=== PATIENT | male | born 1950 | race Caucasian/White ===

== ENCOUNTER → 2016-03-31 | Outpatient (CLI) | payer OTHER ==
[~2016-03-31] MED LIST: ALBUAER INH; ALBUAER2 INH; AZEL0.056 NAE; CHOL4POW3 PO; CHOL4POW6 PO; CPR500HP PO; LACT1CAP6 PO; LDDP5 TD; LEVO500T19 PO; MONT1TAB3 PO; NXM/40 PO; PSYL48.59 PO; PSYL55.43 PO; SLSS TOP; SYMIN/8045 INH; TRIA1SPR2 NAE; TRIA1SPR4 NAE; VNTHFA/IN INH
[2016-03-31 18:36] LABS: ALT/SGPT 40 U/L (12-78); AST/SGOT 30 U/L (15-37); BLOOD UREA NITROGEN 13 mg/dl (7-18); BUN/CREATININE RATIO 9.3 (10-20); CALCIUM 9.1 mg/dl (8.5-10.1); CARBON DIOXIDE 27 mmol/L (21-32); CHLORIDE 104 mmol/L (98-107); GLUCOSE 88 mg/dl (70-99); POTASSIUM 4.1 mmol/L (3.5-5.1); SODIUM 139 mmol/L (136-145)
[2016-03-31 18:39] LABS: ALB/GLOB RATIO 1.1 (0.9-2); ALKALINE PHOSPHATASE 79 U/L (45-117)
== END | disposition home or self-care (01) ==
LOC: C.LABSPEC 10:54
PROVIDERS: ATTEND Family Medicine
DX: M54.10 Radiculopathy, site unspecified (principal)

== ENCOUNTER 2016-04-18 10:30 | Observation (INO) | payer OTHER ==
[~2016-04-18] VITALS: Ht 170.2 cm; Wt 114.9 kg
[~2016-04-18 10:30] MED LIST changes: -ALBUAER INH; -AZEL0.056 NAE; -CHOL4POW3 PO; -CPR500HP PO; -LDDP5 TD; -LEVO500T19 PO; -MONT1TAB3 PO; -PSYL48.59 PO; -SLSS TOP; -SYMIN/8045 INH; -TRIA1SPR4 NAE; -VNTHFA/IN INH
[2016-04-18] MEDS ORDERED: NITROGLYCERIN OINT 2% 1GM PACKET EXT STA (10:51)
[2016-04-18] MEDS ORDERED: OPTIRAY 320 IV PRN (11:15)
--- NOTE | 2016-04-18 11:23 | DIAGNOSTIC IMAGING REPORT ---
CHEST ONE VIEW PORTABLE CLINICAL HISTORY: Atypical chest pain COMPARISON STUDY: 06/27/2015 FINDINGS: The cardiac and mediastinal contours are normal. There is no evidence of focal pulmonary consolidation. There is no evidence of failure. No pleural effusions are visualized.[ IMPRESSION: No active disease in the chest. Electronically signed by: João Patino M.D. 04/18/2016 11:21 AM Dictated Date/Time: 04/18/2016 11:21 AM
[2016-04-18 13:07] LABS: HEMATOCRIT 43.6 % (42-52); MEAN CELL VOLUME 95.8 fL (80-100); MEAN CORPUSCULAR HEMOGLOBIN 32.7 pg (25-34); MEAN CORPUSCULAR HGB CONC 34.2 g/dl (32-36); MEAN PLATELET VOLUME 9.6 fL (7.4-10.4); PLATELET COUNT 256 K/uL (130-400); RED BLOOD COUNT 4.55 M/uL (4.7-6.1); WHITE BLOOD COUNT 8.19 K/uL (4.8-10.8)
--- NOTE | 2016-04-18 13:15 | DIAGNOSTIC IMAGING REPORT ---
CHEST CTA for PULMONARY ARTERIES CT DOSE: 618.60 mGycm HISTORY: Atypical chest pain. TECHNIQUE: Multiaxial CT images of the chest were performed following the intravenous administration of contrast to evaluate the pulmonary arteries. Maximal intensity projection images were also obtained. COMPARISON STUDY: Chest 04/18/2016. Abdomen and pelvis CT 04/25/2015. FINDINGS: Normal caliber thoracic aorta with no evidence for dissection. Tiny hiatus hernia. No pleural or pericardial effusions. No filling defects within the pulmonary arteries to suggest pulmonary embolus. No mediastinal or hilar lymphadenopathy. Fatty changes within the liver. Cholecystectomy. The visualized spleen and adrenal glands are unremarkable. Lower cervical spinal fusion hardware. No pneumothorax. Stable 4 mm nodule within the right lower lobe. There are 2 adjacent nodular densities within the right minor fissure which measure up to 4 mm. These are likely benign. The right lung nodules are stable dating back to a 2013 examination. Therefore considered to be benign. No focal lung consolidations. IMPRESSION: No evidence for pulmonary embolus. Electronically signed by: Darryl Bailey M.D. 04/18/2016 1:14 PM Dictated Date/Time: 04/18/2016 1:04 PM
[2016-04-18 13:24] LABS: ALT/SGPT 40 U/L (12-78); AST/SGOT 29 U/L (15-37); BLOOD UREA NITROGEN 19 mg/dl (7-18); BUN/CREATININE RATIO 14.4 (10-20); CALCIUM 8.3 mg/dl (8.5-10.1); CARBON DIOXIDE 25 mmol/L (21-32); CHLORIDE 106 mmol/L (98-107); GLUCOSE 120 mg/dl (70-99); POTASSIUM 4.1 mmol/L (3.5-5.1); SODIUM 140 mmol/L (136-145)
[2016-04-18 13:27] LABS: PARTIAL THROMBOPLASTIN RATIO 1.1; PROTHROMBIN TIME (PATIENT) 11.2 SECONDS (9.0-12.0)
[2016-04-18 13:29] LABS: ALKALINE PHOSPHATASE 73 U/L (45-117); CKMB/CK RATIO 2.8 (0-3.0)
--- NOTE | 2016-04-18 15:02 | History and Physical ---
History & Physical Date & Time of Service: Apr 18, 2016 at 14:51 Chief Complaint: Chest Pain Primary Care Physician: Kd Andres M.D. ([place]) History of Present Illness Source: patient, family, hospital records This patient is a pleasant 66-year-old male that presents the emergency department complaining of persistent bandlike chest pain radiating down his arms that has been going on for approximately 1 month. The patient notes that he was hunting in January. 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 He cannot figure out any exacerbating or alleviating factors. It does not seem to be worse with movement or exertion. He does not feel short of breath, however the notes that he does appear to be winded. He denies any pleuritic-type pain-no pain with a deep breath. Denies any nausea or diaphoresis. He did have an episode of lightheadedness that was short-lived the other day. The patient has seen his primary care physician, orthopedic surgeon and GI doctor for this problem. He had an MRI of his back and an endoscopy performed. Neither of which showed any significant abnormalities. The patient denies any history of coronary disease. He had a stress test that was normal many years back. Past Medical/Surgical History Medical Problems: (1) Asthma Status: Chronic (2) Prostatitis Status: Chronic Status post esophageal dilation many years ago Diverticulitis status post partial colectomy, colostomy with reversal in 2013 History of brain aneurysm Cervical stenosis with bulge disc Surgical Problems: (1) Hx of cholecystectomy Status: Resolved (2) Hx of ileostomy Status: Resolved Status post cervical fusion Family History Cancer Gallbladder disease Hypertension Kidney disease Kidney stones Social History Smoking Status: Former Smoker (smoked about 1 pack of cigarettes per day approximately 40 years ago) Alcohol Use: none Drug Use: none Marital Status: Housing status: lives with significant other Occupational Status: retired Multi-Drug Resistant Organisms History of MDRO: No Allergies Coded Allergies: Aspirin (Verified Allergy, Unknown, UNKNOWN, 04/18/16) Hydrocodone (Verified Adverse Reaction, Mild, N/V, 04/18/16) Home Medications Scheduled Cholestyramine Powder (Questran Powder Light), 1 DOSE PO BID Esomeprazole Magnesium (Nexium), 40 MG PO QAM Lactobacillus (Probiotic), 1 CAP PO DAILY Psyllium (Metamucil Powder), 1 PACK PO DAILY Triamcinolone Acetonide (Nasal (Nasacort-Aq Nasal Inh), 1 SPRAY BABAR BID Scheduled PRN Albuterol (Ventolin), 2 PUFFS INH QID PRN for Shortness of Breath Review of Systems 10 system review performed and negative unless noted in HPI or below Physical Exam Vital Signs Date Time Temp Pulse Resp B/P Pulse Ox O2 Delivery O2 Flow Rate FiO2 04/18/16 12:53 82 18 142/73 93 Room Air 04/18/16 11:06 94 Room Air 04/18/16 10:50 81 04/18/16 10:36 36.6 86 20 185/77 93 Room Air 04/18/16 10:36 93 Room Air General Appearance: no apparent distress Head: normocephalic Eyes: EOMI Neck: no JVD Respiratory/Chest: chest non-tender Cardiovascular: regular rate, rhythm Abdomen/GI: normal bowel sounds, non tender, soft Back: + pertinent finding (no tenderness to palpation noted over the spinous processes throughout the spine. No tenderness over the thorax.) Extremities/Musculoskelatal: no calf tenderness, no pedal edema Neurologic/Psych: no motor/sensory deficits, oriented x 3 Skin: warm/dry Diagnostics Laboratory Results Results Past 24 Hours Test 04/18/16 13:00 Range/Units White Blood Count 8.19 4.8-10.8 K/uL Red Blood Count 4.55 4.7-6.1 M/uL Hemoglobin 14.9 14.0-18.0 g/dL Hematocrit 43.6 42-52 % Mean Corpuscular Volume 95.8 80-100 fL Mean Corpuscular Hemoglobin 32.7 25-34 pg Mean Corpuscular Hemoglobin Concent 34.2 32-36 g/dl RDW Standard Deviation 50.2 36.4-46.3 fL RDW Coefficient of Variation 14.4 11.5-14.5 % Platelet Count 256 130-400 K/uL Mean Platelet Volume 9.6 7.4-10.4 fL Nucleated RBC Absolute Count (auto) 0.02 0-0 K/uL Nucleated Red Blood Cells % 0.3 % Prothrombin Time 11.2 9.0-12.0 SECONDS Prothromb Time International Ratio 1.0 0.9-1.1 Activated Partial Thromboplast Time 27.3 21.0-31.0 SECONDS Partial Thromboplastin Ratio 1.1 Sodium Level 140 136-145 mmol/L Potassium Level 4.1 3.5-5.1 mmol/L Chloride Level 106 98-107 mmol/L Carbon Dioxide Level 25 21-32 mmol/L Anion Gap 9.0 3-11 mmol/L Blood Urea Nitrogen 19 7-18 mg/dl Creatinine 1.30 0.60-1.40 mg/dl Est Creatinine Clear Calc Drug Dose 69.7 ml/min Estimated GFR () 66.4 Estimated GFR (Non- 57.3 BUN/Creatinine Ratio 14.4 10-20 Random Glucose 120 70-99 mg/dl Calcium Level 8.3 8.5-10.1 mg/dl Total Bilirubin 0.3 0.2-1 mg/dl Aspartate Amino Transf (AST/SGOT) 29 15-37 U/L Alanine Aminotransferase (ALT/SGPT) 40 12-78 U/L Alkaline Phosphatase 73 45-117 U/L Total Creatine Kinase 54 39-308 U/L Creatine Kinase MB 1.5 0.5-3.6 ng/ml Creatine Kinase MB Ratio 2.8 0-3.0 Troponin I < 0.015 0-0.045 ng/ml Total Protein 6.9 6.4-8.2 gm/dl Albumin 3.4 3.4-5.0 gm/dl Globulin 3.5 2.5-4.0 gm/dl Albumin/Globulin Ratio 1.0 0.9-2 Lipase 82 73-393 U/L Diagnostic Radiology Patient: JOSE OVERTON Address1: [address] [place] [address] Rec: [id number] [facility] [id number] Zip: [place] [address] Date: 1950 Sex: M Room/Bed: Ref Phy: Kd Andrse M.D. ([place]OTIE) SC: QUINN Att Phy: Report #: [id number] Valerie Phy: Kd Andres M.D. (TOOTIE) Test: CXPEA Admit Phy: Tape Recording Machine Operator: NAZ Interpreting Phy: Darryl Bailey MD Diagnosis: CHEST PAIN Ordering Phy: Luisito Fry M.D. Service Date: 04/18/16 Admit Date: 04/18/16 MNE: [id number] CONF: DICTATED BY: Darryl Bailey M.D.]] CC: Kd Andres M.D. ([place]OTIE) Luisito Fry M.D. Endcc: [~ rep ct add3]] CHEST CTA for PULMONARY ARTERIES CT DOSE: 618.60 mGycm HISTORY: Atypical chest pain. TECHNIQUE: Multiaxial CT images of the chest were performed following the intravenous administration of contrast to evaluate the pulmonary arteries. Maximal intensity projection images were also obtained. COMPARISON STUDY: Chest 04/18/2016. Abdomen and pelvis CT 04/25/2015. FINDINGS: Normal caliber thoracic aorta with no evidence for dissection. Tiny hiatus hernia. No pleural or pericardial effusions. No filling defects within the pulmonary arteries to suggest pulmonary embolus. No mediastinal or hilar lymphadenopathy. Fatty changes within the liver. Cholecystectomy. The visualized spleen and adrenal glands are unremarkable. Lower cervical spinal fusion hardware. No pneumothorax. Stable 4 mm nodule within the right lower lobe. There are 2 adjacent nodular densities within the right minor fissure which measure up to 4 mm. These are likely benign. The right lung nodules are stable dating back to a 2014 examination. Therefore considered to be benign. No focal lung consolidations. IMPRESSION: No evidence for pulmonary embolus. Electronically signed by: Darryl Bailey M.D. 04/18/2016 1:14 PM Dictated Date/Time: 04/18/2016 1:04 PM The status of this report is Signed. Draft = Not yet reviewed or approved by Radiologist. Signed = Reviewed and approved by Radiologist. <AttendingPhy></AttendingPhy> <FamilyPhy>Kd Andres M.D. ([place]IE)</FamilyPhy > <PrimaryPhy>Kd Andres M.D. ([place]IE)</PrimaryPhy> <UnitNumber>[id number]</ UnitNumber> <VisitNumber>[id number]</VisitNumber> <PatientName>JOSE OVERTON </PatientName> <DateOfBirth>1950</DateOfBirth> [facility] <ServiceDate>04/18/16</ServiceDate> <MNE>ESINDI</MNE> <OrderingPhy>Luisito Fry M.D.</OrderingPhy> <OrderingPhyMNE>f rep ord dr coronado</OrderingPhyMNE> < DictatingPhyMNE>f rep dict dr coronado</DictatingPhyMNE> <CCListMNE>f rep ct mne</ CCListMNE> <AdmittingPhyMNE>f pt admit dr coronado</AdmittingPhyMNE> <AttendingPhyMNE >f pt attend dr coronado</AttendingPhyMNE> <ConsultingPhyMNE>f pt consult dr coronado</ConsultingPhyMNE> <FamilyPhyMNE>f pt fam dr coronado</FamilyPhyMNE> <OtherPhyMNE>f pt other dr coronado</Othe EKG Normal sinus rhythm 77 bpm Left anterior fascicular block noted Q waves in the inferior leads Impression Assessment and Plan 66-year-old male presents to emergency department with a bandlike chest pain persisted over the last month. Radiation down the arms. Sounds more musculoskeletal as opposed to cardiac chest pain -observe in telemetry -follow cardiac enzymes every 8 hr x 2 -daily EKG -EKG with worsening pain -Patient cannot take aspirin due to GI issues -continue nitroglycerin paste -check LFTs, lipase-r/o GI cause Asthma-no flare -prn duonebs will be available hx esophageal dilation-could be a factor of pain today -PPI DVT prophylaxis -Lovenox 40 mg subQ daily -TEDS, SCDs CODE STATUS -LEVEL I FULL CODE Level of Care Telemetry Resuscitation Status FULL RESUSCITATION VTE Prophylaxis VTE Risk Assessment Done? Y/N: Yes Risk Level: Low Given or contraindicated: Enoxaparin (Lovenox)SQ, T.E.D. Stockings, SCD's Note Attending note: Patient was seen and examined in the ED. Case was discussed with Shell Bryant PA-C. I agree with her assessment and plan as written above. Additionally, would recommend checking MRI T spine if stress negative. He already had an MRI C-spine. I do not have access to the report at this time, but he tells me that his Orthopedic surgeon reviewed the films and found cause for his symptoms on that study. Julio Wooten MD
[2016-04-18] MEDS ORDERED: ONDANSETRON INJ 2 MG/ML 2 ML VIAL IV PRN (15:15)
[2016-04-18] MEDS ORDERED: ACETAMINOPHEN 325 MG TAB PO PRN (15:15)
[2016-04-18] MEDS ORDERED: IV FLUIDS COMPLETED PRN (15:45)
[2016-04-18] MEDS ORDERED: PERFLUTREN LIPID MICROSPHERE (DEFINITY) IV ONE (16:30)
--- NOTE | 2016-04-18 17:05 | EMERGENCY ROOM VISIT NOTE ---
History Report prepared by Mynor: Herman Nino Under the Supervision of: Dr. Luisito Fry M.D. First contact with patient: 10:48 Chief Complaint: CHEST PAIN Stated Complaint: CHEST PAIN Nursing Triage Summary: Chest pain that radiates through to the back and pain in the left neck and jaw. States he has had this pain for a while, that his fmd put him on prednisone, no ekg done at that time. pain worse today when he awoke at approx 630 am did not take anything for the pain. allergic to aspirin. History of Present Illness The patient is a 66 year old male who presents to the Emergency Room with complaints of persistent chest pain for the past 1.5 months. The pain radiates to his back, and yesterday radiated to his left jaw/neck. The pain is rated 5/ 10 in severity. The patient denies shortness of breath, however his thinks he has appeared more short of breath. The patient felt more nauseated today. He saw his PCP two weeks ago for the pain he has been experiencing. He has been taking Prednisone 40 mg for several days, which hasn't helped. The patient had an MRI of the neck since he he does have a history of cervical disc surgery, the study was basically negative for a cause for his pain. The patient also had a negative endoscopy since the onset of his pain. The patient does not have a personal or family history of heart disease. He is a former smoker since 25-30 years ago. Source of History: patient Onset: 1.5 months ago Position: chest Symptom Intensity: 5/10 Timing: other (persistent) Associated Symptoms: + back pain, + nausea, + neck pain, No SOB Review of Systems See HPI for pertinent positives & negatives. A total of 10 systems reviewed and were otherwise negative. Past Medical & Surgical Medical Problems: (1) Asthma (2) Chest pain (3) DDD (degenerative disc disease), cervical (4) Prostatitis Surgical Problems: (1) Hx of cholecystectomy (2) Hx of ileostomy Family History Cancer Gallbladder disease Hypertension Kidney disease Kidney stones Social History Smoking Status: Former Smoker Alcohol Use: none Marital Status: Housing Status: lives with significant other Occupation Status: retired Current/Historical Medications Scheduled Cholestyramine Powder (Questran Powder Light), 1 DOSE PO BID Esomeprazole Magnesium (Nexium), 40 MG PO QAM Lactobacillus (Probiotic), 1 CAP PO DAILY Psyllium (Metamucil Powder), 1 PACK PO DAILY Triamcinolone Acetonide (Nasal (Nasacort-Aq Nasal Inh), 1 SPRAY BABAR BID Scheduled PRN Albuterol (Ventolin), 2 PUFFS INH QID PRN for Shortness of Breath Allergies Coded Allergies: Aspirin (Verified Allergy, Unknown, UNKNOWN, 04/18/16) Hydrocodone (Verified Adverse Reaction, Mild, N/V, 04/18/16) Physical Exam Vital Signs Date Time Temp Pulse Resp B/P Pulse Ox O2 Delivery O2 Flow Rate FiO2 04/18/16 15:00 69 20 105/57 93 Room Air 04/18/16 12:53 82 18 142/73 93 Room Air 04/18/16 11:06 94 Room Air 04/18/16 10:50 81 04/18/16 10:36 36.6 86 20 185/77 93 Room Air 04/18/16 10:36 93 Room Air Physical Exam GENERAL: Patient is in no acute distress. HEENT: No acute trauma, normocephalic atraumatic, mucous membranes moist, no nasal congestion, no scleral icterus. NECK: No stridor, no adenopathy, no meningismus, trachea is midline. LUNGS: Clear to auscultation bilaterally, no wheeze, no rhonchi, breath sounds equal. HEART: Without murmurs gallops or rubs, regular rate and rhythm. ABDOMEN: Soft, nontender, bowel sounds positive, no hernias, no peritonitis. EXTREMITIES: No cyanosis or edema, full range of motion of all the joints without pain or difficulty, no signs for acute trauma. NEUROLOGIC: Oriented x 3, no acute motor or sensory deficits, no focal weakness. SKIN: No rash, no jaundice, no diaphoresis. Medical Decision & Procedures ER Provider Diagnostic Interpretation: X ray results and stated below per my interpretation and radiologist interpretation. Other radiology results and stated below per my review and radiologist interpretation: CHEST ONE VIEW PORTABLE CLINICAL HISTORY: Atypical chest pain COMPARISON STUDY: 06/27/2015 FINDINGS: The cardiac and mediastinal contours are normal. There is no evidence of focal pulmonary consolidation. There is no evidence of failure. No pleural effusions are visualized.[ IMPRESSION: No active disease in the chest. Electronically signed by: João Patino M.D. 04/18/2016 11:21 AM Dictated Date/Time: 04/18/2016 11:21 AM CHEST CTA for PULMONARY ARTERIES CT DOSE: 618.60 mGycm HISTORY: Atypical chest pain. TECHNIQUE: Multiaxial CT images of the chest were performed following the intravenous administration of contrast to evaluate the pulmonary arteries. Maximal intensity projection images were also obtained. COMPARISON STUDY: Chest 04/18/2016. Abdomen and pelvis CT 04/25/2015. FINDINGS: Normal caliber thoracic aorta with no evidence for dissection. Tiny hiatus hernia. No pleural or pericardial effusions. No filling defects within the pulmonary arteries to suggest pulmonary embolus. No mediastinal or hilar lymphadenopathy. Fatty changes within the liver. Cholecystectomy. The visualized spleen and adrenal glands are unremarkable. Lower cervical spinal fusion hardware. No pneumothorax. Stable 4 mm nodule within the right lower lobe. There are 2 adjacent nodular densities within the right minor fissure which measure up to 4 mm. These are likely benign. The right lung nodules are stable dating back to a 2013 examination. Therefore considered to be benign. No focal lung consolidations. IMPRESSION: No evidence for pulmonary embolus. Electronically signed by: Darryl Bailey M.D. 04/18/2016 1:14 PM Dictated Date/Time: 04/18/2016 1:04 PM Laboratory Results 04/18/16 13:00 04/18/16 13:00 Test 04/18/16 13:00 Red Blood Count 4.55 M/uL (4.7-6.1) Mean Corpuscular Volume 95.8 fL (80-100) Mean Corpuscular Hemoglobin 32.7 pg (25-34) Mean Corpuscular Hemoglobin Concent 34.2 g/dl (32-36) RDW Standard Deviation 50.2 fL (36.4-46.3) RDW Coefficient of Variation 14.4 % (11.5-14.5) Mean Platelet Volume 9.6 fL (7.4-10.4) Nucleated RBC Absolute Count (auto) 0.02 K/uL (0-0) Nucleated Red Blood Cells % 0.3 % Prothrombin Time 11.2 SECONDS (9.0-12.0) Prothromb Time International Ratio 1.0 (0.9-1.1) Activated Partial Thromboplast Time 27.3 SECONDS (21.0-31.0) Partial Thromboplastin Ratio 1.1 Anion Gap 9.0 mmol/L (3-11) Est Creatinine Clear Calc Drug Dose 69.7 ml/min Estimated GFR () 66.4 Estimated GFR (Non- 57.3 BUN/Creatinine Ratio 14.4 (10-20) Calcium Level 8.3 mg/dl (8.5-10.1) Total Bilirubin 0.3 mg/dl (0.2-1) Aspartate Amino Transf (AST/SGOT) 29 U/L (15-37) Alanine Aminotransferase (ALT/SGPT) 40 U/L (12-78) Alkaline Phosphatase 73 U/L (45-117) Total Creatine Kinase 54 U/L (39-308) Creatine Kinase MB 1.5 ng/ml (0.5-3.6) Creatine Kinase MB Ratio 2.8 (0-3.0) Troponin I < 0.015 ng/ml (0-0.045) Total Protein 6.9 gm/dl (6.4-8.2) Albumin 3.4 gm/dl (3.4-5.0) Globulin 3.5 gm/dl (2.5-4.0) Albumin/Globulin Ratio 1.0 (0.9-2) Lipase 82 U/L (73-393) Laboratory results reviewed by me. Medications Administered Medications (Trade) Dose Ordered Sig/Magdy Route Start Time Stop Time Status Last Admin Dose Admin Nitroglycerin (Nitroglycerin 2% Oint) 1 inch NOW STAT EXT 04/18/16 10:51 04/18/16 10:58 DC 04/18/16 11:10 1 INCH ECG Indication: chest pain Rate (beats per minute): 77 Rhythm: normal sinus Findings: no acute ischemic change, no ectopy ED Course 1050: The patient was evaluated in room C9. A complete history and physical exam was performed. 1051: Nitroglycerin 2% 1 inch EXT. 1356: The patient is feeling better after Nitroglycerin. 1412: [facility] The patient will be evaluated. Medical Decision Differential diagnosis includes cardiac ischemia, aortic dissection, PE, reflux , esophageal spasm, pancreatitis, musculoskeletal pain, gastritis. There is no leukocytosis or concerning anemia. No significant electrolyte abnormality, kidney failure, hepatitis, pancreatitis. There is no coagulopathy. Chest x-ray does not show pneumonia or pneumothorax. There is no mediastinal widening. EKG shows a normal sinus rhythm without any acute ischemia. Cardiac enzyme testing 1 is not elevated. Chest CT shows no PE, no evidence for aortic dissection. The patient was given nitroglycerin paste, he feels improved. I do think the patient deserves further cardiac workup. Admission/observation is warranted. I talked to the patient, I did consult with case management. The on-call hospitalist was consulted. Consults Time Called: 1405 Consulting Physician: Shell Bryant [facility]-C, [facility] Returned Call: [phone]: Spoke with Shell Bryant PA-C, [facility]. The patient will be evaluated. Impression Primary Impression: Precordial chest pain Scribe Attestation The scribe's documentation has been prepared under my direction and personally reviewed by me in its entirety. I confirm that the note above accurately reflects all work, treatment, procedures, and medical decision making performed by me. Departure Information Dispostion Being Evaluated By Hospitalist Referrals Kd Andres M.D.[facility] ([facility]P) Patient Instructions My [facility]
--- NOTE | 2016-04-18 17:41 | EXERCISE STRESS ECHO ---
*NOTICE TO RECEIVING LIBERTARIAN AGENCY This information is strictly Confidential and protected under [place] law. [place] law prohibits you from making any further disclosure of this information unless further disclosure is expressly permitted by the written consent of the person to whom it pertains or is authorized by law. A general authorization for the release of medical or other information is not sufficient for this purpose. Hospital accepts no responsibility if the information is made available to any other person, INCLUDING THE PATIENT. Interpretation Summary * Name: JOSE OVERTON Study Date: 04/18/2016 03:25 PM BP: 131/75 mmHg * Patient [facility]: [facility] HR: 69 * : 1950 (M/d/yyyy) Gender: Male Height: 68 in * Age: 66 yrs Ethnicity: [place] Weight: 253 lb * Ordering Physician: Julio Wooten * Referring Physician: Self, Referred * Performed By: Danae Nick RCS * * Reason For Study: CHEST PAIN * BSA: 2.3 m2 * This was a normal stress echocardiogram. * The left ventricular ejection fraction increases normally with stress. The left ventricular end-systolic cavity size reduces post-stress (normal response). The left ventricular wall motion with stress is normal. * The stress echocardiogram is negative for inducible ischemia. * The stress ECG response was normal * Exercise capacity is average. * RESTING STUDY: Normal left ventricular cavity size, myocardial thickness, wall motion, and systolic function. * Stress wall motion was normal. Procedure Details * ECHOEX, CPT #[id number] Left Ventricle * The left ventricle is normal in size. * There is normal left ventricular wall thickness. * Left ventricular systolic function is normal. * Ejection Fraction = 55-60%. * Resting wall motion: Normal. Stress wall motion: Appropriate increase in Left ventricular systolic function and decrease in cavity size. No stress induced segmental wall motion abnormalities. * The left ventricular ejection fraction increases normally with stress. The left ventricular end-systolic cavity size reduces post-stress (normal response). The left ventricular wall motion with stress is normal. * No regional wall motion abnormalities noted. Stress Parameters * Normal sinus rhythm, PVC, left axis deviation, left anterior fasicular block, incomplete RBBB, non specific T wave changes. * The stress ECG response was normal * Stress ECG: No ST changes. No arrhythmias. * The stress portion of this study was personally supervised by the undersigned interpreting physician. * Rest heart rate was '69' BPM. * Rest blood pressure was '131/75' * Maximum heart rate achieved was 142 bpm. * Maximum heart rate was 91 % of maximum age-predicted heart rate. * Maximum blood pressure was '165/66' * Total exercise time was '06:00' * Maximum exercise MET level achieved was '7.00' METS * Maximum treadmill speed was '2.50' miles per hour. * Maximum treadmill elevation was '12.00'% grade. * Exercise was terminated due to 'fatigue and dyspnea.' * No chest pain or back pain during or following exercise. * Normal blood pressure response to exercise.
[2016-04-18 17:50] VITALS: BP 120/74; PULSE 62; TEMP 36.6; O2SAT 91; Ht 170.2 cm; Wt 114.9 kg
[2016-04-18] MEDS: NITROGLYCERIN OINT 2% 1GM PACKET EXT SCH ×2 (18:20→23:41)
[2016-04-18] MEDS ORDERED: ALBUTEROL HFA 8 GM INHALER INH PRN (19:00)
[2016-04-18 19:18] VITALS: BP 111/67; PULSE 69; TEMP 36.4; O2SAT 93
[2016-04-18 20:00] VITALS: O2SAT 91
[2016-04-18] MEDS: TRIAMCINOLONE ACET NASAL SPRAY 10.8ML BTL NAE SCH (20:51)
[2016-04-18] MEDS: CHOLESTYRAMINE LIGHT 4 GM PKT PO SCH (20:57)
[2016-04-18] MEDS ORDERED: ENOXAPARIN 40 MG/0.4 ML SYR SC SCH (21:00)
[2016-04-18 22:13] LABS: CKMB/CK RATIO 1.5 (0-3.0)
[2016-04-18 23:34] VITALS: BP 87/41; PULSE 69; TEMP 36.5; O2SAT 91
[2016-04-19] VITALS (11 sets, daily range): BP systolic 91–128; BP diastolic 52–78; PULSE 65–76; TEMP 36.6–36.7; O2SAT 91–95
[2016-04-19] MEDS ORDERED: MoRPHine SULFATE 2 MG/ML CARP IV PRN (04:30)
[2016-04-19] MEDS: NITROGLYCERIN OINT 2% 1GM PACKET EXT SCH (06:32)
[2016-04-19] MEDS ORDERED: PANTOprazole SOD 40 MG TAB PO SCH (09:00)
[2016-04-19] MEDS ORDERED: LACTOBACILLUS ACIDOPHILUS (FLORANEX) TAB PO SCH (09:00)
[2016-04-19] MEDS ORDERED: PSYLLIUM 58.6% PWD PACK S\\F PO SCH (09:00)
[2016-04-19] MEDS ORDERED: LIDODERM (LIDOCAINE) PATCH 5% TD SCH (09:00)
[2016-04-19] MEDS: TRIAMCINOLONE ACET NASAL SPRAY 10.8ML BTL NAE SCH (09:44)
[2016-04-19] MEDS: CHOLESTYRAMINE LIGHT 4 GM PKT PO SCH (09:45)
[2016-04-19] MEDS ORDERED: LDDP5 TD (11:00)
--- NOTE | 2016-04-19 11:04 | Discharge Instructions ---
Discharge Instructions Admission Reason for Admission: Chest Pain Discharge Discharge Diagnosis / Problem: chest/back pain Discharge Goals Goal(s): Decrease discomfort, Improve function, Diagnostic testing Activity Recommendations Activity Limitations: as noted below Exercise/Sports Limitations: as tolerated . Instructions / Follow-Up Instructions / Follow-Up You have been treated in the hospital for chest and back pain. A stress test was performed. It was negative. It does not appear this pain is coming from your heart. It is most likely musculoskeletal in nature. Please follow-up with your primary care physician within one week You have been prescribed a lidocaine patch that you can apply to your back daily. If insurance does not cover this, a similar product can be found over- the-counter made by [employer] and also [employer] Return to the emergency department if you have any of the following symptoms: -Fever of 103F or greater -Persistent vomiting - Persistent diarrhea -Lethargy -Shortness of breath -Worsening pain Current Hospital Diet Patient's current hospital diet: Regular Diet Discharge Diet Recommended Diet: Regular Diet Procedures Procedures Performed: Stress test-negative CT of the chest-negative Pending Studies Studies pending at discharge: no Medical Emergencies . Who to Call and When: Medical Emergencies: If at any time you feel your situation is an emergency, please call 911 immediately. . Non-Emergent Contact Non-Emergency issues call your: Primary Care Provider . . "Provider Documentation" section prepared by Shell Bryant. VTE Core Measure Inpt VTE Proph given/why not?: Enoxaparin (Lovenox)SQ, T.E.Evelina. Stockings, SCD's
--- NOTE | 2016-04-19 11:15 | Discharge Summary ---
Discharge Summary Admission Date: Apr 18, 2016 at 15:05 Discharge Date: Apr 19, 2016 Discharge Disposition: Home Principal Diagnosis: chest/back pain Problems/Secondary Diagnoses: GERD Procedures: CT chest-negative Stress echo-negative MRI thoracic spine (Shell Bryant PA-C) Medication Reconciliation New Medications: Lidocaine (Lidocaine) 1 Patch Tdsy 1 PATCH TD QAM for 15 Days, #15 Continued Medications: Albuterol (Ventolin) Inh 2 PUFFS INH QID PRN for Shortness of Breath, INHALER Cholestyramine Powder (Questran Powder Light) Powd 1 DOSE PO BID Esomeprazole Magnesium (Nexium) 40 Mg Capcr 40 MG PO QAM Lactobacillus (Probiotic) 1 Cap Cap 1 CAP PO DAILY Psyllium (Metamucil Powder) Powd 1 PACK PO DAILY, PACK Triamcinolone Acetonide (Nasal (Nasacort-Aq Nasal Inh) 55 Mcg/ Spr 1 SPRAY BABAR BID, BTL Referrals At Discharge Follow up Referrals: Physician Referral - Within 1 Week with Kd Andres M.D. ([facility]) Discharge Exam Patient reports that the pain in his back wrapping around to his chest is better today. It has been better since he was admitted. He denies any shortness of breath. No dizziness or heart palpitations. He did note a mild headache last night. This resolved once the nitroglycerin was taken off. Review of Systems: Constitutional: No fever Respiratory: No cough, No shortness of breath Abdomen: No nausea Neurologic: No weakness Endocrine: No fatigue Physical Exam: General Appearance: no apparent distress Eyes: EOMI Neck: no JVD Respiratory/Chest: lungs clear, + pertinent finding (no tenderness to palpation noted over the spinous processes. Mild point tenderness noted to the left lateral chest in line with the armpit at approximately the fifth rib level) Cardiovascular: regular rate, rhythm Abdomen / GI: normal bowel sounds, non tender, soft Extremities: no calf tenderness, no pedal edema Neurologic/Psychiatric: no motor/sensory deficits, oriented x 3 (Shell Bryant PA-C) Hospital Course 66-year-old male presents to emergency department with a bandlike chest pain persisted over the last month. Radiation down the arms. Thought to be likely musculoskeletal, however the patient's symptoms were improved in the emergency department when nitroglycerin was applied. For this reason, the patient was observed overnight for a rule out ACS -Observed overnight -Cardiac enzymes remained negative 3 -No EKG changes -Stress echo negative -CT of the chest was performed in the emergency department and negative for PE ? Pain musculoskeletal in nature-the patient has a history of a bulge disc in his cervical spine and underwent a fusion -An MRI of the thoracic spine was performed -The patient was given a lidocaine patch (he cannot take NSAIDs) -He will follow-up with his orthopedic doctor Asthma-no flare -prn duonebs will be available hx esophageal dilation -continue Nexium DVT prophylaxis -Lovenox 40 mg subQ daily -TEDS, SCDs CODE STATUS -LEVEL I FULL CODE Total Time Spent: Greater than 30 minutes This includes examination of the patient, discharge planning, medication reconciliation, and communication with other providers. (Shell Bryant PA-C) Patient was seen and examined. Case was discussed with Shell Bryant PA-C. I agree with her assessment and plan as written above. Patient's pain is likely musculoskeletal in nature. For outpatient follow up with his PCP and Ortho. (Julio Wooten MD) Discharge Instructions Please refer to the electronic Patient Visit Report (Discharge Instructions) for additional information. (Shell Bryant PA-C) Follow-Up PCP within one week Orthopedics within 1 month (Shell Bryant PA-C) Additional Copies To Kd Andres MD
--- NOTE | 2016-04-19 12:48 | DIAGNOSTIC IMAGING REPORT ---
THORACIC SPINE MRI WITH AND WITHOUT CONTRAST HISTORY: Pain thoracic back pain wrapping around to chest bilaterally TECHNIQUE: Multiplanar multisequence MRI of the thoracic spine was performed both before and after the intravenous administration of contrast. COMPARISON: None. FINDINGS: Mild degenerative disc change throughout the entire thoracic region. Vertebral body stature is unremarkable. Signal characteristics of the thoracic cord are unremarkable. Postcontrast images show no evidence for abnormal postcontrast enhancement. Transaxial images throughout the entire thoracic region are negative for disc herniation or spinal stenosis. IMPRESSION: Minimal to very mild degenerative intervertebral disc change. Otherwise negative study of the thoracic spine Electronically signed by: Scott Degroot M.D. 04/19/2016 12:47 PM Dictated Date/Time: 04/19/2016 12:45 PM
[2016-08-01] MEDS ORDERED: MONT1TAB3 PO (08:12)
[2016-08-05] MEDS ORDERED: CHOL4POW3 PO (12:37)
[2016-08-05] MEDS ORDERED: LEVO500T19 PO (12:37)
== END 2016-04-19 16:02 | disposition home or self-care (01) ==
LOC: ENRESERVDT → ENRESERVTM → C.EDB 10:33 → C.2T 15:05
PROVIDERS: ADMIT Hospitalist; ATTEND Hospitalist
DX: K21.9 Gastro-esophageal reflux disease without esophagitis (principal); J45.909 Unspecified asthma, uncomplicated; K44.9 Diaphragmatic hernia without obstruction or gangrene; R07.9 Chest pain, unspecified; R91.1 Solitary pulmonary nodule; Z87.891 Personal history of nicotine dependence

== ENCOUNTER → 2016-07-09 | Outpatient (CLI) | payer OTHER ==
[~2016-07-09] MED LIST changes: +ALBUAER INH; +AZEL0.056 NAE; +CHOL4POW3 PO; +CPR500HP PO; +LDDP5 TD; +LEVO500T19 PO; +MONT1TAB3 PO; +PSYL48.59 PO; +SLSS TOP; +SYMIN/8045 INH; +TRIA1SPR4 NAE; +VNTHFA/IN INH
--- NOTE | 2016-07-09 07:35 | DIAGNOSTIC IMAGING REPORT ---
FUSION CT SINUSES W/O CLINICAL HISTORY: Chronic sinusitis and eustachian tube dysfunction COMPARISON STUDY: No previous studies for comparison. FINDINGS: There are small left maxilla sinus polyp/retention cyst. There is a dependent polyp/air-fluid level within the right maxillary sinus. The sphenoid sinus is clear. The ethmoid sinuses are clear. The frontal sinuses clear. The mastoid air cells appear symmetrically aerated. The middle ear cavities appear symmetrically aerated. No orbital lesions are visualized. The ostiomeatal units are patent bilaterally. There is a left-sided Nikki cell. There is mild nasal septal deviation to the right. The ethmoidal notches are protected. The frontal ethmoidal recesses are patent. IMPRESSION: 1. Mild inflammatory changes within the maxillary sinuses 2. The ostiomeatal units are patent bilaterally Electronically signed by: João Patino M.D. 07/09/2016 7:33 AM Dictated Date/Time: 07/09/2016 7:28 AM
== END | disposition home or self-care (01) ==
LOC: C.CTS 07:05
DX: H69.83 Other specified disorders of Eustachian tube, bilateral (principal); J32.9 Chronic sinusitis, unspecified

== ENCOUNTER 2016-08-01 17:31 | Inpatient (IN) | payer OTHER ==
[~2016-08-01] VITALS: Ht 172.7 cm; Wt 114.8 kg
[~2016-08-01 17:31] MED LIST changes: -ALBUAER INH; -AZEL0.056 NAE; -CHOL4POW3 PO; -CPR500HP PO; -LEVO500T19 PO; -PSYL48.59 PO; -SLSS TOP; -SYMIN/8045 INH; -TRIA1SPR4 NAE; -VNTHFA/IN INH
--- NOTE | 2016-08-01 18:43 | EMERGENCY ROOM VISIT NOTE ---
History Report prepared by Mynor: Pema Kramer Under the Supervision of: Dr. Ab Lynn M.D. First contact with patient: 18:32 Chief Complaint: URINARY SYMPTOMS Stated Complaint: PROSTATE PAIN,FREQUENT URINATION Nursing Triage Summary: Patient states last night around midnight he started having to urinate frequently, he also has pain in prostate and rectum that began. Dr Andres prescribed Cipro for him. Pt states hx prostatitis, but it's been 2 years. Concerned because he has a fever. 102F at home. Tylenol last taken at 1430 History of Present Illness The patient is a 66 year old male who presents to the Emergency Room with complaints of worsening urinary symptoms beginning last night. The patient states that he is experiencing increased frequency and burning with urination. He notes that about every 15 minutes he has the urgency to urinate. The patient is also experiencing pain similar to previous episodes of prostatitis with this , including pain with bowel movements. He does note a history of prostatitis. He is experiencing a fever of 102 today. The patient did take Tylenol. He sent a urine sample to his PCP today. Urine dip was not infected and cultures were sent. The patient is currently on Cipro, he took 1 dosage this evening. Source of History: patient Onset: last night Position: other (global) Quality: other (urinary symptoms) Timing: worsening Associated Symptoms: + fevers Note: Patient is experiencing rectal and prostate pain. Review of Systems See HPI for pertinent positives & negatives. A total of 10 systems reviewed and were otherwise negative. Past Medical & Surgical Medical Problems: (1) Asthma (2) Chest pain (3) DDD (degenerative disc disease), cervical (4) Prostatitis (5) SIRS (systemic inflammatory response syndrome) Surgical Problems: (1) Hx of cholecystectomy (2) Hx of ileostomy Family History Cancer Gallbladder disease Hypertension Kidney disease Kidney stones Social History Smoking Status: Former Smoker Alcohol Use: none Drug Use: none Marital Status: Housing Status: lives with significant other Occupation Status: retired Current/Historical Medications Scheduled Albuterol Sulfate (Proventil Hfa), 2 PUFFS INH BID Budesonide/Formoterol Fumarate (Symbicort 80/4.5 Inhaler), 2 PUFFS INH BID Cholestyramine (Cholestyramine), 1 PKT PO BID Ciprofloxacin (Ciprofloxacin HCl), 1 TAB PO BID Esomeprazole Magnesium (Nexium), 40 MG PO DAILY Lactobacillus (Probiotic), 1 CAP PO DAILY Psyllium (Metamucil), 1 PKT PO DAILY Selenium Sulfide (Selsun), 1 APPLN TOP UD Triamcinolone Acetonide (Nasal (Nasacort Allergy 24Hr), 1 SPRAYS BABAR DAILY Scheduled PRN Azelastine HCl (Azelastine HCl), 2 SPRAYS BABAR DAILY PRN for Nasal Congestion Allergies Coded Allergies: Aspirin (Verified Allergy, Unknown, UNKNOWN, 04/18/16) Hydrocodone (Verified Adverse Reaction, Mild, N/V, 04/18/16) Physical Exam Vital Signs Date Time Temp Pulse Resp B/P Pulse Ox O2 Delivery O2 Flow Rate FiO2 08/01/16 21:15 90 18 139/67 96 Room Air 08/01/16 21:06 Room Air 08/01/16 19:18 94 18 158/75 96 Room Air 08/01/16 17:43 37.8 104 17 162/78 93 Room Air Physical Exam GENERAL: Patient is uncomfortable appearing, diaphoretic and in mild distress. HEENT: No acute trauma, normocephalic atraumatic, mucous membranes moist, no nasal congestion, no scleral icterus. NECK: No stridor, no adenopathy, no meningismus, trachea is midline. LUNGS: No dyspnea. Clear to auscultation and equal bilaterally. No wheeze, no rhonchi. HEART: Tachycardic rate and rhythm. No murmurs, rubs, gallops appreciated. ABDOMEN: Soft, nontender, bowel sounds positive, no masses appreciated, no peritonitis. BACK: No midline tenderness, no CVA tenderness EXTREMITIES: Normal motion all extremities, no cyanosis, no edema. NEUROLOGIC: Alert and oriented, no acute motor or sensory deficits, no focal weakness, cranial nerves grossly intact. SKIN: No rash, no jaundice, no diaphoresis. Medical Decision & Procedures Laboratory Results 08/01/16 19:05 Red Blood Count 4.83, Mean Corpuscular Volume 99.2, Mean Corpuscular Hemoglobin 34.0, Mean Corpuscular Hemoglobin Concent 34.2, Mean Platelet Volume 9.4, Neutrophils (%) (Auto) 82.6, Lymphocytes (%) (Auto) 6.5, Monocytes (%) (Auto) 9.8, Eosinophils (%) (Auto) 0.5, Basophils (%) (Auto) 0.2, Neutrophils # (Auto) 15.22, Lymphocytes # (Auto) 1.20, Monocytes # (Auto) 1.80, Eosinophils # (Auto) 0.10, Basophils # (Auto) 0.03 08/01/16 19:05 Test 08/01/16 19:05 08/01/16 19:10 08/01/16 19:13 White Blood Count 18.42 K/uL (4.8-10.8) Red Blood Count 4.83 M/uL (4.7-6.1) Hemoglobin 16.4 g/dL (14.0-18.0) Hematocrit 47.9 % (42-52) Mean Corpuscular Volume 99.2 fL (80-100) Mean Corpuscular Hemoglobin 34.0 pg (25-34) Mean Corpuscular Hemoglobin Concent 34.2 g/dl (32-36) Platelet Count 181 K/uL (130-400) Mean Platelet Volume 9.4 fL (7.4-10.4) Neutrophils (%) (Auto) 82.6 % Lymphocytes (%) (Auto) 6.5 % Monocytes (%) (Auto) 9.8 % Eosinophils (%) (Auto) 0.5 % Basophils (%) (Auto) 0.2 % Neutrophils # (Auto) 15.22 K/uL (1.4-6.5) Lymphocytes # (Auto) 1.20 K/uL (1.2-3.4) Monocytes # (Auto) 1.80 K/uL (0.11-0.59) Eosinophils # (Auto) 0.10 K/uL (0-0.5) Basophils # (Auto) 0.03 K/uL (0-0.2) RDW Standard Deviation 52.6 fL (36.4-46.3) RDW Coefficient of Variation 14.4 % (11.5-14.5) Immature Granulocyte % (Auto) 0.4 % Immature Granulocyte # (Auto) 0.07 K/uL (0.00-0.02) Anion Gap 8.0 mmol/L (3-11) Est Creatinine Clear Calc Drug Dose 60.6 ml/min Estimated GFR () 55.8 Estimated GFR (Non- 48.2 BUN/Creatinine Ratio 11.1 (10-20) Calcium Level 9.0 mg/dl (8.5-10.1) C-Reactive Protein 5.21 mg/dl (0-0.29) Urine Color YELLOW Urine Appearance CLEAR (CLEAR) Urine pH 7.5 (4.5-7.5) Urine Specific [place] 1.020 (1.000-1.030) Urine Protein NEG (NEG) Urine Glucose (UA) NEG (NEG) Urine Ketones NEG (NEG) Urine Occult Blood NEG (NEG) Urine Nitrite NEG (NEG) Urine Bilirubin NEG (NEG) Urine Urobilinogen NEG (NEG) Urine Leukocyte Esterase MODERATE (NEG) Urine WBC (Auto) 10-30 /hpf (0-5) Urine RBC (Auto) 0-4 /hpf (0-4) Urine Hyaline Casts (Auto) 5-10 /lpf (0-5) Urine Epithelial Cells (Auto) >30 /lpf (0-5) Urine Bacteria (Auto) NEG (NEG) Urine Renal Epithelial Cells /lpf (0-5) Bedside Lactic Acid Venous 1.24 mmol/L (0.90-1.70) Laboratory results as reviewed by me. Medications Administered Medications (Trade) Dose Ordered Sig/Magdy Route Start Time Stop Time Status Last Admin Dose Admin Sodium Chloride (Nss 1000ml) 2,000 ml @ 999 mls/hr Q2H1M STAT IV 08/01/16 19:36 08/01/16 21:36 DC 08/01/16 19:41 999 MLS/HR Piperacillin Sod/ Tazobactam Sod (Zosyn Iv) 4.5 gm NOW STAT IV 08/01/16 19:36 08/01/16 19:38 DC 08/01/16 19:41 4.5 GM ED Course 1836: The patient was evaluated in room A10. A complete history and physical exam was performed. 1935: Zosyn Iv 4.5 gm IV, Sodium Chloride 2,000 ml @ 999 mls/hr IV. 2005: The patient is feeling better after receiving fluids. 2030: Discussed the patient's case with Dr. Damion Cancino [facility]. The patient will be evaluated for further treatment and disposition. 2041: Upon reevaluation, the patient is hemodynamically stable. Discussed results and treatment plan with the patient. He verbalized understanding and agreement with the treatment plan. The patient will be evaluated for further management. Medical Decision 66 yr old male arrives with fevers, tachycardia, fatigue and symptoms similar to previous episodes of prostatitis. Early sepsis without shock. Lactic acid and BP are OK. WBC quite elevated consistent with his infection. Blood cultures obtained. Started cipro already, thus will add on IV Zosyn while here. Discussed with hospitalist and will hold off on imaging given patient's history though agree with inpatient treatment. Stable throughout stay and feeling better after IV fluids. Consults Time Called: 2028 Consulting Physician: Dr. Bruno - [facility] Returned Call: 2030 Discussed the patient's case. The patient will be evaluated for further treatment and disposition. Impression Primary Impression: Prostatitis Additional Impression: Sepsis Scribe Attestation The scribe's documentation has been prepared under my direction and personally reviewed by me in its entirety. I confirm that the note above accurately reflects all work, treatment, procedures, and medical decision making performed by me. Departure Information Dispostion Being Evaluated By Hospitalist Referrals Kd Andres M.D.[place]) (PCP) Problem Qualifiers Primary Impression: Prostatitis Prostatitis type: acute Qualified Codes: N41.0 - Acute prostatitis Additional Impression: Sepsis Sepsis type: sepsis due to unspecified organism Qualified Codes: A41.9 - Sepsis, unspecified organism
[2016-08-01 19:27] LABS: BASO % 0.2 %; BASO ABS # 0.03 K/uL (0-0.2); COMPLETE YES; EOS % 0.5 %; HEMATOCRIT 47.9 % (42-52); IG% 0.4 %; LYMPH % 6.5 %; MEAN CELL VOLUME 99.2 fL (80-100); MEAN CORPUSCULAR HGB CONC 34.2 g/dl (32-36); MEAN PLATELET VOLUME 9.4 fL (7.4-10.4); MONO % 9.8 %; NEUT % 82.6 %; PLATELET COUNT 181 K/uL (130-400); RED BLOOD COUNT 4.83 M/uL (4.7-6.1); WHITE BLOOD COUNT 18.42 K/uL (4.8-10.8)
[2016-08-01] MEDS ORDERED: SODIUM CHLORIDE 0.9% 1000ML 2,000 ML IV STA (19:36)
[2016-08-01] MEDS ORDERED: PIPERACILLIN/TAZOBACTAM 4.5 GM/100ML D5W IV STA (19:36)
[2016-08-01 19:56] LABS: CREATININE 1.5 mg/dl (0.60-1.40)
[2016-08-01 19:57] LABS: BUN/CREATININE RATIO 11.1 (10-20); C-REACTIVE PROTEIN 5.21 mg/dl (0-0.29); POTASSIUM 4.1 mmol/L (3.5-5.1)
[2016-08-01 20:01] LABS: URINE APPEARANCE CLEAR (CLEAR); URINE BILIRUBIN NEG (NEG); URINE COLOR YELLOW; URINE EPITHELIAL CELL AUTO >30 /lpf (0-5); URINE NITRITE NEG (NEG); URINE PH 7.5 (4.5-7.5); UROBILINOGEN NEG (NEG); ZZUR CULT IF INDIC CLEAN CATCH YES
[2016-08-01 20:17] LABS: MANUAL MICROSCOPIC REQUIRED? NO; REVIEW REQ? YES
[2016-08-01] MEDS ORDERED: CPR500HP PO (20:55)
[2016-08-01] MEDS ORDERED: VNTHFA/IN INH (20:55)
[2016-08-01] MEDS ORDERED: SLSS TOP (20:55)
[2016-08-01] MEDS ORDERED: AZEL0.056 NAE (20:55)
[2016-08-01] MEDS ORDERED: NXM/40 PO (20:55)
[2016-08-01] MEDS ORDERED: CHOL4POW3 PO (20:55)
[2016-08-01 21:06] VITALS: Ht 172.7 cm; Wt 114.8 kg
[2016-08-01] MEDS ORDERED: TRIA1SPR4 NAE (21:11)
[2016-08-01] MEDS ORDERED: ALBUAER INH (21:11)
[2016-08-01] MEDS ORDERED: SYMIN/8045 INH (21:11)
[2016-08-01] MEDS ORDERED: PSYL48.59 PO (21:13)
[2016-08-01] MEDS ORDERED: ONDANSETRON INJ 2 MG/ML 2 ML VIAL IV PRN (22:00)
[2016-08-01] MEDS ORDERED: ZOLPIDEM TARTRATE 5 MG TAB PO PRN (22:00)
[2016-08-01] MEDS ORDERED: PIPERACILL/TAZOBAC CONSULT ACTIVE PRN (22:45)
[2016-08-01 22:54] VITALS: O2SAT 94
[2016-08-01 23:00] VITALS: BP 159/81; PULSE 86; TEMP 37; O2SAT 94
--- NOTE | 2016-08-01 23:25 | History and Physical ---
History & Physical Date & Time of Service: August 01, 2016 at 23:25 Chief Complaint: Prostatitis; Sirs Primary Care Physician: Kd Andres M.D. ([facility]) History of Present Illness Source: patient The patient is a 66-year-old male who presents to the emergency department with worsening symptoms of urinary frequency of every 15 minutes and burning with urination that began yesterday evening. His symptoms are similar to that of previous instances of prostatitis, and worsened with bowel movements as before. He had temperature of 102F today. He was empirically placed on Cipro by his PCP earlier in the day today, which she's taken one dose so far. Past Medical/Surgical History Medical Problems: (1) Asthma Status: Chronic (2) Prostatitis Status: Chronic Surgical Problems: (1) Hx of cholecystectomy Status: Resolved (2) Hx of ileostomy Status: Resolved Family History Cancer Gallbladder disease Hypertension Kidney disease Kidney stones Social History Smoking Status: Former Smoker Smokeless Tobacco Use: No Alcohol Use: none Drug Use: none Marital Status: Housing status: lives with significant other Occupational Status: retired Multi-Drug Resistant Organisms History of MDRO: No Allergies Coded Allergies: Aspirin (Verified Allergy, Unknown, UNKNOWN, 04/18/16) Hydrocodone (Verified Adverse Reaction, Mild, N/V, 04/18/16) Home Medications Scheduled Albuterol Sulfate (Proventil Hfa), 2 PUFFS INH BID Budesonide/Formoterol Fumarate (Symbicort 80/4.5 Inhaler), 2 PUFFS INH BID Cholestyramine (Cholestyramine), 1 PKT PO BID Ciprofloxacin (Ciprofloxacin HCl), 1 TAB PO BID Esomeprazole Magnesium (Nexium), 40 MG PO DAILY Lactobacillus (Probiotic), 1 CAP PO DAILY Psyllium (Metamucil), 1 PKT PO DAILY Selenium Sulfide (Selsun), 1 APPLN TOP UD Triamcinolone Acetonide (Nasal (Nasacort Allergy 24Hr), 1 SPRAYS BABAR DAILY Scheduled PRN Azelastine HCl (Azelastine HCl), 2 SPRAYS BABAR DAILY PRN for Nasal Congestion Review of Systems The patient denies chest pain, palpitations, shortness of breath, cough, lower extremity swelling, vision change, hearing change, sore throat, chills, sweats, weight change, fatigue, nausea, vomiting, abdominal pain, pelvic pain, blood in urine or stool, ightheadedness, dizziness, headache, memory loss, rash, abnormal bruising or bleeding, imbalance, focal or generalized weakness, numbness or tingling in arms or legs, arthralgias or myalgias, back or neck pain , night sweats, or allergy symptoms. The review of systems is otherwise negative other than for that already noted above, and at least 10 systems have been reviewed. Physical Exam Vital Signs Date Time Temp Pulse Resp B/P Pulse Ox O2 Delivery O2 Flow Rate FiO2 08/01/16 22:54 81 18 157/68 94 08/01/16 21:15 90 18 139/67 96 Room Air 08/01/16 21:06 Room Air 08/01/16 19:18 94 18 158/75 96 Room Air 08/01/16 17:43 37.8 104 17 162/78 93 Room Air The patient is awake, well-developed and adequately nourished, alert and oriented 3, normocephalic and atraumatic, lying in bed and in no acute distress. HEENT--PERRL, EOMI, mucous membranes and oropharynx dry. Neck--supple, no JVD or bruits, thyroid normal, trachea midline, no adenopathy. Heart--normal S1 and S2, no extra beats, no murmurs, rubs or gallops. Lungs--clear bilaterally with good air movement, no respiratory distress, no accessory muscle use. Abdomen--normal bowel sounds and soft, nontender and nondistended, no hernias or masses, no organomegaly. Extremities--no cyanosis, clubbing or edema. There are good distal pulses b/l. Dermatologic--normal skin turgor, normal color, warm and dry, no abnormal lymph nodes, no rash. Neurologic--cranial nerves II through XII grossly intact, motor and sensory examination normal. Rheumatologic--normal range of motion, nontender, muscles and joints. Psychiatric--normal affect. Diagnostics Laboratory Results Results Past 24 Hours Test 08/01/16 19:05 08/01/16 19:10 08/01/16 19:13 Range/Units White Blood Count 18.42 4.8-10.8 K/uL Red Blood Count 4.83 4.7-6.1 M/uL Hemoglobin 16.4 14.0-18.0 g/dL Hematocrit 47.9 42-52 % Mean Corpuscular Volume 99.2 80-100 fL Mean Corpuscular Hemoglobin 34.0 25-34 pg Mean Corpuscular Hemoglobin Concent 34.2 32-36 g/dl Platelet Count 181 130-400 K/uL Mean Platelet Volume 9.4 7.4-10.4 fL Neutrophils (%) (Auto) 82.6 % Lymphocytes (%) (Auto) 6.5 % Monocytes (%) (Auto) 9.8 % Eosinophils (%) (Auto) 0.5 % Basophils (%) (Auto) 0.2 % Neutrophils # (Auto) 15.22 1.4-6.5 K/uL Lymphocytes # (Auto) 1.20 1.2-3.4 K/uL Monocytes # (Auto) 1.80 0.11-0.59 K/uL Eosinophils # (Auto) 0.10 0-0.5 K/uL Basophils # (Auto) 0.03 0-0.2 K/uL RDW Standard Deviation 52.6 36.4-46.3 fL RDW Coefficient of Variation 14.4 11.5-14.5 % Immature Granulocyte % (Auto) 0.4 % Immature Granulocyte # (Auto) 0.07 0.00-0.02 K/uL Sodium Level 138 136-145 mmol/L Potassium Level 4.1 3.5-5.1 mmol/L Chloride Level 102 98-107 mmol/L Carbon Dioxide Level 28 21-32 mmol/L Anion Gap 8.0 3-11 mmol/L Blood Urea Nitrogen 17 7-18 mg/dl Creatinine 1.50 0.60-1.40 mg/dl Est Creatinine Clear Calc Drug Dose 60.6 ml/min Estimated GFR () 55.8 Estimated GFR (Non- 48.2 BUN/Creatinine Ratio 11.1 10-20 Random Glucose 80 70-99 mg/dl Calcium Level 9.0 8.5-10.1 mg/dl C-Reactive Protein 5.21 0-0.29 mg/dl Urine Color YELLOW Urine Appearance CLEAR CLEAR Urine pH 7.5 4.5-7.5 Urine Specific [place] 1.020 1.000-1.030 Urine Protein NEG NEG Urine Glucose (UA) NEG NEG Urine Ketones NEG NEG Urine Occult Blood NEG NEG Urine Nitrite NEG NEG Urine Bilirubin NEG NEG Urine Urobilinogen NEG NEG Urine Leukocyte Esterase MODERATE NEG Urine WBC (Auto) 10-30 0-5 /hpf Urine RBC (Auto) 0-4 0-4 /hpf Urine Hyaline Casts (Auto) 5-10 0-5 /lpf Urine Epithelial Cells (Auto) >30 0-5 /lpf Urine Bacteria (Auto) NEG NEG Urine Renal Epithelial Cells 0-5 /lpf Bedside Lactic Acid Venous 1.24 0.90-1.70 mmol/L Microbiology Results 08/01/16 Blood Culture, Received Pending 08/01/16 Blood Culture, Received Pending Impression Assessment and Plan Recurrent prostatitis/SIRS--the patient will be admitted to the medical surgical floor. He has been started on Zosyn in the emergency department, and this will be continued at 3.375 mg IV every [address] also [address] on IV fluids. Follow urine culture and sensitivity results. WBC elevated at 18.42, will repeat laboratories in a.m. If urine outflow issues, will start tamsulosin 0.4 mg by mouth in the evening. Acute renal insufficiency-- creatinine was 1.50 point admission. Placed on IV fluids as noted above, encourage plenty of oral intake, and repeat laboratories in the a.m. Asthma--continue her usual medications of Proventil HFA, and Symbicort. GERD--change Nexium 40 mg by mouth daily to pantoprazole 40 mg by mouth daily. Level of Care Med/Surg Advanced Directives Existing Advance Directive: No Existing Living Will: Yes Existing Power of Product Inspection Supervisor: Yes Resuscitation Status FULL RESUSCITATION VTE Prophylaxis VTE Risk Assessment Done? Y/N: Yes Risk Level: Moderate Given or contraindicated: SCD's Social Service Consult None Apply
[2016-08-01] MEDS: CHOLESTYRAMINE LIGHT 4 GM PKT PO SCH (23:41)
[2016-08-01] MEDS: PIPERACILL/TAZOBAC IV 4.5 GM in DEXTROSE 5% 100ML 100 ML IV SCH (23:41)
[2016-08-01] MEDS: NSS + 20MEQ KCL 1000ML 1,000 ML IV SCH (23:41)
[2016-08-02 00:19] VITALS: BP 173/79; PULSE 84; TEMP 36.8; O2SAT 96
[2016-08-02 06:19] LABS: BASO % 0.2 %; BASO ABS # 0.03 K/uL (0-0.2); COMPLETE YES; EOS % 0.6 %; IG% 0.3 %; LYMPH % 10.5 %; LYMPH ABS # 1.79 K/uL (1.2-3.4); MEAN CELL VOLUME 99.1 fL (80-100); MEAN CORPUSCULAR HEMOGLOBIN 33.2 pg (25-34); MEAN CORPUSCULAR HGB CONC 33.5 g/dl (32-36); MEAN PLATELET VOLUME 9.4 fL (7.4-10.4); MONO % 9.1 %; NEUT % 79.3 %; PLATELET COUNT 159 K/uL (130-400); RED BLOOD COUNT 4.34 M/uL (4.7-6.1); WHITE BLOOD COUNT 17.05 K/uL (4.8-10.8)
[2016-08-02 06:59] LABS: BUN/CREATININE RATIO 9.5 (10-20); CREATININE 1.2 mg/dl (0.60-1.40); POTASSIUM 3.5 mmol/L (3.5-5.1)
[2016-08-02 07:18] VITALS: BP 144/80; PULSE 87; TEMP 36.4; O2SAT 93
--- NOTE | 2016-08-02 07:49 | Progress Note ---
Subjective Date of Service: August 02, 2016. Subjective Pt is feeling better, is still having some minor dull pain to suprapubic area and pain in rectum with bowel movement, pain is 2-3/10 dull and only with movement. otherwise feels improved, and has appetite Problem List Medical Problems: (1) Epigastric discomfort Status: Acute (2) Nausea Status: Acute (3) Precordial chest pain Status: Acute (4) Prostatitis Status: Chronic (5) Sepsis Status: Acute Review of Systems Constitutional: + weakness, No chills, No fever Respiratory: No cough, No shortness of breath, No sputum, No wheezing Cardiac: No PND, No chest pain, No edema, No orthopnea Abdomen: + pain, No diarrhea, No vomiting Musculoskeletal: No joint pain, No muscle pain, No swelling Male : + dysuria, No incontinence, No urinary frequency Neurologic: No memory loss, No paralysis Objective Vital Signs Date Time Temp Pulse Resp B/P Pulse Ox O2 Delivery O2 Flow Rate FiO2 08/02/16 07:18 36.4 87 16 144/80 93 Room Air 08/02/16 00:19 36.8 84 19 173/79 96 Room Air 08/01/16 23:00 37.0 86 20 159/81 94 Room Air 08/01/16 22:54 81 18 157/68 94 08/01/16 21:15 90 18 139/67 96 Room Air 08/01/16 21:06 Room Air 08/01/16 19:18 94 18 158/75 96 Room Air 08/01/16 17:43 37.8 104 17 162/78 93 Room Air Physical Exam General Appearance: WD/WN, + mild distress Eyes: PERRL, EOMI ENT: hearing grossly normal, pharynx normal Neck: supple, trachea midline Respiratory/Chest: chest non-tender, lungs clear, normal breath sounds Cardiovascular: regular rate, rhythm, no murmur Abdomen: normal bowel sounds, soft, + guarding, + tenderness Extremities: no pedal edema, no calf tenderness Neurologic/Psychiatric: alert, oriented x 3 Laboratory Results Last 24 Hours Test 08/01/16 19:05 08/01/16 19:10 08/01/16 19:13 08/02/16 05:21 White Blood Count 18.42 K/uL 17.05 K/uL Red Blood Count 4.83 M/uL 4.34 M/uL Hemoglobin 16.4 g/dL 14.4 g/dL Hematocrit 47.9 % 43.0 % Mean Corpuscular Volume 99.2 fL 99.1 fL Mean Corpuscular Hemoglobin 34.0 pg 33.2 pg Mean Corpuscular Hemoglobin Concent 34.2 g/dl 33.5 g/dl Platelet Count 181 K/uL 159 K/uL Mean Platelet Volume 9.4 fL 9.4 fL Neutrophils (%) (Auto) 82.6 % 79.3 % Lymphocytes (%) (Auto) 6.5 % 10.5 % Monocytes (%) (Auto) 9.8 % 9.1 % Eosinophils (%) (Auto) 0.5 % 0.6 % Basophils (%) (Auto) 0.2 % 0.2 % Neutrophils # (Auto) 15.22 K/uL 13.52 K/uL Lymphocytes # (Auto) 1.20 K/uL 1.79 K/uL Monocytes # (Auto) 1.80 K/uL 1.56 K/uL Eosinophils # (Auto) 0.10 K/uL 0.10 K/uL Basophils # (Auto) 0.03 K/uL 0.03 K/uL RDW Standard Deviation 52.6 fL 52.9 fL RDW Coefficient of Variation 14.4 % 14.5 % Immature Granulocyte % (Auto) 0.4 % 0.3 % Immature Granulocyte # (Auto) 0.07 K/uL 0.05 K/uL Sodium Level 138 mmol/L 140 mmol/L Potassium Level 4.1 mmol/L 3.5 mmol/L Chloride Level 102 mmol/L 108 mmol/L Carbon Dioxide Level 28 mmol/L 22 mmol/L Anion Gap 8.0 mmol/L 10.0 mmol/L Blood Urea Nitrogen 17 mg/dl 11 mg/dl Creatinine 1.50 mg/dl 1.20 mg/dl Est Creatinine Clear Calc Drug Dose 60.6 ml/min 75.5 ml/min Estimated GFR () 55.8 73.1 Estimated GFR (Non- 48.2 63.1 BUN/Creatinine Ratio 11.1 9.5 Random Glucose 80 mg/dl 97 mg/dl Calcium Level 9.0 mg/dl 8.0 mg/dl C-Reactive Protein 5.21 mg/dl Urine Color YELLOW Urine Appearance CLEAR Urine pH 7.5 Urine Specific [place] 1.020 Urine Protein NEG Urine Glucose (UA) NEG Urine Ketones NEG Urine Occult Blood NEG Urine Nitrite NEG Urine Bilirubin NEG Urine Urobilinogen NEG Urine Leukocyte Esterase MODERATE Urine WBC (Auto) 10-30 /hpf Urine RBC (Auto) 0-4 /hpf Urine Hyaline Casts (Auto) 5-10 /lpf Urine Epithelial Cells (Auto) >30 /lpf Urine Bacteria (Auto) NEG Urine Renal Epithelial Cells /lpf Bedside Lactic Acid Venous 1.24 mmol/L Magnesium Level 2.0 mg/dl Assessment and Plan 66 M with infection symptoms, suspect urinary source, possible prostatis as he has had in the past, does have pain in that area with bowel movement and some bladder discomfort Recurrent prostatitis/SIRS-Zosyn at 3.375 mg IV every 6 hours. tamsulosin 0.4 mg by mouth in the evening, consider proscar. Acute renal failure-- resolved IV fluids, encourage oral intake. Asthma--stable Proventil HFA, and Symbicort. GERD--asymptomatic pantoprazole 40 mg by mouth daily.
[2016-08-02] MEDS: NSS + 20MEQ KCL 1000ML 1,000 ML IV SCH ×2 (09:27→19:15)
[2016-08-02] MEDS: PIPERACILL/TAZOBAC IV 4.5 GM in DEXTROSE 5% 100ML 100 ML IV SCH ×3 (09:30→23:22)
[2016-08-02] MEDS: PSYLLIUM 58.6% PWD PACK S\\F PO SCH (09:31)
[2016-08-02] MEDS: TRIAMCINOLONE ACET NASAL SPRAY 10.8ML BTL NAE SCH (09:31)
[2016-08-02] MEDS: LACTOBACILLUS ACIDOPHILUS (FLORANEX) TAB PO SCH ×3 (09:32→17:24)
[2016-08-02] MEDS: PANTOprazole SOD 40 MG TAB PO SCH (09:32)
[2016-08-02] MEDS: CHOLESTYRAMINE LIGHT 4 GM PKT PO SCH ×2 (09:32→19:16)
[2016-08-02] MEDS: BUDESONIDE/FORMOTEROL FUMARATE 80/4.5 60 PUFFS/INHALER INH SCH ×2 (09:34→20:05)
[2016-08-02] MEDS: ALBUTEROL HFA 8 GM INHALER INH SCH ×2 (09:35→20:05)
[2016-08-02] MEDS: ACETAMINOPHEN 325 MG TAB PO PRN ×2 (14:37→23:22)
[2016-08-02 15:28] VITALS: BP 119/66; PULSE 18; PULSE 83; TEMP 36.9; O2SAT 94
[2016-08-02] MEDS ORDERED: NURSING VERBAL MED ORDER ONE (17:30)
[2016-08-02 23:11] VITALS: BP 122/62; PULSE 96; TEMP 39; O2SAT 95
[2016-08-03] VITALS (8 sets, daily range): BP systolic 110–160; BP diastolic 62–71; PULSE 79–87; TEMP 36.6–39.3; O2SAT 91–96
[2016-08-03] MEDS ORDERED: NURSING VERBAL MED ORDER ONE
[2016-08-03] MEDS: KETOROLAC TROMETHAMINE 15 MG/ML VIAL IV. PRN ×3 (00:28→15:36)
[2016-08-03] MEDS: NSS + 20MEQ KCL 1000ML 1,000 ML IV SCH ×4 (05:28→20:56)
[2016-08-03] MEDS ORDERED: VANCOMYCIN INJ 1,000 MG in SODIUM CHLORIDE 0.9% 250ML 250 ML IV STA (05:43)
[2016-08-03 05:44] LABS: BLOOD UREA NITROGEN 12 mg/dl (7-18); BUN/CREATININE RATIO 7.7 (10-20); CARBON DIOXIDE 24 mmol/L (21-32); CHLORIDE 104 mmol/L (98-107); GLUCOSE 87 mg/dl (70-99); SODIUM 136 mmol/L (136-145)
[2016-08-03 05:53] LABS: BASO % 0.2 %; BASO ABS # 0.02 K/uL (0-0.2); COMPLETE YES; EOS % 0.4 %; HEMATOCRIT 44.4 % (42-52); IG% 0.5 %; LYMPH % 6.5 %; LYMPH ABS # 0.63 K/uL (1.2-3.4); MEAN CORPUSCULAR HEMOGLOBIN 32.9 pg (25-34); MEAN CORPUSCULAR HGB CONC 33.6 g/dl (32-36); MEAN PLATELET VOLUME 9.2 fL (7.4-10.4); MONO % 5.9 %; NEUT % 86.5 %; PLATELET COUNT 134 K/uL (130-400); RED BLOOD COUNT 4.53 M/uL (4.7-6.1); WHITE BLOOD COUNT 9.66 K/uL (4.8-10.8)
[2016-08-03] MEDS: ACETAMINOPHEN 325 MG TAB PO PRN ×2 (05:56→13:59)
[2016-08-03] MEDS ORDERED: OPTIRAY 320 IV PRN (06:00)
[2016-08-03] MEDS ORDERED: VANCOMYCIN CONSULT ACTIVE PRN (06:30)
[2016-08-03] MEDS: LEVOFLOXACIN / D5W 750 MG in PREMIXED IN D5W 150 ML IV SCH (06:35)
[2016-08-03] MEDS: CHOLESTYRAMINE LIGHT 4 GM PKT PO SCH ×2 (06:35→17:32)
[2016-08-03 07:07] LABS: MAGNESIUM 1.9 mg/dl (1.8-2.4); POTASSIUM 3.9 mmol/L (3.5-5.1)
--- NOTE | 2016-08-03 07:20 | DIAGNOSTIC IMAGING REPORT ---
ABDOMEN AND PELVIS CT WITH IV CONTRAST CT DOSE: 1020.35 mGy.cm HISTORY: Lower abdominal pain. temperature persists, prostatitis TECHNIQUE: Multiaxial CT images of the abdomen and pelvis were performed following the use of intravenous contrast. COMPARISON STUDY: Abdomen and pelvis CT 04/25/2015. FINDINGS: Stable 4 mm pulmonary nodule within the right lower lobe on image 6. Hepatic steatosis. Cholecystectomy. The liver and adrenal glands are unremarkable. Punctate calcification within the tail the pancreas. Small hiatus hernia. Tiny hernia within the right rectus abdominis muscle likely at a prior ostomy site. This contains a knuckle of small bowel. There is small bowel anastomosis within the right lower quadrant and a sigmoid anastomosis. No bowel wall thickening or obstruction. Normal appendix. Bladder is decompressed resulting in suboptimal evaluation. There is suggestion of bladder wall thickening. There is mild inflammatory change surrounding the bladder. The prostate gland enhances normally. No hydronephrosis. There is mild fat stranding surrounding the kidneys and there is infiltration of the renal sinus fat bilaterally. Focal scarring within the right kidney. A few hypodense lesions within the kidneys remain stable. Dominant lesion within the right kidney measures 11 mm. IMPRESSION: 1. There appears to be bladder wall thickening. There is mild inflammatory change surrounding the bladder and kidneys. There is also infiltration of the renal sinus fat bilaterally. Therefore, these findings likely represent a cystitis with associated pyelonephritis. Correlation with urinalysis is suggested. 2. No definite bowel wall thickening or obstruction. 3. Hepatic steatosis. 4. Cholecystectomy. 5. Stable 4 mm nodule within the right lower lobe. 6. Postoperative changes within the bowel again noted. Electronically signed by: Darryl Bailey M.D. 08/03/2016 7:19 AM Dictated Date/Time: 08/03/2016 7:11 AM
[2016-08-03] MEDS: ALBUTEROL HFA 8 GM INHALER INH SCH ×2 (07:33→19:42)
[2016-08-03] MEDS: BUDESONIDE/FORMOTEROL FUMARATE 80/4.5 60 PUFFS/INHALER INH SCH ×2 (07:33→19:41)
[2016-08-03] MEDS: TRIAMCINOLONE ACET NASAL SPRAY 10.8ML BTL NAE SCH (07:33)
[2016-08-03] MEDS: LACTOBACILLUS ACIDOPHILUS (FLORANEX) TAB PO SCH ×3 (07:34→17:32)
[2016-08-03] MEDS: PANTOprazole SOD 40 MG TAB PO SCH (07:35)
[2016-08-03] MEDS: PSYLLIUM 58.6% PWD PACK S\\F PO SCH ×2 (07:35→17:33)
[2016-08-03] MEDS ORDERED: VANCOMYCIN INJ 2,800 MG in SODIUM CHLORIDE 0.9% 500ML 500 ML IV SCH (08:00)
[2016-08-03] MEDS: PIPERACILL/TAZOBAC IV 4.5 GM in DEXTROSE 5% 100ML 100 ML IV SCH ×2 (08:15→15:36)
--- NOTE | 2016-08-03 09:07 | Progress Note ---
Subjective Date of Service: August 03, 2016. Subjective this pt had a terrible night, rigors, chills and body aches could not sleep. also underwent Ct scan that reflects possible pyelonephritis. he now feels better but is fatigued. no dysuria, no hematuria, and able to void Problem List Medical Problems: (1) Epigastric discomfort Status: Acute (2) Nausea Status: Acute (3) Precordial chest pain Status: Acute (4) Prostatitis Status: Chronic (5) Sepsis Status: Acute Review of Systems Constitutional: + chills, + fever, + sweats, No fatigue, No weakness Respiratory: No cough, No dyspnea on exertion, No shortness of breath Cardiac: No PND, No chest pain, No edema, No orthopnea Abdomen: No diarrhea, No nausea, No pain, No vomiting Musculoskeletal: + joint pain, + muscle pain Psychiatric: No anhedonism, No anxiety, No depression symptoms Objective Vital Signs Date Time Temp Pulse Resp B/P Pulse Ox O2 Delivery O2 Flow Rate FiO2 08/03/16 08:00 Room Air 08/03/16 07:18 37.9 87 20 160/71 91 Room Air 08/03/16 05:30 39.3 08/03/16 03:30 36.9 08/03/16 01:48 37.2 08/03/16 00:30 37.8 08/03/16 00:00 Room Air 08/02/16 23:11 39.0 96 20 122/62 95 Room Air 08/02/16 19:30 Room Air 08/02/16 16:00 Room Air 08/02/16 15:28 36.9 83 18 119/66 94 Room Air 18 Physical Exam General Appearance: WD/WN, no apparent distress Neck: supple, no JVD Respiratory/Chest: chest non-tender, lungs clear, normal breath sounds Cardiovascular: regular rate, rhythm, no murmur Abdomen: normal bowel sounds, non tender, soft Extremities: no pedal edema, no calf tenderness Neurologic/Psychiatric: alert, oriented x 3 Laboratory Results Last 24 Hours Test 08/03/16 04:50 08/03/16 06:37 White Blood Count 9.66 K/uL Red Blood Count 4.53 M/uL Hemoglobin 14.9 g/dL Hematocrit 44.4 % Mean Corpuscular Volume 98.0 fL Mean Corpuscular Hemoglobin 32.9 pg Mean Corpuscular Hemoglobin Concent 33.6 g/dl Platelet Count 134 K/uL Mean Platelet Volume 9.2 fL Neutrophils (%) (Auto) 86.5 % Lymphocytes (%) (Auto) 6.5 % Monocytes (%) (Auto) 5.9 % Eosinophils (%) (Auto) 0.4 % Basophils (%) (Auto) 0.2 % Neutrophils # (Auto) 8.35 K/uL Lymphocytes # (Auto) 0.63 K/uL Monocytes # (Auto) 0.57 K/uL Eosinophils # (Auto) 0.04 K/uL Basophils # (Auto) 0.02 K/uL RDW Standard Deviation 52.0 fL RDW Coefficient of Variation 14.3 % Immature Granulocyte % (Auto) 0.5 % Immature Granulocyte # (Auto) 0.05 K/uL Red Blood Cell Morphology Unremarkable Sodium Level 136 mmol/L Potassium Level mmol/L 3.9 mmol/L Chloride Level 104 mmol/L Carbon Dioxide Level 24 mmol/L Anion Gap 8.0 mmol/L Blood Urea Nitrogen 12 mg/dl Creatinine 1.60 mg/dl Est Creatinine Clear Calc Drug Dose 56.6 ml/min Estimated GFR () 51.6 Estimated GFR (Non- 44.5 BUN/Creatinine Ratio 7.7 Random Glucose 87 mg/dl Calcium Level 8.0 mg/dl Magnesium Level mg/dl 1.9 mg/dl Assessment and Plan 66 M with infection symptoms, suspect urinary source, possible prostatis as he has had in the past, does have pain in that area with bowel movement and some bladder discomfort Recurrent prostatitis/SIRS- did have high fever overnight 08/02-, CT of Abd/ pelvis shows pyelo and bladder thickening, antibiotics changed from Zosyn to vanco and levaquin, I called [facility] [place] department 08/03 to see about outpt urine culture from 08/01, they said it was delayed due to mixed bacteria and will be resulted 08/04, BPH previous Green light laser treatment, tamsulosin 0.4 mg by mouth in the evening, consider proscar. Acute renal failure-- returns, continue IV fluids, encourage oral intake. Asthma--asymptomatic Proventil HFA, and Symbicort. GERD-no issues pantoprazole 40 mg by mouth daily.
[2016-08-03] MEDS: ENOXAPARIN 40 MG/0.4 ML SYR SQ SCH (10:45)
--- NOTE | 2016-08-03 11:09 | Pharmacy Progress Note ---
Pharmacy Antibiotic Consult Date of Service: August 03, 2016. Pharmacy Dosing Scope Pharmacy is consulted to initiate Vancomycin IV dosing therapy, order appropriate labs and adjust drug dose/frequency. Pharmacy currently consulted for Zosyn IV dosing as well. Subjective The patient is a 66 year old male admitted on August 01, 2016 at 21:51. Objective Height (Feet): 5 Height (Inches): 8.00 Weight (Kilograms): 114.800 Lab Results (24hrs): Test 08/03/16 04:50 08/03/16 06:37 White Blood Count 9.66 K/uL (4.8-10.8) Red Blood Count 4.53 M/uL (4.7-6.1) Hemoglobin 14.9 g/dL (14.0-18.0) Hematocrit 44.4 % (42-52) Mean Corpuscular Volume 98.0 fL (80-100) Mean Corpuscular Hemoglobin 32.9 pg (25-34) Mean Corpuscular Hemoglobin Concent 33.6 g/dl (32-36) Platelet Count 134 K/uL (130-400) Mean Platelet Volume 9.2 fL (7.4-10.4) Neutrophils (%) (Auto) 86.5 % Lymphocytes (%) (Auto) 6.5 % Monocytes (%) (Auto) 5.9 % Eosinophils (%) (Auto) 0.4 % Basophils (%) (Auto) 0.2 % Neutrophils # (Auto) 8.35 K/uL (1.4-6.5) Lymphocytes # (Auto) 0.63 K/uL (1.2-3.4) Monocytes # (Auto) 0.57 K/uL (0.11-0.59) Eosinophils # (Auto) 0.04 K/uL (0-0.5) Basophils # (Auto) 0.02 K/uL (0-0.2) RDW Standard Deviation 52.0 fL (36.4-46.3) RDW Coefficient of Variation 14.3 % (11.5-14.5) Immature Granulocyte % (Auto) 0.5 % Immature Granulocyte # (Auto) 0.05 K/uL (0.00-0.02) Red Blood Cell Morphology Unremarkable Sodium Level 136 mmol/L (136-145) Potassium Level mmol/L (3.5-5.1) 3.9 mmol/L (3.5-5.1) Chloride Level 104 mmol/L (98-107) Carbon Dioxide Level 24 mmol/L (21-32) Anion Gap 8.0 mmol/L (3-11) Blood Urea Nitrogen 12 mg/dl (7-18) Creatinine 1.60 mg/dl (0.60-1.40) Est Creatinine Clear Calc Drug Dose 56.6 ml/min Estimated GFR () 51.6 Estimated GFR (Non- 44.5 BUN/Creatinine Ratio 7.7 (10-20) Random Glucose 87 mg/dl (70-99) Calcium Level 8.0 mg/dl (8.5-10.1) Magnesium Level mg/dl (1.8-2.4) 1.9 mg/dl (1.8-2.4) Micro Results: Item Value Date Time Blood Culture - Preliminary Resulted 08/01/16 1920 Blood NO GROWTH TO DATE. Blood Culture - Preliminary Resulted 08/01/16 190 Blood NO GROWTH TO DATE. Outpatient urine cultures pending at PCP office. Urine C/S to result 08/04. Assessment & Plan * Patient with infection symptoms (febrile, increased BP, elevated white count) likely d/t urinary source, possibly prostatitis. Outpatient urine cultures to result on 08/04. * Patient started on Zosyn, now added Levaquin and Vancomycin. Spiking fevers -08/03. Vancomycin * Overnight RPh ordered a loading dose of Vancomycin 2800mg (~25mg/kg) IV x 1. * Half life estimated to be 14 hours. However, I suspect this is overestimated. The patient has risk factors for drug accumulation including BMI of 39 kg/m2. Therefore, will start dosing near half life then will likely need to back off on dosing once therapeutic levels are reached, particularly if therapeutic levels are reached before SS. * Start maintenance dose of Vancomycin 1700 mg (15mg/kg) IV q14 hours. * Obtain a trough level prior to the 3rd maintenance dose on 08/05. This level will be drawn prior to SS, however, it will enable us to r/o drug accumulation in a patient with risk factors for this as stated above. Zosyn * Continue Zosyn 4.5gm (EI) IV q8 hours (possibly will be cut) Levaquin * Continue Levaquin 750mg IV [id number] per provider Pharmacy will continue to follow and will adjust dose/frequency as necessary. Thank you
[2016-08-03] MEDS: VANCOMYCIN INJ 1,700 MG in SODIUM CHLORIDE 0.9% 500ML 500 ML IV SCH (21:56)
[2016-08-04 00:16] VITALS: BP 138/67; PULSE 69; TEMP 37.5; O2SAT 93
[2016-08-04] MEDS: PIPERACILL/TAZOBAC IV 4.5 GM in DEXTROSE 5% 100ML 100 ML IV SCH ×2 (00:49→08:11)
[2016-08-04 00:50] VITALS: TEMP 36.9
[2016-08-04] MEDS: NSS + 20MEQ KCL 1000ML 1,000 ML IV SCH ×3 (01:44→11:48)
[2016-08-04] MEDS: ALBUTEROL HFA 8 GM INHALER INH SCH ×3 (02:19→19:38)
[2016-08-04 05:52] LABS: BASO % 0.6 %; BASO ABS # 0.03 K/uL (0-0.2); COMPLETE YES; EOS % 1.4 %; HEMATOCRIT 39.2 % (42-52); IG% 0.6 %; LYMPH % 14.1 %; MEAN CELL VOLUME 98.2 fL (80-100); MEAN CORPUSCULAR HEMOGLOBIN 33.1 pg (25-34); MEAN CORPUSCULAR HGB CONC 33.7 g/dl (32-36); MEAN PLATELET VOLUME 9.5 fL (7.4-10.4); MONO % 13.9 %; NEUT % 69.4 %; PLATELET COUNT 126 K/uL (130-400); RED BLOOD COUNT 3.99 M/uL (4.7-6.1); WHITE BLOOD COUNT 4.97 K/uL (4.8-10.8)
[2016-08-04] MEDS: LEVOFLOXACIN / D5W 750 MG in PREMIXED IN D5W 150 ML IV SCH (06:27)
[2016-08-04] MEDS: CHOLESTYRAMINE LIGHT 4 GM PKT PO SCH ×2 (06:27→19:36)
[2016-08-04 06:33] LABS: BUN/CREATININE RATIO 6.9 (10-20); CALCIUM 7.8 mg/dl (8.5-10.1); CREATININE 1.4 mg/dl (0.60-1.40); POTASSIUM 4.5 mmol/L (3.5-5.1)
[2016-08-04 07:39] VITALS: BP 148/77; PULSE 56; TEMP 36.5; O2SAT 94
[2016-08-04] MEDS: TRIAMCINOLONE ACET NASAL SPRAY 10.8ML BTL NAE SCH (08:11)
[2016-08-04] MEDS: LACTOBACILLUS ACIDOPHILUS (FLORANEX) TAB PO SCH ×3 (08:11→16:38)
[2016-08-04] MEDS: BUDESONIDE/FORMOTEROL FUMARATE 80/4.5 60 PUFFS/INHALER INH SCH ×2 (08:11→19:37)
[2016-08-04] MEDS: PANTOprazole SOD 40 MG TAB PO SCH (08:12)
[2016-08-04] MEDS: ENOXAPARIN 40 MG/0.4 ML SYR SQ SCH (08:12)
--- NOTE | 2016-08-04 09:53 | Clinical Documentation Query ---
CLINICAL DOCUMENTATION QUERY 66 year old male who presents to the Emergency Room with complaints of worsening urinary symptoms. Per most recent progress note (08/03) this patient has been diagnosed with SIRS, recurrent prostatitis, ARF, and pyelonephritis. SIRS linked to infection does not code to sepsis by [facility] coding indexing. In your clinical opinion is this patient being managed for: ( ) Sepsis Present on Admission (POA) in setting of urinary source. ( ) SIRS w/o infection ( ) Other explanation of clinical findings (Please Explain) ( ) Unable to determine (Please Define) ( ) Need to Discuss ( ) Not Agree The medical record reflects the following clinical findings, treatment, and risk factors. Clinical Indicators: Reports of fever at home of 102 and Tmax while in hospital 39.0, tachycardia 104, leukocytosis 18.42, and elevated CRP 5.21. Treatment: 2L IVF bolus, IV Zosyn, IV Vancomycin, Risk Factors: Age, Prostatitis, Pyelonephritis, Please clarify and document your clinical opinion in the progress notes and discharge summary. Terms such as "probable", "suspected", "likely", "questionable", "possible", or "still to be ruled out" are acceptable. IF IN AGREEMENT, YOU MUST DOCUMENT ABOVE DIAGNOSTIC STATEMENT IN DAILY PROGRESS NOTES AND DISCHARGE SUMMARY. This document is not part of the patient's record. Thank You, Eliazar Sandoval, JOANIE [phone]
[2016-08-04] MEDS: VANCOMYCIN INJ 1,700 MG in SODIUM CHLORIDE 0.9% 500ML 500 ML IV SCH (12:21)
[2016-08-04 15:37] VITALS: BP 123/79; PULSE 62; TEMP 36.6; O2SAT 95
[2016-08-04] MEDS: PSYLLIUM 58.6% PWD PACK S\\F PO SCH (19:36)
--- NOTE | 2016-08-04 21:17 | Hospitalist Progress Note ---
Hospitalist Progress Note Date of Service August 04, 2016. Subjective Pt evaluation today including: conversation w/ patient, physical exam, lab review Doing well, feeling much better. Afebrile. I shaving loose stools today and has h/o C. diff x 2 in the past during 7 month period of hospitalizations for colectomy, intraabdominal abscess, bowel obstruction and laparotomy, prolonged abx usage in 2014 All Other Systems: Reviewed and Negative Objective Vital Signs Date Time Temp Pulse Resp B/P Pulse Ox O2 Delivery O2 Flow Rate FiO2 08/04/16 15:37 36.6 62 18 123/79 95 08/04/16 10:36 Room Air 08/04/16 07:39 36.5 56 20 148/77 94 Room Air 08/04/16 00:50 36.9 08/04/16 00:16 37.5 69 20 138/67 93 Room Air 08/04/16 00:00 Room Air Physical Exam General Appearance: WD/WN, no apparent distress Eyes: normal inspection, sclerae normal ENT: hearing grossly normal Neck: trachea midline Respiratory/Chest: lungs clear, normal breath sounds, no respiratory distress, no accessory muscle use Cardiovascular: regular rate, rhythm, no edema, no gallop, no murmur Abdomen: normal bowel sounds, non tender, soft Extremities: normal inspection, no calf tenderness Neurologic/Psychiatric: alert, normal mood/affect, oriented x 3 Skin: normal color, warm/dry, no rash Laboratory Results Last 24 Hours Test 08/04/16 05:26 White Blood Count 4.97 K/uL Red Blood Count 3.99 M/uL Hemoglobin 13.2 g/dL Hematocrit 39.2 % Mean Corpuscular Volume 98.2 fL Mean Corpuscular Hemoglobin 33.1 pg Mean Corpuscular Hemoglobin Concent 33.7 g/dl Platelet Count 126 K/uL Mean Platelet Volume 9.5 fL Neutrophils (%) (Auto) 69.4 % Lymphocytes (%) (Auto) 14.1 % Monocytes (%) (Auto) 13.9 % Eosinophils (%) (Auto) 1.4 % Basophils (%) (Auto) 0.6 % Neutrophils # (Auto) 3.45 K/uL Lymphocytes # (Auto) 0.70 K/uL Monocytes # (Auto) 0.69 K/uL Eosinophils # (Auto) 0.07 K/uL Basophils # (Auto) 0.03 K/uL RDW Standard Deviation 51.8 fL RDW Coefficient of Variation 14.4 % Immature Granulocyte % (Auto) 0.6 % Immature Granulocyte # (Auto) 0.03 K/uL Sodium Level 141 mmol/L Potassium Level 4.5 mmol/L Chloride Level 111 mmol/L Carbon Dioxide Level 24 mmol/L Anion Gap 6.0 mmol/L Blood Urea Nitrogen 10 mg/dl Creatinine 1.40 mg/dl Est Creatinine Clear Calc Drug Dose 64.7 ml/min Estimated GFR () 60.7 Estimated GFR (Non- 52.4 BUN/Creatinine Ratio 6.9 Random Glucose 92 mg/dl Calcium Level 7.8 mg/dl Magnesium Level 2.0 mg/dl Assessment and Plan 66 M with infection symptoms, suspect urinary source, possible prostatitis as he has had in the past, does have pain in that area with bowel movement and some bladder discomfort Recurrent prostatitis/acute pyelonephritis/sepsis- did have high fever overnight 08/02-, CT of Abd/pelvis shows pyelo and bladder thickening, antibiotics changed from Zosyn to vanco and levaquin, Ur cx returned with pansensitive Proteus mirabilis -d/c Vanc and Zosyn -continue Levaquin and switch to po upon dc for 21-28 days to treat for prostatitis -follow BCxs but NGTD Diarrhea-with h/o C. diff x 2 in 2013 -check C. 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 Asthma--asymptomatic Proventil HFA, and Symbicort. GERD-no issues pantoprazole 40 mg by mouth daily. Proph-Lovenox Dispo-to home hopefully tomorrow
[2016-08-04] MEDS ORDERED: NURSING VERBAL MED ORDER ONE (23:30)
[2016-08-05 00:33] VITALS: BP 132/77; PULSE 61; TEMP 36.6; O2SAT 95
[2016-08-05] MEDS ORDERED: VANCOMYCIN TROUGH SCH (01:30)
[2016-08-05] MEDS: LEVOFLOXACIN / D5W 750 MG in PREMIXED IN D5W 150 ML IV SCH (05:50)
[2016-08-05 06:06] LABS: BASO % 0.6 %; BASO ABS # 0.03 K/uL (0-0.2); COMPLETE YES; EOS % 4.2 %; HEMATOCRIT 41.2 % (42-52); IG% 0.4 %; LYMPH % 20.7 %; LYMPH ABS # 1.12 K/uL (1.2-3.4); MEAN CELL VOLUME 96.9 fL (80-100); MEAN CORPUSCULAR HEMOGLOBIN 33.2 pg (25-34); MEAN CORPUSCULAR HGB CONC 34.2 g/dl (32-36); MEAN PLATELET VOLUME 9.5 fL (7.4-10.4); MONO % 14.4 %; NEUT % 59.7 %; PLATELET COUNT 131 K/uL (130-400); RED BLOOD COUNT 4.25 M/uL (4.7-6.1); WHITE BLOOD COUNT 5.42 K/uL (4.8-10.8)
[2016-08-05 06:50] LABS: BUN/CREATININE RATIO 7.7 (10-20); CALCIUM 8.4 mg/dl (8.5-10.1); CREATININE 1.2 mg/dl (0.60-1.40); MAGNESIUM 2.1 mg/dl (1.8-2.4); POTASSIUM 3.8 mmol/L (3.5-5.1)
[2016-08-05] MEDS: TRIAMCINOLONE ACET NASAL SPRAY 10.8ML BTL NAE SCH (07:46)
[2016-08-05] MEDS: BUDESONIDE/FORMOTEROL FUMARATE 80/4.5 60 PUFFS/INHALER INH SCH (07:46)
[2016-08-05] MEDS: ENOXAPARIN 40 MG/0.4 ML SYR SQ SCH (07:47)
[2016-08-05] MEDS: PANTOprazole SOD 40 MG TAB PO SCH (07:47)
[2016-08-05] MEDS: ALBUTEROL HFA 8 GM INHALER INH SCH (07:47)
[2016-08-05] MEDS: LACTOBACILLUS ACIDOPHILUS (FLORANEX) TAB PO SCH ×2 (07:48→12:18)
[2016-08-05 08:00] VITALS: BP 160/81; PULSE 74; TEMP 36.5; O2SAT 96
[2016-08-05] MEDS ORDERED: CHOLESTYRAMINE LIGHT 4 GM PKT PO SCH (10:00)
[2016-08-05] MEDS ORDERED: LEVO500T19 PO (12:37)
[2016-08-05] MEDS ORDERED: CHOL4POW3 PO (12:37)
--- NOTE | 2016-08-05 12:42 | Discharge Instructions ---
Discharge Instructions Date of Service August 05, 2016. Admission Reason for Admission: Acute Prostatitis, Sepsis Discharge Discharge Diagnosis / Problem: Acute prostatitis,Acute pyelonephritis, Sepsis Discharge Goals Goal(s): Improve disease control, Therapeutic intervention Activity Recommendations Activity Limitations: resume your previous activity . Instructions / Follow-Up Instructions / Follow-Up You were admitted with a urinary tract infection suspected to be acute prostatitis and were also found to have a kidney infection on your CT scan of your abdomen and pelvis. Your urine culture was growing out a bacteria called Proteus mirabilis. You should take Levaquin for 3 more weeks to treat for prostatitis and the kidney infection. Please follow up with your PCP within 1 week. You may want to get a referral back to see a Urologist again. Current Hospital Diet Patient's current hospital diet: Regular Diet Discharge Diet Recommended Diet: Regular Diet Procedures Procedures Performed: CT abdomen/pelvis Pending Studies Studies pending at discharge: yes List of pending studies: Final Blood Culture result Medical Emergencies . Who to Call and When: Medical Emergencies: If at any time you feel your situation is an emergency, please call 911 immediately. . Non-Emergent Contact Non-Emergency issues call your: Primary Care Provider Call Non-Emergent contact if: you have a fever, your pain is not controlled, your pain is worsening, your pain is unusual for you, you have any medication questions or if you have worsening diarrhea or blood in your stool or abdominal pain . . "Provider Documentation" section prepared by Debi Gao. . VTE Core Measure Inpt VTE Proph given/why not?: SCD's
[2016-08-05 13:16] VITALS: BP 160/81; PULSE 74; TEMP 36.5; O2SAT 96
[2016-08-05] MEDS ORDERED: PSYLLIUM 58.6% PWD PACK S\\F PO SCH (21:00)
--- NOTE | 2016-08-25 15:05 | Discharge Summary ---
Discharge Summary Date of Service Aug 25, 2016. Discharge Summary Admission Date: August 01, 2016 at 21:51 Discharge Date: August 05, 2016 Discharge Disposition: Home Principal Diagnosis: Acute prostatitis,pyelonephritis,Sepsis Problems/Secondary Diagnoses: Diarrhea BPH Acute kidney injury in setting of CKD stage II-III Asthma GERD Pulmonary nodule-stable H/o cholecystectomy Fatty liver History of prolonged hospitalization and rehab stay x 7 months in 2013 for acute diverticulitis and colectomy, intraabdominal abscess, bowel obstruction and laparotomy Procedures: ABDOMEN AND PELVIS CT WITH IV CONTRAST CT DOSE: 1020.35 mGy.cm HISTORY: Lower abdominal pain. temperature persists, prostatitis TECHNIQUE: Multiaxial CT images of the abdomen and pelvis were performed following the use of intravenous contrast. COMPARISON STUDY: Abdomen and pelvis CT 04/25/2015. FINDINGS: Stable 4 mm pulmonary nodule within the right lower lobe on image 6. Hepatic steatosis. Cholecystectomy. The liver and adrenal glands are unremarkable. Punctate calcification within the tail the pancreas. Small hiatus hernia. Tiny hernia within the right rectus abdominis muscle likely at a prior ostomy site. This contains a knuckle of small bowel. There is small bowel anastomosis within the right lower quadrant and a sigmoid anastomosis. No bowel wall thickening or obstruction. Normal appendix. Bladder is decompressed resulting in suboptimal evaluation. There is suggestion of bladder wall thickening. There is mild inflammatory change surrounding the bladder. The prostate gland enhances normally. No hydronephrosis. There is mild fat stranding surrounding the kidneys and there is infiltration of the renal sinus fat bilaterally. Focal scarring within the right kidney. A few hypodense lesions within the kidneys remain stable. Dominant lesion within the right kidney measures 11 mm. IMPRESSION: 1. There appears to be bladder wall thickening. There is mild inflammatory change surrounding the bladder and kidneys. There is also infiltration of the renal sinus fat bilaterally. Therefore, these findings likely represent a cystitis with associated pyelonephritis. Correlation with urinalysis is suggested. 2. No definite bowel wall thickening or obstruction. 3. Hepatic steatosis. 4. Cholecystectomy. 5. Stable 4 mm nodule within the right lower lobe. 6. Postoperative changes within the bowel again noted. Consultations: None Medication Reconciliation New Medications: Levofloxacin (Levaquin) 500 Mg Tab 1 TAB PO DAILY for 21 Days, #21 TAB Changed Medications: Cholestyramine (Cholestyramine) 4 Gm/Dose Pow 1 PKT PO TID, #378 (Changed from: BID) Continued Medications: Albuterol Sulfate (Proventil Hfa) 108 Mcg/Act Aer 2 PUFFS INH BID Azelastine HCl (Azelastine HCl) 0.15 % Spr 2 SPRAYS BABAR DAILY PRN for Nasal Congestion, #30 Budesonide/Formoterol Fumarate (Symbicort 80/4.5 Inhaler) Aero 2 PUFFS INH BID, INHALER Esomeprazole Magnesium (Nexium) 40 Mg Capcr 40 MG PO DAILY, CAP Lactobacillus (Probiotic) 1 Cap Cap 1 CAP PO DAILY Psyllium (Metamucil) 48.57 % Pow 1 PKT PO DAILY Selenium Sulfide (Selsun) 2.5 % Lot 1 APPLN TOP UD, #120 APPLY TO RASH ON BACK Triamcinolone Acetonide (Nasal (Nasacort Allergy 24Hr) 55 Mcg/Act Spr 1 SPRAYS BABAR DAILY Discontinued Medications: Ciprofloxacin (Ciprofloxacin HCl) 1 Homepack Ea 1 TAB PO BID, #20 Referrals At Discharge Follow up Referrals: Family Practice Referral - Within 1-2 Weeks with Kd Andres M.D.[facility]OT) Discharge Exam Doing well, afebrile, no pain, tolerating antibiotics. Physical Exam General Appearance: WD/WN, no apparent distress Eyes: normal inspection, sclerae normal ENT: hearing grossly normal Neck: trachea midline Respiratory/Chest: lungs clear, normal breath sounds, no respiratory distress, no accessory muscle use Cardiovascular: regular rate, rhythm, no edema, no gallop, no murmur Abdomen: normal bowel sounds, non tender, soft Extremities: normal inspection, no calf tenderness Neurologic/Psychiatric: alert, normal mood/affect, oriented x 3 Skin: normal color, warm/dry, no rash Review of Systems: Constitutional: No fever Eyes: No problem reported ENT: No problem reported Respiratory: No problem reported Cardiovascular: No problem reported Abdomen: No problem reported Musculoskeletal: No problem reported Genitourinary - Male: No problem reported Neurologic: No problem reported Psychiatric: No problem reported Endocrine: No problem reported Hematologic / Lymphatic: No problem reported Integumentary: No problem reported Hospital Course 66 M who presentedwith urinary frequency and urgency along with fever, found to be in sepsis with a urinary source. Recurrent acute prostatitis/acute pyelonephritis/sepsis- did have high fever overnight 08/02-, significant leukocytosis, CT of Abd/pelvis shows pyelo and bladder thickening, antibiotics changed from Zosyn to vanco and levaquin, Ur cx returned with pansensitive Proteus mirabilis -d/c'd Vanc and Zosyn -switched to Levaquin and switch to po upon dc for 28 days to treat for prostatitis -follow BCxs but NGTD on day of discharge Diarrhea-with h/o C. diff x 2 in 2013 -check C. diff antigen in stool--> negative -continue probiotics -narrowing down abx BPH previous Green light laser treatment, tamsulosin 0.4 mg by mouth in the evening, consider proscar as outpt Acute renal failure in setting of CKD stage II-III-- substance abuse nurse peaked at 1.6, now back to baseline 1.2 after IV fluids -dc IVFs -encourage oral intake -follow BMP as outpatient Asthma--asymptomatic Proventil HFA, and Symbicort. GERD-no issues pantoprazole 40 mg by mouth daily. Proph-Lovenox Dispo-to home Total Time Spent: Greater than 30 minutes This includes examination of the patient, discharge planning, medication reconciliation, and communication with other providers. Discharge Instructions Please refer to the electronic Patient Visit Report (Discharge Instructions) for additional information. Follow-Up PCP within 1 week Additional Copies To Kd Andres M.D. ([facility]MOT)
== END 2016-08-05 13:33 | disposition home or self-care (01) | DRG 872 ==
LOC: ENRESERVDT → ENRESERVTM → C.EDB 17:32 → C.4E 21:51
PROVIDERS: ADMIT Hospitalist; ATTEND Family Medicine
DX: A41.9 Sepsis, unspecified organism (principal); N17.9 Acute kidney failure, unspecified; N12 Tubulo-interstitial nephritis, not specified as acute or chronic; N41.9 Inflammatory disease of prostate, unspecified; R19.7 Diarrhea, unspecified; N40.0 Benign prostatic hyperplasia without lower urinary tract symptoms; N18.3 Chronic kidney disease, stage 3 (moderate); J45.909 Unspecified asthma, uncomplicated; K21.9 Gastro-esophageal reflux disease without esophagitis; Z87.891 Personal history of nicotine dependence; Z79.51 Long term (current) use of inhaled steroids; Z79.899 Other long term (current) drug therapy; Z86.19 Personal history of other infectious and parasitic diseases

== ENCOUNTER → 2016-08-01 | Outpatient (CLI) | payer OTHER ==
--- NOTE | 2016-08-05 12:10 | CODING QUERY NO DIAGNOSIS ---
TREATMENT RENDERED WITHOUT A DIAGNOSIS To promote full compliance with coding requirements relating to patient care, physician participation is requested in all cases of department of natural resources officer uncertainty. Please assist us with providing a diagnosis/symptom for the test(s) below: A diagnosis/symptom was not documented on your Order. A valid diagnosis/symptom is required to bill all insurances. Please remember that we are unable to code a diagnosis of rule out, probable, possible, questionable, or suspected. Tests that require a diagnosis: * URINE CULTURE CLEAN CATCH DIAGNOSIS: Provider Signature: Date: Thank you Katie [facility] [employer] Once completed, please kindly fax back to [phone] For questions please call [phone]
== END | disposition home or self-care (01) ==
LOC: C.LABSPEC 13:22
PROVIDERS: ATTEND Family Medicine
DX: Z01.89 Encounter for other specified special examinations (principal)

== ENCOUNTER → 2016-08-12 | Outpatient (CLI) | payer OTHER ==
[~2016-08-12] MED LIST changes: +ALBUAER INH; -ALBUAER2 INH; +AZEL0.056 NAE; +CHOL4POW3 PO; -CHOL4POW6 PO; -LDDP5 TD; +LEVO500T19 PO; -MONT1TAB3 PO; +PSYL48.59 PO; -PSYL55.43 PO; +SLSS TOP; +SYMIN/8045 INH; -TRIA1SPR2 NAE; +TRIA1SPR4 NAE
== END | disposition home or self-care (01) ==
LOC: C.LABSPEC 13:28
PROVIDERS: ATTEND Family Medicine
DX: N41.0 Acute prostatitis (principal); N39.0 Urinary tract infection, site not specified

== ENCOUNTER → 2016-11-13 | Outpatient (CLI) | payer OTHER ==
[~2016-11-13] MED LIST changes: -LEVO500T19 PO
[2016-11-13 16:41] LABS: ALT/SGPT 32 U/L (12-78); BLOOD UREA NITROGEN 16 mg/dl (7-18); BUN/CREATININE RATIO 13.7 (10-20); CALCIUM 9.3 mg/dl (8.5-10.1); CARBON DIOXIDE 25 mmol/L (21-32); CHLORIDE 105 mmol/L (98-107); CHOLESTEROL 128 mg/dl (0-200); GLUCOSE 83 mg/dl (70-99); POTASSIUM 3.9 mmol/L (3.5-5.1); SODIUM 138 mmol/L (136-145)
[2016-11-13 16:44] LABS: ALB/GLOB RATIO 0.9 (0.9-2); ALKALINE PHOSPHATASE 72 U/L (45-117); AST/SGOT 37 U/L (15-37); CHOLESTEROL/HDL RATIO 2.8; HDL CHOLESTEROL 45 mg/dl; LDL CHOLESTEROL CALCULATED 63 mg/dl; TRIGLYCERIDES 98 mg/dl (0-150); VERY LOW DENSITY LIPOPROT CALC 20 mg/dl
[2016-11-13 18:16] LABS: BASO % 0.8 %; BASO ABS # 0.05 K/uL (0-0.2); COMPLETE YES; EOS % 4.6 %; HEMATOCRIT 44.5 % (42-52); IG% 0.5 %; LYMPH % 27.7 %; LYMPH ABS # 1.76 K/uL (1.2-3.4); MEAN CELL VOLUME 98.2 fL (80-100); MEAN CORPUSCULAR HEMOGLOBIN 33.3 pg (25-34); MEAN CORPUSCULAR HGB CONC 33.9 g/dl (32-36); MEAN PLATELET VOLUME 9.7 fL (7.4-10.4); MONO % 11.9 %; NEUT % 54.5 %; PLATELET COUNT 255 K/uL (130-400); RED BLOOD COUNT 4.53 M/uL (4.7-6.1); WHITE BLOOD COUNT 6.36 K/uL (4.8-10.8)
== END | disposition home or self-care (01) ==
LOC: C.LABSPEC 16:28
PROVIDERS: ATTEND Family Medicine
DX: E78.2 Mixed hyperlipidemia (principal)

== ENCOUNTER → 2016-12-03 | Outpatient (CLI) | payer OTHER | END | disposition home or self-care (01) | LOC: C.LABMFLN 11:00 | PROVIDERS: ATTEND Urology | DX: N40.1 Benign prostatic hyperplasia with lower urinary tract symptoms (principal) ==

== ENCOUNTER → 2017-03-13 | Outpatient (CLI) | payer OTHER ==
[~2017-03-13] MED LIST changes: +CHOL4POW12 PO; +ESOM20CA PO; +FAMO20TA11 PO; +ONDA4TAB65 PO; +OPTIRAY 320 IV PRN; +PRS5 PO
--- NOTE | 2017-03-13 13:31 | DIAGNOSTIC IMAGING REPORT ---
CT OF THE ABDOMEN AND PELVIS WITH CONTRAST CLINICAL HISTORY: Lower abdominal pain. COMPARISON STUDY: CT of the abdomen and pelvis August 03, 2016. TECHNIQUE: Following IV administration of 93 mL of Optiray-320, axial images of the abdomen and pelvis were obtained from the lung bases to the proximal femurs. Images were reviewed in the axial, sagittal, and coronal planes. IV contrast was administered without complication. A dose lowering technique was utilized adhering to the principles of ALARA. Oral contrast was administered. CT DOSE: 1210.01 mGy.cm FINDINGS: A 4 mm right lower lobe nodule is unchanged since CT of September 26, 2013. This is benign given stability. There is fatty infiltration of the liver. There is no biliary or pancreatic ductal dilatation. Gallbladder surgically absent. There is a punctate calcification within the pancreatic tail. There is no peripancreatic infiltration or fluid. The spleen and adrenal glands are unremarkable. Multifocal scarring within the kidneys is again noted. A few hypodense renal lesions remain unchanged per there is no hydronephrosis. There is no perinephric infiltration. A sigmoid anastomosis is noted as well as a small bowel staple line. The appendix is normal. There is no pneumatosis, free air or portal venous gas. There is no free fluid. There is no lymphadenopathy. Minimal presacral infiltration/stranding is chronic. This could reflect scarring. Major vasculature of the abdomen and pelvis is patent. There are no suspicious osseous lesions. An old right lower quadrant ostomy site is incidentally noted. IMPRESSION: 1. No acute process within the abdomen or pelvis. 2. Normal appendix. No bowel obstruction. 3. Fatty liver. Electronically signed by: Jamie Lucero M.D. 03/13/2017 1:30 PM Dictated Date/Time: 03/13/2017 1:23 PM
== END | disposition home or self-care (01) ==
LOC: C.CTS 13:06
PROVIDERS: ATTEND Family Medicine
DX: K76.0 Fatty (change of) liver, not elsewhere classified (principal); R10.30 Lower abdominal pain, unspecified

== ENCOUNTER 2017-03-29 07:46 | Emergency (ER) | payer OTHER ==
[~2017-03-29] VITALS: Ht 172.7 cm; Wt 114.0 kg
[~2017-03-29 07:46] MED LIST changes: -CHOL4POW12 PO; -ESOM20CA PO; -FAMO20TA11 PO; -ONDA4TAB65 PO; -OPTIRAY 320 IV PRN; -PRS5 PO
[2017-03-29 07:48] VITALS: TEMP 36.3; Ht 172.7 cm; Wt 114.0 kg
[2017-03-29] MEDS ORDERED: PRS5 PO (08:28)
[2017-03-29] MEDS ORDERED: ONDANSETRON INJ 2 MG/ML 2 ML VIAL IV STA (08:32)
[2017-03-29 08:41] LABS: BASO ABS # 0.06 K/uL (0-0.2); EOS % 3.5 %; EOS ABS # 0.21 K/uL (0-0.5); HEMATOCRIT 43.5 % (42-52); HEMOGLOBIN 15.1 g/dL (14.0-18.0); IG# 0.01 K/uL (0.00-0.02); LYMPH % 25.7 %; LYMPH ABS # 1.56 K/uL (1.2-3.4); MEAN CORPUSCULAR HGB CONC 34.7 g/dl (32-36); MEAN PLATELET VOLUME 9.3 fL (7.4-10.4); MONO % 10.9 %; MONO ABS # 0.66 K/uL (0.11-0.59); NEUT % 58.7 %; NEUT ABS # 3.58 K/uL (1.4-6.5); PLATELET COUNT 211 K/uL (130-400); RED CELL DISTRIBUTION WIDTH CV 14.3 % (11.5-14.5); RED CELL DISTRIBUTION WIDTH SD 50.9 fL (36.4-46.3); WHITE BLOOD COUNT 6.08 K/uL (4.8-10.8)
[2017-03-29 08:59] LABS: ALBUMIN 3.5 gm/dl (3.4-5.0); CREATININE 1.18 mg/dl (0.60-1.40); POTASSIUM 3.7 mmol/L (3.5-5.1)
[2017-03-29 09:01] LABS: TOTAL PROTEIN 7.6 gm/dl (6.4-8.2)
[2017-03-29] MEDS ORDERED: OPTIRAY 320 IV PRN (10:30)
--- NOTE | 2017-03-29 10:54 | DIAGNOSTIC IMAGING REPORT ---
ABDOMEN AND PELVIS CT WITH IV AND ORAL CONTRAST CT DOSE: 1089.52 mGy.cm HISTORY: Right lower quadrant abdominal pain. TECHNIQUE: Multiaxial CT images of the abdomen and pelvis were performed following the use of intravenous and oral contrast. A dose lowering technique was utilized adhering to the principles of ALARA. COMPARISON STUDY: Abdomen and pelvis CT 03/13/2017. FINDINGS: A 4 mm right lower lobe nodule is unchanged since CT of September 26, 2013. This is benign given stability. There is fatty infiltration of the liver. There is no biliary or pancreatic ductal dilatation. Gallbladder surgically absent. There is a punctate calcification within the pancreatic tail. There is no peripancreatic infiltration or fluid. The spleen and adrenal glands are unremarkable. Multifocal scarring within the kidneys is again noted. A few hypodense renal lesions remain unchanged. There is no hydronephrosis. There is no perinephric infiltration. A sigmoid anastomosis is noted as well as a small bowel staple line. The appendix is normal. There is no pneumatosis, free air or portal venous gas. There is no free fluid. There is no lymphadenopathy. Minimal presacral infiltration/stranding is chronic. This could reflect scarring. Major vasculature of the abdomen and pelvis is patent. There are no suspicious osseous lesions. An old right lower quadrant ostomy site is incidentally noted. Prior right inguinal hernia repair. IMPRESSION: 1. No acute process within the abdomen or pelvis. 2. Normal appendix. No bowel obstruction. 3. Fatty liver. No change from ABD/PELVIS IV AND ORAL CONT with report dated 03/13/2017 1:30 PM. Electronically signed by: Darryl Bailey M.D. 03/29/2017 10:52 AM Dictated Date/Time: 03/29/2017 10:47 AM
[2017-03-29 11:42] VITALS: BP 115/64; PULSE 66; O2SAT 94
[2017-03-29] MEDS ORDERED: ONDA4TAB65 PO (12:02)
--- NOTE | 2017-04-04 10:10 | EMERGENCY ROOM VISIT NOTE ---
History First contact with patient: 07:56 Chief Complaint: ABDOMINAL PAIN Stated Complaint: LOWER ABDOMINAL PAIN Nursing Triage Summary: patient states he had a CT on 03/12 for lower right abdominal pain. CT at that time was negative. patient states pain is becoming increasingly painful, more constant and accompanied with nausea.. patient had colon resection in [place] in [place]. hx diverticulitis History of Present Illness The patient is a 67 year old white male who presents to the Emergency Room with complaints of right lower quadrant abdominal pain that has been ongoing for 3 weeks. He previously was seen by his PCP in February and had a CT scan done March 12. He states it was unremarkable at that time. His pain continues. He states it is slowly getting worse. He is nauseated but denies any vomiting. No diarrhea. He states he had a colon resection in [place] in 2013 for diverticulitis. He has mild left-sided discomfort but the right is definitely worse. No hematuria. No fevers or chills. No other treatment. He denies any difficulty moving his bowels. His accompanies him today. Pain is 6/10. No history of kidney stones. He denies any UTI symptoms. He already has an appointment to see Dr. Lowe from general surgery, next week. Review of Systems REVIEW OF SYSTEM: HEENT: No dizziness, visual problems, hearing loss, or tinnitus. There is no difficulty swallowing and no oral lesions are present. LYMPH: No adenopathy. PULMONARY: No cough, shortness of breath, sputum production or hemoptysis. CARDIOVASCULAR: No chest pain, palpitations, shortness of breath or peripheral edema. GASTROINTESTINAL: No diarrhea, constipation, or vomiting. GENITOURINARY: No dysuria, frequency, urgency or nocturia. NEUROLOGIC: No weakness, muscle tenderness, epilepsy or history of neurological problems. MUSCULOSKELETAL: No history of joint tenderness/swelling. No history of arthritis or arthralgias. SKIN: No rashes or lesions. PSYCHIATRIC: No history of depression or mental illness. ENDOCRINE: No history of diabetes, thyroid disorders, or abnormal hair growth. Past Medical/Surgical History Medical Problems: (1) Asthma (2) Chest pain (3) DDD (degenerative disc disease), cervical (4) Prostatitis (5) SIRS (systemic inflammatory response syndrome) Surgical Problems: (1) Hx of cholecystectomy (2) Hx of ileostomy Family History Cancer Gallbladder disease Hypertension Kidney disease Kidney stones Social History Smoking Status: Never Smoker Smokeless Tobacco Use: No Alcohol Use: none Drug Use: none Marital Status: Housing Status: lives with significant other Occupation Status: retired Current/Historical Medications Scheduled Albuterol Sulfate (Proventil Hfa), 2 PUFFS INH BID Budesonide/Formoterol Fumarate (Symbicort 80/4.5 Inhaler), 2 PUFFS INH BID Cholestyramine (Cholestyramine), 1 PKT PO TID Esomeprazole Magnesium (Nexium), 40 MG PO DAILY Finasteride (Finasteride), 5 MG PO HS Lactobacillus (Probiotic), 1 CAP PO DAILY Psyllium (Metamucil), 1 PKT PO DAILY Selenium Sulfide (Selsun), 1 APPLN TOP UD Triamcinolone Acetonide (Nasal (Nasacort Allergy 24Hr), 1 SPRAYS BABAR DAILY Scheduled PRN Azelastine HCl (Azelastine HCl), 2 SPRAYS BABAR DAILY PRN for Nasal Congestion Ondansetron Hcl (Zofran), 1 TAB PO Q6H PRN for Nausea or Vomiting Allergies Coded Allergies: Aspirin (Verified Allergy, Unknown, STOMACH CRAMPS, 03/29/17) Hydrocodone (Verified Adverse Reaction, Mild, N/V, 03/29/17) Physical Exam Vital Signs Date Time Temp Pulse Resp B/P (MAP) Pulse Ox O2 Delivery O2 Flow Rate FiO2 03/29/17 11:42 66 20 115/64 94 Room Air 03/29/17 09:45 64 16 131/80 94 03/29/17 07:48 36.3 85 18 146/90 93 Room Air Physical Exam Gen.: Well-developed, well-nourished, elderly white male, in no acute distress. Obvious discomfort. Laying on a bed. Alert and oriented. Skin:Warm and dry with good turgor. No rashes or lesions. No ecchymosis or erythema. The patient is not diaphoretic. No abrasions. HEENT: Normocephalic atraumatic. Eyes PERRLA, EOMI. No conjunctiva or scleral injection. Nares patent bilaterally without turbinate enlargement. No significant drainage. No epistaxis. Oropharynx without erythema or exudate. Uvula midline, oral mucosa moist. No lesions present. Heart: Heart RRR. No MGR. Peripheral pulses are 2+. Lungs: Lungs are clear to auscultation. No crackles rhonchi or wheezing. Good air movement. The patient is able to take a deep breath. Abdomen: Abdomen was inspected, auscultated, and palpated. Bowel sounds present x 4. Soft, right lower quadrant tender to palpation. No hepato- splenomegaly. No masses noted. No rebound. There is pain over McBurney's point. Mild right CVA tenderness. Mild suprapubic discomfort as well. Musculoskeletal: Gross motor function of the upper and lower extremities is intact and unremarkable. Neurologic: Gross sensation is intact to the upper and lower extremities by soft touch. Medical Decision & Procedures ER Provider Diagnostic Interpretation: CT scan imaging of the abdomen and pelvis with IV and oral contrast was obtained today. This was read by radiology as unremarkable. No appendicitis. No diverticulitis, constipation, or perforation. Laboratory Results 03/29/17 08:30 Red Blood Count 4.44, Mean Corpuscular Volume 98.0, Mean Corpuscular Hemoglobin 34.0, Mean Corpuscular Hemoglobin Concent 34.7, Mean Platelet Volume 9.3, Neutrophils (%) (Auto) 58.7, Lymphocytes (%) (Auto) 25.7, Monocytes (%) (Auto) 10.9, Eosinophils (%) (Auto) 3.5, Basophils (%) (Auto) 1.0, Neutrophils # (Auto ) 3.58, Lymphocytes # (Auto) 1.56, Monocytes # (Auto) 0.66, Eosinophils # (Auto ) 0.21, Basophils # (Auto) 0.06 03/29/17 08:30 Test 03/29/17 08:14 03/29/17 08:30 Urine Color YELLOW Urine Appearance CLEAR (CLEAR) Urine pH 5.0 (4.5-7.5) Urine Specific [place] 1.019 (1.000-1.030) Urine Protein NEG (NEG) Urine Glucose (UA) NEG (NEG) Urine Ketones NEG (NEG) Urine Occult Blood NEG (NEG) Urine Nitrite NEG (NEG) Urine Bilirubin NEG (NEG) Urine Urobilinogen NEG (NEG) Urine Leukocyte Esterase NEG (NEG) White Blood Count 6.08 K/uL (4.8-10.8) Red Blood Count 4.44 M/uL (4.7-6.1) Hemoglobin 15.1 g/dL (14.0-18.0) Hematocrit 43.5 % (42-52) Mean Corpuscular Volume 98.0 fL (80-100) Mean Corpuscular Hemoglobin 34.0 pg (25-34) Mean Corpuscular Hemoglobin Concent 34.7 g/dl (32-36) Platelet Count 211 K/uL (130-400) Mean Platelet Volume 9.3 fL (7.4-10.4) Neutrophils (%) (Auto) 58.7 % Lymphocytes (%) (Auto) 25.7 % Monocytes (%) (Auto) 10.9 % Eosinophils (%) (Auto) 3.5 % Basophils (%) (Auto) 1.0 % Neutrophils # (Auto) 3.58 K/uL (1.4-6.5) Lymphocytes # (Auto) 1.56 K/uL (1.2-3.4) Monocytes # (Auto) 0.66 K/uL (0.11-0.59) Eosinophils # (Auto) 0.21 K/uL (0-0.5) Basophils # (Auto) 0.06 K/uL (0-0.2) RDW Standard Deviation 50.9 fL (36.4-46.3) RDW Coefficient of Variation 14.3 % (11.5-14.5) Immature Granulocyte % (Auto) 0.2 % Immature Granulocyte # (Auto) 0.01 K/uL (0.00-0.02) Anion Gap 8.0 mmol/L (3-11) Est Creatinine Clear Calc Drug Dose 75.5 ml/min Estimated GFR () 74.1 Estimated GFR (Non- 63.9 BUN/Creatinine Ratio 11.9 (10-20) Calcium Level 9.0 mg/dl (8.5-10.1) Total Bilirubin 0.6 mg/dl (0.2-1) Aspartate Amino Transf (AST/SGOT) 26 U/L (15-37) Alanine Aminotransferase (ALT/SGPT) 30 U/L (12-78) Alkaline Phosphatase 64 U/L (45-117) Total Protein 7.6 gm/dl (6.4-8.2) Albumin 3.5 gm/dl (3.4-5.0) Globulin 4.1 gm/dl (2.5-4.0) Albumin/Globulin Ratio 0.9 (0.9-2) Lipase 93 U/L (73-393) CBC, chem panel, lipase, and UA were obtained. They are unremarkable. Medications Administered Medications (Trade) Dose Ordered Sig/Magdy Route Start Time Stop Time Status Last Admin Dose Admin Ondansetron HCl (Zofran Inj) 4 mg NOW STAT IV 03/29/17 08:32 03/29/17 08:34 DC 03/29/17 08:45 4 MG Zofran 4 mg IV ED Course Patient was educated regarding today's findings. Conservative care measures were discussed. IV was established. Labs were obtained. UA was also obtained. They are all unremarkable. No elevation in white count. No elevation in LFTs. Urine is clean. CT scan imaging of the abdomen and pelvis with IV and oral contrast was repeated because of his increasing pain. This was also unremarkable. Unfortunately, I do not have an answer for the cause of his lower abdominal pain. Patient should follow-up with his PCP for a GI referral. He will likely need a colonoscopy. Return to the ED for any acute changes or worsening of symptoms. Prescription was provided for Zofran 4 mg to be used every 6 hours as needed for nausea. He should keep his appointment with Dr. Lowe next week. Patient was seen in conjunction with Dr. Botello, who also evaluated the patient and concurred with today's diagnosis and treatment plan. Medical Decision Possibility of UTI, pyelonephritis, kidney stone, appendicitis, colitis, diverticulitis, mesenteric anomaly, constipation, perforation, and gastroenteritis were considered, among others. [place] Drug Monitoring Program Search Results: no issues identified Impression Primary Impression: Recurrent lower abdominal pain Departure Information Dispostion Home / Self-Care Condition GOOD Prescriptions Ondansetron Hcl (ZOFRAN) 4 Mg Tab 1 TAB PO Q6H Y for Nausea or Vomiting, #10 TAB 1 Refill Prov: Wiley Galan,P.A. 03/29/17 Forms Call Back Authorization, HOME CARE DOCUMENTATION FORM, TYLENOL USE, IMPORTANT VISIT INFORMATION Patient Instructions [facility] [place] [employer] Additional Instructions Maintain hydration Zofran 1 tablet every 6 hours as needed for nausea Follow-up with your PCP for reexamination Keep your appointment with Dr. Lowe Return to the ED for any acute worsening of symptoms
== END 2017-03-29 12:10 | disposition home or self-care (01) ==
LOC: C.EDB 07:48
DX: R10.32 Left lower quadrant pain (principal); J45.909 Unspecified asthma, uncomplicated; Z90.49 Acquired absence of other specified parts of digestive tract; Z82.49 Family history of ischemic heart disease and other diseases of the circulatory system; Z84.1 Family history of disorders of kidney and ureter

== ENCOUNTER → 2017-05-25 | Day surgery (SDC) | payer OTHER ==
[2017-05-07 14:39] VITALS: BMI 37.0
[~2017-05-25] VITALS: Ht 172.7 cm; Wt 111.4 kg
[~2017-05-25] MED LIST changes: +ATROPINE SULFATE 0.1 MG/ML 5ML SYR IV PRN; +CHOL4POW12 PO; -CHOL4POW3 PO; +ESOM20CA PO; +EpHEDrine SULFATE INJ 50 MG/ML AMP IV PRN; +FAMO20TA11 PO; +FENTANYL CITRATE INJ 50 MCG/1 ML 2 ML VIAL ONE; +LIDOCAINE HCL 2% 2 ML VIAL (20MG/ML) ONE; -NXM/40 PO; +ONDANSETRON INJ 2 MG/ML 2 ML VIAL ONE; +PROPOFOL IV EMULSION 10 MG/ML 20 ML VIAL IV ONE
[2017-05-25 12:51] VITALS: Ht 172.7 cm; Wt 111.4 kg
--- NOTE | 2017-05-25 13:06 | Endo History and Physical ---
History & Physical Date of Service: May 25, 2017. Chief Complaint: LOWER ABDOMINAL PAIN, NAUSEA Referring Physician: DR DAYANARA CARDONA History of Present Illness For EGD and colonoscopy Past Medical History Asthma, Male Genitourinary Prob., Reflux Past Surgical History Hx Cardiac Surgery: Yes (HEART CATH, NO STENTS) Hx Internal Defibrillator: No Hx Pacemaker: No Hx Abdominal Surgery: Yes (BARRY, PARTIAL SIGMOIDECTOMY WITH COLOSTOMY AND REVERSAL) Hx of Implantable Prosthesis: No Hx Post-Op Nausea and Vomiting: Yes Hx Cancer Surgery: No Hx Thoracic Surgery: No Hx Orthopedic: Yes (C4-5 FUSION (FULL ROM), LT/RT CTR, RT TARSAL TUNNEL REPAIR) Hx Urinary Tract Surgery: Yes (GREENLIGHT TURP) Family History None Social History Smoking Status: Former Smoker Hx Substance Use: No Hx Alcohol Use: No Allergies Coded Allergies: Aspirin (Verified Allergy, Unknown, STOMACH CRAMPS, 05/25/17) NSAIDs (Verified Allergy, Unknown, STOMACH CRAMPS, 05/25/17) Hydrocodone (Verified Adverse Reaction, Mild, N/V, 05/25/17) Current Medications Reported Home Medications Medications Dose Route/Sig Max Daily Dose Days Date Category Dose Instructions Pepcid (Famotidine) 20 Mg Tab 20 Mg PO PRN 05/25/17 Reported Nexium (Esomeprazole Magnesium) 20 Mg Capcr 2 Tabs PO QAM 05/07/17 Reported Questran (Cholestyramine) 4 Gm/Dose Pow 1 Dose PO DAILY PRN 05/07/17 Reported Metamucil (Psyllium) 48.57 % Pow 1 Pkt PO DAILY 08/01/16 Reported Nasacort Allergy 24Hr (Triamcinolone Acetonide (Nasal) 55 Mcg/Act Spr 1 Sprays BABAR QAM 08/01/16 Reported Proventil Hfa (Albuterol Sulfate) 108 Mcg/Act Aer 2 Puffs INH BID 08/01/16 Reported Symbicort 80/4.5 Inhaler (Budesonide/Formoterol Fumarate) Aero 2 Puffs INH BID 08/01/16 Reported Azelastine HCl 0.15 % Spr 2 Sprays BABAR DAILY PRN 08/01/16 Reported Selsun (Selenium Sulfide) 2.5 % Lot 1 Appln TOP UD PRN 08/01/16 Reported APPLY TO RASH ON BACK Probiotic (Lactobacillus) 1 Cap Cap 1 Cap PO DAILY 08/23/15 Reported Vital Signs Weight (Kilograms): 111.36 Height (Feet): 5 Height (Inches): 8 Date Time Temp Pulse Resp B/P (MAP) Pulse Ox O2 Delivery O2 Flow Rate FiO2 05/25/17 12:53 36.6 84 20 152/80 (104) 93 Room Air Physical Exam General Appearance: WD/WN Respiratory/Chest: Respiratory effort: no dyspnea Cardiovascular: Heart Auscultation: RRR Abdomen: Bowel Sounds: pertinent finding (scars) Assessment and Plan nausea, abd pain for EGD and colonoscopy
--- NOTE | 2017-05-25 13:36 | Discharge Instructions ---
Endoscopy Patient Instructions Date / Procedure(s) Performed May 25, 2017. Colonoscopy, EGD Allergy Information Coded Allergies: Hydrocodone (Verified Adverse Reaction, Mild, N/V, 05/25/17) Aspirin (Verified Adverse Reaction, Unknown, STOMACH CRAMPS, 05/25/17) NSAIDs (Verified Adverse Reaction, Unknown, STOMACH CRAMPS, 05/25/17) Discharge Date / Findings May 25, 2017. mild antral vascular ectasia, patent colonic anastomosis Medication Instructions Restart Stopped Medication(s): resume meds Reported Home Medications Medications Dose Route/Sig Max Daily Dose Days Date Category Dose Instructions Pepcid (Famotidine) 20 Mg Tab 20 Mg PO PRN 05/25/17 Reported Nexium (Esomeprazole Magnesium) 20 Mg Capcr 2 Tabs PO QAM 05/07/17 Reported Questran (Cholestyramine) 4 Gm/Dose Pow 1 Dose PO DAILY PRN 05/07/17 Reported Metamucil (Psyllium) 48.57 % Pow 1 Pkt PO DAILY 08/01/16 Reported Nasacort Allergy 24Hr (Triamcinolone Acetonide (Nasal) 55 Mcg/Act Spr 1 Sprays BABAR QAM 08/01/16 Reported Proventil Hfa (Albuterol Sulfate) 108 Mcg/Act Aer 2 Puffs INH BID 08/01/16 Reported Symbicort 80/4.5 Inhaler (Budesonide/Formoterol Fumarate) Aero 2 Puffs INH BID 08/01/16 Reported Azelastine HCl 0.15 % Spr 2 Sprays BABAR DAILY PRN 08/01/16 Reported Selsun (Selenium Sulfide) 2.5 % Lot 1 Appln TOP UD PRN 08/01/16 Reported APPLY TO RASH ON BACK Probiotic (Lactobacillus) 1 Cap Cap 1 Cap PO DAILY 08/23/15 Reported Provider Instructions Activity Restrictions - No exercising or heavy lifting for 24 hours. - Do not drink alcohol the day of the procedure. - Do not drive a car or operate machinery until the day after the procedure. - Do not make any important decisions or sign important papers in 24 hours after the procedure. Following Day: - Return to full activity which may include returning to work/school. Diet Start your diet with liquids and light foods (jello, soup, juice, toast). Then eat your usual diet if not nauseated. Treatment For Common After Affects For mild abdominal pain, bloating, or excessive gas: - Rest - Eat lightly - Lie on right side Follow-Up Information Follow-up with DR DAYANRAA CARDONA as scheduled Anesthesia Information What You Should Know You have had a procedure that required some medicine to reduce anxiety and discomfort. This treatment is called moderate sedation. After receiving the treatment, you may be sleepy, but you will be able to breathe on your own. The effects of the treatment may last for several hours. Follow these instructions along with Activity/Diet recommendations noted above: * Do NOT do anything where dizziness or clumsiness would be dangerous. * Rest quietly at home today, then you can be up and about tomorrow. * Have a responsible person stay with you the rest of today. * You may have had an I.V. today. If so, you may take the dressing off later today. Recommendations Call your doctor if: * Trouble breathing * Continuous vomiting for more than 24 hours * Temperature above 101 degrees * Severe abdominal pain or bloating * Pain not relieved by pain medicine ordered * There is increased drainage or redness from any incision * A large amount of rectal bleeding greater than 2-3 tablespoons. (If you had a polyp/s removed or have hemorrhoids, a small amount of blood - from the rectum is to be expected.) * You have any unanswered questions or concerns. IN THE EVENT OF A SERIOUS EMERGENCY, GO TO THE NEAREST EMERGENCY ROOM Your discharge instructions were prepared by provider Holden Lau. Patient Instructions Signature Page Santi Schilling Patient (or Guardian) Signature/Date: I have read and understand the instructions given to me by my caregivers. Caregiver/RN/Doctor Signature/Date: The above-named patient and/or guardian has received patient instructions on this date. + Original Patient Signature Page (only) stays with chart. Please make copy for patient.
--- NOTE | 2017-05-25 13:41 | GI REPORT ---
Procedure Date: 05/25/2017 1:07 PM Procedure: Upper GI endoscopy Indications: Nausea Medicines: Fentanyl 100 micrograms IV, Propofol total dose 240 mg IV, Ondansetron 4 mg IV, Lidocaine 40 mg IV Complications: No immediate complications. Estimated Blood Loss: Estimated blood loss: none. Procedure: Pre-Anesthesia Assessment: - Prior to the procedure, a History and Physical was performed, and patient medications, allergies and sensitivities were reviewed. The patient's tolerance of previous anesthesia was reviewed. - The risks and benefits of the procedure and the sedation options and risks were discussed with the patient. All questions were answered and informed consent was obtained. After obtaining informed consent, the endoscope was passed under direct vision. Throughout the procedure, the patient's blood pressure, pulse, and oxygen saturations were monitored continuously. The scope was introduced through the mouth, and advanced to the second part of duodenum. The upper GI endoscopy was accomplished without difficulty. The patient tolerated the procedure well. Findings: The Z-line was regular and was found 39 cm from the incisors. The examined esophagus was normal. A few no bleeding angioectasias were found in the gastric antrum. The examined duodenum was normal. Impression: - Z-line regular, 39 cm from the incisors. - Normal esophagus. - A few non-bleeding angioectasias in the stomach. - Normal examined duodenum. - No specimens collected. Recommendation: - Discharge patient to home (ambulatory). - Continue present medications. - Return to primary care physician PRN. Holden Lau M.D. Holden Lau MD 05/25/2017 1:40:51 PM This report has been signed electronically. Note Initiated On: 05/25/2017 1:07 PM I attest to the content of the Intraoperative Record and orders documented therein, exceptions below
--- NOTE | 2017-05-25 13:44 | GI REPORT ---
Procedure Date: 05/25/2017 1:24 PM Procedure: Colonoscopy Indications: Lower abdominal pain, Personal history of colonic polyps Medicines: Fentanyl 100 micrograms IV, Propofol total dose 240 mg IV, Ondansetron 4 mg IV, Lidocaine 40 mg IV Complications: No immediate complications. Estimated Blood Loss: Estimated blood loss: none. Procedure: Pre-Anesthesia Assessment: - Prior to the procedure, a History and Physical was performed, and patient medications, allergies and sensitivities were reviewed. The patient's tolerance of previous anesthesia was reviewed. - The risks and benefits of the procedure and the sedation options and risks were discussed with the patient. All questions were answered and informed consent was obtained. After I obtained informed consent, the scope was passed under direct vision. Throughout the procedure, the patient's blood pressure, pulse, and oxygen saturations were monitored continuously. The Scope was introduced through the anus and advanced to the terminal ileum. The colonoscopy was performed without difficulty. The patient tolerated the procedure well. The quality of the bowel preparation was excellent. Findings: There was evidence of a prior end-to-end colo-colonic anastomosis in the sigmoid colon. This was patent and was characterized by healthy appearing mucosa. The anastomosis was traversed. The terminal ileum appeared normal. Impression: - Patent end-to-end colo-colonic anastomosis, characterized by healthy appearing mucosa. - The examined portion of the ileum was normal. - No specimens collected. Recommendation: - Discharge patient to home (ambulatory). - Continue present medications. - Repeat colonoscopy in 5 years for surveillance. - Return to primary care physician LEONIDESN. Holden Lau M.D. Holden Lau MD 05/25/2017 1:43:52 PM This report has been signed electronically. Note Initiated On: 05/25/2017 1:24 PM I attest to the content of the Intraoperative Record and orders documented therein, exceptions below
--- NOTE | 2017-05-25 13:49 | Anesthesiology Progress Note ---
Anesthesia Post Op Note Date & Time May 25, 2017 at 13:49 Vital Signs Pain Intensity: 0 Vital Signs Past 12 Hours Date Time Temp Pulse Resp B/P (MAP) Pulse Ox O2 Delivery O2 Flow Rate FiO2 05/25/17 12:53 36.6 84 20 152/80 (104) 93 Room Air Notes Mental Status: alert / awake / arousable, participated in evaluation Pt Amnestic to Procedure: Yes Nausea / Vomiting: adequately controlled Pain: adequately controlled Airway Patency, RR, SpO2: stable & adequate BP & HR: stable & adequate Hydration State: stable & adequate Anesthetic Complications: no major complications apparent
[2017-05-25 14:15] VITALS: BP 125/78; PULSE 76; O2SAT 91
== END | disposition home or self-care (01) ==
LOC: C.GI 12:04
PROVIDERS: ATTEND Internal Medicine Gastroenterology
DX: R10.9 Unspecified abdominal pain (principal); R11.0 Nausea; J45.909 Unspecified asthma, uncomplicated; K21.9 Gastro-esophageal reflux disease without esophagitis; K31.819 Angiodysplasia of stomach and duodenum without bleeding; E66.9 Obesity, unspecified; Z86.010 Personal history of colon polyps; Z68.37 Body mass index [BMI] 37.0-37.9, adult; Z88.5 Allergy status to narcotic agent; Z88.6 Allergy status to analgesic agent; Z90.49 Acquired absence of other specified parts of digestive tract; Z98.1 Arthrodesis status; Z87.891 Personal history of nicotine dependence

== ENCOUNTER 2019-03-30 05:57 | Observation (INO) ==
--- NOTE | 2019-03-25 10:56 | Anesthesiology Consultation ---
Date of Service March 25, 2019 Assessment & Plan (1) Encounter for pre-operative examination: Chart Review Chart Review: Acceptable Risk for Surgery and Patient NOT seen in Pre Admission Testing Consults Requested none History Surgery Operation Date: 03/30/19 07:30 Proposed Procedures p Robotic Laparoscopic Fundoplication - Jorge Alberto Chong MD, FACS s With Esophagogastroduodenoscopy - Jorge Alberto Chong MD, FACS Height/Weight Height: 5 ft 8 in Weight: 102.058 kg Allergies Allergy/AdvReac Type Severity Reaction Status Date / Time hydrocodone AdvReac Mild N/V Verified 03/24/19 15:54 aspirin AdvReac Unknown STOMACH Verified 03/24/19 15:54 CRAMPS NSAIDS (Non-Steroidal AdvReac Unknown STOMACH Verified 03/24/19 15:54 Anti-Inflamma CRAMPS Medications Home Medications Medication Instructions Recorded Confirmed Last Taken cholestyramine-aspartame 4 gram 4 gm PO BID ea 03/11/18 03/24/19 11/26/18 oral powder for susp in a packet esomeprazole magnesium 40 mg 40 mg PO BID 03/11/18 03/24/19 11/27/18 capsule,delayed release lactobacillus combination no.9 4 4,000 mmu cells PO QPM 03/11/18 03/24/19 billion cell capsule budesonide-formoterol [Symbicort] 2 puff INHALATION BID 11/27/18 03/24/19 11/26/18 aluminum hydrox-magnesium carb 254 5 ml PO TID PRN 03/11/19 03/24/19 Unknown mg-237.5 mg/5 mL oral suspension ranitidine HCl 150 mg tablet 150 mg PO QID tab 03/11/19 03/24/19 Unknown triamcinolone acetonide 55 mcg 1 spray INTRANASAL BID ml 03/11/19 03/24/19 Unknown nasal spray aerosol azelastine 137 mcg (0.1 %) nasal 2 sprays INTNAS BID 03/23/19 03/24/19 Unknown spray aerosol albuterol sulfate [ProAir HFA] 1 inh INHALATION QID PRN 03/24/19 03/24/19 Unk nown Past Medical History Medical History Abdominal abscess 2013. [place] Anemia Asthma (Chronic) DDD (degenerative disc disease), cervical GERD with stricture PONV (postoperative nausea and vomiting) did well with scope patch Small bowel obstruction 10/2013. small bowel looped 3 times in cavity from abscess Past Family History Family History Mother Heart disease Hearing loss Hypertension Sister Cardiac disorder Stroke Father Hearing loss Hypertension Family/Other Stomach cancer Other No family history of bleeding disorder Past Surgical History Surgical History History of arthroscopy of right shoulder History of carpal tunnel surgery right and left History of hernia surgery right and left inguinal hernia repair History of partial colectomy Low Anterior partial colectomy with anastomosis 2013 diverticulosis History of reversal of ileostomy 12-21-13 had colon leak and needed colostomy and reversed Hx of cervical spine surgery [facility] C4-5 no limitations Hx of cholecystectomy (Resolved) Hx of ileostomy (Resolved) 08/2013 Social History Smoking Status: Former smoker Do You Dip or Chew Tobacco: No Smoking End Date: quit 30 yrs ago Hx Alcohol Use: No Hx Substance Use: No substance use type: does not use Testing Electrocardiogram Date: 11/27/18 Findings: + NSR @ Chest X-Ray Date: 11/27/18 Findings: + NAD Pulmonary Function Test Date: 08/02/18 Findings: + responds to Bronchodilators (excellent response) mild obstructive disease
[2019-03-30] MEDS ORDERED: LR 15ML/HR IV SCH (06:00)
[2019-03-30] MEDS ORDERED: PROPOFOL IV EMULSION 10 MG/ML 20 ML VIAL IV ONE (06:35)
[2019-03-30] MEDS ORDERED: ONDANSETRON INJ 2 MG/ML 2 ML VIAL ONE ×2 (06:35→11:02)
[2019-03-30] MEDS ORDERED: NEOSTIGMINE METHYLSULFATE 5 MG/5 ML SYR ONE (06:35)
[2019-03-30] MEDS ORDERED: DEXAMETHASONE SOD INJ 4 MG/ML VIAL ONE (06:35)
[2019-03-30] MEDS ORDERED: ROCURONIUM BROMIDE 10 MG/ML 5 ML VIAL ONE ×5 (06:35→09:26)
[2019-03-30] MEDS ORDERED: LIDOCAINE HCL 2% 2 ML VIAL/AMP(20MG/ML) INFIL ONE (06:35)
[2019-03-30] MEDS ORDERED: GLYCOPYRROLATE 0.2 MG/ML VIAL ONE (06:35)
[2019-03-30] MEDS ORDERED: fentaNYL citrate 100 MCG/2 ML VIAL ONE ×4 (06:36→09:20)
[2019-03-30] MEDS ORDERED: MIDAZOLAM HCL 1 MG/ML 2ML VIAL ONE (06:36)
--- NOTE | 2019-03-30 06:55 | History & Physical Bridge Note ---
Date of Service March 30, 2019 History & Physical Bridge Note I have examined the patient, reviewed the History & Physical and in the interval since the performance of the History & Physical I have noted the following changes of clinical significance: no changes noted
[2019-03-30] MEDS ORDERED: BUPIVACAINE LIPOSOME 1.3% 266 MG/20 ML VIAL ONE (07:01)
[2019-03-30] MEDS ORDERED: SODIUM CHLORIDE 0.9% PF 50 ML VIAL ONE (07:01)
[2019-03-30] MEDS ORDERED: BUPIVACAINE 0.5 % 5 MG/1 ML MPF 30ML VIAL ONE (07:01)
[2019-03-30] MEDS ORDERED: SCOPOLAMINE 1.5 MG TDSY ONE (07:07)
[2019-03-30] MEDS ORDERED: HYDROmorphone INJ 2 MG/ML SYR/VIAL IV PRN (07:17)
[2019-03-30] MEDS ORDERED: ONDANSETRON INJ 2 MG/ML 2 ML VIAL IV PRN (07:17)
[2019-03-30] MEDS ORDERED: ATROPINE SULFATE 0.1 MG/ML 10ML SYR IV PRN (07:17)
[2019-03-30] MEDS ORDERED: METOCLOPRAMIDE HCL INJ 5 MG/ML 2 ML VIAL IV PRN (07:17)
[2019-03-30] MEDS ORDERED: PROMETHAZINE HCL 12.5 MG in SODIUM CHLORIDE 0.9% 50 ML IV PRN (07:17)
[2019-03-30] MEDS ORDERED: ePHEDrine sulfate 50 MG/ML AMP IV PRN (07:17)
[2019-03-30] MEDS ORDERED: CEFAZOLIN 250 MG/ML 1 GM VIAL ONE (08:12)
[2019-03-30] MEDS ORDERED: HYDROmorphone INJ 2 MG/ML SYR/VIAL ONE (09:23)
[2019-03-30] MEDS ORDERED: CEFAZOLIN 2000MG 2,000 MG/15 ML SYR IV ONE (09:25)
[2019-03-30] MEDS ORDERED: PIPERACILL/TAZOBAC CONSULT ACTIVE PRN ×2 (11:46→13:47)
--- NOTE | 2019-03-30 11:46 | Operative Report ---
PG Post Operative Report Pre & Post Diagnosis Operation Date: 03/30/19 07:30 Pre-Op Diagnosis: GERD with Stricture Post-Op Diagnosis: GERD with Stricture; small bowel enterotomy I identified the patient and participated in the time-out.: Yes Procedure Operation Date: 03/30/19 07:30 Actual Procedures p Robotic Laparoscopic Fundoplication, with Extensive Lysis of Adhesions(Not Applicable) - Jorge Alberto Chong MD, FACS Extensive lysis of adhesions - Dr Jorge Alberto Chong s With Esophagogastroduodenoscopy(Not Applicable) - Jorge Alberto Chong MD, FACS Repair small bowel enterotomy (Dr Yusuf Patterson). Surgeon Jorge Alberto Chong MD, FACS Air Filler Jordin MOISE / Dr Patterson Estimated Blood Loss 50 Findings Consistent with Post-Op Diagnosis Specimens Hernia sac, GE fat pad Anesthesia Type General Complications Small bowel enterotomy Disposition Accompanied Patient To Recovery: Yes Disposition: Recovery Room Description of Procedure This 69-year-old male has had multiple abdominal surgeries including colostomy and takedown after abdominal infection with a leaking anastomosis who has severe gastroesophageal reflux symptomatology which is unresponsive to nonsurgical management. He has had a stricture which is had to be dilated. He has obvious reflux on endoscopy however, the upper GI did not show obvious reflux at that time. He does not have a very large hiatal hernia although he did have one. We had a few discussions about this and we have elected to proceed with surgical management as it appears that he has a chronic cough from his reflux. He was evaluated by Dr. Ricardo Mccrary from otolaryngology who also felt that an antireflux procedure would be helpful. On 03/30/2019 patient brought to have room and underwent a laparoscopic evaluation and takedown of multiple adhesions. Using blunt dissection with a Kitner cotton-tipped applicator and a cautery on a hook we took down multiple adhesions and actually it looked quite good. We did use traction and at the conclusion we noticed that there was a small naomi to me in the antimesenteric border. I used a long silk suture and to gallo this and asked Dr. Ricardo Patterson to evaluate this neurotomy for repair. Dr. Patterson presented to the operating room he could see the enterotomy however he had cases going on so I proceeded with the Yadira fundoplication which was done without difficulty. Dr. Patterson and came back in and laparoscopically repaired this. He tolerated well we really had no soilage of the peritoneum. I also did an upper endoscopy after the Yadira fundoplication and look quite good. Procedure the patient brought to operating room laid supine position. General anesthesia was induced endotracheal intubation for single-lumen tube. After appropriate timeout of been called patient was prepped and draped in sterile fashion prophylactic biotics were given. There is an area on the left costal margin at the midclavicular line that we entered is this is away from his other incisions. 5 mm port was placed under laparoscopic guidance and we entered the pleural cavity with out difficulty and insufflated CO2. We could see there multiple adhesions especially the small bowel to the anterior dominant wall. We placed a another midline port between the subxiphoid area and the umbilicus. We then started taking down adhesions gently and we took down quite a few of them along the lateral aspects of the abdominal cavity so that we were able to get our second 8 mm port in the right midclavicular line down a bit and then we also put a 5 mm port posteriorly and inferiorly on the right. We placed the other 5 mm port down posteriorly and inferiorly on the left also. Getting ready to put the assistance port in in the right periumbilical area we noticed there was an enterotomy. We did not do this with the cautery. There was marked adhesions and this appeared to be due to traction. It was rather small. I then asked if Dr. Patterson would evaluate this while we were there and Dr. Patterson came in. He saw the small enterotomy and said he would repair this and we decided to do this after the case as he had a patient asleep on the table. I used a silk suture to reapproximate the edges and left long for it to market. Attention was then turned towards the hiatus. We placed our liver retractor which gave us good exposure. The liver appeared to have some cirrhotic changes. We then placed our camera in the midline and her 2 8 mm ports had robotic instruments placed. The assistance port had a 12 mm port placed and our left 5 mm port had a thoracic grasper placed. We had excellent exposure. The hernia was not very large but he did have some stomach in the chest. I started off with the vessel sealer along the greater curvature and took down the short phyllis rics all the way up to the hiatus. He had marked adhesions posteriorly and we gently took these down sharply under direct vision. As stated we had excellent vision. We were able to free this up quite nicely freed up the whole crura from superiorly down to the right of the midline posteriorly. We then retracted the stomach to the left and completed our dissection of the hernia sac. We got up i nto the hernia and removed a fairly significant sac. Identified the anterior and posterior vagus nerves. Care was taken to avoid injury to them. We then had a large gastroesophageal fat pad which was excised sharply. Should be noted that th hepatic artery came off quite high and I had to dissect this both distally and proximally in order to retract it positive inferior for us to get to the hiatus. We freed up the hiatus quite nicely. Remove the hernia sac and the fat pad. I then used 0 silk with a [id number] suture x2 to reapproximate the posterior crura. I did not patch this. This came together nicely but we did not make it too tight. We will require 2 sutures. I then performed a floppy Yadira fundoplication by grasping the greater curvature and swinging around in a retroesophageal fashion. This came together under no tension. Using 2-0 silk I approximated the anterior posterior fundus at the GE junction. I then used 2 separate 2-0 silk sutures a centimeter apart superior to the original fundoplication suture. We incorporated the esophagus into both. This sat very nicely under no tension. I then performed an esophagoscopy without difficulty. The GE junction look quite good I was able to get the scope through without difficulty. On retroflexion the fundoplication look quite good. We did not see any evidence of a leak we insufflated air and injected saline around the operative site. We had very little way of blood loss. I was quite pleased with the entire case except for the small enterotomy. Dr. Patterson came in to complete the repair of the small bowel enterotomy. The patient tolerated this procedure well. The 2 larger ports (camera port and the insurance legal assistant's port) were closed with #1 Maxon to reapproximate the fascia. 4 Monocryl was used in running septic or fashion approximate the wound edges. Antimicrobial dressings were placed. We had mixed Exparel 206 6 mg and 30 cc of 0.5% bupivacaine and 50 cc of normal saline and injected into each of the port sites prior to making the incision. Patient was hemodynamically stable throughout this case. Extubated and transported to the postanesthesia care unit in stable condition. I attest to the content of the Intraoperative Record and any orders documented therein. Any exceptions are noted below.
[2019-03-30] MEDS ORDERED: PIPERACILLIN/TAZOBACTAM 3.375 GM in DEXTROSE 5% 100 ML IV ONE ×2 (12:00→15:00)
--- NOTE | 2019-03-30 12:45 | Operative Report ---
PG Post Operative Report Pre & Post Diagnosis Operation Date: 03/30/19 07:30 Pre-Op Diagnosis: GERD with Stricture Post-Op Diagnosis: GERD with Stricture, abdominal adhesions, and Small Bowel Enterotomy I identified the patient and participated in the time-out.: No Procedure Operation Date: 03/30/19 07:30 Actual Procedures Laparoscopic repair of small bowel enterotomy Surgeon Korey Patterson DO, FACS Instructional Design Manager Jordin MOISE Estimated Blood Loss 50 Findings Consistent with Post-Op Diagnosis Called in to case after small bowel enterotomy identified after extensive lysis of adhesions. Repaired with 2 layer repair using interrupted silk followed by interrupted silk Lembert's. Leak test negative. Specimens None Anesthesia Type General Complications none Disposition Accompanied Patient To Recovery: No Disposition: Recovery Room Indications I was called into the surgery by Dr. Chong while he was performing an extensive lysis of adhesions in preparation for a Yadira fundoplication. There was a transverse enterotomy that appeared clean with no excessive spillage of succus. This was repaired in 2 layers Description of Procedure I was called into surgery by Dr. Chong while he was performing an extensive lysis of adhesions in preparation for a Yadira from creation to be performed with the robot. During the procedure he identified a small bowel enterotomy that had occurred during traction. He had inspected the remainder the bowel and there is no other injuries. He completed the majority of his case and I return to the OR to perform the repair of the enterotomy. On inspection of the bowel there was a transverse enterotomy approximately 2 to 3 cm in size. It had clean edges and did not have any evidence of cautery damage. There was no succus spilling out of the wound or gross contamination. I then performed a 2 layer closure laparoscopically. The first layer was interrupted 3-0 silk sutures. 2 anchoring stitches were placed on either side of the enterotomy to assist with this closure. I then placed interrupted 3-0 silk Lembert sutures. The repair was inspected and appeared to be healthy and well closed. Then performed a leak test by submerging bound saline and milking air laparoscopically towards the suture line and there was no leakage of air. I did not run the entirety of the bowel, however the area in question was inspected and there was no additional enterotomies or small bowel injuries identified. I recommend the patient be placed on 24 hours of antibiotics. He may have clear liquids. At this point I turned the case back over to Dr. Chong and his retail store assistant for closure the port sites. For any other details regarding the surgery, please refer to Dr. Chong's note. I attest to the content of the Intraoperative Record and any orders documented therein. Any exceptions are noted below.
[2019-03-30] MEDS ORDERED: METOCLOPRAMIDE HCL INJ 5 MG/ML 2 ML VIAL IV ONE (13:00)
[2019-03-30] MEDS: fentaNYL citrate 100 MCG/2 ML VIAL IV PRN ×2 (13:18→13:23)
--- NOTE | 2019-03-30 13:26 | XRay Report ---
XR chest 1V portable HISTORY: 69 years-old Male s/p federico follow-up study in a patient with recent Federico fundoplication COMPARISON: Chest radiograph 11/27/2018 TECHNIQUE: Portable AP view of the chest FINDINGS: Cardiac silhouette is enlarged. Lungs are mildly hypoinflated with bronchovascular crowding. Bibasila r linear densities are noted. No pneumothorax or overt pulmonary edema. Surgical clips project of the right upper quadrant abdomen. Mild subcutaneous emphysema about the upper left lateral abdominal wal l. Degenerative changes of the shoulders and spine. Partially imaged fusion hardware of the lower cer vical spine. IMPRESSION: 1. Cardiomegaly. 2. Hypoinflation with bibasilar opacities suggestive of probable atelectasis. 3. Mild subcutaneous emphysema of the upper left lateral abdominal wall. ACT 112: Negative or not required by law. The above report was generated using voice recognition software. It may contain grammatical, syntax o r spelling errors. Electronically signed by: Dhruv Sandoval M.D. 03/30/2019 1:25 PM
[2019-03-30] MEDS ORDERED: MoRPHine SULFATE 2 MG/ML CARP IV PRN (13:47)
[2019-03-30] MEDS ORDERED: PIPERACILLIN/TAZOBACTAM 3.375 GM in DEXTROSE 5% 100 ML IV SCH ×2 (13:47→20:00)
--- NOTE | 2019-03-30 13:58 | Anesthesiology Progress Note ---
Date of Service March 30, 2019 Anesthesia Post Procedure Vital Signs Vital Signs: Temp Pulse Pulse Resp BP BP Pulse Ox 03/30/19 13:45 36.2 C L 79 18 139/64 95 03/30/19 13:35 80 17 142/64 H 95 03/30/19 13:25 85 14 135/66 96 03/30/19 13:15 77 17 143/67 H 98 03/30/19 13:05 79 14 145/68 H 97 03/30/19 12:55 36.0 C L 85 17 148/78 H 97 03/30/19 06:23 36.5 C 80 18 129/75 94 Pain Intensity Abdomen: Pain Intensity: 7 Transfer of Care Handoff Completed per policy Notes Mental Status: alert / awake / arousable and participated in evaluation Patient Amnestic to Procedure: Yes Nausea / Vomiting: adequately controlled Pain: adequately controlled Airway Patency, RR, SpO2: stable & adequate BP & HR: stable & adequate Hydration State: stable & adequate Anesthetic Complications: no major complications apparent
[2019-03-30] MEDS: D5W AND 1/2NSS 1,000 ML IV SCH (14:04)
[2019-03-30] MEDS ORDERED: ALBUTEROL HFA 8 GM INHALER INH PRN (14:10)
[2019-03-30] MEDS: ACETAMINOPHEN 1,000 MG/100 ML VIAL IV SCH ×2 (14:28→21:41)
[2019-03-30] MEDS: ONDANSETRON INJ 2 MG/ML 2 ML VIAL IV SCH ×3 (14:28→23:22)
[2019-03-30] MEDS: PIPERACILLIN/TAZOBACTAM 3.375 GM in DEXTROSE 5% 100 ML IV SCH (16:34)
[2019-03-30] MEDS ORDERED: BUDESONIDE/FORMOTEROL FUMARATE 80/4.5 60 PUFFS/INHALER INH SCH (21:00)
[2019-03-30] MEDS: METOCLOPRAMIDE HCL INJ 5 MG/ML 2 ML VIAL IV SCH (21:40)
[2019-03-30] MEDS: PANTOprazole 40 MG TAB PO SCH (21:40)
[2019-03-30] MEDS: DOCUSATE SODIUM 100 MG CAP PO SCH ×2 (21:40→21:48)
[2019-03-30] MEDS: CHOLESTYRAMINE LIGHT 4 GM PKT PO SCH (21:41)
[2019-03-30] MEDS: TRIAMCINOLONE ACET NASAL SPRAY 10.8ML BTL SCH (21:42)
[2019-03-31] MEDS: D5W AND 1/2NSS 1,000 ML IV SCH (00:14)
[2019-03-31] MEDS: PIPERACILLIN/TAZOBACTAM 3.375 GM in DEXTROSE 5% 100 ML IV SCH ×2 (01:00→09:51)
[2019-03-31] MEDS: ONDANSETRON INJ 2 MG/ML 2 ML VIAL IV SCH ×3 (03:02→12:10)
[2019-03-31] MEDS: ACETAMINOPHEN 1,000 MG/100 ML VIAL IV SCH (05:47)
[2019-03-31] MEDS: METOCLOPRAMIDE HCL INJ 5 MG/ML 2 ML VIAL IV SCH ×2 (05:47→12:10)
--- NOTE | 2019-03-31 07:20 | Anesthesiology Progress Note ---
Date of Service March 31, 2019 Anesthesia Post Procedure Vital Signs Vital Signs: Temp Pulse Pulse Resp BP Pulse Ox 03/31/19 02:00 36.3 C L 62 16 104/66 91 03/30/19 22:24 36.4 C L 66 16 109/63 92 03/30/19 20:00 36.6 C 73 18 121/69 92 03/30/19 18:08 36.2 C L 83 18 107/66 91 03/30/19 17:16 36.6 C 86 18 120/68 96 03/30/19 16:11 36.5 C 81 16 122/69 96 03/30/19 15:17 36.4 C L 84 16 131/72 93 03/30/19 14:30 85 14 127/71 94 03/30/19 14:00 37.0 C 84 14 129/82 96 03/30/19 13:45 36.2 C L 79 18 139/64 95 03/30/19 13:35 80 17 142/64 H 95 03/30/19 13:25 85 14 135/66 96 03/30/19 13:15 77 17 143/67 H 98 03/30/19 13:05 79 14 145/68 H 97 03/30/19 12:55 36.0 C L 85 17 148/78 H 97 Pain Intensity Abdomen: Pain Intensity: 2 Notes Mental Status: alert / awake / arousable and participated in evaluation Nausea / Vomiting: adequately controlled Pain: adequately controlled Airway Patency, RR, SpO2: stable & adequate BP & HR: stable & adequate Hydration State: stable & adequate
[2019-03-31 08:01] LABS: Creatinine Clr Calc Pharmacy 55.7 ml/min; Est GFR (Non-African American) 48.3
[2019-03-31] MEDS ORDERED: FLUTICASONE/VILANTEROL 100/25MCG 14 PUFFS/INHALER INH SCH (09:00)
[2019-03-31] MEDS ORDERED: ENOXAPARIN INJ 40 MG/0.4 ML SYR SQ SCH (09:00)
--- NOTE | 2019-03-31 09:15 | Fluoroscopy Report ---
FL barium swallow w/o air CLINICAL HISTORY: s/p federico COMPARISON STUDY: 03/14/2019 FLUOROSCOPY TIME: 2.8 minutes. NUMBER OF FLUOROSCOPIC IMAGES: 12 FINDINGS: A single contrast study was performed. The patient was administered 100 cc of Optiray 300. There was no aspiration. There was disordered esophageal motility. There is a mass impression upon th e esophagogastric junction consistent with paste Federico fundoplication. There is no contrast extravas ation. There is a tiny Zenker's diverticulum. There are postsurgical changes present within the cervical spi ne. There is a contrast fluid level within the stomach. The patient was placed in the right lateral decub itus position, and a 30 minute film, there was evidence for gastric emptying with opacification of th e duodenal bulb and duodenum. IMPRESSION: 1. Postsurgical changes of Federico fundoplication 2. No evidence of contrast extravasation 3. Disordered esophageal motility ACT 112: Negative or not required by law. Electronically signed by: João Patino M.D. 03/31/2019 9:13 AM
--- NOTE | 2019-03-31 09:51 | XRay Report ---
KUB CLINICAL HISTORY: Status post Yadira fundoplication and esophagram. FINDINGS: 2 AP supine abdominal radiographs are correlated with abdominal CT dated 10/13/2018. Cholecy stectomy clips are noted in the right upper quadrant. There is gaseous distention of the stomach. Con trast is present in the proximal small bowel. There is a duodenal diverticulum. No bowel obstruction is identified. Mild fecal retention is noted in the colon. There is no evidence of intraperitoneal fr ee air on these supine views. Phleboliths are observed in the pelvis. The bony structures appear inta ct. IMPRESSION: Gaseous distention of the stomach with no radiographic evidence of bowel obstruction. Electronically signed by: Luisito Holder M.D. 03/31/2019 9:50 AM
[2019-03-31] MEDS: PANTOprazole 40 MG TAB PO SCH (09:53)
[2019-03-31] MEDS: TRIAMCINOLONE ACET NASAL SPRAY 10.8ML BTL SCH (09:53)
[2019-03-31] MEDS: DOCUSATE SODIUM 100 MG CAP PO SCH (09:53)
[2019-03-31] MEDS: CHOLESTYRAMINE LIGHT 4 GM PKT PO SCH (09:58)
--- NOTE | 2019-04-09 11:36 | Discharge Summary ---
DISCHARGE DIAGNOSES: Medically intractable gastroesophageal reflux disease with hiatal hernia. HOSPITAL COURSE: This is a very nice 69-year-old male who has a history of having had a colon resection with a persistent leak, developing an abscess, requiring drainage and then re-resection and then another exploratory laparotomy for an internal hernia up in [facility] years ago. He had a colostomy to protect this which was then taken down. The patient had intractable reflux and I was asked to evaluate him for this. I offered him surgery. We had a couple of meetings in the office and he consented, although he was a bit reticent. He was also very miserable with his reflux as well as his stricture which had formed had to be dilated of his esophagus. On 03/30/2019, the patient underwent a robot-assisted laparoscopic procedure. The patient had marked adhesions as could be presumed based on his history. We were able to take all these down; however, he was seen to have a small enterotomy. I put this together with 1 suture to gallo this and then proceeded with my laparoscopic fundoplication. I also did an esophagoscopy and his esophagus looked quite good as did the wrap. Dr. Ricardo Patterson then scrubbed in and laparoscopically repaired the small bowel enterotomy. He did well with this. We did a barium swallow the following day, it looked quite good. I also got an x-ray later and it went through his small bowel all the way down to his colon. The patient was discharged home. I will see him back in the office next week. His incisions were clean. I was quite pleased with him.
== END 2019-03-31 13:53 | disposition home or self-care (01) ==
LOC: 3N 05:57 → ASU 05:57

== ENCOUNTER 2019-04-02 22:57 | Inpatient (IN) ==
[2019-04-02] MEDS ORDERED: fentaNYL citrate 100 MCG/2 ML VIAL IV STA (23:12)
[2019-04-02] MEDS ORDERED: SODIUM CHLORIDE 0.9% 1000ML 1,000 ML IV ONE (23:13)
[2019-04-02] MEDS ORDERED: ALBUT/IPRATROP 3MG/0.5MG NEB 3 ML VIAL NEB STA (23:19)
[2019-04-02 23:39] LABS: Basophils # (auto) 0.04 K/uL (0-0.2); Basophils % (auto) 0.3 %; Eosinophils # (auto) 0.19 K/uL (0-0.5); Eosinophils % (auto) 1.4 %; Hematocrit (blood only) 43.8 % (42-52); Hemoglobin 15.5 g/dL (14.0-18.0); Immature Granulocytes # (auto) 0.11 K/uL (0.00-0.02); Immature Granulocytes % (auto) 0.8 %; Lymphocytes # (auto) 1.16 K/uL (1.2-3.4); Lymphocytes % (auto) 8.4 %; Mean Corpuscular Hemoglobin 34.6 pg (25-34); Mean Corpuscular Hgb Conc 35.4 g/dL (32-36); Mean Corpuscular Volume 97.8 fL (80-100); Mean Platelet Volume 9.8 fL (7.4-10.4); Monocytes # (auto) 1.59 K/uL (0.11-0.59); Monocytes % (auto) 11.5 %; Neutrophils # (auto) 10.78 K/uL (1.4-6.5); Neutrophils % (auto) 77.6 %; Platelet Count 321 K/uL (130-400); RDW Coefficient of Variation 14.6 % (11.5-14.5); RDW Standard Deviation 51.5 fL (36.4-46.3); Red Blood Count 4.48 M/uL (4.7-6.1); White Blood Count 13.87 K/uL (4.8-10.8)
[2019-04-02 23:47] LABS: INR 1.2 (0.9-1.1); Prothrombin Time 12.1 Seconds (9.0-12.0)
[2019-04-02 23:50] LABS: Oxygen Saturation VBG 82.6 %; pH VBG 7.48 (7.36-7.41)
[2019-04-02 23:53] LABS: Albumin Level 3.4 gm/dl (3.4-5.0); BUN Creatinine Ratio 18.1 (10-20); Blood Urea Nitrogen 24 mg/dl (7-18); Calcium 9.4 mg/dl (8.5-10.1); Carbon Dioxide 27 mmol/L (21-32); Chloride 102 mmol/L (98-107); Creatinine Clr Calc Pharmacy 63.2 ml/min; Est GFR (Non-African American) 56.1; Glucose 135 mg/dl (70-99); Lipase 95 U/L (73-393); Magnesium 2.2 mg/dl (1.8-2.4); Potassium 3.5 mmol/L (3.5-5.1); Sodium 136 mmol/L (136-145)
[2019-04-02 23:56] LABS: Alanine Aminotransferase 93 U/L (12-78); Alkaline Phosphatase 100 U/L (45-117); Aspartate Aminotransferase 74 U/L (15-37); Creatine Kinase 79 U/L (39-308); Troponin I < 0.015 ng/ml (0-0.045)
[2019-04-03] MEDS ORDERED: OPTIRAY 320 125ml IV PRN (00:27)
[2019-04-03] MEDS ORDERED: PIPERACILL/TAZOBAC CONSULT ACTIVE PRN (00:57)
[2019-04-03] MEDS ORDERED: PIPERACILLIN/TAZOBACTAM 4.5 GM/120 ML BAG IV ONE (00:57)
[2019-04-03 01:05] LABS: Appearance Urine Clear (Clear); Bacteria Urine Automated Negative (Negative); Blood Urine Negative (Negative); Color Urine Dark Yellow; Epithelial Cell Urine Auto 20-30 /lpf (0-5); Glucose Urine UA Negative (Negative); Ketones Urine 1+ (Negative); Leukocyte Esterase Urine Trace (Negative); Nitrite Urine Positive (Negative); Protein Urine 1+ (Negative); Specific Gravity Urine > 1.045 (1.000-1.030); Urobilinogen Urine Negative (Negative); pH Urine 5.5 (4.5-7.5)
[2019-04-03 01:31] LABS: Bilirubin Urine 1+ (Negative); Ictotest Urine Positive (Negative)
[2019-04-03] MEDS ORDERED: SODIUM CHLORIDE 0.9% 1000ML 1,000 ML IV SCH (01:45)
[2019-04-03 02:11] LABS: Mucus Urine Present (None Prsent)
--- NOTE | 2019-04-03 02:35 | History & Physical Report ---
Date of Service April 03, 2019 Assessment & Plan (1) SBO (small bowel obstruction): 69yo C male with history of multiple abdominal surgeries to include cholecystectomy, colostomy/ileostomy s/p reversal, remote history of intraabdominal anastamotic leak with infection and abscess formation. Recent Yadira fundoplication performed on 03/30/19 presenting with SBO. NGT placed in ER with rapid improvement in symptoms. Patient now clinically stable. His abdomen is soft, mildly tender with no appreciable peritoneal signs. -Admit to medical floor with telemetry monitoring -NPO -Maintain NGT to low, intermittent suction -IVF - NSS at 125mL/hr x 2 liters -Electrolyte repletion as needed -Cautious use of narcotics for pain control -Zofran PRN nausea -Consult Dr. Chong - appreciate assistance Present on Admission?: Yes (2) Hypoxia: Patient hypoxic on arrival, now improved. Adequate oxygenation on oxymask 10L, no respiratory distress. Most likely secondary to volume loss in setting of SBO, abdominal distention -Supplemental O2 as needed to maintain saturations 94% Present on Admission?: Yes (3) GERD with stricture: S/p Yadira fundoplication, POD #4 -Pepcid 20mg IV BID -NPO for now in setting of SBO -Continue to monitor Present on Admission?: Yes (4) Asthma: No respiratory distress, cough or wheeze at present -Continue Symbicort -Albuterol PRN F/E/N - NSS at 125mL/hr x 2 liters, replete electrolytes as needed, NPO for now Ppx - SCDs to bilateral LEs Code - DNR/DNI per discussion with patient Dispo - Admit to medical floor with telemetry Present on Admission?: Yes History of Present Illness Chief Complaint: SBO Primary Care Provider: Kd Johnston is a pleasant 69yo C male presenting with SBO. He has a longstanding history of GERD with stricture which was not well controlled with medical management. He had a Yadira fundoplication performed by Dr. Chong on 03/30/19 complicated by small bowel enterotomy s/p repair by Dr. Patterson. Overall the procedure was well tolerated. He was discharged home in stable condition on 03/31/19. He reports 3-4 days of abdominal bloating and distention as well as nausea and overall feeling "miserable". His last BM was Thursday03/29/19. He reports he has been taking Colace daily and administered an enema at home today with a very small amount of output. Today he became short of breath which prompted him to come to the ER. Upon arrival the patient was found to be in hypoxic respiratory failure. JG=174, RR=28, saturation=81% on room air. A NRB was placed with minimal improvement in saturation to 87% on 15L. CXR with gastric and bowel distention therefore an NGT was placed to suction with immediate return of 1600mL dark fluid. Patient's symptoms and SOB improved significantly after placement of NGT. Presently with no acute complaints. He reports his abdominal distention has improved. He feels that his bowels are starting to move a little now. No BM or flatus yet. No additional complaints at this time. ER Course: Albuterol, Fentanyl, Zosyn, NSS x 2 L Allergies Allergy/AdvReac Type Severity Reaction Status Date / Time hydrocodone AdvReac Mild N/V Verified 04/02/19 23:34 aspirin AdvReac Unknown STOMACH Verified 04/02/19 23:34 CRAMPS NSAIDS (Non-Steroidal AdvReac Unknown STOMACH Verified 04/02/19 23:34 Anti-Inflamma CRAMPS Home Medications Home Medications Medication Instructions Recorded Confirmed Type cholestyramine-aspartame 4 gram 4 gm PO BID ea 03/11/18 04/02/19 History oral powder for susp in a packet esomeprazole magnesium 40 mg 40 mg PO BID 03/11/18 04/02/19 History capsule,delayed release lactobacillus combination no.9 4 4,000 mmu cells PO QPM 03/11/18 04/02/19 History billion cell capsule Symbicort 2 puff INHALATION BID 11/27/18 04/02/19 History aluminum hydrox-magnesium carb 254 5 ml PO TID PRN 03/11/19 04/02/19 History mg-237.5 mg/5 mL oral suspension ranitidine HCl 150 mg tablet 150 mg PO QID tab 03/11/19 04/02/19 History triamcinolone acetonide 55 mcg 1 spray INTRANASAL BID ml 03/11/19 04/02/19 History nasal spray aerosol albuterol sulfate [ProAir HFA] 1 inh INHALATION QID PRN 03/24/19 04/02/19 History metoclopramide HCl [Reglan] 10 mg PO ACHS 30 Days #120 tab 03/31/19 04/02/19 Rx ondansetron HCl [Zofran] 4 mg PO Q6H PRN #20 tab 03/31/19 04/02/19 Rx tramadol [Ultram] 50 mg PO QID PRN #12 tab 03/31/19 04/02/19 Rx Past Med/Surg History Medical History (Updated 04/03/19 @ 02:33 by Cathy Babb DO) Abdominal abscess 2013. [place] Anemia Asthma (Chronic) DDD (degenerative disc disease), cervical GERD with stricture Small bowel obstruction 10/2013. small bowel looped 3 times in cavity from abscess Surgical History (Updated 04/02/19 @ 23:21 by Kd Millan) History of arthroscopy of right shoulder History of carpal tunnel surgery right and left History of hernia surgery right and left inguinal hernia repair History of Yadira fundoplication History of partial colectomy Low Anterior partial colectomy with anastomosis 2013 diverticulosis History of reversal of ileostomy 12-21-13 had colon leak and needed colostomy and reversed Hx of cervical spine surgery [facility] C4-5 no limitations Hx of cholecystectomy (Resolved) Hx of ileostomy (Resolved) 08/2013 PONV (postoperative nausea and vomiting) did well with scope patch Social History Preferred Language: Nepalese Communication Ability: Effective Visual Impairment: Limited Hearing Ability: Normal Site Technician Required: No Beliefs That Will Affect Care: None marital status: Current Living Situation: Spouse current occupational status: retired Feels Safe at Home: Yes Smoking Status: Former smoker Second Hand Exposure: No ; Hx Alcohol Use: No Hx Substance Use: No Review of Systems Review of Systems: All systems reviewed & are unremarkable except as noted in HPI & below No vomiting Physical Exam Physical Exam: General: patient resting comfortably, NAD, non-toxic in appearance, AA&O x 4 Skin: warm, dry, intact, no rashes or lesions HEENT: NC/AT, PERRL, EOMI, anicteric sclera, conjunctiva without injection, external ear normal to inspection and nontender, nares patent, moist mucus membranes, dentition intact, no oropharyngeal lesions, neck supple, trachea midline, no LAD, no thyromegaly, no JVD Heart: +S1/S2, regular, no m/r/g Lungs: equal air entry bilaterally, no rales/rhonchi/wheezes Abd: hypoactive bowel sounds, soft, mildly tender with deep palpation, no rebound/guarding/peritoneal signs, no masses/organomegaly/ascites Ext: warm, 2+ pulses in UE/LE bilaterally, no clubbing/cyanosis or edema Neuro: nonfocal, patient AA&O x 4, speech intact, no facial droop, moving all extremities on command with equal strength 5/5 Results & Data Vital Signs (Past 12 Hours) Vital Signs Temp Pulse Pulse Resp BP Pulse Ox 04/03/19 01:48 80 22 128/76 97 04/03/19 00:50 79 27 H 96 04/03/19 00:10 91 H 24 93 04/03/19 00:00 97 H 28 H 154/92 H 87 L 04/02/19 23:42 111 H 17 85 L 04/02/19 23:40 112 H 25 H 84 L 04/02/19 23:20 94 H 30 H 89 L 04/02/19 23:14 98 H 31 H 83 L 04/02/19 22:59 36.5 C 124 H 28 H 161/90 H 81 L Laboratory Results Lab Results 04/02/19 04/02/19 04/02/19 Range/Units 23:15 23:15 23:15 WBC 13.87 H (4.8-10.8) K/uL RBC 4.48 L (4.7-6.1) M/uL Hgb 15.5 (14.0-18.0) g/dL Hct 43.8 (42-52) % MCV 97.8 (80-100) fL MCH 34.6 H (25-34) pg MCHC 35.4 (32-36) g/dL RDW Std Deviation 51.5 H (36.4-46.3) fL RDW Coeff of Tiffany 14.6 H (11.5-14.5) % Plt Count 321 (130-400) K/uL MPV 9.8 (7.4-10.4) fL Immature Gran % (Auto) 0.8 % Neut % (Auto) 77.6 % Lymph % (Auto) 8.4 % Darke % (Auto) 11.5 % Eos % (Auto) 1.4 % Baso % (Auto) 0.3 % Immature Gran # (Auto) 0.11 H (0.00-0.02) K/uL Neut # (Auto) 10.78 H (1.4-6.5) K/uL Lymph # (Auto) 1.16 L (1.2-3.4) K/uL Darke # (Auto) 1.59 H (0.11-0.59) K/uL Eos # (Auto) 0.19 (0-0.5) K/uL Baso # (Auto) 0.04 (0-0.2) K/uL PT 12.1 H (9.0-12.0) Seconds INR 1.2 H (0.9-1.1) VBG pH (7.36-7.41) VBG pCO2 (38-50) mmHg VBG pO2 mmHg VBG HCO3 mmol/L VBG O2 Saturation % VBG Base Excess mEq/L Barometric Pressure mm/Hg Sodium (136-145) mmol/L Potassium (3.5-5.1) mmol/L Chloride (98-107) mmol/L Carbon Dioxide (21-32) mmol/L Anion Gap (3-11) BUN (7-18) mg/dl Creatinine (0.6-1.4) mg/dl POC Creatinine (0.6-1.3) mg/dl Est Cr Clr Drug Dosing ml/min Est GFR ( Amer) Est GFR (Non-Af Amer) BUN/Creatinine Ratio (10-20) Glucose (70-99) mg/dl Lactate 2.6 H* (0.4-2.0) mmol/L Calcium (8.5-10.1) mg/dl Magnesium (1.8-2.4) mg/dl Total Bilirubin (0.2-1) mg/dl Direct Bilirubin (0-0.2) mg/dl AST (15-37) U/L ALT (12-78) U/L Alkaline Phosphatase (45-117) U/L Total Creatine Kinase (39-308) U/L Troponin I (0-0.045) ng/ml Total Protein (6.4-8.2) gm/dl Albumin (3.4-5.0) gm/dl Lipase (73-393) U/L Urine Color Urine Appearance (Clear) Urine pH (4.5-7.5) Ur Specific Hamer (1.000-1.030) Urine Protein (Negative) Urine Glucose (UA) (Negative) Urine Ketones (Negative) Urine Blood (Negative) Urine Nitrite (Negative) Urine Bilirubin (Negative) Urine Urobilinogen (Negative) Ur Leukocyte Esterase (Negative) Urine WBC (Auto) (0-5) /hpf Urine RBC (Auto) (0-4) /hpf U Hyaline Cast (Auto) (0-5) /lpf U Epithel Cells (Auto) (0-5) /lpf Urine Bacteria (Auto) (Negative) Urine Mucus (None Prsent) 04/02/19 04/02/19 04/02/19 Range/Units 23:15 23:25 23:32 WBC (4.8-10.8) K/uL RBC (4.7-6.1) M/uL Hgb (14.0-18.0) g/dL Hct (42-52) % MCV (80-100) fL MCH (25-34) pg MCHC (32-36) g/dL RDW Std Deviation (36.4-46.3) fL RDW Coeff of Tiffany (11.5-14.5) % Plt Count (130-400) K/uL MPV (7.4-10.4) fL Immature Gran % (Auto) % Neut % (Auto) % Lymph % (Auto) % Darke % (Auto) % Eos % (Auto) % Baso % (Auto) % Immature Gran # (Auto) (0.00-0.02) K/uL Neut # (Auto) (1.4-6.5) K/uL Lymph # (Auto) (1.2-3.4) K/uL Darke # (Auto) (0.11-0.59) K/uL Eos # (Auto) (0-0.5) K/uL Baso # (Auto) (0-0.2) K/uL PT (9.0-12.0) Seconds INR (0.9-1.1) VBG pH 7.48 H (7.36-7.41) VBG pCO2 37 L (38-50) mmHg VBG pO2 46 mmHg VBG HCO3 26 mmol/L VBG O2 Saturation 82.6 % VBG Base Excess 3.0 mEq/L Barometric Pressure 723.5 mm/Hg Sodium 136 (136-145) mmol/L Potassium 3.5 (3.5-5.1) mmol/L Chloride 102 (98-107) mmol/L Carbon Dioxide 27 (21-32) mmol/L Anion Gap 8.0 (3-11) BUN 24 H (7-18) mg/dl Creatinine 1.30 (0.6-1.4) mg/dl POC Creatinine 1.2 (0.6-1.3) mg/dl Est Cr Clr Drug Dosing 63.2 ml/min Est GFR ( Amer) 65.0 Est GFR (Non-Af Amer) 56.1 BUN/Creatinine Ratio 18.1 (10-20) Glucose 135 H (70-99) mg/dl Lactate (0.4-2.0) mmol/L Calcium 9.4 (8.5-10.1) mg/dl Magnesium 2.2 (1.8-2.4) mg/dl Total Bilirubin 2.0 H (0.2-1) mg/dl Direct Bilirubin 1.0 H (0-0.2) mg/dl AST 74 H (15-37) U/L ALT 93 H (12-78) U/L Alkaline Phosphatase 100 (45-117) U/L Total Creatine Kinase 79 (39-308) U/L Troponin I < 0.015 (0-0.045) ng/ml Total Protein 8.0 (6.4-8.2) gm/dl Albumin 3.4 (3.4-5.0) gm/dl Lipase 95 (73-393) U/L Urine Color Urine Appearance (Clear) Urine pH (4.5-7.5) Ur Specific Hamer (1.000-1.030) Urine Protein (Negative) Urine Glucose (UA) (Negative) Urine Ketones (Negative) Urine Blood (Negative) Urine Nitrite (Negative) Urine Bilirubin (Negative) Urine Urobilinogen (Negative) Ur Leukocyte Esterase (Negative) Urine WBC (Auto) (0-5) /hpf Urine RBC (Auto) (0-4) /hpf U Hyaline Cast (Auto) (0-5) /lpf U Epithel Cells (Auto) (0-5) /lpf Urine Bacteria (Auto) (Negative) Urine Mucus (None Prsent) 04/03/19 Range/Units 00:50 WBC (4.8-10.8) K/uL RBC (4.7-6.1) M/uL Hgb (14.0-18.0) g/dL Hct (42-52) % MCV (80-100) fL MCH (25-34) pg MCHC (32-36) g/dL RDW Std Deviation (36.4-46.3) fL RDW Coeff of Tiffany (11.5-14.5) % Plt Count (130-400) K/uL MPV (7.4-10.4) fL Immature Gran % (Auto) % Neut % (Auto) % Lymph % (Auto) % Darke % (Auto) % Eos % (Auto) % Baso % (Auto) % Immature Gran # (Auto) (0.00-0.02) K/uL Neut # (Auto) (1.4-6.5) K/uL Lymph # (Auto) (1.2-3.4) K/uL Darke # (Auto) (0.11-0.59) K/uL Eos # (Auto) (0-0.5) K/uL Baso # (Auto) (0-0.2) K/uL PT (9.0-12.0) Seconds INR (0.9-1.1) VBG pH (7.36-7.41) VBG pCO2 (38-50) mmHg VBG pO2 mmHg VBG HCO3 mmol/L VBG O2 Saturation % VBG Base Excess mEq/L Barometric Pressure mm/Hg Sodium (136-145) mmol/L Potassium (3.5-5.1) mmol/L Chloride (98-107) mmol/L Carbon Dioxide (21-32) mmol/L Anion Gap (3-11) BUN (7-18) mg/dl Creatinine (0.6-1.4) mg/dl POC Creatinine (0.6-1.3) mg/dl Est Cr Clr Drug Dosing ml/min Est GFR ( Amer) Est GFR (Non-Af Amer) BUN/Creatinine Ratio (10-20) Glucose (70-99) mg/dl Lactate (0.4-2.0) mmol/L Calcium (8.5-10.1) mg/dl Magnesium (1.8-2.4) mg/dl Total Bilirubin (0.2-1) mg/dl Direct Bilirubin (0-0.2) mg/dl AST (15-37) U/L ALT (12-78) U/L Alkaline Phosphatase (45-117) U/L Total Creatine Kinase (39-308) U/L Troponin I (0-0.045) ng/ml Total Protein (6.4-8.2) gm/dl Albumin (3.4-5.0) gm/dl Lipase (73-393) U/L Urine Color Dark Yellow Urine Appearance Clear (Clear) Urine pH 5.5 (4.5-7.5) Ur Specific Hamer > 1.045 H (1.000-1.030) Urine Protein 1+ H (Negative) Urine Glucose (UA) Negative (Negative) Urine Ketones 1+ H (Negative) Urine Blood Negative (Negative) Urine Nitrite Positive A (Negative) Urine Bilirubin 1+ H (Negative) Urine Urobilinogen Negative (Negative) Ur Leukocyte Esterase Trace H (Negative) Urine WBC (Auto) 1-5 (0-5) /hpf Urine RBC (Auto) 5-10 H (0-4) /hpf U Hyaline Cast (Auto) 1-5 (0-5) /lpf U Epithel Cells (Auto) 20-30 H (0-5) /lpf Urine Bacteria (Auto) Negative (Negative) Urine Mucus Present A (None Prsent) Diagnostic Findings CXR - small lung volumes, ?compressive atelectasis at bases, large gastric bubble and bowel distention CT Angio Chest - per STAT-rad - No evidence of filling defects to suggest PE. Thoracic aorta within limits. Coronary calcification. No pericardial effusion. Small left and trace R pleural effusion with associated basilar partial krishan apse, atelectasis. Central airways are patent. Small amount of soft tissue/secretions or mucous right side of the mid trachea example axial 74. Anterior mediastinal pneumomediastinum. CT Abdomen and Pelvis with contrast - Dilated small bowel with scattered fluid levels leading to nondilated distal small bowel concerning for degree of obstructive process. No free air. NG tube within the proximal stomach. Hepatic steatosis. S/p colecystectomy. Contrast material within the ascending colon. Normal caliber appendix containing contrast material without surrounding inflammatory change. Areas of left more than right subcutaneous soft tissue stranding and edema and soft tissue gas, correlate for cellulitis ECG Additional Comments: The study shows NSR at 97bpm, left axis deviation with LAFB, no acute ischemic changes Code Status & VTE Plan Code Status Full code VTE Prophylaxis Plan VTE Prophylaxis will be ordered: Yes PG Care Time/CCT Total # of Minutes Spent Total Time Spent with Patient: Total time spent is greater than 50% in coordination of care (as documented) at patient's floor/unit and/or counseling patient: (1) Asthma Asthma severity: moderate Asthma persistence: persistent Asthma complication type: uncomplicated Qualified Code(s): J45.40 - Moderate persistent asthma, uncomplicated
[2019-04-03] MEDS ORDERED: MoRPHine SULFATE 2 MG/ML CARP IV PRN (03:11)
--- NOTE | 2019-04-03 03:22 | Emergency Department Note ---
Entered by Kd Millan acting as a scribe for ED Provider Note Name: Santi Schilling Age: 69, male Arrives Via: Walk in Informant: Patient CC: Abdominal Pain HPI: The patient is a 69 year old male who presents to the emergency department with complaints of constant abdominal pain beginning three days ago. The patient states that he had a small bowel repair done three days ago. He notes that he has developed increasing abdominal pain and bloating since. He reports that his pain radiates through to his back and to his sides. The patient states that his pain is worse with movement and eating, but he notes his pain is better when he lies still. He reports that he has been taking Tramadol with no improvement of his symptoms. He also complains of a low fever. The patient states that his last bowel movement was four days ago, and he notes that he is not passing gas. He notes that he took an enema this morning with minimal relief. He reports that his oxygen saturation is also lower than usual. He denies any leg swelling and calf pain. The patient states that he is not on any blood thinners. ROS: See above HPI for pertinent positives & negatives. A total of 10 systems reviewed and were otherwise negative. Past Medical History: Abdominal abscess, anemia, asthma, DDD, GERD with stricture, SBO Past Surgical History: Partial colectomy, cholecystectomy, and Yadira fundoplication Family History: Heart disease, hypertension, stroke, stomach cancer Social History: , lives with spouse, retired, does not use alcohol/drugs Home Medications: Please see medication list Allergies: Hydrocodone, aspirin, NSAIDs Physical: Vitals: BP 161/90, Pulse 124, Resp 28, Temp 97.7 F, O2 Sat 81 Exam: GENERAL: Patient is severely ill appearing and in severe distress. Dehydrated appearing. EYES: No scleral icterus, unremarkable pupils. ENT: Mucous membranes dry, no nasal congestion. NECK: No masses appreciated, no meningismus, trachea is midline. RESPIRATORY: Crackles throughout, mildly decreased on the left, dyspneic, tachypneic. CARDIOVASCULAR: Regular rhythm and tachycardic. No murmurs, rubs, gallops appreciated. GASTROINTESTINAL: Abdomen soft, no peritonitis. No masses appreciated. Multiple port sites that are well healing with bruising around them, distended abdomen, diffuse tenderness to palpation and hypoactive bowel sounds. No flank bruising. BACK: No midline tenderness, no CVA tenderness EXTREMITIES: Normal motion all extremities, no cyanosis, mild edema in the lower legs. No calf tenderness. NEUROLOGIC: Alert and oriented, no acute motor or sensory deficits, no focal weakness, cranial nerves grossly intact. SKIN: No rash, no jaundice, no diaphoresis. ED Course: Prior Medical Record, Triage/Nursing Notes, Medications, Allergies reviewed by Me 2308: The patient was evaluated in room B2. A complete history and physical exam was performed. 2317: Per review of EMR, the patient had a Yadira fundoplication done earlier this week. 2324: Dr. Chong was paged. 2333: I discussed the patient's case with Dr. Chong - Thoracic Surgery, [facility]. He agrees with the need for an NG tube if a bowel obstruction is of high concern. He will be recontacted once further workup is obtained. 2334: Nursing is placing an NG tube. 2340: The NG tube was placed. Blood tinged fluid is being removed. 2345: I rechecked the patient. 2354: I reevaluated and updated the patient. He is feeling much better. His oxygen saturation is 88%. He is agreeable to CT. 0010: I rechecked the patient. He is breathing comfortably on the non- rebreather. His oxygen saturation is 90%. His heart rate is in the 110s and his blood pressure is stable. He was sent to CT for further evaluation. 0056: I reevaluated the patient. He is vastly improved and his abdominal distention has improved significantly. His oxygen saturation is 97% on oxy mask. We are still awaiting CT findings. He will be given a single dose IV antibiotic empirically while awaiting CT findings. He has been on azithromycin for the last week due to an ear infection. 0120: Dr. Chong was paged. 0125: I rediscussed the patient's case with Dr. Chong. He feels as though the patient should be admitted by a hospitalist. He will see the patient early in the morning and coordinate care further. 0130: Upon reevaluation, the patient is stable. I discussed the findings and the treatment plan with the patient. He expresses agreement and understanding. I spoke with Dr. Babb of the [facility] [place] Service. The patient will be evalu ated for further management. Vital Signs: reviewed and remarkable for Hypoxia, tachycardia, htn Labs: Reviewed and remarkable for +lactic acid Interventions: saline lock, nSS bolus 1 L IV, Fenantyl 50mcg IV, NG Tube, NSS infusion, zosyn 4.5gm IV Imaging: CHEST X-RAY: X ray results are stated below per my interpretation: Chest: 1 view: No poor lung volumes, infiltrate rll vs atelectasis. large gastric air noted. Radiology results as stated below per my review and the radiologist's interpretation: CTA CHEST: No evidence of filling defect to suggest pulmonary embolism. Thoracic aorta within limits. Coronary calcification. No pericardial effusion. Small left and trace right pleural effusion with associated basilar partial collapse, atelectasis. Central airways are patent. Small amount of soft tissue/secretions or mucous right side of the mid trachea, example axial 74. Anterior mediastinal pneumomediastinum. Radiologist: Eriberto Couch MD. CT ABDOMEN & PELVIS With Contrast: Dilated small bowel with scattered fluid levels leading to nondilated distal small bowel concerning for degree of obstructive process. No free air. Nasogastric tube within the proximal stomach. Hepatic steatosis. Status post cholecystectomy. Contrast material within the ascending colon. Normal caliber appendix containing contrast material without surrounding inflammatory change. Areas of left more than right subcutaneous soft tissue stranding and edema and soft tissue gas, correlate for evidence of cellulitis. Radiologist: Eriberto Couch MD. EKG: Per My Interpretation: Indication Hypoxia: NSR 97 bpm, qtc 457. LAFBlock. No Ectopy. No Ischemia. Compared to EKG 11/27/18, no significant changes other than increased rate. Teletypesetter Operator: An Order was placed for continuous cardiac monitoring. The initial monitor findings show a rate of 115 with a sinus tach rhythm. Consults: 2333: I discussed the patient's case with Dr. Chong - Thoracic Surgery, [facility]. He agrees with the need for an NG tube if a bowel obstruction is of high concern. 0125: I rediscussed the patient's case with Dr. Chong. He feels as though the patient should be admitted by a hospitalist. He will see the patient early in the morning and coordinate care further. 0130: I reviewed the patient's case with Dr. Babb - Hospitalist, [facility]. She will evaluate the patient for further management. Blood pressure: Elevated - Will be monitored by hospitalist. Disposition: Hospitalization Differentials: Sepsis, perforated bowel, bowel obstruction, pancreatitis, intraabdominal bleeding, pneumothorax, pneumonia, PE, CHF, electrolyte abnormalities, and anemia amongst other pathologies. Medical Decision Makin yr old male with history of asthma, brain aneurysm, gerd who recently had fundoplication at this facility complicated by perforated abdominal viscous arrives with acute abdominal pain, swelling, and difficulty breathing. Hypoxic and very ill on arrival with tympanic abdomen and very poor breathing. Immediately placed on 100% NRB and neb started. Cxr with poor lung volumes and very large abdomen. NG tube placed with initially slightly bloody before clearing to gastric secretions. Large gastric outs via NG tube. Rapid improvement in breathing and oxygentation though still low 90s on NRB. With tachy, hypoxia, and recent surgery felt ct a chest reasonable, especially given possible RLL infiltrate on CXR. Given empiric Zosyn while awaiting CT as cover sepsis. Was given IV fluids throughout this for hydration. Lactate mildly elevated though not hypotensive and I suspect this is not septic shock. CT reads with chest showing mediastinal free air likely post surgical, and LLL effusion/atelectasis. He by this time is feeling immensely better, breathing is normal and mask O2 concentration being lowered effectively without hypoxia. Reviewed with thoracic surgeon who will see in next few hours this early am and asks admission to hospitalist service. Patient has no further abdominal pain, no clear evidence of ischemic gut at this time, vitals have normalized and he looks much improved, I think this is reasonable plan. Hospitalist in to evalua puja further. Impression: Small bowel obstruction, hypoxia, mediastinal free air, left lower lobe infiltrate, lactic acidosis. Critical Care Time: I have personally spent 80 minutes of critical care time in the direct management of this patient. Post operative SBO with respiratory depression and hypoxia. This was a life/limb threatening event. This 80 minutes is in excess of all separately billable procedures. Ab Lynn MD The scribe's documentation has been prepared under my direction and personally reviewed by me in its entirety. I confirm that the note above accurately reflects all work, treatment, procedures, and medical decision making performed by me. Impression & Plan SBO (small bowel obstruction), Hypoxia, Left lower lobe pulmonary infiltrate, Acidosis, lactic Past Med/Surg History Medical History (Updated 04/03/19 @ 02:33 by Cathy Babb DO) Abdominal abscess 2013. [place] Anemia Asthma (Chronic) DDD (degenerative disc disease), cervical GERD with stricture Small bowel obstruction 10/2013. small bowel looped 3 times in cavity from abscess Surgical History (Updated 04/02/19 @ 23:21 by Kd Millan) History of arthroscopy of right shoulder History of carpal tunnel surgery right and left History of hernia surgery right and left inguinal hernia repair History of Yadira fundoplication History of partial colectomy [place] Anterior partial colectomy with anastomosis 2013 diverticulosis History of reversal of ileostomy 12-21-13 had colon leak and needed colostomy and reversed Hx of cervical spine surgery [facility] C4-5 no limitations Hx of cholecystectomy (Resolved) Hx of ileostomy (Resolved) 08/2013 PONV (postoperative nausea and vomiting) did well with scope patch Social History Preferred Language: Luxembourgish Communication Ability: Effective Visual Impairment: Limited Hearing Ability: Normal Greenhouse Assistant Required: No Beliefs That Will Affect Care: None marital status: Current Living Situation: Spouse current occupational status: retired Feels Safe at Home: Yes Smoking Status: Former smoker Second Hand Exposure: No ; Hx Alcohol Use: No Hx Substance Use: No Results & Data Vital Signs Vital Signs - 24 hr 04/02/19 22:59 04/02/19 23:14 04/02/19 23:20 Temperature 36.5 C Temperature Source Oral Pulse Rate 124 H 98 H 94 H Pulse Rate [Right Radial] Pulse Rate from SpO2 Sensor 99 H 93 H Respiratory Rate 28 H 31 H 30 H Respiratory Effort / Characteristics Labored Blood Pressure 161/90 H Blood Pressure Mean 113 Pulse Oximetry 81 L 83 L 89 L Oxygen Delivery Method Room Air Room Air Non-rebreather Oxygen Flow Rate 15 Sepsis Action Taken by Nursing No Action Required 04/02/19 23:40 04/02/19 23:42 04/03/19 00:00 Temperature Temperature Source Pulse Rate 112 H 97 H Pulse Rate [Right Radial] 111 H Pulse Rate from SpO2 Sensor 103 H 96 H Respiratory Rate 25 H 17 28 H Respiratory Effort / Characteristics Non-Labored Spontaneous Blood Pressure 154/92 H Blood Pressure Mean 110 Pulse Oximetry 84 L 85 L 87 L Oxygen Delivery Method Non-rebreather Non-rebreather Oxymask Oxygen Flow Rate 15 15 Sepsis Action Taken by Nursing 04/03/19 00:10 04/03/19 00:50 04/03/19 01:48 Temperature Temperature Source Pulse Rate 91 H 79 80 Pulse Rate [Right Radial] Pulse Rate from SpO2 Sensor 91 H 79 78 Respiratory Rate 24 27 H 22 Respiratory Effort / Characteristics Blood Pressure 128/76 Blood Pressure Mean 92 Pulse Oximetry 93 96 97 Oxygen Delivery Method Oxymask Oxymask Oxymask Oxygen Flow Rate 15 10 Sepsis Action Taken by Nursing 04/03/19 02:00 Temperature Temperature Source Pulse Rate 79 Pulse Rate [Right Radial] Pulse Rate from SpO2 Sensor 79 Respiratory Rate 25 H Respiratory Effort / Characteristics Blood Pressure 128/74 Blood Pressure Mean 89 Pulse Oximetry 98 Oxygen Delivery Method Oxymask Oxygen Flow Rate 10 Sepsis Action Taken by [facility] Medications Current Medication List: was personally reviewed by me Laboratory Data Attestation: I reviewed the patient's lab results. Result diagrams: 04/02/19 23:15 04/02/19 23:15 Lab Results 04/02/19 04/02/19 04/02/19 Range/Units 23:15 23:15 23:15 WBC 13.87 H (4.8-10.8) K/uL RBC 4.48 L (4.7-6.1) M/uL Hgb 15.5 (14.0-18.0) g/dL Hct 43.8 (42-52) % MCV 97.8 (80-100) fL MCH 34.6 H (25-34) pg MCHC 35.4 (32-36) g/dL RDW Std Deviation 51.5 H (36.4-46.3) fL RDW Coeff of Tiffany 14.6 H (11.5-14.5) % Plt Count 321 (130-400) K/uL MPV 9.8 (7.4-10.4) fL Immature Gran % (Auto) 0.8 % Neut % (Auto) 77.6 % Lymph % (Auto) 8.4 % [place] % (Auto) 11.5 % Eos % (Auto) 1.4 % Baso % (Auto) 0.3 % Immature Gran # (Auto) 0.11 H (0.00-0.02) K/uL Neut # (Auto) 10.78 H (1.4-6.5) K/uL Lymph # (Auto) 1.16 L (1.2-3.4) K/uL [place] # (Auto) 1.59 H (0.11-0.59) K/uL Eos # (Auto) 0.19 (0-0.5) K/uL Baso # (Auto) 0.04 (0-0.2) K/uL PT 12.1 H (9.0-12.0) Seconds INR 1.2 H (0.9-1.1) VBG pH (7.36-7.41) VBG pCO2 (38-50) mmHg VBG pO2 mmHg VBG HCO3 mmol/L VBG O2 Saturation % VBG Base Excess mEq/L Barometric Pressure mm/Hg Sodium (136-145) mmol/L Potassium (3.5-5.1) mmol/L Chloride (98-107) mmol/L Carbon Dioxide (21-32) mmol/L Anion Gap (3-11) BUN (7-18) mg/dl Creatinine (0.6-1.4) mg/dl POC Creatinine (0.6-1.3) mg/dl Est Cr Clr Drug Dosing ml/min Est GFR ( Amer) Est GFR (Non-Af Amer) BUN/Creatinine Ratio (10-20) Glucose (70-99) mg/dl Lactate 2.6 H* (0.4-2.0) mmol/L Calcium (8.5-10.1) mg/dl Magnesium (1.8-2.4) mg/dl Total Bilirubin (0.2-1) mg/dl Direct Bilirubin (0-0.2) mg/dl AST (15-37) U/L ALT (12-78) U/L Alkaline Phosphatase (45-117) U/L Total Creatine Kinase (39-308) U/L Troponin I (0-0.045) ng/ml Total Protein (6.4-8.2) gm/dl Albumin (3.4-5.0) gm/dl Lipase (73-393) U/L Urine Color Urine Appearance (Clear) Urine pH (4.5-7.5) Ur Specific Erin (1.000-1.030) Urine Protein (Negative) Urine Glucose (UA) (Negative) Urine Ketones (Negative) Urine Blood (Negative) Urine Nitrite (Negative) Urine Bilirubin (Negative) Urine Urobilinogen (Negative) Ur Leukocyte Esterase (Negative) Urine WBC (Auto) (0-5) /hpf Urine RBC (Auto) (0-4) /hpf U Hyaline Cast (Auto) (0-5) /lpf U Epithel Cells (Auto) (0-5) /lpf Urine Bacteria (Auto) (Negative) Urine Mucus (None Prsent) 04/02/19 04/02/19 04/02/19 Range/Units 23:15 23:25 23:32 WBC (4.8-10.8) K/uL RBC (4.7-6.1) M/uL Hgb (14.0-18.0) g/dL Hct (42-52) % MCV (80-100) fL MCH (25-34) pg MCHC (32-36) g/dL RDW Std Deviation (36.4-46.3) fL RDW Coeff of Tiffany (11.5-14.5) % Plt Count (130-400) K/uL MPV (7.4-10.4) fL Immature Gran % (Auto) % Neut % (Auto) % Lymph % (Auto) % [place] % (Auto) % Eos % (Auto) % Baso % (Auto) % Immature Gran # (Auto) (0.00-0.02) K/uL Neut # (Auto) (1.4-6.5) K/uL Lymph # (Auto) (1.2-3.4) K/uL [place] # (Auto) (0.11-0.59) K/uL Eos # (Auto) (0-0.5) K/uL Baso # (Auto) (0-0.2) K/uL PT (9.0-12.0) Seconds INR (0.9-1.1) VBG pH 7.48 H (7.36-7.41) VBG pCO2 37 L (38-50) mmHg VBG pO2 46 mmHg VBG HCO3 26 mmol/L VBG O2 Saturation 82.6 % VBG Base Excess 3.0 mEq/L Barometric Pressure 723.5 mm/Hg Sodium 136 (136-145) mmol/L Potassium 3.5 (3.5-5.1) mmol/L Chloride 102 (98-107) mmol/L Carbon Dioxide 27 (21-32) mmol/L Anion Gap 8.0 (3-11) BUN 24 H (7-18) mg/dl Creatinine 1.30 (0.6-1.4) mg/dl POC Creatinine 1.2 (0.6-1.3) mg/dl Est Cr Clr Drug Dosing 63.2 ml/min Est GFR ( Amer) 65.0 Est GFR (Non-Af Amer) 56.1 BUN/Creatinine Ratio 18.1 (10-20) Glucose 135 H (70-99) mg/dl Lactate (0.4-2.0) mmol/L Calcium 9.4 (8.5-10.1) mg/dl Magnesium 2.2 (1.8-2.4) mg/dl Total Bilirubin 2.0 H (0.2-1) mg/dl Direct Bilirubin 1.0 H (0-0.2) mg/dl AST 74 H (15-37) U/L ALT 93 H (12-78) U/L Alkaline Phosphatase 100 (45-117) U/L Total Creatine Kinase 79 (39-308) U/L Troponin I < 0.015 (0-0.045) ng/ml Total Protein 8.0 (6.4-8.2) gm/dl Albumin 3.4 (3.4-5.0) gm/dl Lipase 95 (73-393) U/L Urine Color Urine Appearance (Clear) Urine pH (4.5-7.5) Ur Specific Erin (1.000-1.030) Urine Protein (Negative) Urine Glucose (UA) (Negative) Urine Ketones (Negative) Urine Blood (Negative) Urine Nitrite (Negative) Urine Bilirubin (Negative) Urine Urobilinogen (Negative) Ur Leukocyte Esterase (Negative) Urine WBC (Auto) (0-5) /hpf Urine RBC (Auto) (0-4) /hpf U Hyaline Cast (Auto) (0-5) /lpf U Epithel Cells (Auto) (0-5) /lpf Urine Bacteria (Auto) (Negative) Urine Mucus (None Prsent) 04/03/19 Range/Units 00:50 WBC (4.8-10.8) K/uL RBC (4.7-6.1) M/uL Hgb (14.0-18.0) g/dL Hct (42-52) % MCV (80-100) fL MCH (25-34) pg MCHC (32-36) g/dL RDW Std Deviation (36.4-46.3) fL RDW Coeff of Tiffany (11.5-14.5) % Plt Count (130-400) K/uL MPV (7.4-10.4) fL Immature Gran % (Auto) % Neut % (Auto) % Lymph % (Auto) % [place] % (Auto) % Eos % (Auto) % Baso % (Auto) % Immature Gran # (Auto) (0.00-0.02) K/uL Neut # (Auto) (1.4-6.5) K/uL Lymph # (Auto) (1.2-3.4) K/uL [place] # (Auto) (0.11-0.59) K/uL Eos # (Auto) (0-0.5) K/uL Baso # (Auto) (0-0.2) K/uL PT (9.0-12.0) Seconds INR (0.9-1.1) VBG pH (7.36-7.41) VBG pCO2 (38-50) mmHg VBG pO2 mmHg VBG HCO3 mmol/L VBG O2 Saturation % VBG Base Excess mEq/L Barometric Pressure mm/Hg Sodium (136-145) mmol/L Potassium (3.5-5.1) mmol/L Chloride (98-107) mmol/L Carbon Dioxide (21-32) mmol/L Anion Gap (3-11) BUN (7-18) mg/dl Creatinine (0.6-1.4) mg/dl POC Creatinine (0.6-1.3) mg/dl Est Cr Clr Drug Dosing ml/min Est GFR ( Amer) Est GFR (Non-Af Amer) BUN/Creatinine Ratio (10-20) Glucose (70-99) mg/dl Lactate (0.4-2.0) mmol/L Calcium (8.5-10.1) mg/dl Magnesium (1.8-2.4) mg/dl Total Bilirubin (0.2-1) mg/dl Direct Bilirubin (0-0.2) mg/dl AST (15-37) U/L ALT (12-78) U/L Alkaline Phosphatase (45-117) U/L Total Creatine Kinase (39-308) U/L Troponin I (0-0.045) ng/ml Total Protein (6.4-8.2) gm/dl Albumin (3.4-5.0) gm/dl Lipase (73-393) U/L Urine Color Dark Yellow Urine Appearance Clear (Clear) Urine pH 5.5 (4.5-7.5) Ur Specific Erin > 1.045 H (1.000-1.030) Urine Protein 1+ H (Negative) Urine Glucose (UA) Negative (Negative) Urine Ketones 1+ H (Negative) Urine Blood Negative (Negative) Urine Nitrite Positive A (Negative) Urine Bilirubin 1+ H (Negative) Urine Urobilinogen Negative (Negative) Ur Leukocyte Esterase Trace H (Negative) Urine WBC (Auto) 1-5 (0-5) /hpf Urine RBC (Auto) 5-10 H (0-4) /hpf U Hyaline Cast (Auto) 1-5 (0-5) /lpf U Epithel Cells (Auto) 20-30 H (0-5) /lpf Urine Bacteria (Auto) Negative (Negative) Urine Mucus Present A (None Prsent) Administered Medications Ioversol (Optiray 320 125ml) 120 ml IV ONCE PRN PRN Reason: Interaction Checking Stop: 04/07/19 00:26 Last Admin: 04/03/19 00:28 Dose: 120 ml Documented by: [id number] Discontinued Medications Albuterol (Duoneb) 3 ml NEB NOW STA Stop: 04/02/19 23:20 Last Admin: 04/02/19 23:40 Dose: 3 ml Documented by: [id number] Fentanyl Citrate (Fentanyl Citrate) 50 mcg IV NOW STA Stop: 04/02/19 23:13 Last Admin: 04/03/19 02:22 Dose: Not Given Documented by: [id number] Sodium Chloride (Nss 1000ml) 1,000 mls @ 999 mls/hr IV .Q1H1M ONE Stop: 04/03/19 00:13 Last Infusion: 04/03/19 01:46 Dose: 0 mls/hr Documented by: [id number] Admin: 04/03/19 00:54 Dose: 999 mls/hr Documented by: [id number] Piperacillin Sod/Tazobactam Sod (Zosyn) 4.5 gm in 120 mls @ 240 mls/hr IV NOW ONE Stop: 04/03/19 01:26 Last Infusion: 04/03/19 02:23 Dose: 0 mls/hr Documented by: [id number] Admin: 04/03/19 01:46 Dose: 240 mls/hr Documented by: [id number] Sodium Chloride (Nss 1000ml) 1,000 mls @ 125 mls/hr IV .Q8H [place] Stop: 05/03/19 01:44 Last Admin: 04/03/19 01:46 Dose: 125 mls/hr Documented by: [id number] Discharge Plan Visit Data *Final* Discharge Date/Time: 04/03/19 02:40 Chief Complaint: Abdominal Pain Stated Complaint: POST SURGERY ABD PAIN,NAUSEA,WEAKNESS ED Provider: Ab Lynn Discharge Problem: SBO (small bowel obstruction), Hypoxia, Left lower lobe pulmonary infiltrate, Acidosis, lactic Patient Disposition: Admitted As Inpatient Discharge Instructions Interventions: ED Discharge Assessment Last Done: 04/03/19 02:40 The scribe's documentation has been prepared under my direction and personally reviewed by me in its entirety. I confirm that the note above accurately reflects all work, treatment, procedures, and medical decision making performed by me.
[2019-04-03] MEDS: SODIUM CHLORIDE 0.9% 1000ML 1,000 ML IV SCH ×3 (03:23→20:29)
--- NOTE | 2019-04-03 05:30 | XRay Report ---
XR chest 1V portable CLINICAL HISTORY: 69 years-old Male presenting with shortness of breath. TECHNIQUE: Portable upright AP view of the chest was obtained. COMPARISON: 03/30/2019. FINDINGS: Cardiac silhouette prominence may in part be due to low lung volumes. Obscuration of the left hemidia phragm new from prior. Increased bibasilar opacity greater on the left. A small left pleural effusion may be present. No pneumothorax. Anterior cervical fusion noted. Cholecystectomy clips noted. Gaseou s distention of bowel. IMPRESSION: 1. Low lung volumes with increasing left basilar opacity, possibly atelectasis or consolidation. 2. Small left pleural effusion. 3. Gaseous distention of bowel. ACT 112: Negative or not required by law. Electronically signed by: Andres Tan M.D. 04/03/2019 5:29 AM
--- NOTE | 2019-04-03 05:55 | CT Scan Report ---
CT abd pelvis IV con only CLINICAL HISTORY: 69 years-old Male presenting with Recent fundoplication with perforation, now chang rn SBO, recent barium swallow. TECHNIQUE: Multidetector CT of the abdomen and pelvis was performed after the administration of intra venous contrast. IV contrast: 120 mL of Optiray 320. One or more dose lowering techniques were used c onsistent with the principles of ALARA (as low as reasonably achievable), including automatic exposur e control, mA or kV adjustment to individual patient size, and/or use of iterative reconstruction. COMPARISON: 10/13/2018. CT DOSE (mGy.cm): The estimated cumulative dose is 1530.96 mGy.cm. FINDINGS: Supervisor Paper Coating topogram: Cholecystectomy clips. Lung bases: Mild multichamber enlargement of the heart. Coronary artery calcification. Trace right an d small left pleural effusions. Left greater than right bibasilar atelectasis. Pneumomediastinum note d. No gross pneumothorax. Liver: Congenital hypoplasia of the medial segments of the left hepatic lobe. Macronodular contour. D ensity of the liver suggestive of hepatic steatosis. No focal lesion. Patent hepatic vasculature. Biliary: Mild biliary ductal prominence likely a reservoir effect in the post cholecystectomy state. Gallbladder surgically absent. Pancreas: Normal. Spleen: Normal. Adrenal glands: Normal. Kidneys and ureters: Scarring noted at the interpolar region of the right kidney. Multiple bilateral subcentimeter cysts. No nephrolithiasis or hydronephrosis. Ureters nondistended. Bladder: Incompletely evaluated secondary to underdistention. Pelvic organs: Prostate and seminal vesicles normal. Bowel: Colocolonic anastomosis at the upper rectum indicates prior partial sigmoidectomy. Barium note d in the ascending colon. The appendix is normal and also contains contrast. Mildly distended fluid-f illed loops of small bowel in the mid ileum. Nasogastric tube terminates in the body of the stomach. Postsurgical changes of the gastric fundus consistent with reported history of fundoplication. No foc al discontinuity of the gastric wall is appreciated on this exam. Duodenal diverticulum at the level of the pancreatic head/uncinate process. Enteroenteric anastomosis in the right anterior abdomen. No convincing evidence of transition point suggest obstruction. Smooth downstream and up stream transiti on to less dilated caliber. Peritoneal cavity: Interval fluid evident between the mesenteric leaves of small bowel. No free intra peritoneal gas. This typically, no extraluminal gas in the region of the fundoplication. Lymph nodes: No enlarged lymph nodes in the abdomen or pelvis. Vasculature: Atherosclerosis of the normal caliber abdominal aorta. IVC patent. Abdominal wall: Trace gas in the region of the left inguinal canal and along the left lateral abdomin al wall. Edema of the lateral aspects of the abdominal wall bilaterally. Postsurgical changes in the midline ventral abdomen. Trochars sites are noted. Postsurgical changes of prior right inguinal herni a repair suggested. Musculoskeletal: Normal. IMPRESSION: 1. Trace amounts of abdominal wall gas are likely postsurgical. It is unclear if pneumomediastinum a lso relates to postsurgical gas though this is possible. 2. Body wall edema. Cellulitis is considered less likely. Correlate clinically. 3. Postsurgical changes of the bowel with an enteroenteric and colocolonic anastomoses. No bowel obs truction. Mild fluid-filled distended mid ileum favors ileus, however, trace interloop ascites associ ated with the small bowel makes a partial low-grade obstructive process difficult to exclude. Continu ed follow-up recommended. 4. Postsurgical changes of fundoplication. No perforation is appreciated on this exam. 5. Hepatic steatosis. 6. Mild cardiomegaly. 7. Bibasilar atelectasis and effusions, left greater than right. ACT 112: Negative or not required by law. Electronically signed by: Andres Tan M.D. 04/03/2019 5:53 AM
--- NOTE | 2019-04-03 06:02 | CT Scan Report ---
CT angio chest PE protocol CLINICAL HISTORY: 69 years-old Male presenting with recent fundoplication with perforation, now with shortness of breath. TECHNIQUE: Multidetector CT angiography of the chest was performed after administration of intravenou s contrast. 3-D volumetric and/or maximum intensity projection (MIP) images were subsequently reconst ructed for review. IV contrast: 120 mL of Optiray 320. One or more dose lowering techniques were used consistent with the principles of ALARA (as low as reasonably achievable), including automatic expos ure control, mA or kV adjustment to individual patient size, and/or use of iterative reconstruction. COMPARISON: 04/18/2016. CT DOSE (mGy.cm): The estimated cumulative dose is 1530.96. FINDINGS: Court Assistant topogram: Unremarkable. Pulmonary vasculature: The study is adequate for assessment of the pulmonary vascular tree. No filling defect within the pul monary arteries to suggest embolus. Main pulmonary artery is top normal in size. No flattening of the interventricular septum. No intracardiac filling defect. No reflux of contrast into the hepatic vein s. Remaining chest: Soft tissues: Surgical clips noted along the right aspect of the thyroid gland, which is otherwise no rmal. Nasogastric tube in place, terminus outside of the [id number]. Diffuse mild esophageal wall thickening. No axillary, supraclavicular, mediastinal, or hilar lymphadenopathy. Atherosclerosis of t he aorta. Multichamber enlargement of the heart. Coronary artery calcification. Pneumomediastinum not ed in the anterior mediastinum. Trace right and small left pleural effusions. Cholecystectomy clips. Lungs and airways: No pneumothorax. Apparent debris in the upper trachea. Remainder of the airways pa tent. Pulmonary arteries mildly enlarged relative to adjacent bronchi. No interlobular septal thicken ing. Bibasilar passive atelectasis, left greater than right. Musculoskeletal: Normal osseous structures. IMPRESSION: 1. No evidence of pulmonary embolus. 2. Left greater than right pleural effusions and atelectasis. 3. Postsurgical anterior mediastinal pneumomediastinum. No convincing evidence of esophageal perfora tion. 4. Diffuse mild esophageal wall thickening with a nasogastric tube in place. Wall thickening may rep resent postsurgical edema. ACT 112: Negative or not required by law. Electronically signed by: Andres Tan M.D. 04/03/2019 6:01 AM
--- NOTE | 2019-04-03 07:37 | Hospitalist Progress Note ---
Date of Service April 03, 2019 Assessment & Plan (1) SBO (small bowel obstruction): 69yo M PMHx multiple abdominal surgeries to include cholecystectomy, colostomy/ileostomy s/p reversal, remote history of intraabdominal anastamotic leak with infection and abscess formation, recent Yadira fundoplication performed on 03/30/19 presenting with hypoxia and nausea. Found to have ileus relieved with NG tube and hypoxia resolved with oxymask. Ileus -NPO. -Maintain NGT to low, intermittent suction. -IVF - NSS at 125mL/hr x 2 liters. -Electrolyte repletion as needed. -Zofran PRN nausea. -Consulted Dr. Chong and appreciate recommendations - continue to monitor overnight for improvement and if ileus resolves and pt tolerates PO tomorrow will be safe for discharge from surgical perspective. - Encouraged ambulation. Present on Admission?: Yes (2) Hypoxia: - Pt appears very comfortable in the room on 6L oxymask. Is saturating in mid to high 90s at this level of oxygenation. - CXR with poor lung volumes with left basilar opacitiy, possibly atelectasis vs. consolidation. No fevers or chills. CTA negative for pneumonia or PE. - Leukocytosis to 13.87 today. Monitor CBC. - Echo today showed intraventricular conduction delay but preserved EF 50-55%. No wall motion abnormalities. Mild to moderate LVH. - Pt received one dose Zosyn in ED; BCx x2 pending. - No signs of fluid overload on exam. - Wean O2 as tolerated; if SOB not improved to baseline with resolution of ileus will consider infectious etiology. Present on Admission?: Yes (3) GERD with stricture: - S/p Yadira fundoplication, POD #4. - Pepcid 20mg IV BID. - NPO for now in setting of SBO. - Continue to monitor. Present on Admission?: Yes (4) Asthma: - No respiratory distress, cough or wheeze at present. - However still requiring Oxymask supplemental oxygen. - Continue Symbicort. - Albuterol PRN. F/E/N - NSS at 125mL/hr x3 bags total to complete 4am 04/04 Ppx - SCDs to bilateral LEs Code - DNR/DNI Dispo - Admit to medical floor with telemetry Present on Admission?: Yes Supervising Physician Co-Signing Physician Notes Resident Physician Supervision Note: I independently interviewed and examined the patient and verified the husain history and physical, reviewed labs and image studies, discussed the case with the resident Dr. Prieto and agree with the findings and care plan. Subjective Pt without acute events since admission. No more nausea or abdominal discomfort with NG tube in place. Has started passing gas from below. Feels well on Oxymask without shortness of breath. Has a history of smoking for about 10 years total. Review of Systems Constitutional: no fever, no chills and no malaise Respiratory: no cough and no dyspnea Cardiovascular: no chest pain, no palpitations and no edema Gastrointestinal: + constipation (3-4 days of no BM despite enema and stool softener at home.); no abdominal pain Physical Exam Constitutional: WD/WN, vitals as above Respiratory: normal respiratory effort, lungs clear to auscultation Cardiovascular: RRR, no murmur, no edema Gastrointestinal (Abdomen): pt with several 1-2 cm laparoscopy incisions on abdomen with bruising; otherwise abdomen soft, nontender, nondistended. Hypoactive bowel sounds. Skin: no rashes, warm and dry Psychiatric: A+Ox3, euthymic affect Results & Data Vital Signs (Past 12 Hours) Vital Signs Temp Pulse Pulse Resp BP BP Pulse Ox 04/03/19 07:15 75 04/03/19 03:36 96 H 04/03/19 03:23 36.5 C 97 H 22 145/87 H 92 04/03/19 02:30 73 22 130/80 95 04/03/19 02:00 79 25 H 128/74 98 04/03/19 01:48 80 22 128/76 97 04/03/19 00:50 79 27 H 96 04/03/19 00:10 91 H 24 93 04/03/19 00:00 97 H 28 H 154/92 H 87 L 04/02/19 23:42 111 H 17 85 L 04/02/19 23:40 112 H 25 H 84 L 04/02/19 23:20 94 H 30 H 89 L 04/02/19 23:14 98 H 31 H 83 L 04/02/19 22:59 36.5 C 124 H 28 H 161/90 H 81 L Laboratory Results Laboratory Results - last 24 hr 04/02/19 04/02/1920 23:15 23:15 23:15 WBC 13.87 H RBC 4.48 L Hgb 15.5 Hct 43.8 MCV 97.8 MCH 34.6 H MCHC 35.4 RDW Std Deviation 51.5 H RDW Coeff of Tiffany 14.6 H Plt Count 321 MPV 9.8 Immature Gran % (Auto) 0.8 Neut % (Auto) 77.6 Lymph % (Auto) 8.4 [place] % (Auto) 11.5 Eos % (Auto) 1.4 Baso % (Auto) 0.3 Immature Gran # (Auto) 0.11 H Neut # (Auto) 10.78 H Lymph # (Auto) 1.16 L [place] # (Auto) 1.59 H Eos # (Auto) 0.19 Baso # (Auto) 0.04 PT 12.1 H INR 1.2 H VBG pH VBG pCO2 VBG pO2 VBG HCO3 VBG O2 Saturation VBG Base Excess Barometric Pressure Sodium Potassium Chloride Carbon Dioxide Anion Gap BUN Creatinine POC Creatinine Est Cr Clr Drug Dosing Est GFR ( Amer) Est GFR (Non-Af Amer) BUN/Creatinine Ratio Glucose Lactate 2.6 H* Calcium Phosphorus Magnesium Total Bilirubin Direct Bilirubin AST ALT Alkaline Phosphatase Total Creatine Kinase Troponin I Total Protein Albumin Lipase Urine Color Urine Appearance Urine pH Ur Specific [place] Urine Protein Urine Glucose (UA) Urine Ketones Urine Blood Urine Nitrite Urine Bilirubin Urine Urobilinogen Ur Leukocyte Esterase Urine WBC (Auto) Urine RBC (Auto) U Hyaline Cast (Auto) U Epithel Cells (Auto) Urine Bacteria (Auto) Urine Mucus 04/02/19 04/02/19 04/02/19 23:15 23:25 23:32 WBC RBC Hgb Hct MCV MCH MCHC RDW Std Deviation RDW Coeff of Tiffany Plt Count MPV Immature Gran % (Auto) Neut % (Auto) Lymph % (Auto) [place] % (Auto) Eos % (Auto) Baso % (Auto) Immature Gran # (Auto) Neut # (Auto) Lymph # (Auto) [place] # (Auto) Eos # (Auto) Baso # (Auto) PT INR VBG pH 7.48 H VBG pCO2 37 L VBG pO2 46 VBG HCO3 26 VBG O2 Saturation 82.6 VBG Base Excess 3.0 Barometric Pressure 723.5 Sodium 136 Potassium 3.5 Chloride 102 Carbon Dioxide 27 Anion Gap 8.0 BUN 24 H Creatinine 1.30 POC Creatinine 1.2 Est Cr Clr Drug Dosing 63.2 Est GFR ( Amer) 65.0 Est GFR (Non-Af Amer) 56.1 BUN/Creatinine Ratio 18.1 Glucose 135 H Lactate Calcium 9.4 Phosphorus Magnesium 2.2 Total Bilirubin 2.0 H Direct Bilirubin 1.0 H AST 74 H ALT 93 H Alkaline Phosphatase 100 Total Creatine Kinase 79 Troponin I < 0.015 Total Protein 8.0 Albumin 3.4 Lipase 95 Urine Color Urine Appearance Urine pH Ur Specific [place] Urine Protein Urine Glucose (UA) Urine Ketones Urine Blood Urine Nitrite Urine Bilirubin Urine Urobilinogen Ur Leukocyte Esterase Urine WBC (Auto) Urine RBC (Auto) U Hyaline Cast (Auto) U Epithel Cells (Auto) Urine Bacteria (Auto) Urine Mucus 04/03/19 04/03/19 00:50 03:23 WBC RBC Hgb Hct MCV MCH MCHC RDW Std Deviation RDW Coeff of Tiffany Plt Count MPV Immature Gran % (Auto) Neut % (Auto) Lymph % (Auto) [place] % (Auto) Eos % (Auto) Baso % (Auto) Immature Gran # (Auto) Neut # (Auto) Lymph # (Auto) [place] # (Auto) Eos # (Auto) Baso # (Auto) PT INR VBG pH VBG pCO2 VBG pO2 VBG HCO3 VBG O2 Saturation VBG Base Excess Barometric Pressure Sodium Potassium Chloride Carbon Dioxide Anion Gap BUN Creatinine POC Creatinine Est Cr Clr Drug Dosing Est GFR ( Amer) Est GFR (Non-Af Amer) BUN/Creatinine Ratio Glucose Lactate Calcium Phosphorus 3.4 Magnesium Total Bilirubin Direct Bilirubin AST ALT Alkaline Phosphatase Total Creatine Kinase Troponin I Total Protein Albumin Lipase Urine Color Dark Yellow Urine Appearance Clear Urine pH 5.5 Ur Specific M[place]ot > 1.045 H Urine Protein 1+ H Urine Glucose (UA) Negative Urine Ketones 1+ H Urine Blood Negative Urine Nitrite Positive A Urine Bilirubin 1+ H Urine Urobilinogen Negative Ur Leukocyte Esterase Trace H Urine WBC (Auto) 1-5 Urine RBC (Auto) 5-10 H U Hyaline Cast (Auto) 1-5 U Epithel Cells (Auto) 20-30 H Urine Bacteria (Auto) Negative Urine Mucus Present A Medications Administered Current Medications Albuterol (Ventolin Hfa) 1 puffs INH QID PRN PRN Reason: sob Stop: 05/03/19 03:31 Fluticasone/Vilanterol (Breo Ellipta 100/25 Mcg Inh) 1 puffs INH DAILY [place] Stop: 05/03/19 08:59 Last Admin: 04/03/19 10:13 Dose: 1 puffs Documented by: Sodium Chloride (Nss 1000ml) 1,000 mls @ 125 mls/hr IV .Q8H [place] Stop: 04/03/19 19:10 Last Admin: 04/03/19 11:25 Dose: 125 mls/hr Documented by: Famotidine 20 mg/ Syringe 5 mls @ 2.5 mls/min IV BID [place] Stop: 05/03/19 08:59 Last Admin: 04/03/19 10:10 Dose: 2.5 mls/min Documented by: Ioversol (Optiray 320 125ml) 120 ml IV ONCE PRN PRN Reason: Interaction Checking Stop: 04/07/19 00:26 Last Admin: 04/03/19 00:28 Dose: 120 ml Documented by: Morphine Sulfate (Morphine Sulfate) 2 mg IV Q4H PRN PRN Reason: Pain Stop: 04/17/19 03:10 Ondansetron HCl (Zofran) 4 mg IV Q6H PRN PRN Reason: Nausea Stop: 05/03/19 03:10 Triamcinolone Acetonide (Nasacort) 1 sprays NA BID [facility] Stop: 05/03/19 08:59 Last Admin: 04/03/19 10:14 Dose: 1 sprays Documented by: Resident Activity Tracking Resident Involvement: Resident Care Provided Care Provided: Adult Hospital Medicine (1) Asthma Asthma complication type: uncomplicated Asthma persistence: persistent Asthma severity: moderate Qualified Code(s): J45.40 - Moderate persistent asthma, uncomplicated
--- NOTE | 2019-04-03 07:38 | Surgery Consultation ---
Date of Consultation April 03, 2019 Assessment & Plan (1) Postoperative ileus: I do not believe Mr. Johnston has an obstruction per se. I reviewed his CT scan closely. I believe this patient probably has some edema at his enterostomy repair site is small bowel. He feels better today and is having flatus. Is quite pleased with the appearance of his repair on CT. He just needs to get up and walk. I believe that he is going to settle down from this and hopefully be the hospital in a day or 2. We will asked Dr. Patterson to evaluate him in the morning. Present on Admission?: Yes History of Present Illness Attending Physician: Dilma Kim MD History of Present Illness Mr. Figueroa is a 69-year-old male with multiple issues in his abdomen including a colon resection with subsequent anastomotic leak with intra-abdominal leakage and peritonitis with a colostomy which was then reversed. He presented with intractable symptoms from gastroesophageal reflux disease and 4 days ago underwent a robot-assisted laparoscopic anal hernia repair Yadira fundoplication. He had multiple adhesions we took these down and there was a small enterotomy which was repaired laparoscopically by Dr. iRcardo Patterson from general surgery. Patient did well and our swallow the following day showed his hiatal hernia repair to be intact. We also did a delayed film and saw flow of the dye through the small bowel. He looked quite good we elected to discharge him. Patient noted a day before admission that he was becoming "bloated". He states he had some belching however upon presentation had a huge gastric bubble. He was hypoxic he was having so much trouble and an NG tube was placed and a large amount of bilious fluid as well as air was drained and he was immediately better. This morning he looks great. He states he is having really no pain. He is having flatus. He feels he is about to have a bowel movement. Interestingly enough upon his evaluation can see that there is dye in his colon. This is from his barium swallow from 3 days ago. He actually looks quite good this morning. Allergies Allergy/AdvReac Type Severity Reaction Status Date / Time hydrocodone AdvReac Mild N/V Verified 04/02/19 23:34 aspirin AdvReac Unknown STOMACH Verified 04/02/19 23:34 CRAMPS NSAIDS (Non-Steroidal AdvReac Unknown STOMACH Verified 04/02/19 23:34 Anti-Inflamma CRAMPS Home Medications Home Medications Medication Instructions Recorded Confirmed Type cholestyramine-aspartame 4 gram 4 gm PO BID ea 03/11/18 04/02/19 History oral powder for susp in a packet esomeprazole magnesium 40 mg 40 mg PO BID 03/11/18 04/02/19 History capsule,delayed release lactobacillus combination no.9 4 4,000 mmu cells PO QPM 03/11/18 04/02/19 History billion cell capsule Symbicort 2 puff INHALATION BID 11/27/18 04/02/19 History aluminum hydrox-magnesium carb 254 5 ml PO TID PRN 03/11/19 04/02/19 History mg-237.5 mg/5 mL oral suspension ranitidine HCl 150 mg tablet 150 mg PO QID tab 03/11/19 04/02/19 History triamcinolone acetonide 55 mcg 1 spray INTRANASAL BID ml 03/11/19 04/02/19 History nasal spray aerosol albuterol sulfate [ProAir HFA] 1 inh INHALATION QID PRN 03/24/19 04/02/19 History metoclopramide HCl [Reglan] 10 mg PO ACHS 30 Days #120 tab 03/31/19 04/02/19 Rx ondansetron HCl [Zofran] 4 mg PO Q6H PRN #20 tab 03/31/19 04/02/19 Rx tramadol [Ultram] 50 mg PO QID PRN #12 tab 03/31/19 04/02/19 Rx Patient History Medical History (Updated 04/03/19 @ 07:44 by Jorge Alberto Chong MD, FACS) Abdominal abscess 2013. [place] Anemia Asthma (Chronic) DDD (degenerative disc disease), cervical GERD with stricture Small bowel obstruction 10/2013. small bowel looped 3 times in cavity from abscess Surgical History (Updated 04/03/19 @ 07:44 by Jorge Alberto Chong MD, FACS) History of arthroscopy of right shoulder History of carpal tunnel surgery right and left History of hernia surgery right and left inguinal hernia repair History of Yadira fundoplication History of partial colectomy Low Anterior partial colectomy with anastomosis 2013 diverticulosis History of reversal of ileostomy 12-21-13 had colon leak and needed colostomy and reversed Hx of cervical spine surgery [facility] C4-5 no limitations Hx of cholecystectomy (Resolved) Hx of ileostomy (Resolved) 08/2013 PONV (postoperative nausea and vomiting) did well with scope patch Social History Preferred Language: Ivorian Communication Ability: Effective Visual Impairment: Limited Hearing Ability: Normal 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 He has bowel sounds. His incisions are clean. An NG tube is in place and is draining green bilious fluid. Results & Data Vital Signs (Past 12 Hours) Vital Signs Temp Pulse Pulse Resp BP BP Pulse Ox 04/03/19 07:15 75 04/03/19 03:36 96 H 04/03/19 03:23 36.5 C 97 H 22 145/87 H 92 04/03/19 02:30 73 22 130/80 95 04/03/19 02:00 79 25 H 128/74 98 04/03/19 01:48 80 22 128/76 97 04/03/19 00:50 79 27 H 96 04/03/19 00:10 91 H 24 93 04/03/19 00:00 97 H 28 H 154/92 H 87 L 04/02/19 23:42 111 H 17 85 L 04/02/19 23:40 112 H 25 H 84 L 04/02/19 23:20 94 H 30 H 89 L 04/02/19 23:14 98 H 31 H 83 L 04/02/19 22:59 36.5 C 124 H 28 H 161/90 H 81 L PG Care Time/CCT Total # of Minutes Spent Total Time Spent with Patient: Total time spent is greater than 50% in coordination of care (as documented) at patient's floor/unit and/or counseling patient:
[2019-04-03] MEDS: FAMOTIDINE 20 MG in SYRINGE 3 ML IV SCH ×2 (10:10→20:29)
[2019-04-03] MEDS: FLUTICASONE/VILANTEROL 100/25MCG 14 PUFFS/INHALER INH SCH (10:13)
[2019-04-03] MEDS: TRIAMCINOLONE ACET NASAL SPRAY 10.8ML BTL SCH ×2 (10:14→20:29)
--- NOTE | 2019-04-03 14:20 | Electrocardiogram Report ---
Test Reason : Blood Pressure : / mmHG Vent. Rate : 097 BPM Atrial Rate : 097 BPM P-R Int : 180 ms QRS Dur : 118 ms QT Int : 360 ms P-R-T Axes : 040 -63 061 degrees QTc Int : 457 ms Normal sinus rhythm Possible Left atrial enlargement Left anterior fascicular block Voltage criteria for left ventricular hypertrophy with QRS widening Abnormal ECG When compared with ECG of 27-NOV-2018 07:23, No significant change was found Confirmed by Victoriano Bernardo ([id number]) on 04/03/2019 2:20:26 PM Referred By: Jorge Alberto Chong Confirmed By:Victoriano Bernardo
--- NOTE | 2019-04-03 20:07 | XRay Report ---
XR chest 1V portable CLINICAL HISTORY: 69 years-old Male presenting with NGT placement- may have been pulled out of place. TECHNIQUE: Portable upright AP view of the chest was obtained. COMPARISON: 04/02/2019. FINDINGS: Nasogastric tube descends below the diaphragm with sidehole in the gastric lumen. External leads proj ect over the thorax. Atherosclerosis of the aorta. Cardiac silhouette mildly enlarged. Mildly low briseyda g volumes. Minimal left basilar opacities. No pleural effusion or pneumothorax. Anterior cervical fus ion hardware. Cholecystectomy clips noted. Surgical clips project over the right base of the neck. IMPRESSION: 1. Appropriately positioned nasogastric tube. 2. Minimal left basilar opacities likely atelectasis or scarring. ACT 112: Negative or not required by law. Electronically signed by: Andres Tan M.D. 04/03/2019 8:05 PM
[2019-04-04 07:15] LABS: Basophils # (auto) 0.03 K/uL (0-0.2); Basophils % (auto) 0.3 %; Eosinophils # (auto) 0.47 K/uL (0-0.5); Eosinophils % (auto) 4.9 %; Hematocrit (blood only) 40.6 % (42-52); Hemoglobin 13.4 g/dL (14.0-18.0); Immature Granulocytes # (auto) 0.05 K/uL (0.00-0.02); Immature Granulocytes % (auto) 0.5 %; Lymphocytes # (auto) 1.38 K/uL (1.2-3.4); Lymphocytes % (auto) 14.4 %; Mean Corpuscular Hemoglobin 33.5 pg (25-34); Mean Corpuscular Volume 101.5 fL (80-100); Mean Platelet Volume 9.7 fL (7.4-10.4); Monocytes # (auto) 1.06 K/uL (0.11-0.59); Monocytes % (auto) 11.1 %; Neutrophils # (auto) 6.57 K/uL (1.4-6.5); Neutrophils % (auto) 68.8 %; Platelet Count 249 K/uL (130-400); RDW Coefficient of Variation 15.1 % (11.5-14.5); RDW Standard Deviation 54.7 fL (36.4-46.3); White Blood Count 9.56 K/uL (4.8-10.8)
[2019-04-04 07:44] LABS: BUN Creatinine Ratio 20.2 (10-20); Calcium 8.7 mg/dl (8.5-10.1); Est GFR (African American) 78.7; Est GFR (Non-African American) 67.9; Potassium 3.8 mmol/L (3.5-5.1)
[2019-04-04] MEDS: TRIAMCINOLONE ACET NASAL SPRAY 10.8ML BTL SCH ×2 (07:52→20:30)
[2019-04-04] MEDS: FLUTICASONE/VILANTEROL 100/25MCG 14 PUFFS/INHALER INH SCH (07:52)
[2019-04-04] MEDS: FAMOTIDINE 20 MG in SYRINGE 3 ML IV SCH ×2 (07:54→20:32)
--- NOTE | 2019-04-04 08:56 | Surgery Consultation ---
Date of Consultation April 04, 2019 Assessment & Plan (1) Postoperative ileus: This is a 69y M with a recent history of yadira fundoplication and primary repair of small bowel enterotomy on 03/30/[address] Chong and Dr. Patterson. The patient was readmitted on 04/02 with abdominal pain/bloating and shortness with workup concerning for post operative ileus. An NGT was placed in the ED with significant improvement in patient's symptoms. He currently denies abdominal pain or SOB. On examination patient's abdomen is soft and nondistended and patient is currently passing flatus. Patient's NGT with bilious output, 900cc in last 24 hours, and about 400cc out since 4AM today. I will discuss patient with Dr. Patterson. Anticipate we will likely keep NGT in today with the possibility of a clamp trial. History of Present Illness Attending Physician: Isrrael Torres DO History of Present Illness This is a 69y M with a PMH of cholecystectomy, colectomy c/b anastomotic leak requiring ostomy and reversal of ostomy, and a recent history of laparoscopic yadira fundoplication c/b small bowl enterotomy repaired primarily on 03/30/[address] Chong and Dr. Patterson. Patient was discharged on 03/31 after swallow study revealed stable post surgical findings, no contrast extravasation, and patient was tolerating a clear liquid diet. Starting 04/01 patient developed abdominal bloating which progressively worsened to abdominal pain and shortness of breath prompting him to be evaluated in the ED. In the ED workup revealed poor O2 saturations on room air, gaseous distention of bowel, and CT evidence with concern for ileus. An NGT was placed with significant improvement in patient's symptoms. Patient reports that he was nauseated at home, but did not vomit. His last BM was on 03/29. Today on examination patient reports remarkable improvement in his symptoms. He denies shortness of breath and chest pain. His abdominal pain is now limited to avtar-incisional soreness and his abdominal bloat is better. Patient reports passing flatus, no BM yet. Surgery was consulted for further evaluation. Allergies Allergy/AdvReac Type Severity Reaction Status Date / Time hydrocodone AdvReac Mild N/V Verified 04/02/19 23:34 aspirin AdvReac Unknown STOMACH Verified 04/02/19 23:34 CRAMPS NSAIDS (Non-Steroidal AdvReac Unknown STOMACH Verified 04/02/19 23:34 Anti-Inflamma CRAMPS Home Medications Home Medications Medication Instructions Recorded Confirmed Type cholestyramine-aspartame 4 gram 4 gm PO BID ea 03/11/18 04/02/19 History oral powder for susp in a packet esomeprazole magnesium 40 mg 40 mg PO BID 03/11/18 04/02/19 History capsule,delayed release lactobacillus combination no.9 4 4,000 mmu cells PO QPM 03/11/18 04/02/19 History billion cell capsule Symbicort 2 puff INHALATION BID 11/27/18 04/02/19 History aluminum hydrox-magnesium carb 254 5 ml PO TID PRN 03/11/19 04/02/19 History mg-237.5 mg/5 mL oral suspension ranitidine HCl 150 mg tablet 150 mg PO QID tab 03/11/19 04/02/19 History triamcinolone acetonide 55 mcg 1 spray INTRANASAL BID ml 03/11/19 04/02/19 History nasal spray aerosol albuterol sulfate [ProAir HFA] 1 inh INHALATION QID PRN 03/24/19 04/02/19 Hist ory metoclopramide HCl [Reglan] 10 mg PO ACHS 30 Days #120 tab 03/31/19 04/02/19 Rx ondansetron HCl [Zofran] 4 mg PO Q6H PRN #20 tab 03/31/19 04/02/19 Rx tramadol [Ultram] 50 mg PO QID PRN #12 tab 03/31/19 04/02/19 Rx Patient History Medical History Abdominal abscess 2013. [place] Anemia Asthma (Chronic) DDD (degenerative disc disease), cervical GERD with stricture Small bowel obstruction 10/2013. small bowel looped 3 times in cavity from abscess Surgical History History of arthroscopy of right shoulder History of carpal tunnel surgery right and left History of hernia surgery right and left inguinal hernia repair History of Yadira fundoplication History of partial colectomy Low Anterior partial colectomy with anastomosis 2013 diverticulosis History of reversal of ileostomy 12-21-13 had colon leak and needed colostomy and reversed Hx of cervical spine surgery [facility] C4-5 no limitations Hx of cholecystectomy (Resolved) Hx of ileostomy (Resolved) 08/2013 PONV (postoperative nausea and vomiting) did well with scope patch Family History Mother Heart disease Hearing loss Hypertension Sister Cardiac disorder Stroke Father Hearing loss Hypertension Family/Other Stomach cancer Other No family history of bleeding disorder Social History Preferred Language: Moldovan Communication Ability: Effective Visual Impairment: Limited Hearing Ability: Normal Digital Campaign Manager Required: No Beliefs That Will Affect Care: None marital status: Current Living Situation: Spouse current occupational status: retired Feels Safe at Home: Yes Smoking Status: Former smoker Second Hand Exposure: No ; Hx Alcohol Use: No Hx Substance Use: No Review of Systems Respiratory: shortness of breath prior to admission Gastrointestinal: + abdominal pain, + bloating (prior to admission ), + nausea (prior to admission) and + constipation; no vomiting Genitourinary: no difficulty urinating Physical Exam Physical Exam: awake/alert Constitutional: well developed, well nourished and comfortable; no acute distress Respiratory: normal respiratory effort Gastrointestinal (Abdomen): Inspection/Auscultation: + abdominal surgical incision (c/d/i, with some ecchymosis present); abdomen not distended Percussion/Palpation: + abdomen tender (mild ttp avtar-incisionally) and abdomen soft Results & Data Vital Signs (Past 12 Hours) Vital Signs Temp Pulse Pulse Resp BP Pulse Ox 04/04/19 07:56 36.6 C 72 18 123/76 90 04/04/19 07:30 68 04/04/19 04:00 37.1 C 68 18 119/73 91 04/04/19 00:00 71 04/03/19 23:00 36.8 C 77 20 130/[address] abd pelvis IV con only CLINICAL HISTORY: 69 years-old Male presenting with Recent fundoplication with perforation, now concern SBO, recent barium swallow. TECHNIQUE: Multidetector CT of the abdomen and pelvis was performed after the administration of intravenous contrast. IV contrast: 120 mL of Optiray 320. One or more dose lowering techniques were used consistent with the principles of ALARA (as low as reasonably achievable), including automatic exposure control, mA or kV adjustment to individual patient size, and/or use of iterative recons truction. COMPARISON: 10/13/2018. CT DOSE (mGy.cm): The estimated cumulative dose is 1530.96 mGy.cm. FINDINGS: Handtools Repairer topogram: Cholecystectomy clips. Lung bases: Mild multichamber enlargement of the heart. Coronary artery calcification. Trace right and small left pleural effusions. Left greater than right bibasilar atelectasis. Pneumomediastinum noted. No gross pneumothorax. Liver: Congenital hypoplasia of the medial segments of the left hepatic lobe. Macronodular contour. Density of the liver suggestive of hepatic steatosis. No focal lesion. Patent hepatic vasculature. Biliary: Mild biliary ductal prominence likely a reservoir effect in the post cholecystectomy state. Gallbladder surgically absent. Pancreas: Normal. Spleen: Normal. Adrenal glands: Normal. Kidneys and ureters: Scarring noted at the interpolar region of the right kidney. Multiple bilateral subcentimeter cysts. No nephrolithiasis or hydronephrosis. Ureters nondistended. Bladder: Incompletely evaluated secondary to underdistention. Pelvic organs: Prostate and seminal vesicles normal. Bowel: Colocolonic anastomosis at the upper rectum indicates prior partial sigmoidectomy. Barium noted in the ascending colon. The appendix is normal and also contains contrast. Mildly distended fluid-filled loops of small bowel in the mid ileum. Nasogastric tube terminates in the body of the stomach. Postsurgical changes of the gastric fundus consistent with reported history of fundoplication. No focal discontinuity of the gastric wall is appreciated on this exam. Duodenal diverticulum at the level of the pancreatic head/uncinate process. Enteroenteric anastomosis in the right anterior abdomen. No convincing evidence of transition point suggest obstruction. Smooth downstream and up stream transition to less dilated caliber. Peritoneal cavity: Interval fluid evident between the mesenteric leaves of small bowel. No free intraperitoneal gas. This typically, no extraluminal gas in the region of the fundoplication. Lymph nodes: No enlarged lymph nodes in the abdomen or pelvis. Vasculature: Atherosclerosis of the normal caliber abdominal aorta. IVC patent. Abdominal wall: Trace gas in the region of the left inguinal canal and along the left lateral abdominal wall. Edema of the lateral aspects of the abdominal wall bilaterally. Postsurgical changes in the midline ventral abdomen. Trochars sites are noted. Postsurgical changes of prior right inguinal hernia repair suggested. Musculoskeletal: Normal. IMPRESSION: 1. Trace amounts of abdominal wall gas are likely postsurgical. It is unclear if pneumomediastinum also relates to postsurgical gas though this is possible. 2. Body wall edema. Cellulitis is considered less likely. Correlate clinically. 3. Postsurgical changes of the bowel with an enteroenteric and colocolonic anastomoses. No bowel obstruction. Mild fluid-filled distended mid ileum favors ileus, however, trace interloop ascites associated with the small bowel makes a partial low-grade obstructive process difficult to exclude. Continued follow-up recommended. 4. Postsurgical changes of fundoplication. No perforation is appreciated on this exam. 5. Hepatic steatosis. 6. Mild cardiomegaly. 7. Bibasilar atelectasis and effusions, left greater than right. ACT 112: Negative or not required by law. Electronically signed by: Andres Tan M.D. 04/03/2019 5:[address] angio chest PE protocol CLINICAL HISTORY: 69 years-old Male presenting with recent fundoplication with perforation, now with shortness of breath. TECHNIQUE: Multidetector CT angiography of the chest was performed after administration of intravenous contrast. 3-D volumetric and/or maximum intensity projection (MIP) images were subsequently reconstructed for review. IV contrast: 120 mL of Optiray 320. One or more dose lowering techniques were used consistent with the principles of ALARA (as low as reasonably achievable), including automatic exposure control, mA or kV adjustment to individual patient size, and/or use of iterative reconstruction. COMPARISON: 04/18/2016. CT DOSE (mGy.cm): The estimated cumulative dose is 1530.96. FINDINGS: Handtools Repairer topogram: Unremarkable. Pulmonary vasculature: The study is adequate for assessment of the pulmonary vascular tree. No filling defect within the pulmonary arteries to suggest embolus. Main pulmonary artery is top normal in size. No flattening of the interventricular septum. No intracardiac filling defect. No reflux of contrast into the hepatic veins. Remaining chest: Soft tissues: Surgical clips noted along the right aspect of the thyroid gland, which is otherwise normal. Nasogastric tube in place, terminus outside of the [id number]. Diffuse mild esophageal wall thickening. No axillary, supraclavicular, mediastinal, or hilar lymphadenopathy. Atherosclerosis of the aorta. Multichamber enlargement of the heart. Coronary artery calcification. Pneumomediastinum noted in the anterior mediastinum. Trace right and small left pleural effusions. Cholecystectomy clips. Lungs and airways: No pneumothorax. Apparent debris in the upper trachea. Remainder of the airways patent. Pulmonary arteries mildly enlarged relative to adjacent bronchi. No interlobular septal thickening. Bibasilar passive atelectasis, left greater than right. Musculoskeletal: Normal osseous structures. IMPRESSION: 1. No evidence of pulmonary embolus. 2. Left greater than right pleural effusions and atelectasis. 3. Postsurgical anterior mediastinal pneumomediastinum. No convincing evidence of esophageal perforation. 4. Diffuse mild esophageal wall thickening with a nasogastric tube in place. Wall thickening may represent postsurgical edema. ACT 112: Negative or not required by law. Electronically signed by: Andres Tan M.D. 04/03/2019 6:01 AM PG Care Time/CCT Total # of Minutes Spent Total Time Spent with Patient: Total time spent is greater than 50% in coordination of care (as documented) at patient's floor/unit and/or counseling patient:
--- NOTE | 2019-04-04 11:30 | Hospitalist Progress Note ---
Date of Service April 04, 2019 Assessment & Plan (1) SBO (small bowel obstruction): 69yo M PMHx multiple abdominal surgeries including a recent Yadira fundoplication performed on 03/30/19 presenting with SBO and possible ileus. - NG tube on low, intermittent suction with continued, steady output; once output reduces we will turn off suction for 4 hours before advancing diet. - NPO for now - IVF d/c after 2 liters; electrolytes stable - Zofran PRN nausea - surgery following, appreciate recs - etiology likely related to gut edema from recent Yadira fundoplication, in addition to adhesions from multiple prior bowel surgeries (2) Hypoxia: - currently satting 94 on 2L via oxygen mask; wean O2 as tolerated - etiology is unknown, although it sounds like this is a chronic exam finding in this patient - patient does have history of underlying asthma; CXR 04/03/19 with poor lung volumes with left basilar opacity, possibly atelectasis vs. consolidation. - unlikely to be infectious, as patient is afebrile with normal HR and RR. CTA 04/02/19 showed no evidence of PNA or PE. - WBC 9.5 today, down from 13 (04/04/19) BCx without growth through 24 hours (patient did receive one dose of IV zosyn in ED) - Echo 04/03/19 showed intraventricular conduction delay but preserved EF 50-55%. No wall motion abnormalities. Mild to moderate LVH. - Patient euvolemic on exam (3) GERD with stricture: - S/p Yadira fundoplication, POD #5. - Pepcid 20mg IV BID. - NPO for now in setting of SBO. (4) Asthma: - No respiratory distress, cough or wheeze at present. - supplemental oxygen as above - Continue Symbicort. - Albuterol PRN. FEN/GI: NPO DVT Ppx: Lovenox 40mg SQ daily Code: DNR/DNI Dispo: med/surg with tele Supervising Physician Co-Signing Physician Notes I personally examined the patient and verified all husain points of history and exam, discussed case, and agree with decision making with Dr Olguin. Feeling okay with NG tube in. No pain no nausea. Belly much improved. Expresses a good understanding of surgical opinion and plan. Vitals noted, in general he is awake and alert pleasant no distress. HEENT normocephalic atraumatic mucous membranes moist. Breathing unlabored no accessory muscle use good effort. Abdomen soft nondistended nontender no masses organomegaly. NG tube with significant amount of bilious drainage. Ileuscontinue NG drainage, pain and nausea control, supportive care. Expect improvement with time. Otherwise as above. Subjective No acute events overnight. not in any pain. has not moved his bowels, although his last meal was ~6 days ago. he is passing gas. provides history of chronic hypoxia that was worked up in the past without a percise etiology identified Review of Systems Gastrointestinal: + constipation Physical Exam Constitutional: WD/WN, vitals as above Eyes: PERRL, conjunctivae normal, anicteric sclerae ENMT: external ear and nose normal, oropharynx normal NG tube in place; with bilious output wearing oxygen mask Neck: normal visual inspection and trachea midline Respiratory: normal respiratory effort, lungs clear to auscultation Cardiovascular: RRR, no murmur, no edema Heart Sounds: normal S1 and normal S2 Gastrointestinal (Abdomen): Inspection/Auscultation: normal bowel sounds; abdomen not distended Percussion/Palpation: + abdomen tender (over incision sites from recent surgey) and abdomen soft; no guarding and no hepatosplenomegaly Skin: no rashes, warm and dry Psychiatric: A+Ox3, euthymic affect Results & Data Vital Signs (Past 12 Hours) Vital Signs Temp Pulse Pulse Resp BP Pulse Ox 04/04/19 07:56 36.6 C 72 18 123/76 90 04/04/19 07:30 68 04/04/19 04:00 37.1 C 68 18 119/73 91 04/04/19 00:00 71 Resident Activity Tracking Resident Involvement: Resident Care Provided Care Provided: Adult Hospital Medicine (1) Asthma Asthma complication type: uncomplicated Asthma persistence: persistent Asthma severity: moderate Qualified Code(s): J45.40 - Moderate persistent asthma, uncomplicated
--- NOTE | 2019-04-04 12:52 | Surgery Progress Note ---
Date of Service April 04, 2019 Assessment & Plan (1) History of Yadira fundoplication: Mr. Johnston is stable clinically. He is in good spirits. Appreciate Dr. Patterson input. A trial of NG clamping when Dr. Patterson feels it is appropriate is planned. Subjective Denies pain. Has been ambulating in the hallway. Has not moved his bowels as of yet. Physical Exam Gastrointestinal (Abdomen): His abdominal incisions are clean. His abdomen is soft flat and essentially nontender except for some mild incisional pain. He does have some bowel sounds although they are hypoactive. Results & Data Vital Signs (Past 12 Hours) Vital Signs Temp Pulse Pulse Resp BP Pulse Ox 04/04/19 11:28 36.7 C 62 18 118/69 94 04/04/19 07:56 36.6 C 72 18 123/76 90 04/04/19 07:30 68 04/04/19 04:00 37.1 C 68 18 119/73 91 PG Care Time/CCT Total # of Minutes Spent Total Time Spent with Patient: Total time spent is greater than 50% in coordination of care (as documented) at patient's floor/unit and/or counseling patient:
[2019-04-04] MEDS: SODIUM CHLORIDE 0.9% 1000ML 1,000 ML IV SCH ×2 (13:52→21:36)
[2019-04-04] MEDS ORDERED: ENOXAPARIN INJ 40 MG/0.4 ML SYR SQ SCH (14:00)
--- NOTE | 2019-04-04 16:26 | Billing Data ---
Date of Service April 04, 2019 Coding Level of Care Code 75362 Subseq Hosp Care Lvl 2
[2019-04-04] MEDS: PANTOprazole 40 MG in SYRINGE 0 ML IV SCH (22:29)
[2019-04-05] MEDS: ONDANSETRON INJ 2 MG/ML 2 ML VIAL IV PRN (02:25)
[2019-04-05] MEDS ORDERED: IOVERSOL 100ml IV PRN (06:22)
--- NOTE | 2019-04-05 06:47 | CT Scan Report ---
CT OF THE ABDOMEN AND PELVIS WITH CONTRAST CLINICAL HISTORY: insidious upper abd pain. h/o ?volvulus. Evaluate for perforation. COMPARISON STUDY: CT of the abdomen and pelvis April 03, 2019. TECHNIQUE: Following IV administration of 86 mL of Optiray-320, axial images of the abdomen and pelvi s were obtained from the lung bases to the proximal femurs. Images were reviewed in the axial, sagitt al, and coronal planes. IV contrast was administered without complication. Automated exposure contro l was utilized for the study. A dose lowering technique was utilized adhering to the principles of A LJ. Oral contrast was administered. CT DOSE: 902.85 mGy.cm FINDINGS: Imaged portions of the lower chest demonstrate mild cardiomegaly. There are trace bilateral pleural effusions with associated atelectasis. No pneumatosis, free air or portal venous gas is pres ent. Tip of nasogastric tube is within the body of the stomach. There are postoperative findings from a Yadira fundoplication. Moderate hyperdense perihepatic fluid is noted. There is a small amount of fluid which measures above water attenuation within the mesentery as well as the pelvis. This represe nts hemoperitoneum with perihepatic clot. There is no active extravasation. Definitive source is not identified. There is no hydronephrosis. Right renal scarring is noted. There are multiple subcentimet er renal lesions which are too small to characterize but likely reflect cysts. Several bowel anastomo ses are noted. There is mild dilatation of the proximal small bowel without discrete transition point . No suspicious osseous lesions are present. There is no evidence for a colonic obstruction. There is no volvulus. There is no biliary ductal dilatation status post cholecystectomy. The spleen, adrenal glands and pancreas are unremarkable. IMPRESSION: 1. Small to moderate hemoperitoneum within the abdomen and pelvis with perihepatic clot. No active ex travasation. Definitive source not identified but favor the right upper quadrant or mesentery given t he distribution. Surgical consultation is recommended. Discussed with Dr. Herrera at time of dictation. 2. Mild dilatation of the proximal small bowel without well-defined transition point. The findings fa vor an ileus. A partial small bowel obstruction could appear similar but is considered less likely. 3. Trace bilateral pleural effusions with associated atelectasis. ACT 112: Negative or not required by law. Electronically signed by: Jamie Lucero M.D. 04/05/2019 6:45 AM
[2019-04-05 07:13] LABS: Hematocrit (blood only) 36.3 % (42-52); Hemoglobin 11.9 g/dL (14.0-18.0)
[2019-04-05] MEDS: SODIUM CHLORIDE 0.9% 1000ML 1,000 ML IV SCH (07:19)
[2019-04-05] MEDS: FAMOTIDINE 20 MG in SYRINGE 3 ML IV SCH ×2 (08:19→21:21)
[2019-04-05] MEDS: FLUTICASONE/VILANTEROL 100/25MCG 14 PUFFS/INHALER INH SCH (08:21)
[2019-04-05] MEDS: PANTOprazole 40 MG in SYRINGE 0 ML IV SCH ×2 (08:21→21:14)
[2019-04-05] MEDS: TRIAMCINOLONE ACET NASAL SPRAY 10.8ML BTL SCH ×2 (08:21→21:18)
--- NOTE | 2019-04-05 08:39 | Surgery Progress Note ---
Date of Service April 05, 2019 Assessment & Plan (1) Postoperative ileus: POD#6 federico fundoplication and repair of enterotomy readmitted on 04/02 with ileus Early this AM pt developed acute onset of severe abdominal pain prompting a CT scan (full report above). Showed ongoing ileus with small to moderate sized hemoperitoneum within the abdomen/pelvis and perihepatic clot. No active extravasation and no definitive source identified. Hbg this AM 11.9 from 13.4. Blood pressure and heart rate currently stable. - Favor monitoring patient closely as there is no active extravasation. Agree with holding Lovenox. Encourage ambulation and have pt wear SCD's while laying in bed. Monitor Hbg, will order one for this afternoon, & monitor for any acute change in vital signs - NGT output decreasing, but would keep NGT in as patient passing less flatus & has an increased O2 requirement from yesterday - I will discuss pt with Dr. Patterson and we will continue to follow along Supervising Physician Co-Signing Physician Notes patient seen and examined, labs and imaging reviewed, aware of overnight events. 69 y/o male s/p hiatal hernia repair with federico and extensive enterolysis by Dr. Chong, I repaired an incidental laparotomy. Re-admitted with ileus which appeared to be resolving, however overnight he had sudden onset pain. CT with hemoperitoneum, likely mesenteric source, but no active extravasation. Slight drop in H&H, but repeat stable. Some pain in RUQ secondary to blood, otherwise passing some flatus. CT with contrast from swallow study in rectum. continue ng, continue to hold a/c, repeat h/h in am. surgery will follow. Subjective Patient states he had an eventful night. Developed severe abdominal pain early this AM when he was turning to get out of bed that took his breath away. He says it felt like "when his bowels flipped before". His NGT also had a period of bloody output. Pt underwent an abd/pelvis CT scan this AM and reports now he is feeling much better. He is passing gas, but says not as much as yesterday and denies any BM. Currently denies nausea/vomiting. Physical Exam Physical Exam: awake/alert Constitutional: well developed and well nourished; no acute distress Respiratory: wearing oxymask Gastrointestinal (Abdomen): Inspection/Auscultation: + abdomen distended (mild) and + abdominal surgical incision (c/d/i with some ecchymosis) Percussion/Palpation: + abdomen tender (epigastric and mid abdominal ttp) and abdomen soft NGT output appears bilious Results & Data Vital Signs (Past 12 Hours) Vital Signs Temp Pulse Pulse Resp BP BP Pulse Ox 04/05/19 07:17 36.4 C L 04/05/19 07:13 90 18 122/74 92 04/05/19 03:15 36.3 C L 84 18 128/79 90 04/05/19 02:26 73 108/70 93 04/05/19 00:27 36.6 C 68 20 111/61 95 04/05/19 00:[address] OF THE ABDOMEN AND PELVIS WITH CONTRAST CLINICAL HISTORY: insidious upper abd pain. h/o ?volvulus. Evaluate for perforation. COMPARISON STUDY: CT of the abdomen and pelvis April 03, 2019. CT DOSE: 902.85 mGy.cm FINDINGS: Imaged portions of the lower chest demonstrate mild cardiomegaly. There are trace bilateral pleural effusions with associated atelectasis. No pneumatosis, free air or portal venous gas is present. Tip of nasogastric tube is within the body of the stomach. There are postoperative findings from a Ni ssen fundoplication. Moderate hyperdense perihepatic fluid is noted. There is a small amount of fluid which measures above water attenuation within the mesentery as well as the pelvis. This represents hemoperitoneum with perihepatic clot. There is no active extravasation. Definitive source is not identified. There is no hydronephrosis. Right renal scarring is noted. There are multiple subcentimeter renal lesions which are too small to characterize but likely reflect cysts. Several bowel anastomoses are noted. There is mild dilatation of the proximal small bowel without discrete transition point. No suspicious osseous lesions are present. There is no evidence for a colonic obstruction. There is no volvulus. There is no biliary ductal dilatation status post cholecystectomy. The spleen, adrenal glands and pancreas are unremarkable. IMPRESSION: 1. Small to moderate hemoperitoneum within the abdomen and pelvis with perihepatic clot. No active extravasation. Definitive source not identified but favor the right upper quadrant or mesentery given the distribution. Surgical consultation is recommended. Discussed with Dr. Herrera at time of dictation. 2. Mild dilatation of the proximal small bowel without well-defined transition point. The findings favor an ileus. A partial small bowel obstruction could appear similar but is considered less likely. 3. Trace bilateral pleural effusions with associated atelectasis. ACT 112: Negative or not required by law. Electronically signed by: Jamie Lucero M.D. 04/05/2019 6:45 AM PG Care Time/CCT Total # of Minutes Spent Total Time Spent with Patient: Total time spent is greater than 50% in coordination of care (as documented) at patient's floor/unit and/or counseling patient:
--- NOTE | 2019-04-05 09:36 | Hospitalist Progress Note ---
Date of Service April 05, 2019 Assessment & Plan (1) SBO (small bowel obstruction): 69yo M PMHx multiple abdominal surgeries including a recent Yadira fundoplication performed on 03/30/19 presenting with ileus and possible SBO - NG tube on low, intermittent suction with continued, steady output; once output reduces we will turn off suction for 4 hours before advancing diet. - patient has strictly been NPO for 3 days, last full meal 7 days ago; will keep NPO today, with plan for IV nutrition 04/06 if ileus does not markedly improve - IVF d/c after 2 liters; electrolytes stable - Zofran PRN nausea - surgery following, appreciate recs - etiology likely related to gut edema from recent Yadira fundoplication, in addition to adhesions from multiple prior bowel surgeries (2) Hemoperitoneum: - CT of Abdomen and pelvis on 04/05 with following impression: Small to moderate hemoperitoneum within the abdomen and pelvis with perihepatic clot. No active extravasation. Definitive source not identified but favor the right upper quadrant or mesentery given the distribution. - likely secondary to recent Yadira fundoplication/enterotomy repair/lysis of adhesions - hgb stable at 11; hemodynamically stable throughout day - IV Tylenol and morphine ordered prn for discomfort - expectant management (3) Hypoxia: - currently satting 90 on 4L via oxygen mask; wean O2 as tolerated - etiology is unknown, although it sounds like this is a chronic exam finding in this patient - patient does have history of underlying asthma; CXR 04/03/19 with poor lung volumes with left basilar opacity, possibly atelectasis vs. consolidation. - unlikely to be infectious, as patient is afebrile with normal HR and RR. CTA 04/02/19 showed no evidence of PNA or PE. - WBC 9.5 today, down from 13 (04/04/19) BCx without growth through 24 hours (patient did receive one dose of IV zosyn in ED) - Echo 04/03/19 showed intraventricular conduction delay but preserved EF 50-55%. No wall motion abnormalities. Mild to moderate LVH. - Patient euvolemic on exam (4) GERD with stricture: - S/p Yadira fundoplication, POD #6. - Pepcid 20mg IV BID. - NPO for now in setting of SBO. (5) Asthma: - No respiratory distress, cough or wheeze at present. - supplemental oxygen as above - Continue Symbicort. - Albuterol PRN. FEN/GI: NPO DVT Ppx: Lovenox held in setting of hemoperitoneum Code: DNR/DNI Dispo: downgraded to med/surg Supervising Physician Co-Signing Physician Notes I personally examined the patient and verified all husain points of history and exam, discussed case, and agree with decision making with Dr Olguin. A little bit rougher over the last 24 hours due to pain coming and going. Right now he feels much better though. The pain has been bad at times but is definitely not a constant. Right now he expresses good pain control, no significant nausea and no other complaints. Vitals noted, in general he is awake and alert pleasant no distress. HEENT normocephalic atraumatic mucous membranes moist. Breathing unlabored no accessory muscle use good effort. Abdomen soft nondistended mildly tender predominantly left-sided without guarding or rebound no masses organomegaly. NG tube with ongoing bilious drainage. Ileuscontinue NG drainage, pain and nausea control, supportive care. Expect improvement with time. Concerned that the hemoperitoneum may exacerbate the ileus prolonging his n.p.o. status (see below) Hemoperitoneumpossibly from sites of lysis of adhesions versus other. Pharmacologic DVT prophylaxis now on hold. Continue to follow closely, more than likely as long as his blood counts stabilize and his vitals today as stable as they are this can probably be managed expectantly rather than operatively. Nutritionwe discussed this in depth today, if he does not show signs of improvement with his ileus into tomorrow morning, we will likely need to start TPN DVT prophylaxispharmacologic on hold, mechanical with SCDs Subjective Overnight team noticed blood in output of NG tube. Patient developed epigastric pain was given morphine and CT of abdomen and pelvis was obtained. It showed hemoperitoneum in RUQ, without active bleed. Hemoglobin was stable at 11.9. Vitals stable. + orthostatics per nursing. Patient reports pain with inspiration of RUQ, increased Review of Systems Gastrointestinal: + abdominal pain, + bloating and + constipation (has been NPO for 3 days; last full meal 7 days ago) Physical Exam Constitutional: WD/WN, vitals as above Eyes: PERRL, conjunctivae normal, anicteric sclerae ENMT: external ear and nose normal, oropharynx normal Neck: normal visual inspection and trachea midline Respiratory: normal respiratory effort, lungs clear to auscultation Cardiovascular: RRR, no murmur, no edema Heart Sounds: normal S1 and normal S2 Gastrointestinal (Abdomen): Inspection/Auscultation: + abdomen distended (mild) Percussion/Palpation: + abdomen tender (mainly RUQ) and abdomen soft; no guarding, abdomen not rigid and no hepatosplenomegaly Ecchymosis surrounding recent incision sites (Yadira fundoplication procedure) NG tube in place with continued high output of bilious liquid Skin: no rashes, warm and dry Psychiatric: A+Ox3, euthymic affect Results & Data Vital Signs (Past 12 Hours) Vital Signs Temp Pulse Pulse Resp BP BP Pulse Ox 04/05/19 07:17 36.4 C L 04/05/19 07:13 90 18 122/74 92 04/05/19 03:15 36.3 C L 84 18 128/79 90 04/05/19 02:26 73 108/70 93 04/05/19 00:27 36.6 C 68 20 111/61 95 04/05/19 00:00 67 Resident Activity Tracking Resident Involvement: Resident Care Provided Care Provided: Adult Hospital Medicine (1) Asthma Asthma complication type: uncomplicated Asthma persistence: persistent Asthma severity: moderate Qualified Code(s): J45.40 - Moderate persistent asthma, uncomplicated
[2019-04-05] MEDS: D5W AND NSS 1,000 ML IV SCH ×2 (09:45→17:12)
[2019-04-05] MEDS ORDERED: ACETAMINOPHEN 65 ML IV ONE (10:29)
[2019-04-05] MEDS ORDERED: ACETAMINOPHEN 1,000 MG/100 ML VIAL IV PRN (10:29)
[2019-04-05] MEDS ORDERED: ACETAMINOPHEN 1,000 MG/100 ML VIAL IV STA (10:30)
[2019-04-05 12:43] LABS: Basophils # (auto) 0.02 K/uL (0-0.2); Basophils % (auto) 0.2 %; Eosinophils # (auto) 0.09 K/uL (0-0.5); Eosinophils % (auto) 0.7 %; Hemoglobin 11.1 g/dL (14.0-18.0); Immature Granulocytes % (auto) 0.8 %; Lymphocytes # (auto) 1.28 K/uL (1.2-3.4); Lymphocytes % (auto) 10.5 %; Mean Corpuscular Hemoglobin 32.9 pg (25-34); Mean Corpuscular Volume 100.9 fL (80-100); Mean Platelet Volume 9.5 fL (7.4-10.4); Monocytes # (auto) 1.05 K/uL (0.11-0.59); Monocytes % (auto) 8.6 %; Neutrophils # (auto) 9.66 K/uL (1.4-6.5); Neutrophils % (auto) 79.2 %; Platelet Count 279 K/uL (130-400); RDW Coefficient of Variation 15.2 % (11.5-14.5); RDW Standard Deviation 54.9 fL (36.4-46.3); Red Blood Count 3.37 M/uL (4.7-6.1)
[2019-04-05 12:47] LABS: Mean Corpuscular Hgb Conc 32.6 g/dL (32-36)
--- NOTE | 2019-04-05 14:57 | Surgery Progress Note ---
Date of Service April 05, 2019 Assessment & Plan (1) History of Yadira fundoplication: Present on Admission?: Yes (2) Hypoxia: Present on Admission?: Yes (3) Hemoperitoneum: Very interesting finding. On postop day 4 the patient had no evidence of any fluid in his abdomen and certainly no evidence of bleeding. 48 hours later he appears to have had a possible mesenteric bleed. He does not appear to have evidence of obvious small bowel obstruction on CT. His Hg is stable today. Have discussed with Dr Patterson. Present on Admission?: No Subjective Patient states that he had some severe pain in his abdomen last night leading to a CT scan. Surprisingly enough, this shows some blood in the right perihepatic area and perhaps the mesentery. Hemoglobin is dropped from 13-11 and hemodynamically he is stable and is making excellent urine. Physical Exam Physical Exam: Abdominal incisions are fine but he does have a bit more tenderness especially in the right upper quadrant upon palpation of his belly. The abdomen is soft. Bowel sounds are relatively decreased from yesterday. Results & Data Vital Signs (Past 12 Hours) Vital Signs Temp Pulse Pulse Resp BP BP Pulse Ox 04/05/19 11:38 36.3 C L 86 19 116/72 93 04/05/19 07:20 84 04/05/19 07:17 36.4 C L 04/05/19 07:13 90 18 122/74 92 04/05/19 03:15 36.3 C L 84 18 128/79 90 PG Care Time/CCT Total # of Minutes Spent Total Time Spent with Patient: Total time spent is greater than 50% in coordination of care (as documented) at patient's floor/unit and/or counseling patient:
--- NOTE | 2019-04-05 17:14 | Billing Data ---
Date of Service April 05, 2019 Coding Level of Care Code 58527 Subseq Hosp Care Lvl 3
[2019-04-06] MEDS: D5W AND NSS 1,000 ML IV SCH ×2 (01:10→08:58)
[2019-04-06 06:01] LABS: Basophils # (auto) 0.05 K/uL (0-0.2); Basophils % (auto) 0.5 %; Eosinophils # (auto) 0.34 K/uL (0-0.5); Eosinophils % (auto) 3.1 %; Immature Granulocytes # (auto) 0.11 K/uL (0.00-0.02); Lymphocytes % (auto) 15.7 %; Mean Corpuscular Hemoglobin 33.7 pg (25-34); Mean Corpuscular Hgb Conc 33.3 g/dL (32-36); Mean Platelet Volume 8.9 fL (7.4-10.4); Monocytes # (auto) 1.28 K/uL (0.11-0.59); Monocytes % (auto) 11.8 %; Neutrophils # (auto) 7.35 K/uL (1.4-6.5); Neutrophils % (auto) 67.9 %; Platelet Count 260 K/uL (130-400); RDW Coefficient of Variation 15.3 % (11.5-14.5); RDW Standard Deviation 55.2 fL (36.4-46.3); Red Blood Count 2.97 M/uL (4.7-6.1); White Blood Count 10.83 K/uL (4.8-10.8)
[2019-04-06 06:28] LABS: BUN Creatinine Ratio 13.9 (10-20); Calcium 7.9 mg/dl (8.5-10.1); Creatinine Clr Calc Pharmacy 68.7 ml/min; Est GFR (African American) 73.1; Potassium 3.9 mmol/L (3.5-5.1)
--- NOTE | 2019-04-06 07:46 | Surgery Progress Note ---
Date of Service April 06, 2019 Assessment & Plan (1) Postoperative ileus: POD#7 federico [address] Chong and repair of enterotomy with Dr. Patterson, here since 04/02 with ileus and new hemoperitoneum - Hbg this AM 10 from 11.1. Patient's vitals continue to be stable and starting yesterday evening pt has better tolerated getting out of bed and ambulating. Will repeat CBC ricci unless there is an acute change in patient's status today - Patient now denies passing flatus and NGT remains bilious with increase in output (>1L). Anticipate keeping in today. Hemoperitoneum likely set patient back some in regards to his ileus. will order KUB this AM - Continue to hold Lovenox, encourage ambulation, and encourage SCD's when lying in bed - We will continue to follow Supervising Physician Co-Signing Physician Notes pnt seen and examined, agree with above. Denies flatus today, still feels some fullness and discomfort on right side. abd exam benign. HCT down 4 pts but likely dilutional, vss. KUB with contrast into colon, no obstruction. Will continue NG today, poss clamp tomorrow. May restart a/c tomorrow if stable. May try enema. Subjective Patient states around 10pm last night he started to feel a little bit better and less shaky. Says he was able to get up and walk the halls a few times with RN assistance. He denies nausea/vomiting. Rates his abdominal pain a dull 3-4/10, mostly right sided. He says he is no longer passing much flatus, and denies any BM's since admission. He feels from a respiratory standpoint he is stable. Physical Exam Physical Exam: awake/alert Respiratory: normal respiratory effort Gastrointestinal (Abdomen): Inspection/Auscultation: + abdomen distended (mild) and + abdominal surgical incision (c/d/i) Percussion/Palpation: + abdomen tender (mostly ttp in ruq and upper central abdomen) and abdomen soft NGT with bilious output Results & Data Vital Signs (Past 12 Hours) Vital Signs Temp Pulse Resp BP Pulse Ox 04/05/19 22:41 36.5 C 79 18 118/73 94 Laboratory Results Laboratory Results - last 24 hr 04/06/19 04/06/19 04/06/19 01:32 05:32 05:32 WBC 10.83 H RBC 2.97 L Hgb 10.0 L Hct 30.0 L MCV 101.0 H MCH 33.7 MCHC 33.3 RDW Std Deviation 55.2 H RDW Coeff of Tiffany 15.3 H Plt Count 260 MPV 8.9 Immature Gran % (Auto) 1.0 Neut % (Auto) 67.9 Lymph % (Auto) 15.7 [place] % (Auto) 11.8 Eos % (Auto) 3.1 Baso % (Auto) 0.5 Immature Gran # (Auto) 0.11 H Neut # (Auto) 7.35 H Lymph # (Auto) 1.70 [place] # (Auto) 1.28 H Eos # (Auto) 0.34 Baso # (Auto) 0.05 Sodium 143 Potassium 3.9 Chloride 113 H Carbon Dioxide 28 Anion Gap 2.0 L BUN 16 Creatinine 1.18 Est Cr Clr Drug Dosing 68.7 Est GFR ( Amer) 73.1 Est GFR (Non-Af Amer) 63.0 BUN/Creatinine Ratio 13.9 Glucose 130 H POC Glucose 146 H Calcium 7.9 L Phosphorus Magnesium Total Bilirubin AST ALT Alkaline Phosphatase Prealbumin Triglycerides 04/06/19 05:32 WBC RBC Hgb Hct MCV MCH MCHC RDW Std Deviation RDW Coeff of Tiffany Plt Count MPV Immature Gran % (Auto) Neut % (Auto) Lymph % (Auto) [place] % (Auto) Eos % (Auto) Baso % (Auto) Immature Gran # (Auto) Neut # (Auto) Lymph # (Auto) [place] # (Auto) Eos # (Auto) Baso # (Auto) Sodium Potassium Chloride Carbon Dioxide Anion Gap BUN Creatinine Est Cr Clr Drug Dosing Est GFR ( Amer) Est GFR (Non-Af Amer) BUN/Creatinine Ratio Glucose POC Glucose Calcium Phosphorus 2.5 Magnesium 2.5 H Total Bilirubin 0.7 AST 33 ALT 51 Alkaline Phosphatase 55 Prealbumin 9.2 L Triglycerides 92 Diagnostic Findings XR KUB/Abdomen 1 view CLINICAL HISTORY: eval for ileus ABDOMINAL DISTENTION COMPARISON STUDY: 03/31/2019 FINDINGS: 1. There is been interval placement of nasogastric tube. The tip injection of the stomach. There is persistent but decreased gaseous distention of the stoma ch. There is no small bowel dilatation. There is contrast within nondilated colon. IMPRESSION: 1. Diminished gaseous distention of the stomach status post placement of nasogastric tube. 2. Contrast within nondilated colon PG Care Time/CCT Total # of Minutes Spent Total Time Spent with Patient: Total time spent is greater than 50% in coordination of care (as documented) at patient's floor/unit and/or counseling patient:
[2019-04-06] MEDS ORDERED: TPN/PPN CONSULT PHARMACY PRN (08:24)
[2019-04-06] MEDS: PANTOprazole 40 MG in SYRINGE 0 ML IV SCH ×2 (08:26→20:14)
[2019-04-06] MEDS: TRIAMCINOLONE ACET NASAL SPRAY 10.8ML BTL SCH ×2 (08:27→20:13)
[2019-04-06] MEDS: FLUTICASONE/VILANTEROL 100/25MCG 14 PUFFS/INHALER INH SCH (08:28)
[2019-04-06] MEDS: FAMOTIDINE 20 MG in SYRINGE 3 ML IV SCH (08:32)
--- NOTE | 2019-04-06 08:48 | XRay Report ---
XR KUB/Abdomen 1 view CLINICAL HISTORY: eval for ileus ABDOMINAL DISTENTION COMPARISON STUDY: 03/31/2019 FINDINGS: 1. There is been interval placement of nasogastric tube. The tip injection of the stomach. There is p ersistent but decreased gaseous distention of the stomach. There is no small bowel dilatation. There is contrast within nondilated colon. IMPRESSION: 1. Diminished gaseous distention of the stomach status post placement of nasogastric tube. 2. Contrast within nondilated colon ACT 112: Negative or not required by law. Electronically signed by: João Patino M.D. 04/06/2019 8:47 AM
[2019-04-06 09:53] LABS: Bilirubin,Total 0.7 mg/dl (0.2-1); Magnesium 2.5 mg/dl (1.8-2.4); Phosphorus 2.5 mg/dl (2.5-4.9); Prealbumin 9.2 mg/dl (20-40)
--- NOTE | 2019-04-06 10:42 | XRay Report ---
XR chest 1V portable CLINICAL HISTORY: TO MAKE SURE OKAY TO START TPN TODAY COMPARISON STUDY: Chest radiograph and chest CT April 03, 2019. FINDINGS: Anterior cervical spine fusion is incidentally noted. Tip of nasogastric tube is below the lower aspect of this image but at least within the body of the stomach. Tip of the right PICC project s over the cavoatrial junction. There is no evidence for pulmonary edema. There are trace bilateral p leural effusions with bibasilar opacities. Mild cardiomegaly is noted without evidence for pulmonary edema. There is no pneumothorax. IMPRESSION: 1. Tip of right PICC projects over the cavoatrial junction. 2. Trace bilateral pleural effusions with bibasilar opacities which favor atelectasis. ACT 112: Negative or not required by law. Electronically signed by: Jamie Lucero M.D. 04/06/2019 10:41 AM
[2019-04-06] MEDS ORDERED: DEXTROSE 10% 1,000 ML IV PRN ×2 (11:30→16:00)
--- NOTE | 2019-04-06 13:24 | Progress Note ---
DATE: 04/06/2019 Mr. Johnston was seen today. He states he had a better day than yesterday. He has been up ambulating starting last night and today. He has not moved his bowels. He states he is not having flatus. His NG tube continues to drain. It drained about 1100 mL. He is making very good urine. His white count this morning is 10,830, hemoglobin of 10. It has come down some, but I think some of this may be due to dilution. He has about 2 liters ahead. He is having some pain in the left and the right side of his abdomen. BUN is down to 16 and his chloride is 113. His bicarbonate is 28. I reviewed his x-rays with Dr. Patterson. He still has a distended stomach, but the NG tube is in place. His small bowel was not distended. He has contrast in his colon. I hear very little in the way of bowel sounds. Incisions are clean, is nice and soft. ASSESSMENT AND PLAN: Postoperative day #7 status post robot-assisted laparoscopic fundoplication. From a reflux standpoint, he is doing well. I am still bit concerned about his hemoglobin, but he appeared to be settling down. We will continue to keep a very close eye on him. ADRIANNE
--- NOTE | 2019-04-06 15:33 | Pharmacy Report ---
PHA: Parenteral Nutrition Con - Date of Service April 06, 2019 - Scope Pharmacy was consulted on 04/06 to manage parenteral nutrition orders for this patient. - Subjective The patient is currently on day [#1] of [central] parenteral nutrition for postop ileus / NPO >7 days - Objective Height: 5 ft 8 in Weight: 100.1 kg Diet: NPO Intake & Output (24hrs):: Intake & Output 04/04/19 04/05/19 04/06/19 04/07/19 06:59 06:59 06:59 06:59 Intake Total 3000 / 3000 2000 / 2000 2227.083 / 2227.083 975 / 975 Output Total 1400 / 1400 1700 / 1700 2150 / 2150 Balance 1600 / 1600 300 / 300 77.083 / 77.083 975 / 975 Weight 100.1 kg 99.9 kg 100.1 kg 100.1 kg Laboratory Data (Last 24 Hr):: 04/06/19 04/06/19 05:32 05:32 Sodium 143 Potassium 3.9 Chloride 113 H Carbon Dioxide 28 BUN 16 Creatinine 1.18 Glucose 130 H Calcium 7.9 L Phosphorus 2.5 Magnesium 2.5 H Total Bilirubin 0.7 AST 33 ALT 51 Alkaline Phosphatase 55 Prealbumin 9.2 L Triglycerides 92 Nutrition Assessment:: Please refer to the Notes section of the EMR for the most recent speech and drama teacher note. - Plan For day 1 of PN administration, the following will be ordered: Macronutrients Amino acids 80 grams/day Dextrose 175 grams/day Lipids 35 grams/day Micronutrients Sodium acetate 70 mEq Potassium phosphate 21 mMol Calcium gluconate 4.06 mEq Multivitamins 10 mL Trace Elements 1 mL Additional additives: pepcid and thiamine Total volume ~1291 mL to be infused over 24 hrs will provide 1265 kcal/day Final osmolarity [] mOsm/L (maximum for PPN is 900 mOsm/L) Labs, as indicated, will be ordered per protocol Pharmacy will continue to follow and adjust parenteral nutrition orders on a daily basis. Thank you for allowing us to participate in the care of this patient.
[2019-04-06] MEDS ORDERED: CENTRAL PN IV SCH (16:00)
[2019-04-06] MEDS ORDERED: TPN IV SCH (16:00)
--- NOTE | 2019-04-06 17:36 | Billing Data ---
Date of Service April 06, 2019 Coding Level of Care Code 60979 Subseq Hosp Care Lvl 3
--- NOTE | 2019-04-06 18:21 | Hospitalist Progress Note ---
Date of Service April 06, 2019 Assessment & Plan (1) Ileus following gastrointestinal surgery: 69yo M PMHx multiple abdominal surgeries including a recent Yadira fundoplication performed on 03/30/19 presenting with ileus and new hemoperitoneum - NG tube on low, intermittent suction with continued, steady output (>1L today); once output reduces we will turn off suction for 4 hours before advancing diet. - patient has strictly been NPO for 4 days, last full meal 8 days ago; PICC line placed with TPN ordered today to maintain nutrition - Zofran PRN nausea - surgery following, appreciate recs - etiology likely related to gut edema from recent Yadira fundoplication, in addition to adhesions from multiple prior bowel surgeries (2) Hemoperitoneum: - CT of Abdomen and pelvis on 04/05 with following impression: Small to moderate hemoperitoneum within the abdomen and pelvis with perihepatic clot. No active extravasation. Definitive source not identified but favor the right upper quadrant or mesentery given the distribution. - likely secondary to recent Yadira fundoplication/enterotomy repair/lysis of adhesions - hgb stable at 10 today, down from 11.1 on 04/05; +orthostatic vitals but no resting hemodynamic instability - IV Tylenol and morphine ordered prn for discomfort - expectant management (3) Hypoxia: - currently satting 99 on 4L via NC; wean O2 as tolerated - etiology is unknown, although it sounds like this is a chronic exam finding in this patient - patient does have history of underlying asthma; CXR 04/03/19 with poor lung volumes with left basilar opacity, possibly atelectasis vs. consolidation. - unlikely to be infectious, as patient is afebrile with normal HR and RR. CTA 04/02/19 showed no evidence of PNA or PE. - WBC 9.5 today, down from 13 (04/04/19) BCx without growth through 24 hours (patient did receive one dose of IV zosyn in ED) - Echo 04/03/19 showed intraventricular conduction delay but preserved EF 50-55%. No wall motion abnormalities. Mild to moderate LVH. - Patient euvolemic on exam (4) GERD with stricture: - S/p Yadira fundoplication, POD #7. - Pepcid 20mg IV BID. - NPO for now in setting of SBO. (5) Asthma: - No respiratory distress, cough or wheeze at present. - supplemental oxygen as above - Continue Symbicort. - Albuterol PRN. FEN/GI: NPO; PICC line placed, TPN ordered at low rate DVT Ppx: Lovenox held in setting of hemoperitoneum Code: DNR/DNI Dispo: to med/surg Supervising Physician Co-Signing Physician Notes I personally examined the patient and verified all husain points of history and exam, discussed case, and agree with decision making with Dr Olguin. feeling ok. walking in halls. no new complaints. Vitals noted, in general he is awake and alert pleasant no distress. HEENT normocephalic atraumatic mucous membranes moist. Breathing unlabored no accessory muscle use good effort. walking with no dififculty, normal/stable gait Ileuscontinue NG drainage, pain and nausea control, supportive care. Expect improvement with time. probably more slow improvement due to hemoperitoneum Hemoperitoneumpossibly from sites of lysis of adhesions versus other. Pharmacologic DVT prophylaxis now on hold. Continue to follow closely, but Hgb appears to be stabilizing and hemodynamics are stable Nutritionsince slow recovery with no clear endpoint of NPO / NGT status - start TPN today DVT prophylaxispharmacologic on hold, mechanical with SCDs, ambulation Subjective No acute events overnight. Ambulating well. still with RUQ discomfort Review of Systems Gastrointestinal: + abdominal pain, + bloating and + constipation (has been NPO for 4 days; last full meal 8 days ago) Physical Exam Constitutional: WD/WN, vitals as above Eyes: PERRL, conjunctivae normal, anicteric sclerae ENMT: external ear and nose normal, oropharynx normal Neck: normal visual inspection and trachea midline Respiratory: normal respiratory effort, lungs clear to auscultation Cardiovascular: RRR, no murmur, no edema Heart Sounds: normal S1 and normal S2 Gastrointestinal (Abdomen): Inspection/Auscultation: + abdomen distended (mild) and normal bowel sounds Percussion/Palpation: + abdomen tender (mainly RUQ) and abdomen soft; no guarding, abdomen not rigid and no hepatosplenomegaly Skin: no rashes, warm and dry Psychiatric: A+Ox3, euthymic affect Results & Data Vital Signs (Past 12 Hours) Vital Signs Temp Pulse Resp BP Pulse Ox 04/06/19 15:21 36.8 C 70 20 121/64 99 04/06/19 07:38 36.8 C 65 18 116/71 95 Resident Activity Tracking Resident Involvement: Resident Care Provided Care Provided: Adult Hospital Medicine (1) Asthma Asthma complication type: uncomplicated Asthma persistence: persistent Asthma severity: moderate Qualified Code(s): J45.40 - Moderate persistent asthma, uncomplicated
[2019-04-07 06:23] LABS: Basophils # (auto) 0.04 K/uL (0-0.2); Basophils % (auto) 0.4 %; Eosinophils # (auto) 0.42 K/uL (0-0.5); Eosinophils % (auto) 4.4 %; Hematocrit (blood only) 31.5 % (42-52); Hemoglobin 10.2 g/dL (14.0-18.0); Immature Granulocytes # (auto) 0.12 K/uL (0.00-0.02); Immature Granulocytes % (auto) 1.2 %; Lymphocytes # (auto) 1.58 K/uL (1.2-3.4); Lymphocytes % (auto) 16.4 %; Mean Corpuscular Hemoglobin 32.9 pg (25-34); Mean Corpuscular Hgb Conc 32.4 g/dL (32-36); Mean Corpuscular Volume 101.6 fL (80-100); Mean Platelet Volume 9.5 fL (7.4-10.4); Monocytes # (auto) 1.16 K/uL (0.11-0.59); Neutrophils # (auto) 6.33 K/uL (1.4-6.5); Neutrophils % (auto) 65.6 %; Nucleated RBC # (auto) 0.02 K/uL (0-0); Nucleated RBC % (auto) 0.2 %; Platelet Count 260 K/uL (130-400); RDW Coefficient of Variation 15.3 % (11.5-14.5); RDW Standard Deviation 55.7 fL (36.4-46.3); White Blood Count 9.65 K/uL (4.8-10.8)
[2019-04-07 06:53] LABS: BUN Creatinine Ratio 13.9 (10-20); Calcium 8.3 mg/dl (8.5-10.1); Creatinine Clr Calc Pharmacy 76.5 ml/min; Est GFR (African American) 83.2; Est GFR (Non-African American) 71.8; Potassium 3.6 mmol/L (3.5-5.1)
--- NOTE | 2019-04-07 07:16 | Hospitalist Progress Note ---
Date of Service April 07, 2019 Assessment & Plan (1) Ileus following gastrointestinal surgery: 69yo M PMHx multiple abdominal surgeries including a recent Federico fundoplication performed on 03/30/19 presenting with ileus and new hemoperitoneum - NG tube in place, suction turned off for 2 hours today - resulted in vomiting episode x1. Low, intermittent suction turned back on. Plan for retrial 04/08 - given enema today, which did result in a small BM - continue TPN through PICC line at low rate - Zofran PRN nausea - surgery following, appreciate recs - etiology likely related to gut edema from recent Federico fundoplication, in addition to adhesions from multiple prior bowel surgeries (2) Hemoperitoneum: - CT of Abdomen and pelvis on 04/05 with following impression: Small to moderate hemoperitoneum within the abdomen and pelvis with perihepatic clot. No active extravasation. Definitive source not identified but favor the right upper quadrant or mesentery given the distribution. - likely secondary to recent Federico fundoplication/enterotomy repair/lysis of adhesions - hgb stable at 10.2 today, up from 10.0 on 04/06; vitals stable - IV Tylenol and morphine ordered prn for discomfort - expectant management (3) Hypoxia: - currently satting 90 on room air - etiology is unknown, although it sounds like this is a chronic exam finding in this patient - patient does have history of underlying asthma; CXR 04/03/19 with poor lung volumes with left basilar opacity, possibly atelectasis vs. consolidation. - unlikely to be infectious, as patient is afebrile with normal HR and RR. CTA 04/02/19 showed no evidence of PNA or PE. WBC normal - Echo 04/03/19 showed intraventricular conduction delay but preserved EF 50-55%. No wall motion abnormalities. Mild to moderate LVH. - Patient euvolemic on exam (4) GERD with stricture: - S/p Federico fundoplication, POD #8. - Pepcid 20mg IV BID. - NPO for now in setting of SBO. (5) Asthma: - No respiratory distress, cough or wheeze at present. - supplemental oxygen as above - Continue Symbicort. - Albuterol PRN. FEN/GI: NPO; PICC line placed, TPN ordered at low rate DVT Ppx: Lovenox held in setting of hemoperitoneum Code: DNR/DNI Dispo: med/surg Supervising Physician Co-Signing Physician Notes I personally examined the patient and verified all husain points of history and exam, discussed case, and agree with decision making with Dr Olguin. feeling ok. trying to walk frequently. had NGT clamped for about 2hrs, got progressively bloated during that time. now improving since he's on suction Vitals noted, in general he is awake and alert pleasant no distress. HEENT normocephalic atraumatic mucous membranes moist. Breathing unlabored no accessory muscle use good effort. walking with no dififculty, normal/stable gait Ileuscontinue NG drainage, pain and nausea control, supportive care. Expect improvement with time - probably more slow improvement due to hemoperitoneum - seems about the same today as yesterday Hemoperitoneumpossibly from sites of lysis of adhesions versus other. Pharmacologic DVT prophylaxis now on hold. Continue to follow, fortunately Hgb appears stable and hemodynamics are stable Nutritionsince slow recovery with no clear endpoint of NPO / NGT status - continue TPN for now DVT prophylaxispharmacologic on hold, mechanical with SCDs, ambulation Subjective no acute events overnight. ambulating well. has not passed gas today or yesterday. endorses increase in energy with tube feeds Review of Systems Gastrointestinal: + bloating Physical Exam Constitutional: WD/WN, vitals as above Eyes: PERRL, conjunctivae normal, anicteric sclerae ENMT: external ear and nose normal, oropharynx normal Neck: normal visual inspection and trachea midline Respiratory: normal respiratory effort, lungs clear to auscultation Cardiovascular: RRR, no murmur, no edema Heart Sounds: normal S1 and normal S2 Gastrointestinal (Abdomen): Inspection/Auscultation: + abdomen distended (mild), normal bowel sounds, + abdominal wall ecchymosis (surrounding recent surgical incision sites ) and + abdominal surgical incision (consistent with recent federico fundoplication) Percussion/Palpation: + abdomen tender (mainly RUQ) and abdomen soft; no guarding, abdomen not rigid and no hepatosplenomegaly NG tube draining bilious fluid Skin: no rashes, warm and dry Psychiatric: A+Ox3, euthymic affect Results & Data Vital Signs (Past 12 Hours) Vital Signs Temp Pulse Pulse Resp BP Pulse Ox 04/06/19 22:55 36.7 C 77 18 122/75 92 04/06/19 20:05 36.5 C 75 126/74 91 Resident Activity Tracking Resident Involvement: Resident Care Provided Care Provided: Adult Hospital Medicine (1) Asthma Asthma complication type: uncomplicated Asthma persistence: persistent Asthma severity: moderate Qualified Code(s): J45.40 - Moderate persistent asthma, uncomplicated
[2019-04-07 08:46] LABS: Magnesium 2.3 mg/dl (1.8-2.4); Phosphorus 2.6 mg/dl (2.5-4.9)
[2019-04-07] MEDS: PANTOprazole 40 MG in SYRINGE 0 ML IV SCH ×2 (09:22→21:28)
[2019-04-07] MEDS: FLUTICASONE/VILANTEROL 100/25MCG 14 PUFFS/INHALER INH SCH (09:22)
[2019-04-07] MEDS: TRIAMCINOLONE ACET NASAL SPRAY 10.8ML BTL SCH ×2 (09:22→21:28)
[2019-04-07] MEDS ORDERED: bisacodyL 10 MG SUPP PR STA (11:45)
--- NOTE | 2019-04-07 11:56 | Surgery Progress Note ---
Date of Service April 07, 2019 Assessment & Plan (1) Postoperative ileus: POD#[address]ico [address] Chong and repair of enterotomy with Dr. Patterson, here since 04/02 with ileus and new hemoperitoneum - Hbg stable this AM at 10.2 - Patient NGT still bilious and ~700cc out today - Will obtain repeat KUB; order suppository; and perform a clamp trial over 4 hours - If patient develops nausea or increased abdominal pain okay to reconnect NGT - Encourage ambulation - Patient seen and examined with Dr. Patterson - We will continue to follow Subjective Patient says he is doing okay. Still not passing much gas, nor a BM. Abdominal pain now more in the left lower abdominal region. Denies n/v. Says he noticed an increase in NGT output since TPN started. Physical Exam Physical Exam: awake/alert Constitutional: well developed, well nourished and comfortable; no acute di stress Respiratory: normal respiratory effort Gastrointestinal (Abdomen): Inspection/Auscultation: + abdomen distended (mild) and + abdominal surgical incision (c/d/i) Percussion/Palpation: + abdomen tender (mostly ttp in left lower abdomen) and abdomen soft Results & Data Vital Signs (Past 12 Hours) Vital Signs Temp Pulse Resp BP Pulse Ox 04/07/19 08:02 36.8 C 79 16 124/74 90 PG Care Time/CCT Total # of Minutes Spent Total Time Spent with Patient: Total time spent is greater than 50% in c oordination of care (as documented) at patient's floor/unit and/or counseling patient:
--- NOTE | 2019-04-07 12:09 | Progress Note ---
DATE: 04/07/2019 The patient was seen today. He looks better. He has less pain. He has been ambulating quite a bit. He still has a significant amount of fluid coming out of his NG tube. He put out 950 mL yesterday. He has no flatus, but his abdomen is nice and soft, although I really do not hear much in the way of bowel sounds. His hemoglobin is stable at 10.2, it was 10.0 yesterday. At this point, I had a long discussion with the patient and his and explained that he had some bleeding into his abdominal cavity. This hemoperitoneum is probably causing ileus. I have explained to him that he is going to require some time for this. He understands.
--- NOTE | 2019-04-07 12:52 | XRay Report ---
XR KUB/Abdomen 1 view CLINICAL HISTORY: eval for ileus pain COMPARISON STUDY: 04/06/2019 FINDINGS: Mild gastric air-filled distention. Nasogastric tube within the gastric fundus. Nonobstruct reji bowel pattern IMPRESSION: Mild gaseous distention of the stomach. Nasogastric tube gastric fundus ACT 112: Negative or not required by law. The above report was generated using voice recognition software. It may contain grammatical, syntax or spelling errors. Electronically signed by: Scott Degroot M.D. 04/07/2019 12:50 PM
[2019-04-07] MEDS ORDERED: TPN IV SCH (16:00)
[2019-04-07] MEDS ORDERED: CENTRAL PN IV SCH (16:00)
--- NOTE | 2019-04-07 17:49 | Billing Data ---
Date of Service April 07, 2019 Coding Level of Care Code 79228 Subseq Hosp Care Lvl 3
[2019-04-08 07:42] LABS: Basophils # (auto) 0.02 K/uL (0-0.2); Basophils % (auto) 0.2 %; Eosinophils # (auto) 0.31 K/uL (0-0.5); Eosinophils % (auto) 2.9 %; Hematocrit (blood only) 31.3 % (42-52); Hemoglobin 10.1 g/dL (14.0-18.0); Immature Granulocytes # (auto) 0.13 K/uL (0.00-0.02); Immature Granulocytes % (auto) 1.2 %; Lymphocytes # (auto) 1.37 K/uL (1.2-3.4); Lymphocytes % (auto) 12.9 %; Mean Corpuscular Hemoglobin 32.6 pg (25-34); Mean Corpuscular Hgb Conc 32.3 g/dL (32-36); Mean Platelet Volume 9.3 fL (7.4-10.4); Monocytes # (auto) 1.31 K/uL (0.11-0.59); Monocytes % (auto) 12.3 %; Neutrophils # (auto) 7.51 K/uL (1.4-6.5); Neutrophils % (auto) 70.5 %; Platelet Count 248 K/uL (130-400); RDW Coefficient of Variation 15.8 % (11.5-14.5); RDW Standard Deviation 56.8 fL (36.4-46.3); White Blood Count 10.65 K/uL (4.8-10.8)
--- NOTE | 2019-04-08 08:26 | Surgery Progress Note ---
Date of Service April 08, 2019 Assessment & Plan (1) Ileus following gastrointestinal surgery: -pt. is s/p federico fundoplication -hemoperitoneum present and likely contributing to ileuus: -H/H stable this am -continue NGT as directed by general surgery -TPN has been started for nutrition -continue ambulation -SCDs in use for DVT prevention;no chemical means of DVT prevention due to hemoperitoneum Subjective Pt. denies SOB. he notes he had nausea with NGT clamping yesterday. no worsening abdominal pain. he reports passing flatus las night. he continues to ambulate in hallway. Physical Exam Constitutional: well developed and well nourished; no acute distress Neck: trachea midline Respiratory: normal respiratory effort; no respiratory distress and no labored breathing Cardiovascular: Rate/Rhythm: regular rate and regular rhythm Gastrointestinal (Abdomen): soft with minimal tenderness to palpation; non- distended; BS are hypoactive Psychiatric: Orientation: alert and oriented x 3 Mood: + depressed mood Results & Data Vital Signs (Past 12 Hours) Vital Signs Temp Pulse Resp BP Pulse Ox 04/08/19 07:04 36.4 C L 79 18 130/76 92 04/07/19 23:50 36.9 C 75 18 119/73 91 PG Care Time/CCT Total # of Minutes Spent Total Time Spent with Patient: Total time spent is greater than 50% in coordination of care (as documented) at patient's floor/unit and/or counseling patient: Coding Level of Care Code None Diagnoses Ileus following gastrointestinal surgery K91.89; K56.7
[2019-04-08] MEDS: FLUTICASONE/VILANTEROL 100/25MCG 14 PUFFS/INHALER INH SCH (08:27)
[2019-04-08] MEDS: TRIAMCINOLONE ACET NASAL SPRAY 10.8ML BTL SCH ×2 (08:27→20:35)
[2019-04-08] MEDS: PANTOprazole 40 MG in SYRINGE 0 ML IV SCH ×2 (08:29→20:35)
[2019-04-08 09:11] LABS: BUN Creatinine Ratio 16.6 (10-20); Calcium 8.1 mg/dl (8.5-10.1); Est GFR (African American) 77.8; Est GFR (Non-African American) 67.1; Magnesium 2.2 mg/dl (1.8-2.4); Phosphorus 2.9 mg/dl (2.5-4.9); Potassium 3.6 mmol/L (3.5-5.1)
--- NOTE | 2019-04-08 09:55 | Hospitalist Progress Note ---
Date of Service April 08, 2019 Assessment & Plan (1) Ileus following gastrointestinal surgery: 69yo M PMHx multiple abdominal surgeries including a recent Federico fundoplication performed on 03/30/19 presenting with ileus and new hemoperitoneum - NG tube in place with >950 L of output today (04/08) - given milk/molasses enema today in an attempt to stimulate bowels. Patient also started chewing gum. - will plan to retrial NG tube clamping once output slows down and bowels show signs of increased activity - continue TPN through PICC line at low rate - Zofran PRN nausea - surgery following, appreciate recs - etiology likely related to gut edema from recent Federico fundoplication, in addition to adhesions from multiple prior bowel surgeries (2) Hemoperitoneum: - CT of Abdomen and pelvis on 04/05 with following impression: Small to moderate hemoperitoneum within the abdomen and pelvis with perihepatic clot. No active extravasation. Definitive source not identified but favor the right upper quadrant or mesentery given the distribution. - likely secondary to recent Federico fundoplication/enterotomy repair/lysis of adhesions - hgb stable at 10.65 today, up from 10.2 on 04/07; suggestive that intra- abdominal bleed has stopped. - Vitals stable - IV Tylenol and morphine ordered prn for discomfort - expectant management (3) Hypoxia: - currently satting 92 on room air - etiology is unknown, although it sounds like this is a chronic exam finding in this patient - patient does have history of underlying asthma; CXR 04/03/19 with poor lung volumes with left basilar opacity, possibly atelectasis vs. consolidation. - unlikely to be infectious, as patient is afebrile with normal HR and RR. CTA 04/02/19 showed no evidence of PNA or PE. WBC normal - Echo 04/03/19 showed intraventricular conduction delay but preserved EF 50-55%. No wall motion abnormalities. Mild to moderate LVH. - Patient euvolemic on exam (4) GERD with stricture: - S/p Federico fundoplication, POD #9. - Pepcid 20mg IV BID. - NPO for now in setting of SBO. (5) Asthma: - No respiratory distress, cough or wheeze at present. - supplemental oxygen as above - Continue Symbicort. - Albuterol PRN. FEN/GI: NPO; PICC line placed, TPN ordered at low rate DVT Ppx: Lovenox held in setting of hemoperitoneum Code: DNR/DNI Dispo: med/surg Supervising Physician Co-Signing Physician Notes I personally examined the patient and verified all husain points of history and exa m, discussed case, and agree with decision making with Dr Olguin. had BM after enema. otherwise stomach feels about the same. had shaking chills earlier - but then thinks it was related to temperature of TPN when infusion started. Vitals noted, in general he is awake and alert pleasant no distress. HEENT normocephalic atraumatic mucous membranes moist. Breathing unlabored no accessory muscle use good effort. abd soft nd minimally tendern no guarding/rebound Ileuscontinue NG drainage, pain and nausea control, supportive care. Expect improvement with time - probably more slow improvement due to hemoperitoneum - but does seem a little better shaking chills - more than likely from cold TPN, but follow clinically for any s/s infection - currently none evident. Hemoperitoneumpossibly from sites of lysis of adhesions versus other. Pharmacologic DVT prophylaxis now on hold. Continue to follow, fortunately Hgb overall stable and hemodynamics are stable Nutritionsince slow recovery with no clear endpoint of NPO / NGT status - continue TPN for now DVT prophylaxispharmacologic on hold, mechanical with SCDs, ambulation Subjective No acute events overnight. Feeling well. Did pass gas at midnight. Review of Systems Gastrointestinal: + bloating Physical Exam Constitutional: WD/WN, vitals as above Eyes: PERRL, conjunctivae normal, anicteric sclerae ENMT: external ear and nose normal, oropharynx normal Neck: normal visual inspection and trachea midline Respiratory: normal respiratory effort, lungs clear to auscultation Cardiovascular: RRR, no murmur, no edema Heart Sounds: normal S1 and normal S2 Gastrointestinal (Abdomen): Inspection/Auscultation: + abdomen distended (mild), + abdominal wall ecchymosis (surrounding recent surgical incision sites ), + abdominal surgical incision (consistent with recent federico fundoplication) and + hypoactive bowel sounds Percussion/Palpation: + abdomen tender and abdomen soft; no guarding, abdomen not rigid and no hepatosplenomegaly Skin: no rashes, warm and dry Psychiatric: A+Ox3, euthymic affect Results & Data Vital Signs (Past 12 Hours) Vital Signs Temp Pulse Resp BP Pulse Ox 04/08/19 07:04 36.4 C L 79 18 130/76 92 04/07/19 23:50 36.9 C 75 18 119/73 91 Resident Activity Tracking Resident Involvement: Resident Care Provided Care Provided: Adult Hospital Medicine (1) Asthma Asthma complication type: uncomplicated Asthma persistence: persistent Asthma severity: moderate Qualified Code(s): J45.40 - Moderate persistent asthma, uncomplicated
--- NOTE | 2019-04-08 13:12 | Surgery Progress Note ---
Date of Service April 08, 2019 Assessment & Plan (1) Postoperative ileus: POD#[address] federico [address] Chong and repair of enterotomy with Dr. Patterson, here since 04/02 with ileus and has since developed hemoperitoneum - Hbg stable this AM at 10.1 - Patient NGT still bilious and ~550cc out today - Will try a milk and molasses enema to see if we can stimulate his bowels. He also started chewing gum - If has more meaningful bowel function we can consider another NGT clamp trial - Receiving TPN via PICC for nutrition - We will continue to follow Supervising Physician Co-Signing Physician Notes Patient seen and examined, agree with above. Had milk molasses enema with large bowel movement but feels weak. He still had some nausea when his NG tube was clamped. Abdomen soft, benign. We will continue NG tube to low intermittent wall suction tonight, reassess in the morning. His ileus does appear to be possibly resolving. Subjective Patient overall feels more or less the same as yesterday. Said he passed flatus at midnight last night, but that was all for today. Had a couple very small BM's after suppository yesterday. Feels as though he may have a hemorrhoid, but denies any pain or bleeding with it. He feels like he feels some rumblings in his abodmen. Physical Exam Physical Exam: awake/alert Constitutional: well developed and well nourished; no acute distress Respiratory: normal respiratory effort Gastrointestinal (Abdomen): Inspection/Auscultation: + abdomen distended (mild) and + abdominal surgical incision (c/d/i) Percussion/Palpation: abdomen soft Results & Data Vital Signs (Past 12 Hours) Vital Signs Temp Pulse Resp BP Pulse Ox 04/08/19 07:04 36.4 C L 79 18 130/76 92 PG Care Time/CCT Total # of Minutes Spent Total Time Spent with Patient: Total time spent is greater than 50% in coordination of care (as documented) at patient's floor/unit and/or counseling patient: Coding Level of Care Code None Diagnoses Postoperative ileus K91.89; K56.7
[2019-04-08] MEDS ORDERED: TPN IV SCH (16:00)
[2019-04-08] MEDS ORDERED: CENTRAL PN IV SCH (16:00)
--- NOTE | 2019-04-08 18:13 | Billing Data ---
Date of Service April 08, 2019 Coding Level of Care Code 13228 Subseq Hosp Care Lvl 2
[2019-04-09 05:45] LABS: Basophils # (auto) 0.04 K/uL (0-0.2); Basophils % (auto) 0.3 %; Eosinophils # (auto) 0.36 K/uL (0-0.5); Hematocrit (blood only) 34.4 % (42-52); Hemoglobin 11.2 g/dL (14.0-18.0); Immature Granulocytes # (auto) 0.17 K/uL (0.00-0.02); Immature Granulocytes % (auto) 1.4 %; Lymphocytes # (auto) 1.46 K/uL (1.2-3.4); Mean Corpuscular Hemoglobin 32.9 pg (25-34); Mean Corpuscular Hgb Conc 32.6 g/dL (32-36); Mean Corpuscular Volume 101.2 fL (80-100); Mean Platelet Volume 9.8 fL (7.4-10.4); Monocytes # (auto) 1.27 K/uL (0.11-0.59); Monocytes % (auto) 10.5 %; Neutrophils # (auto) 8.82 K/uL (1.4-6.5); Neutrophils % (auto) 72.8 %; Platelet Count 276 K/uL (130-400); RDW Coefficient of Variation 16.1 % (11.5-14.5); RDW Standard Deviation 57.4 fL (36.4-46.3); White Blood Count 12.12 K/uL (4.8-10.8)
[2019-04-09] MEDS: TRIAMCINOLONE ACET NASAL SPRAY 10.8ML BTL SCH ×2 (08:33→20:40)
[2019-04-09] MEDS: FLUTICASONE/VILANTEROL 100/25MCG 14 PUFFS/INHALER INH SCH (08:33)
[2019-04-09] MEDS: PANTOprazole 40 MG in SYRINGE 0 ML IV SCH ×2 (08:34→20:44)
--- NOTE | 2019-04-09 09:42 | Surgery Progress Note ---
Date of Service April 09, 2019 Assessment & Plan (1) Postoperative ileus: POD #[address] federico [address] Dr[address] Chong and repair of enterotomy with Dr. Patterson, here since 04/02 with ileus and has since developed hemoperitoneum Pt seen and examined with Dr. Patterson. Santi continues to improve. H and H stable and improving. NGT in place- order placed by Dr. Chong to clamp NGT- can hopefully remove later today. We will continue to follow. POD#[address] federico [address] Chong and repair of enterotomy with Dr. Patterson, here since 1 with ileus and has since developed hemoperitoneum - Hbg stable this AM at 10.1 - Patient NGT still bilious and ~550cc out today - Will try a milk and molasses enema to see if we can stimulate his bowels. He also started chewing gum - If has more meaningful bowel function we can consider another NGT clamp trial - Receiving TPN via PICC for nutrition - We will continue to follow Subjective Santi is resting comfortably in bed, chewing gum. He reports that he is feeling better and had small BM this AM. He denies nausea. Pain is controlled. Physical Exam Physical Exam: awake/alert Constitutional: well developed and well nourished; no acute distress Respiratory: normal respiratory effort Gastrointestinal (Abdomen): Inspection/Auscultation: + abdomen distended (improving ) and + abdominal surgical incision (c/d/i) Percussion/Palpation: abdomen soft Results & Data Vital Signs (Past 12 Hours) Vital Signs Temp Pulse Resp BP BP Pulse Ox 04/09/19 07:09 36.7 C 66 18 130/73 94 04/08/19 23:48 37.3 C 86 18 128/76 92 PG Care Time/CCT Total # of Minutes Spent Total Time Spent with Patient: Total time spent is greater than 50% in coordination of care (as documented) at patient's floor/unit and/or counseling patient: Coding Level of Care Code 59662 Subseq Hosp Care Lvl 1 Diagnoses Postoperative ileus K91.89; K56.7
--- NOTE | 2019-04-09 10:45 | Hospitalist Progress Note ---
Date of Service April 09, 2019 Assessment & Plan (1) Ileus following gastrointestinal surgery: 69yo M PMHx multiple abdominal surgeries including a recent Federico fundoplication performed on 03/30/19 presenting with ileus and new hemoperitoneum - NG tube in place with >950 L of output yesterday (04/08); will trial clamp today - had BM after milk and molasses enema - continue TPN through PICC line at low rate - Zofran PRN nausea - surgery following, appreciate recs - etiology likely related to gut edema from recent Federico fundoplication, in addition to adhesions from multiple prior bowel surgeries, worsened by new hemoperitoneum (2) Hemoperitoneum: - CT of Abdomen and pelvis on 04/05 with following impression: Small to moderate hemoperitoneum within the abdomen and pelvis with perihepatic clot. No active extravasation. Definitive source not identified but favor the right upper quadrant or mesentery given the distribution. - likely secondary to recent Federico fundoplication/enterotomy repair/lysis of adhesions - hgb has stabilized; suggestive that intra-abdominal bleed has stopped - Vitals stable - IV Tylenol and morphine ordered prn for discomfort - expectant management (3) Hypoxia: - currently satting 94 on room air - etiology is unknown, although it sounds like this is a chronic exam finding in this patient - patient does have history of underlying asthma; CXR 04/03/19 with poor lung volumes with left basilar opacity, possibly atelectasis vs. consolidation. - unlikely to be infectious, as patient is afebrile with normal HR and RR. CTA 04/02/19 showed no evidence of PNA or PE. WBC normal throughout hospital stay - Echo 04/03/19 showed intraventricular conduction delay but preserved EF 50-55%. No wall motion abnormalities. Mild to moderate LVH. - Patient euvolemic on exam (4) GERD with stricture: - S/p Federico fundoplication, POD #10. - Pepcid 20mg IV BID. - NPO for now in setting of SBO. (5) Asthma: - No respiratory distress, cough or wheeze at present. - supplemental oxygen as above - Continue Symbicort. - Albuterol PRN. FEN/GI: NPO; PICC line placed, TPN ordered at low rate DVT Ppx: Lovenox held in setting of hemoperitoneum Code: DNR/DNI Dispo: med/surg Supervising Physician Co-Signing Physician Notes I personally examined the patient and verified all husain points of history and exam, discussed case, and agree with decision making with Dr Olguin. sleeping comfortably. case d/w Dr Olguin as well as consultants. vitals noted nad breathing unlabored NGT w bilious drainage. no pallor or icterus ileus - trial of NGT clamp. follow. hemoperitoneum - hemodynamically stable. otherwise as above Subjective no acute events overnight. Had a BM after milk and molasses enema. continues to ambulate well Review of Systems Gastrointestinal: + bloating Physical Exam Constitutional: WD/WN, vitals as above Eyes: PERRL, conjunctivae normal, anicteric sclerae ENMT: external ear and nose normal, oropharynx normal Neck: normal visual inspection and trachea midline Respiratory: normal respiratory effort, lungs clear to auscultation Cardiovascular: RRR, no murmur, no edema Heart Sounds: normal S1 and normal S2 Gastrointestinal (Abdomen): Inspection/Auscultation: + abdomen distended (mild), + abdominal wall ecchymosis (surrounding recent surgical incision sites ), + abdominal surgical incision (consistent with recent federico fundoplication) and + hypoactive bowel sounds Percussion/Palpation: + abdomen tender and abdomen soft; no guarding, abdomen not rigid and no hepatosplenomegaly +NG tube in place, draining bilious fluid Skin: no rashes, warm and dry Psychiatric: A+Ox3, euthymic affect Results & Data Vital Signs (Past 12 Hours) Vital Signs Temp Pulse Resp BP BP Pulse Ox 04/09/19 07:09 36.7 C 66 18 130/73 94 04/08/19 23:48 37.3 C 86 18 128/76 92 Resident Activity Tracking Resident Involvement: Resident Care Provided Care Provided: Adult Hospital Medicine (1) Asthma Asthma complication type: uncomplicated Asthma persistence: persistent Asthma severity: moderate Qualified Code(s): J45.40 - Moderate persistent asthma, uncomplicated
--- NOTE | 2019-04-09 11:25 | Progress Note ---
DATE: 04/09/2019 Mr. Johnston was seen today. Actually had a bowel movement yesterday. He does have some bowel sounds, but he denies flatus. We are going to start clamping his tube today. I discussed it with Dr. Patterson. His abdomen is nice and soft. He has been ambulating. He is tolerating ice chips. We will see how he does with clamping of this tube out.
[2019-04-09 11:37] LABS: BUN Creatinine Ratio 18.1 (10-20); Calcium 8.4 mg/dl (8.5-10.1); Creatinine Clr Calc Pharmacy 68.2 ml/min; Est GFR (African American) 73.8; Est GFR (Non-African American) 63.7; Phosphorus 3.6 mg/dl (2.5-4.9)
[2019-04-09 12:26] LABS: Potassium 3.7 mmol/L (3.5-5.1)
[2019-04-09 12:27] LABS: Magnesium 2.3 mg/dl (1.8-2.4)
[2019-04-09] MEDS ORDERED: CENTRAL PN IV SCH (16:00)
[2019-04-09] MEDS ORDERED: TPN IV SCH (16:00)
--- NOTE | 2019-04-09 18:10 | Billing Data ---
Date of Service April 09, 2019 Coding Level of Care Code 87120 Subseq Hosp Care Lvl 1
[2019-04-09] MEDS ORDERED: DiphenhydrAMINE HCL 50 MG/ML VIAL IV PRN (18:17)
[2019-04-09] MEDS ORDERED: hydrOXYzine HCL IM SOLN 50 MG/ML 1 ML VIAL IM PRN (20:26)
[2019-04-10 05:26] LABS: Basophils # (auto) 0.05 K/uL (0-0.2); Basophils % (auto) 0.4 %; Eosinophils # (auto) 0.44 K/uL (0-0.5); Eosinophils % (auto) 3.5 %; Hematocrit (blood only) 34.7 % (42-52); Hemoglobin 12.1 g/dL (14.0-18.0); Immature Granulocytes # (auto) 0.16 K/uL (0.00-0.02); Immature Granulocytes % (auto) 1.3 %; Lymphocytes # (auto) 1.53 K/uL (1.2-3.4); Lymphocytes % (auto) 12.1 %; Mean Corpuscular Hemoglobin 35.3 pg (25-34); Mean Corpuscular Hgb Conc 34.9 g/dL (32-36); Mean Corpuscular Volume 101.2 fL (80-100); Mean Platelet Volume 9.9 fL (7.4-10.4); Monocytes % (auto) 10.3 %; Neutrophils # (auto) 9.15 K/uL (1.4-6.5); Neutrophils % (auto) 72.4 %; Platelet Count 292 K/uL (130-400); RDW Coefficient of Variation 16.5 % (11.5-14.5); RDW Standard Deviation 59.6 fL (36.4-46.3); Red Blood Count 3.43 M/uL (4.7-6.1); White Blood Count 12.63 K/uL (4.8-10.8)
[2019-04-10 05:58] LABS: BUN Creatinine Ratio 21.5 (10-20); Calcium 8.5 mg/dl (8.5-10.1); Creatinine Clr Calc Pharmacy 68.2 ml/min; Est GFR (African American) 73.8; Est GFR (Non-African American) 63.7; Magnesium 2.2 mg/dl (1.8-2.4); Phosphorus 3.4 mg/dl (2.5-4.9); Potassium 3.8 mmol/L (3.5-5.1)
--- NOTE | 2019-04-10 06:49 | XRay Report ---
KUB HISTORY: Acute generalized abdominal pain Bowel Function Assessment COMPARISON: KUB 04/07/2019, CT abdomen and pelvis 04/05/2019 FINDINGS: Retained enteric contrast within the large bowel is decreased from comparison. Bibasilar pa ttern is nonobstructive with paucity of small bowel gas. Decreased gaseous distention of the stomach with unchanged positioning of the enteric tube. Cholecystectomy. Phleboliths are noted within the pel vis. No definite urolith. No pneumoperitoneum or pneumatosis. Degenerative changes of the lower lumba r spine. No fracture. IMPRESSION: 1. Nonobstructive bowel gas pattern with decreased gaseous distention of the stomach. 2. Stable positioning of the enteric tube. ACT 112: Negative or not required by law. The above report was generated using voice recognition software. It may contain grammatical, syntax o r spelling errors. Electronically signed by: Dhruv Sandoval M.D. 04/10/2019 6:48 AM
[2019-04-10] MEDS: FLUTICASONE/VILANTEROL 100/25MCG 14 PUFFS/INHALER INH SCH (08:39)
[2019-04-10] MEDS: TRIAMCINOLONE ACET NASAL SPRAY 10.8ML BTL SCH ×2 (08:40→20:57)
[2019-04-10] MEDS: PANTOprazole 40 MG in SYRINGE 0 ML IV SCH ×2 (08:40→20:57)
--- NOTE | 2019-04-10 09:43 | Surgery Progress Note ---
Date of Service April 10, 2019 Assessment & Plan (1) Ileus following gastrointestinal surgery: POD 11 lap Yadira try clamping NG again today and hopefully remove seen with Dr. Patterson H&H stable less gastric distention on XR on TPN, electrolytes stable Subjective some flatus, NG back to suction Physical Exam Gastrointestinal (Abdomen): Inspection/Auscultation: abdomen not distended Percussion/Palpation: abdomen soft Results & Data Vital Signs (Past 12 Hours) Vital Signs Temp Pulse Resp BP Pulse Ox 04/10/19 08:44 82 92 04/10/19 07:11 36.7 C 79 18 126/74 91 04/09/19 22:48 36.9 C 78 15 123/74 90 PG Care Time/CCT Total # of Minutes Spent Total Time Spent with Patient: Total time spent is greater than 50% in coordination of care (as documented) at patient's floor/unit and/or counseling patient: Coding Level of Care Code None Diagnoses Ileus following gastrointestinal surgery K91.89; K56.7
[2019-04-10] MEDS: ALBUTEROL HFA 8 GM INHALER INH PRN (12:34)
--- NOTE | 2019-04-10 14:53 | Hospitalist Progress Note ---
Date of Service April 10, 2019 Assessment & Plan (1) Ileus following gastrointestinal surgery: 69yo M PMHx multiple abdominal surgeries including a recent Federico fundoplication performed on 03/30/19 presenting with ileus and new hemoperitoneum - NG tube, clamp re-trial today - KUB showing reduction in gaseous distention of stomach - had BM after milk and molasses enema; passing gas today - suggestive of beginning of resolution - continue TPN through PICC line at low rate - Zofran PRN nausea - surgery following, appreciate recs - etiology likely related to gut edema from recent Federico fundoplication, in addition to adhesions from multiple prior bowel surgeries, worsened by new hem operitoneum (2) Hemoperitoneum: - CT of Abdomen and pelvis on 04/05 with following impression: Small to moderate hemoperitoneum within the abdomen and pelvis with perihepatic clot. No active extravasation. Definitive source not identified but favor the right upper quadrant or mesentery given the distribution. - likely secondary to recent Federico fundoplication/enterotomy repair/lysis of adhesions - hgb has stabilized; suggestive that intra-abdominal bleed has stopped - Vitals stable - IV Tylenol and morphine ordered prn for discomfort - expectant management (3) Hypoxia: - currently satting 92 on room air - etiology is unknown, although it sounds like this is a chronic exam finding in this patient - patient does have history of underlying asthma; CXR 04/03/19 with poor lung volumes with left basilar opacity, possibly atelectasis vs. consolidation. - unlikely to be infectious, as patient is afebrile with normal HR and RR. CTA 04/02/19 showed no evidence of PNA or PE. WBC normal throughout hospital stay - Echo 04/03/19 showed intraventricular conduction delay but preserved EF 50-55%. No wall motion abnormalities. Mild to moderate LVH. - Patient euvolemic on exam (4) GERD with stricture: - S/p Federico fundoplication, POD #11. - Pepcid 20mg IV BID. - NPO for now in setting of SBO. (5) Asthma: - No respiratory distress, cough or wheeze at present. - supplemental oxygen as above - Continue Symbicort. - Albuterol PRN. FEN/GI: NPO; PICC line placed, TPN ordered at low rate DVT Ppx: Lovenox held in setting of hemoperitoneum Code: DNR/DNI Dispo: med/surg Supervising Physician Co-Signing Physician Notes I personally examined the patient and verified all husain points of history and exam, discussed case, and agree with decision making with Dr Olguin. walking the halls, not a lot of bloating with NGT off suction but does note that when they check it there's still a significant amount of drainage. otherwise feels about the same. does comment that he's feeling pretty weak. vitals noted nad walking halls with mostly steady gait but occassionally does look slightly more shuffling than would be expected. breathing unlabored no accessory muscles. abd soft mildly distended less than before minimally tenderness. no guarding/rebound. ileus - trial of NGT clamp each day. follow. seems to be showing improvement, albeit very slowly. hemoperitoneum - hemodynamically stable. does appear to have worsened ileus, but otherwise doing OK with this. otherwise as above Subjective No acute events overnight. Feeling discouraged with duration of stay, getting weaker. Passing gas. Review of Systems Constitutional: + weakness Gastrointestinal: + bloating Physical Exam Constitutional: WD/WN, vitals as above Eyes: PERRL, conjunctivae normal, anicteric sclerae ENMT: external ear and nose normal, oropharynx normal NG in place, draining bilious colored fluid Neck: normal visual inspection and trachea midline Respiratory: normal respiratory effort, lungs clear to auscultation Cardiovascular: RRR, no murmur, no edema Heart Sounds: normal S1 and normal S2 Gastrointestinal (Abdomen): Inspection/Auscultation: + abdomen distended (mild), + abdominal wall ecchymosis (surrounding recent surgical incision sites ), + abdominal surgical incision (consistent with recent federico fundoplication) and + hypoactive bowel sounds Percussion/Palpation: + abdomen tender and abdomen soft; no guarding, abdomen not rigid and no hepatosplenomegaly Skin: no rashes, warm and dry Psychiatric: A+Ox3, euthymic affect Results & Data Vital Signs (Past 12 Hours) Vital Signs Temp Pulse Resp BP Pulse Ox 04/10/19 12:34 20 92 04/10/19 08:44 82 92 04/10/19 07:11 36.7 C 79 18 126/74 91 Resident Activity Tracking Resident Involvement: Resident Care Provided Care Provided: Adult Hospital Medicine (1) Asthma Asthma complication type: uncomplicated Asthma persistence: persistent Asthma severity: moderate Qualified Code(s): J45.40 - Moderate persistent asthma, uncomplicated
[2019-04-10] MEDS ORDERED: TPN IV SCH ×2 (16:00)
[2019-04-10] MEDS ORDERED: CENTRAL PN IV SCH ×2 (16:00)
--- NOTE | 2019-04-10 18:24 | Billing Data ---
Date of Service April 10, 2019 Coding Level of Care Code 41529 Subseq Hosp Care Lvl 2
--- NOTE | 2019-04-10 19:07 | Surgery Progress Note ---
Date of Service April 10, 2019 Assessment & Plan (1) Ileus following gastrointestinal surgery: -s/p federico fundoplication -NGT management per general surgery -encourage ambulation Subjective No N/V reported. No CP. Pt. ambulating in hallway. Physical Exam Constitutional: well developed and well nourished; no acute distress Respiratory: normal respiratory effort; no respiratory distress and no labored breathing Cardiovascular: Rate/Rhythm: regular rate and regular rhythm Gastrointestinal (Abdomen): Inspection/Auscultation: abdomen not distended Percussion/Palpation: abdomen soft Results & Data Vital Signs (Past 12 Hours) Vital Signs Temp Pulse Resp BP Pulse Ox 04/10/19 15:25 36.7 C 81 18 122/72 93 04/10/19 12:34 20 92 04/10/19 08:44 82 92 04/10/19 07:11 36.7 C 79 18 126/74 91 PG Care Time/CCT Total # of Minutes Spent Total Time Spent with Patient: Total time spent is greater than 50% in coordination of care (as documented) at patient's floor/unit and/or counseling patient: Coding Level of Care Code None Diagnoses Ileus following gastrointestinal surgery K91.89; K56.7
[2019-04-11 06:27] LABS: BUN Creatinine Ratio 22.7 (10-20); Calcium 8.6 mg/dl (8.5-10.1); Creatinine Clr Calc Pharmacy 64.2 ml/min; Est GFR (African American) 68.8; Est GFR (Non-African American) 59.4; Magnesium 2.3 mg/dl (1.8-2.4); Phosphorus 3.5 mg/dl (2.5-4.9); Potassium 4.2 mmol/L (3.5-5.1)
[2019-04-11] MEDS: TRIAMCINOLONE ACET NASAL SPRAY 10.8ML BTL SCH ×2 (08:14→21:21)
[2019-04-11] MEDS: PANTOprazole 40 MG in SYRINGE 0 ML IV SCH ×2 (08:14→21:20)
[2019-04-11] MEDS: FLUTICASONE/VILANTEROL 100/25MCG 14 PUFFS/INHALER INH SCH (08:15)
--- NOTE | 2019-04-11 12:13 | Surgery Progress Note ---
Date of Service April 11, 2019 Assessment & Plan (1) Ileus following gastrointestinal surgery: NG clamped again for trial, would favor removing this afternoon regardless of output seen with Dr. Patterson Subjective flatus, no BM, felt bloated yesterday while NG was clapmed Physical Exam Gastrointestinal (Abdomen): Inspection/Auscultation: + abdomen distended (minimal) Percussion/Palpation: abdomen soft; abdomen nontender Results & Data Vital Signs (Past 12 Hours) Vital Signs Temp Pulse Resp BP Pulse Ox 04/11/19 07:09 36.9 C 78 18 119/71 92 PG Care Time/CCT Total # of Minutes Spent Total Time Spent with Patient: Total time spent is greater than 50% in coordination of care (as documented) at patient's floor/unit and/or counseling patient: Coding Level of Care Code None Diagnoses Ileus following gastrointestinal surgery K91.89; K56.7
[2019-04-11] MEDS ORDERED: TPN IV SCH ×2 (16:00)
[2019-04-11] MEDS ORDERED: CENTRAL PN IV SCH ×2 (16:00)
[2019-04-11] MEDS: ALBUTEROL HFA 8 GM INHALER INH PRN ×2 (16:03→21:26)
--- NOTE | 2019-04-11 16:23 | Hospitalist Progress Note ---
Date of Service April 11, 2019 Assessment & Plan (1) Ileus following gastrointestinal surgery: 69 y/o M PMHx multiple abdominal surgeries including a recent Yadira fundoplication performed on 03/30/19 presenting with ileus and new hemoperitoneum. - NG tube, clamp re-trial again today - KUB 04/10 showing reduction in gaseous distention of stomach - passing gas today BM 2 days prior - suggestive of beginning of resolution - continue TPN through PICC line at low rate - Zofran PRN nausea - surgery following, appreciate recs - etiology likely related to gut edema from recent Yadira fundoplication, in addition to adhesions from multiple prior bowel surgeries, worsened by new hemoperitoneum (2) Hemoperitoneum: - CT of Abdomen and pelvis on 04/05 with following impression: Small to moderate hemoperitoneum within the abdomen and pelvis with perihepatic clot. No active extravasation. Definitive source not identified but favor the right upper quadrant or mesentery given the distribution. - likely secondary to recent Yadira fundoplication/enterotomy repair/lysis of adhesions - hgb has stabilized; suggestive that intra-abdominal bleed has stopped - Vitals stable - IV Tylenol and Morphine ordered prn for discomfort - expectant management (3) Hypoxia: - currently sating 92 on room air - etiology is unknown, although it sounds like this is a chronic exam finding in this patient - patient does have history of underlying asthma; CXR 04/03/19 with poor lung volumes with left basilar opacity, possibly atelectasis vs. consolidation. - unlikely to be infectious, as patient is afebrile with normal HR and RR. CTA 04/02/19 showed no evidence of PNA or PE. WBC normal throughout hospital stay - Echo 04/03/19 showed intraventricular conduction delay but preserved EF 50-55%. No wall motion abnormalities. Mild to moderate LVH. - Patient euvolemic on exam (4) GERD with stricture: - S/P Yadira fundoplication, POD #12. - Pepcid 20mg IV BID. - NPO for now in setting of SBO. (5) Asthma: - No respiratory distress, cough or wheeze at present. - supplemental oxygen as above - Continue Symbicort. - Albuterol PRN. FEN/GI: NPO; PICC line placed, TPN ordered at low rate DVT Ppx: Lovenox held in setting of hemoperitoneum Code: DNR/DNI Dispo: med/surg Supervising Physician Co-Signing Physician Notes I saw the patient the resident physician confirmed husain portion of the history and physical examination. Agree with the impression and plan as noted above. On examination, the patient is in a reclined in bed. The NG tube has been clamped for a trial earlier today but is now resumed. He denies any abdominal pain. He does note some flatus today; small bowel movement about 2 days ago but none since. On examination, is afebrile. Abdomen is soft and nontender. No appreciable distention noted. Postoperative ileus Trial of NG tube clamp each day Slow improvement TPN continues DVT prophylaxis is being held in the setting of hemoperitoneum; continue frequent ambulation Add CBC to previously ordered a.m. labs. Subjective Doing well today without any pain. States that he feels weak but not in any specific way. He did mention that he had an appetite and was thinking about food that he would like to eat. He had his NG clamped for 3.5 hours today, 2.5 the day prior and 4 hours the day prior to that. He has passed gas today and had a BM 2 days prior. He did not have any questions this morning. Review of Systems Constitutional: no fever and no chills Respiratory: + cough; no sputum production admits some shortness of breath that is slight and similar to days prior Cardiovascular: no chest pain and no palpitations Gastrointestinal: no nausea and no vomiting Genitourinary: no dysuria, no difficulty urinating and no urinary frequency Neurologic: no headache(s) Physical Exam Constitutional: WD/WN, vitals as above Eyes: PERRL, conjunctivae normal, anicteric sclerae ENMT: external ear and nose normal, oropharynx normal Neck: trachea midline, no thyromegaly Respiratory: normal respiratory effort, lungs clear to auscultation Cardiovascular: RRR, no murmur, no edema Gastrointestinal (Abdomen): TTP in the left lower abdomen. high pitched sound. mild distention, incisions c/d/i, no hepatosplenomegally Musculoskeletal: Head/Neck/Chest: normocephalic and head atraumatic Skin: no rashes, warm and dry Psychiatric: A+Ox3, euthymic affect Results & Data Vital Signs (Past 12 Hours) Vital Signs Temp Pulse Resp BP Pulse Ox 04/11/19 16:15 92 04/11/19 15:47 36.3 C L 90 16 112/75 87 L 04/11/19 07:09 36.9 C 78 18 119/71 92 Resident Activity Tracking Resident Involvement: Resident Care Provided Care Provided: Adult Hospital Medicine (1) Asthma Asthma complication type: uncomplicated Asthma persistence: persistent Asthma severity: moderate Qualified Code(s): J45.40 - Moderate persistent asthma, uncomplicated
--- NOTE | 2019-04-11 17:52 | Progress Note ---
DATE: 04/11/2019 Mr. Johnston was seen today. He has been off of oxygen, but is now back on some. He remains n.p.o. but his gastric output has decreased quite a bit and his abdomen is softer and I do hear some hypoactive bowel sounds. He states he is having some flatus. Overall, I think he looks better. I just think he needs to continue pushing himself. His hemoglobin dropped to 12.1 now. His sodium is 138 with a BUN and creatinine are 28 and 1.24. It is unclear to me why he now requires oxygen, but he has been ambulating quite a bit in the hallway. I think he is coming around and I suspect that he is going to open up completely in the next day or so.
[2019-04-12] MEDS: ALBUTEROL HFA 8 GM INHALER INH PRN ×2 (03:17→09:01)
[2019-04-12 07:03] LABS: Hematocrit (blood only) 36.4 % (42-52); Hemoglobin 11.8 g/dL (14.0-18.0); Mean Corpuscular Hemoglobin 33.2 pg (25-34); Mean Corpuscular Hgb Conc 32.4 g/dL (32-36); Mean Corpuscular Volume 102.5 fL (80-100); Mean Platelet Volume 10.3 fL (7.4-10.4); Platelet Count 317 K/uL (130-400); RDW Coefficient of Variation 16.8 % (11.5-14.5); RDW Standard Deviation 62.4 fL (36.4-46.3); Red Blood Count 3.55 M/uL (4.7-6.1)
[2019-04-12 07:33] LABS: ALC (manual) 0.41 K/uL (1.2-3.4); ANC (manual) 9.25 K/uL (1.4-6.5); Eosinophils % (manual) 2.6 %; Lymphocytes # (manual) 0.41 K/uL (1.2-3.4); Lymphocytes % (manual) 3.5 %; Metamyelocytes % (manual) 2.6 %; Monocytes # (manual) 1.43 K/uL (0.11-0.59); Monocytes % (manual) 12.2 %; Neutrophils # (manual) 9.25 K/uL (1.4-6.5); Neutrophils % (manual) 79.1 %; RBC Morphology Unremarkable
[2019-04-12 07:50] LABS: Calcium 8.7 mg/dl (8.5-10.1); Creatinine Clr Calc Pharmacy 61.2 ml/min; Est GFR (Non-African American) 56.1; Phosphorus 3.8 mg/dl (2.5-4.9)
[2019-04-12] MEDS: PANTOprazole 40 MG in SYRINGE 0 ML IV SCH ×2 (08:33→20:27)
[2019-04-12 08:36] LABS: Magnesium 2.5 mg/dl (1.8-2.4); Potassium 4.3 mmol/L (3.5-5.1)
[2019-04-12] MEDS: FLUTICASONE/VILANTEROL 100/25MCG 14 PUFFS/INHALER INH SCH (09:00)
--- NOTE | 2019-04-12 09:01 | Surgery Progress Note ---
Date of Service April 12, 2019 Assessment & Plan (1) Postoperative ileus: NG output remains approx 250 per shift cont NG, TPN Supervising Physician Co-Signing Physician Notes Patient seen and examined, agree with above. He had his NG tube clamped for a long period of time yesterday, and upon gargling in the bathroom he developed sudden onset of retching. He does not think it was related to abdominal distention or feeling nauseated, it may have been the tube irritating his gag reflex. And has had around 200 cc per shift which is low output. He is passing gas but is yet to have a bowel movement. At this point he does not appear to be obstructed and does not appear have a true ileus. We discussed completely removing the NG tube versus clamping trial again. The patient is hesitant to have the tube put back in and so he would like to have a clamping trial. He is also requesting a suppository which I think is reasonable. If he fails another trial, we may need to perform a CT scan with oral contrast to ensure that there is no missed source that could lead to a prolonged ileus or an obstruction. At this point I believe most of the symptoms he is having are related to his lack of bowel movement, as well as irritation from the tube itself and not from a primary bowel problem Subjective NG replaced last night, continues to have flatus, no BM Physical Exam Gastrointestinal (Abdomen): Inspection/Auscultation: abdomen not distended Percussion/Palpation: abdomen soft; abdomen nontender Results & Data Vital Signs (Past 12 Hours) Vital Signs Temp Pulse Resp BP Pulse Ox 04/12/19 07:25 37.0 C 77 18 119/75 88 L 04/12/19 03:24 91 04/12/19 03:22 89 L 04/11/19 23:00 36.7 C 84 16 122/78 90 PG Care Time/CCT Total # of Minutes Spent Total Time Spent with Patient: Total time spent is greater than 50% in coordination of care (as documented) at patient's floor/unit and/or counseling patient: Coding Level of Care Code None Diagnoses Postoperative ileus K91.89; K56.7
[2019-04-12] MEDS: TRIAMCINOLONE ACET NASAL SPRAY 10.8ML BTL SCH ×2 (09:02→20:26)
--- NOTE | 2019-04-12 13:17 | Hospitalist Progress Note ---
Date of Service April 12, 2019 Assessment & Plan (1) Ileus following gastrointestinal surgery: 69 y/o M PMHx multiple abdominal surgeries including a recent Yadira fundoplication performed on 03/30/19 presenting with ileus and new hemoperitoneum. - NG tube, will continue with clamp trials daily - KUB 04/10 showing reduction in gaseous distention of stomach - passing gas, suggestive of beginning of resolution - continue TPN through PICC line at low rate - Zofran PRN nausea - surgery following, appreciate recs - etiology likely related to gut edema from recent Yadira fundoplication, in addition to adhesions from multiple prior bowel surgeries, worsened by new hemoperitoneum - elevation in BUN and Cr. concerning for ANGELA due to hypovolemia started NS 48 ml/hr., and will reevaluate with AM BMP. (2) Hemoperitoneum: - CT of Abdomen and pelvis on 04/05 with following impression: Small to moderate hemoperitoneum within the abdomen and pelvis with perihepatic clot. No active extravasation. Definitive source not identified but favor the right upper quadrant or mesentery given the distribution. - likely secondary to recent Yadira fundoplication/enterotomy repair/lysis of adhesions - hgb has stabilized; suggestive that intra-abdominal bleed has stopped - Vitals stable - IV Tylenol and Morphine ordered prn for discomfort - expectant management (3) Hypoxia: - saturation 91 on 2.5L with new onset of oxygen requirement over the last couple days could be related to deconditioning - etiology of hypoxia is unknown, although it sounds like this is a chronic exam finding in this patient - patient does have history of underlying asthma; CXR 04/03/19 with poor lung volumes with left basilar opacity, possibly atelectasis vs. consolidation. - unlikely to be infectious, as patient is afebrile with normal HR and RR. CTA 04/02/19 showed no evidence of PNA or PE. WBC normal throughout hospital stay - Echo 04/03/19 showed intraventricular conduction delay but preserved EF 50-55%. No wall motion abnormalities. Mild to moderate LVH. - discussed continued use of the IS device - CXR today to further evaluate the cause of the new onset of an oxygen requirement, will follow up (4) GERD with stricture: - S/P Yadira fundoplication - Pepcid 20mg IV BID. - NPO for now in setting of SBO. (5) Asthma: - No respiratory distress, cough or wheeze at present. - supplemental oxygen as above - Continue Symbicort. - Albuterol PRN. FEN/GI: NPO; PICC line placed, TPN ordered at low rate w/ NSS at 48 mL/hr DVT Ppx: Lovenox SQ 40 mg QAM Code: DNR/DNI Dispo: med/surg Supervising Physician Co-Signing Physician Notes I saw the patient confirmed husain portions of the history and physical exam. I agree with the impression and plan as noted above. Upon examination, the patient is resting comfortably in bed. No bowel movements but is passing flatus. At present he is on oxygen, 2 L/min via nasal cannula. He denies shortness of breath. Abdomen is generally soft and nontender; there is a focal area of mild tenderness just left of midline, and just superior to the umbilicus. Bowel sounds are hypoactive. BUN and creatinine are both trending up, with a ratio greater than 30 Discussed with pharmacy; we will add normal saline to TPN Add DVT prophylaxis Discussed with surgical team Subjective Doing okay this morning, Mr. Schilling was sitting in his chair this morning. He states that he was having some dry heaving at 3 am. He was on oxygen this morning and states that he has been on oxygen for the last couple days but before this had not been on oxygen for approximately a week. Review of Systems Constitutional: no fever and no chills Respiratory: + cough; no sputum production admits some shortness of breath that is slight and similar to days prior that is improved with oxygen Gastrointestinal: + abdominal pain; no nausea and no vomiting Genitourinary: no dysuria, no difficulty urinating and no urinary frequency Physical Exam Constitutional: WD/WN, vitals as above Eyes: PERRL, conjunctivae normal, anicteric sclerae ENMT: external ear and nose normal, oropharynx normal Neck: trachea midline, no thyromegaly Respiratory: normal respiratory effort, lungs clear to auscultation Cardiovascular: RRR, no murmur, no edema Musculoskeletal: Head/Neck/Chest: normocephalic and head atraumatic Skin: no rashes, warm and dry Psychiatric: A+Ox3, euthymic affect Results & Data Vital Signs (Past 12 Hours) Vital Signs Temp Pulse Resp BP Pulse Ox 04/12/19 11:33 90 04/12/19 10:56 36.4 C L 90 20 118/76 83 L 04/12/19 07:25 37.0 C 77 18 119/75 88 L 04/12/19 03:24 91 04/12/19 03:22 89 L Resident Activity Tracking Resident Involvement: Resident Care Provided Care Provided: Adult Hospital Medicine (1) Asthma Asthma complication type: uncomplicated Asthma persistence: persistent Asthma severity: moderate Qualified Code(s): J45.40 - Moderate persistent asthma, uncomplicated
[2019-04-12] MEDS ORDERED: bisacodyL 10 MG SUPP PR STA (13:18)
[2019-04-12] MEDS ORDERED: CENTRAL PN IV SCH (16:00)
[2019-04-12] MEDS ORDERED: TPN IV SCH (16:00)
--- NOTE | 2019-04-12 16:41 | Progress Note ---
DATE: 04/12/2019 Mr. Johnston was seen today on 04/12/2019. He has less drainage from his NG tube. I am a little concerned because the patient states that he was "dry heaving" this morning. It is unclear to me whether he felt a tube in his throat or why he gagged, however, he states that he did for a few minutes. The abdomen is nice and soft. He has some hypoactive bowel sounds. Incisions are clean, nice and soft. Unfortunately, we are going to have to continue to wait him out here. I am quite pleased that he appears to be progressing; however, he is not quite ready to have his tube out. I would like to thank Dr. Patterson for his help in this case.
--- NOTE | 2019-04-12 18:06 | XRay Report ---
XR chest 1V portable CLINICAL HISTORY: new o2 requirement HYPOXIA COMPARISON STUDY: 04/06/2019 FINDINGS: There is a nasogastric tube within the stomach. There is a right-sided PICC catheter the ti p of which projects over the atriocaval junction. The cardiac and mediastinal contours remain stable. There is no overt failure. There is no focal pulmonary consolidation. Postsurgical changes are prese nt within the cervical spine. There is improving aeration of the lung bases. There is no pneumothorax .[ IMPRESSION: Improving aeration of the lung bases. No evidence of acute parenchymal consolidation. ACT 112: Negative or not required by law. Electronically signed by: João Patino M.D. 04/12/2019 6:04 PM
[2019-04-12] MEDS: SODIUM CHLORIDE 0.9% 1000ML 1,000 ML IV SCH (19:02)
[2019-04-13] MEDS: ONDANSETRON INJ 2 MG/ML 2 ML VIAL IV PRN (01:06)
[2019-04-13 08:16] LABS: BUN Creatinine Ratio 26.4 (10-20); Calcium 8.5 mg/dl (8.5-10.1); Creatinine Clr Calc Pharmacy 65.9 ml/min; Est GFR (African American) 71.6; Est GFR (Non-African American) 61.8; Magnesium 2.2 mg/dl (1.8-2.4); Potassium 4.3 mmol/L (3.5-5.1)
[2019-04-13 08:22] LABS: Bilirubin,Total 2.4 mg/dl (0.2-1)
[2019-04-13] MEDS: FLUTICASONE/VILANTEROL 100/25MCG 14 PUFFS/INHALER INH SCH (08:40)
[2019-04-13] MEDS: ALBUTEROL HFA 8 GM INHALER INH PRN (08:51)
[2019-04-13] MEDS: PANTOprazole 40 MG in SYRINGE 0 ML IV SCH ×2 (08:52→20:05)
[2019-04-13] MEDS: TRIAMCINOLONE ACET NASAL SPRAY 10.8ML BTL SCH ×2 (08:52→20:05)
[2019-04-13] MEDS: ENOXAPARIN INJ 40 MG/0.4 ML SYR SQ SCH (08:53)
--- NOTE | 2019-04-13 09:01 | Surgery Progress Note ---
Date of Service April 13, 2019 Assessment & Plan (1) Postoperative ileus: Patient having + BM's s/p suppository NGT now out after he tolerated clamp trial Okay to start clear liquid diet this AM, if tolerates can advance per Thoracic team Patient does not need an outpatient appt. with Dr. Patterson, will ask him to schedule with Dr. Chong Will follow peripherally as ileus resolved, please call with any questions/concerns Subjective Patient doing okay after NGT removal. He had a bout of abdominal bloat/nausea early this AM, alleviated with antiemetics. He is feeling well this AM. He had some BM's yesterday. Physical Exam Physical Exam: awake/alert Results & Data Vital Signs (Past 12 Hours) Vital Signs Temp Pulse Pulse Resp BP Pulse Ox 04/13/19 07:27 36.9 C 75 16 131/72 90 04/12/19 22:45 37.2 C 74 16 116/69 92 PG Care Time/CCT Total # of Minutes Spent Total Time Spent with Patient: Total time spent is greater than 50% in coordination of care (as documented) at patient's floor/unit and/or counseling patient: Coding Level of Care Code None Diagnoses Postoperative ileus K91.89; K56.7
--- NOTE | 2019-04-13 11:47 | Progress Note ---
DATE: 04/13/2019 Mr. Johnston seen today on 04/13/2019. His NG tube is out. He looks very good actually. His abdomen is soft. He had 2 bowel movements. He is tolerating sips and ice chips. I discussed this with Dr. Patterson that we are going to move him up to a soft diet. From our standpoint, I am quite pleased with him and hopefully we will be able to get him out of the hospital in the very near future.
--- NOTE | 2019-04-13 12:34 | Hospitalist Progress Note ---
Date of Service April 13, 2019 Assessment & Plan (1) Ileus following gastrointestinal surgery: 69 y/o M PMHx multiple abdominal surgeries including a recent Yadira fundoplication performed on 03/30/19 presenting with ileus and new hemoperitoneum. NG out today and breakfast (OJ and broth) was tolerated. - NG tube removed - KUB 04/10 showing reduction in gaseous distention of stomach - BM last night - continue TPN through PICC line at low rate for now, will consider D/C as nutrition increases - Zofran PRN nausea - surgery following, appreciate recs - etiology likely related to gut edema from recent Yadira fundoplication, in addition to adhesions from multiple prior bowel surgeries, worsened by new hemoperitoneum - elevation in BUN and Cr. concerning for ANGELA due to hypovolemia started NS 48 ml/hr., and Cr. stable at 1.2 (2) Hemoperitoneum: - CT of Abdomen and pelvis on 04/05 with following impression: Small to moderate hemoperitoneum within the abdomen and pelvis with perihepatic clot. No active extravasation. Definitive source not identified but favor the right upper quadrant or mesentery given the distribution. - likely secondary to recent Yadira fundoplication/enterotomy repair/lysis of adhesions - hgb has stabilized; suggestive that intra-abdominal bleed has stopped - Vitals stable - IV Tylenol and Morphine ordered prn for discomfort - expectant management (3) Hypoxia: - on room air overnight w/ CXR showing improved aeration of lung bases w/ no evidence of acute parenchymal consolidation - etiology of hypoxia is unknown, although it sounds like this is a chronic exam finding in this patient - patient does have history of underlying asthma; CXR 04/03/19 with poor lung volumes with left basilar opacity, possibly atelectasis vs. consolidation. - unlikely to be infectious, as patient is afebrile with normal HR and RR. CTA 04/02/19 and CXR (04/13) showed no evidence of PNA or PE. WBC normal throughout hospital stay - Echo 04/03/19 showed intraventricular conduction delay but preserved EF 50-55%. No wall motion abnormalities. Mild to moderate LVH. - discussed continued use of the IS device (4) GERD with stricture: - S/P Yadira fundoplication - Pepcid 20mg IV BID. - slowly advancing diet (5) Asthma: - No respiratory distress, cough or wheeze at present. - supplemental oxygen as above - Continue Symbicort. - Albuterol PRN. FEN/GI: NPO; PICC line placed, TPN ordered at low rate w/ NSS at 48 mL/hr DVT Ppx: Lovenox SQ 40 mg QAM Code: DNR/DNI Dispo: med/surg Supervising Physician Co-Signing Physician Notes I saw the patient confirmed husain portions of the history and physical exam. I agree with the impression and plan as noted above. Patient looks much better today. His NG tube has been removed; he had 2 bowel movements since we saw him yesterday; and he had clears for breakfast. He was seen by thoracic surgery and it sounds as if they will advance him in terms of his diet later today. Upon examination, the patient is resting comfortably in bed. His abdomen is generally soft and nontender, although there is again a focal area of tenderness just left of the midline and just superior to the umbilicus. Bowel sounds are hypoactive, but noted. Subjective Doing well today he had his NG tube removed at 6 PM the night before. He did have some abdominal pain in his LUQ that resolved with zofran. He has eaten this morning and that has been going well. He had a bowel movement that consisted of coffee grounds. Review of Systems Constitutional: no fever and no chills Respiratory: + cough; no sputum production denies shortness of breath Cardiovascular: no chest pain and no palpitations Gastrointestinal: + abdominal pain; no nausea and no vomiting Genitourinary: no dysuria, no difficulty urinating and no urinary frequency Physical Exam Constitutional: WD/WN, vitals as above Eyes: PERRL, conjunctivae normal, anicteric sclerae ENMT: external ear and nose normal, oropharynx normal Neck: trachea midline, no thyromegaly Respiratory: normal respiratory effort, lungs clear to auscultation Cardiovascular: RRR, no murmur, no edema Gastrointestinal (Abdomen): Percussion/Palpation: no guarding and abdomen not rigid slightly tender in the LUQ Musculoskeletal: Head/Neck/Chest: normocephalic and head atraumatic Skin: no rashes, warm and dry Psychiatric: A+Ox3, euthymic affect Results & Data Vital Signs (Past 12 Hours) Vital Signs Temp Pulse Resp BP Pulse Ox 04/13/19 07:27 36.9 C 75 16 131/72 90 Resident Activity Tracking Resident Involvement: Resident Care Provided Care Provided: Adult Hospital Medicine (1) Asthma Asthma complication type: uncomplicated Asthma persistence: persistent Asthma severity: moderate Qualified Code(s): J45.40 - Moderate persistent asthma, uncomplicated
[2019-04-13] MEDS: SODIUM CHLORIDE 0.9% 1000ML 1,000 ML IV SCH (15:34)
[2019-04-13 15:35] LABS: Appearance Urine Clear (Clear); Bacteria Urine Automated Negative (Negative); Blood Urine Negative (Negative); Color Urine Dark Yellow; Glucose Urine UA Negative (Negative); Ketones Urine Negative (Negative); Leukocyte Esterase Urine Trace (Negative); Nitrite Urine Positive (Negative); Protein Urine Negative (Negative); RBC Urine Automated 0-4 /hpf (0-4); Specific Gravity Urine 1.025 (1.000-1.030); Urobilinogen Urine Positive (Negative); pH Urine 7.5 (4.5-7.5)
[2019-04-13 15:37] LABS: Bilirubin Urine Negative (Negative); Ictotest Urine Negative (Negative)
[2019-04-13] MEDS ORDERED: CENTRAL PN IV SCH (16:00)
[2019-04-13] MEDS ORDERED: TPN IV SCH (16:00)
[2019-04-13] MEDS: LACTOBACILLUS ACIDOPHILUS (FLORANEX) TAB PO SCH (22:54)
[2019-04-14 06:07] LABS: Cdiff Antigen Negative; Cdiff Toxin A+B Negative Cdiff Toxin (Negative)
[2019-04-14 06:34] LABS: BUN Creatinine Ratio 23.6 (10-20); Creatinine Clr Calc Pharmacy 66.5 ml/min; Est GFR (African American) 72.3; Est GFR (Non-African American) 62.4; Phosphorus 2.9 mg/dl (2.5-4.9); Potassium 3.8 mmol/L (3.5-5.1)
[2019-04-14] MEDS: LACTOBACILLUS ACIDOPHILUS (FLORANEX) TAB PO SCH ×3 (08:32→16:55)
[2019-04-14] MEDS: FLUTICASONE/VILANTEROL 100/25MCG 14 PUFFS/INHALER INH SCH (08:33)
[2019-04-14] MEDS: ALBUTEROL HFA 8 GM INHALER INH PRN (08:33)
[2019-04-14] MEDS: ENOXAPARIN INJ 40 MG/0.4 ML SYR SQ SCH (08:34)
[2019-04-14] MEDS: TRIAMCINOLONE ACET NASAL SPRAY 10.8ML BTL SCH ×2 (08:34→22:07)
[2019-04-14] MEDS: PANTOprazole 40 MG in SYRINGE 0 ML IV SCH ×2 (09:55→22:11)
[2019-04-14] MEDS: SODIUM CHLORIDE 0.9% 1000ML 1,000 ML IV SCH (10:10)
--- NOTE | 2019-04-14 12:03 | Surgery Progress Note ---
Date of Service April 14, 2019 Assessment & Plan (1) Postoperative ileus: Patient having + BM's; infectious etiology being ruled out by hospitalists Okay to advance to a soft diet from our standpoint Patient does not need an outpatient appt. with Dr. Patterson, will ask him to schedule with Dr. Chong We will sign off, but please call with any questions/concerns Subjective Patient states he had a lot of diarrhea overnight. Otherwise tolerating a liquid diet without nauesea/vomiting. Physical Exam Gastrointestinal (Abdomen): Inspection/Auscultation: + abdomen distended (mild) Percussion/Palpation: abdomen soft; abdomen nontender Results & Data Vital Signs (Past 12 Hours) Vital Signs Temp Pulse Resp BP Pulse Ox 04/14/19 10:54 36.9 C 67 18 132/80 92 04/14/19 07:37 37.1 C 77 18 137/82 93 PG Care Time/CCT Total # of Minutes Spent Total Time Spent with Patient: Total time spent is greater than 50% in coordination of care (as documented) at patient's floor/unit and/or counseling patient: Coding Level of Care Code None Diagnoses Postoperative ileus K91.89; K56.7
[2019-04-14] MEDS ORDERED: TPN IV SCH (16:00)
[2019-04-14] MEDS ORDERED: CENTRAL PN IV SCH (16:00)
--- NOTE | 2019-04-14 16:55 | Hospitalist Progress Note ---
Date of Service April 14, 2019 Assessment & Plan (1) Ileus following gastrointestinal surgery: 69 y/o M PMHx multiple abdominal surgeries including a recent Yadira fundoplication performed on 03/30/19 presenting with ileus and new hemoperitoneum. Had tolerated a clear liquid diet yesterday, had increased stool overnight and poor appetite. - C. Diff gene positive and Toxin negative - NG tube removed - advanced diet to full liquids today - KUB 04/10 showing reduction in gaseous distention of stomach - continue TPN through PICC line at low rate for now, will consider D/C as nutrition increases - Zofran PRN for nausea - surgery following, appreciate recs - etiology likely related to gut edema from recent Yadira fundoplication, in addition to adhesions from multiple prior bowel surgeries, worsened by new hemoperitoneum - elevation in BUN and Cr. concerning for ANGELA due to hypovolemia started NS 48 ml/hr., and Cr. stable at 1.19 - UA w/ nitrites, trace LCE epithelial cells and 1-5 WBC, culture was not reflexively sent - ordered a urine culture, will follow up (2) Hemoperitoneum: - CT of Abdomen and pelvis on 04/05 with following impression: Small to moderate hemoperitoneum within the abdomen and pelvis with perihepatic clot. No active extravasation. Definitive source not identified but favor the right upper quadrant or mesentery given the distribution. - likely secondary to recent Yadira fundoplication/enterotomy repair/lysis of ad hesions - hgb has stabilized; suggestive that intra-abdominal bleed has stopped - Vitals stable - IV Tylenol and Morphine ordered prn for discomfort - expectant management - AM CBC (3) Hypoxia: - on 1.5L overnight w/ CXR showing improved aeration of lung bases w/ no evidence of acute parenchymal consolidation - etiology of hypoxia is unknown, although it sounds like this is a chronic exam finding in this patient - patient does have history of underlying asthma; CXR 04/03/19 with poor lung volumes with left basilar opacity, possibly atelectasis vs. consolidation. - unlikely to be infectious, as patient is afebrile with normal HR and RR. CTA 04/02/19 and CXR (04/13) showed no evidence of PNA or PE. WBC normal throughout hospital stay - Echo 04/03/19 showed intraventricular conduction delay but preserved EF 50-55%. No wall motion abnormalities. Mild to moderate LVH. - discussed continued use of the IS device (4) GERD with stricture: - S/P Yadira fundoplication - Pepcid 20mg IV BID. - slowly advancing diet (5) Asthma: - No respiratory distress, cough or wheeze at present. - supplemental oxygen as above - Continue Symbicort. - Albuterol PRN. FEN/GI: NPO; PICC line placed, TPN ordered at low rate w/ NSS at 48 mL/hr DVT Ppx: Lovenox SQ 40 mg QAM Code: DNR/DNI Dispo: med/surg Supervising Physician Co-Signing Physician Notes I saw the patient confirmed husain portions of the history and physical exam. I agree with the impression and plan as noted above. Patient has had multiple bowel movements overnight. A C. difficile test showed that he was gene positive but toxin negative. His appetite is little bit down today and he skipped breakfast. His diet has been advanced to a soft diet, so he will try again at lunch. Upon examination, the patient is resting comfortably in bed. His abdomen is generally soft and nontender, although there is again a focal area of tenderness just left of the midline and just superior to the umbilicus. Bowel sounds are hypoactive, but noted. Subjective Doing okay today, he had a lot of diarrhea overnight and has not had an appetite since yesterday at lunch. He has also slept poorly overnight due to some abdominal discomfort. Review of Systems Constitutional: no fever and no chills Respiratory: no cough and no sputum production admits some shortness of breath Cardiovascular: + chest pain (admits some pain in his chest that does not get worse when he walk around.) Gastrointestinal: + abdominal pain; no nausea and no vomiting Physical Exam Constitutional: WD/WN, vitals as above Eyes: PERRL, conjunctivae normal, anicteric sclerae ENMT: external ear and nose normal, oropharynx normal Neck: trachea midline, no thyromegaly Respiratory: normal respiratory effort, lungs clear to auscultation Cardiovascular: RRR, no murmur, no edema Gastrointestinal (Abdomen): Inspection/Auscultation: + hypoactive bowel sounds; abdomen not distended Percussion/Palpation: abdomen soft; no guarding and abdomen not rigid tender to palpation in the epigastric and LUQ Musculoskeletal: Head/Neck/Chest: normocephalic and head atraumatic Skin: no rashes, warm and dry Psychiatric: A+Ox3, euthymic affect Results & Data ([facility]) Vital Signs (Past 12 Hours) Vital Signs Temp Pulse Pulse Resp BP Pulse Ox 04/14/19 15:02 36.8 C 72 16 124/72 92 04/14/19 10:54 36.9 C 67 18 132/80 92 04/14/19 07:37 37.1 C 77 18 137/82 93 Resident Activity Tracking Resident Involvement: Resident Care Provided Care Provided: Adult Hospital Medicine (1) Asthma Asthma complication type: uncomplicated Asthma persistence: persistent Asthma severity: moderate Qualified Code(s): J45.40 - Moderate persistent asthma, uncomplicated
--- NOTE | 2019-04-14 19:50 | Progress Note ---
DATE: 04/14/2019 The patient was seen today. He is now complaining that he is having diarrhea. He has had multiple episodes of diarrhea over the course of the night. It appears to me that his bowels are now functioning. They did send off a Clostridium difficile colitis titer, which is negative for the toxin that is positive for the gene. At this point, I think he should get over this. We will continue our current management.
[2019-04-14] MEDS: SIMETHICONE 80 MG CHEW PO PRN (22:03)
[2019-04-15] MEDS: SIMETHICONE 80 MG CHEW PO PRN ×3 (04:00→18:34)
[2019-04-15 05:49] LABS: Basophils # (auto) 0.05 K/uL (0-0.2); Basophils % (auto) 0.5 %; Eosinophils # (auto) 0.44 K/uL (0-0.5); Eosinophils % (auto) 4.1 %; Hematocrit (blood only) 33.1 % (42-52); Hemoglobin 10.8 g/dL (14.0-18.0); Immature Granulocytes # (auto) 0.18 K/uL (0.00-0.02); Immature Granulocytes % (auto) 1.7 %; Lymphocytes # (auto) 1.49 K/uL (1.2-3.4); Mean Corpuscular Hemoglobin 33.5 pg (25-34); Mean Corpuscular Hgb Conc 32.6 g/dL (32-36); Mean Corpuscular Volume 102.8 fL (80-100); Mean Platelet Volume 10.2 fL (7.4-10.4); Monocytes # (auto) 1.29 K/uL (0.11-0.59); Monocytes % (auto) 12.1 %; Neutrophils # (auto) 7.19 K/uL (1.4-6.5); Neutrophils % (auto) 67.6 %; Nucleated RBC # (auto) 0.03 K/uL (0-0); Nucleated RBC % (auto) 0.2 %; Platelet Count 308 K/uL (130-400); RDW Standard Deviation 59.9 fL (36.4-46.3); Red Blood Count 3.22 M/uL (4.7-6.1); White Blood Count 10.64 K/uL (4.8-10.8)
[2019-04-15] MEDS: SODIUM CHLORIDE 0.9% 1000ML 1,000 ML IV SCH (06:07)
[2019-04-15 06:15] LABS: BUN Creatinine Ratio 23.9 (10-20); Calcium 7.9 mg/dl (8.5-10.1); Creatinine Clr Calc Pharmacy 78.1 ml/min; Est GFR (African American) 86.1; Est GFR (Non-African American) 74.3; Magnesium 1.9 mg/dl (1.8-2.4); Potassium 3.7 mmol/L (3.5-5.1)
[2019-04-15 06:16] LABS: Phosphorus 2.9 mg/dl (2.5-4.9)
[2019-04-15] MEDS: ALBUTEROL HFA 8 GM INHALER INH PRN (08:55)
[2019-04-15] MEDS: LACTOBACILLUS ACIDOPHILUS (FLORANEX) TAB PO SCH ×3 (08:55→17:27)
[2019-04-15] MEDS: FLUTICASONE/VILANTEROL 100/25MCG 14 PUFFS/INHALER INH SCH (08:55)
[2019-04-15] MEDS: ENOXAPARIN INJ 40 MG/0.4 ML SYR SQ SCH (08:56)
[2019-04-15] MEDS: TRIAMCINOLONE ACET NASAL SPRAY 10.8ML BTL SCH ×2 (08:56→20:51)
[2019-04-15] MEDS: PANTOprazole 40 MG in SYRINGE 0 ML IV SCH ×2 (11:58→21:03)
--- NOTE | 2019-04-15 16:13 | Progress Note ---
DATE: 04/15/2019 Mr. Johnston is on room air now. He is moving his bowels with less frequency and they are more solid. He is hungry. Abdomen is soft and nontender. He still has multiple complaints; however, I believe this patient can be discharged home when he is stable from the medical service.
--- NOTE | 2019-04-15 18:10 | Hospitalist Progress Note ---
Date of Service April 15, 2019 Assessment & Plan (1) Ileus following gastrointestinal surgery: 69 y/o M PMHx multiple abdominal surgeries including a recent Yadira fundoplication performed on 03/30/19 presenting with ileus and new hemoperitoneum. Had tolerated a soft diet today, had increased stool overnight and poor appetite which is likely 2/2 prolonged ileus course and current liquid diet. - C. Diff gene positive and Toxin negative - given simethicone for bloating - restarted home Cholestyramine 4 gm PO BID - advanced diet to low fiber today - KUB 04/10 showing reduction in gaseous distention of stomach - discontinued TPN, but leaving PICC - Zofran PRN for nausea - surgery following, appreciate recs - etiology likely related to gut edema from recent Yadira fundoplication, in addition to adhesions from multiple prior bowel surgeries, worsened by new hemoperitoneum - elevation in BUN and Cr. concerning for ANGELA due to hypovolemia started NS 48 ml/hr., and Cr. stable at 1.03 - UA w/ nitrites, trace LCE epithelial cells and 1-5 WBC, culture was not reflexively sent - ordered a urine culture - prelim no growth (2) Hemoperitoneum: - CT of Abdomen and pelvis on 04/05 with following impression: Small to moderate hemoperitoneum within the abdomen and pelvis with perihepatic clot. No active extravasation. Definitive source not identified but favor the right upper quadrant or mesentery given the distribution. - likely secondary to recent Yadira fundoplication/enterotomy repair/lysis of adhesions - hgb has stabilized; suggestive that intra-abdominal bleed has stopped - Vitals stable - IV Tylenol and Morphine ordered prn for discomfort - expectant management - AM CBC stable at 10.8 & 33.1 (3) Hypoxia: - on 1.5L overnight w/ CXR showing improved aeration of lung bases w/ no evidence of acute parenchymal consolidation - etiology of hypoxia is unknown, although it sounds like this is a chronic exam finding in this patient - patient does have history of underlying asthma; CXR 04/03/19 with poor lung volumes with left basilar opacity, possibly atelectasis vs. consolidation. - unlikely to be infectious, as patient is afebrile with normal HR and RR. CTA 04/02/19 and CXR (04/13) showed no evidence of PNA or PE. WBC normal throughout hospital stay - Echo 04/03/19 showed intraventricular conduction delay but preserved EF 50-55%. No wall motion abnormalities. Mild to moderate LVH. - discussed continued use of the IS device (4) GERD with stricture: - S/P Yadira fundoplication - Pepcid 20mg IV BID. - slowly advancing diet (5) Asthma: - No respiratory distress, cough or wheeze at present. - supplemental oxygen as above - Continue Symbicort. - Albuterol PRN. FEN/GI: NPO; PICC line placed, TPN ordered at low rate w/ NSS at 48 mL/hr DVT Ppx: Lovenox SQ 40 mg QAM Code: DNR/DNI Dispo: med/surg Supervising Physician Co-Signing Physician Notes Patient seen and examined with PGY-1 Dr. Hogan. Agree with history, exam findings, assessment and plan of care as outlined. In brief, Mr. Johnston is a 69 year old male admitted with post-operative ileus. He now has loose stools after slowing down the TPN and starting oral foods. Currently on soft diet and doing well. C diff toxin negative but gene positive. Abdomen with hypoactive bowel sounds but nontender. Mildly distended. We will advance his diet. Started his home cholestyramine. Discussed no imodium. DC TPN, but keep PICC in place for now. Dispo: pending clinical improvement. Subjective Doing okay today, he had a lot of diarrhea overnight and throughout the day, he has not had much of an appetite today. He mentioned that his bowel movements are wet and that he has been eating dairy products that have a tendency to cause him to have diarrhea. He asked about restarting his Cholestyramine that he takes at home. Review of Systems Constitutional: no fever and no chills Respiratory: no cough and no sputum production denies shortness of breath Cardiovascular: no chest pain (admits some pain in his chest that does not get worse when he walk around.) and no palpitations Gastrointestinal: + abdominal pain (mild LUQ pain); no nausea and no vomiting Genitourinary: no dysuria and no urinary frequency Neurologic: no headache(s) Physical Exam Constitutional: WD/WN, vitals as above Eyes: PERRL, conjunctivae normal, anicteric sclerae ENMT: external ear and nose normal, oropharynx normal Neck: trachea midline, no thyromegaly Respiratory: normal respiratory effort, lungs clear to auscultation Cardiovascular: RRR, no murmur, no edema Gastrointestinal (Abdomen): Inspection/Auscultation: + hypoactive bowel sounds; abdomen not distended Percussion/Palpation: abdomen soft; no guarding and abdomen not rigid slightly tender in the LUQ, slightly distended Musculoskeletal: Head/Neck/Chest: normocephalic and head atraumatic Skin: no rashes, warm and dry Psychiatric: A+Ox3, euthymic affect Results & Data ([facility]) Vital Signs (Past 12 Hours) Vital Signs Temp Pulse Pulse Resp BP Pulse Ox 04/15/19 15:05 36.6 C 75 16 131/77 93 04/15/19 07:12 36.5 C 82 16 142/74 H 90 Resident Activity Tracking Resident Involvement: Resident Care Provided Care Provided: Adult Hospital Medicine (1) Asthma Asthma complication type: uncomplicated Asthma persistence: persistent Asthm a severity: moderate Qualified Code(s): J45.40 - Moderate persistent asthma, uncomplicated
[2019-04-15] MEDS: CHOLESTYRAMINE LIGHT 4 GM PKT PO SCH (21:03)
[2019-04-16] MEDS: SIMETHICONE 80 MG CHEW PO PRN ×3 (02:58→21:49)
[2019-04-16 06:36] LABS: Basophils # (auto) 0.02 K/uL (0-0.2); Basophils % (auto) 0.2 %; Eosinophils # (auto) 0.29 K/uL (0-0.5); Eosinophils % (auto) 3.4 %; Hematocrit (blood only) 33.5 % (42-52); Hemoglobin 10.9 g/dL (14.0-18.0); Immature Granulocytes # (auto) 0.16 K/uL (0.00-0.02); Immature Granulocytes % (auto) 1.9 %; Lymphocytes % (auto) 18.5 %; Mean Corpuscular Hemoglobin 33.4 pg (25-34); Mean Corpuscular Hgb Conc 32.5 g/dL (32-36); Mean Corpuscular Volume 102.8 fL (80-100); Mean Platelet Volume 10.6 fL (7.4-10.4); Monocytes # (auto) 0.92 K/uL (0.11-0.59); Monocytes % (auto) 10.6 %; Neutrophils # (auto) 5.65 K/uL (1.4-6.5); Neutrophils % (auto) 65.4 %; Platelet Count 334 K/uL (130-400); RDW Standard Deviation 59.2 fL (36.4-46.3); Red Blood Count 3.26 M/uL (4.7-6.1); White Blood Count 8.64 K/uL (4.8-10.8)
[2019-04-16 07:10] LABS: BUN Creatinine Ratio 19.1 (10-20); Calcium 8.2 mg/dl (8.5-10.1); Creatinine Clr Calc Pharmacy 75.2 ml/min; Est GFR (African American) 82.2; Potassium 3.8 mmol/L (3.5-5.1)
[2019-04-16] MEDS: ENOXAPARIN INJ 40 MG/0.4 ML SYR SQ SCH (09:13)
[2019-04-16] MEDS: LACTOBACILLUS ACIDOPHILUS (FLORANEX) TAB PO SCH ×3 (09:14→18:04)
[2019-04-16] MEDS: PANTOprazole 40 MG in SYRINGE 0 ML IV SCH ×2 (09:14→21:29)
[2019-04-16] MEDS: FLUTICASONE/VILANTEROL 100/25MCG 14 PUFFS/INHALER INH SCH (09:15)
[2019-04-16] MEDS: TRIAMCINOLONE ACET NASAL SPRAY 10.8ML BTL SCH ×2 (09:16→21:30)
[2019-04-16] MEDS: CHOLESTYRAMINE LIGHT 4 GM PKT PO SCH ×2 (09:16→20:17)
--- NOTE | 2019-04-16 12:18 | XRay Report ---
KUB HISTORY: increased abdominal fullness COMPARISON: KUB 04/10/2019. FINDINGS: Severely distended gas-filled stomach. This has progressed in the interval. Surgical clips noted within the right upper quadrant. The remaining loops of large or small bowel are gas-filled and borderline dilated. Calcifications in the deep pelvis consistent with phleboliths. No renal calculi . No ureteral calculi. No pneumoperitoneum or pneumatosis. IMPRESSION: Interval progression of the severely distended gas-filled stomach. This is concerning for gastric out let obstruction. ACT 112: Negative or not required by law. Electronically signed by: Darryl Bailey M.D. 04/16/2019 12:17 PM
--- NOTE | 2019-04-16 13:18 | Progress Note ---
DATE: 04/16/2019 Mr. Johnston was seen today ambulating in the hallway. He wants to go home. He really has no complaints at all now. His abdomen is nice and soft. Incisions are clean. We will see him back in the office in a couple of weeks. We had a long discussion about his diet.
--- NOTE | 2019-04-16 14:39 | Hospitalist Progress Note ---
Date of Service April 16, 2019 Assessment & Plan (1) Ileus following gastrointestinal surgery: 69 y/o M PMHx multiple abdominal surgeries including a recent Yadira fundoplication performed on 03/30/19 presenting with ileus and new hemoperitoneum. Had tolerated a soft diet today, had increased stool overnight and poor appetite which is likely 2/2 prolonged ileus course and current liquid diet. Ileus following GI surgery: - C. Diff gene positive and Toxin negative; loose stools improving at this point starting to become more formed - given simethicone for continued bloating; also given Reglan every 8h scheduled for improvement and gastric motility - Per patient request will hold home Cholestyramine at this time - KUB 04/10 showing reduction in gaseous distention of stomach; repeat KUB on 04/16 chris demonstrated increased gaseous retention in stomach - Repeat KUB in a.m.; if patient worsens or develops nausea/vomiting consider NG tube if worsening gastric bubble on KUB - Patient made n.p.o. with sips for medications - etiology likely related to gut edema from recent Yadira fundoplication, in addition to adhesions from multiple prior bowel surgeries, worsened by new hemoperitoneum Hemoperitoneum: - CT of Abdomen and pelvis on 04/05 with following impression: Small to moderate hemoperitoneum within the abdomen and pelvis with perihepatic clot. No active extravasation. Definitive source not identified but favor the right upper quadrant or mesentery given the distribution. - likely secondary to recent Yadira fundoplication/enterotomy repair/lysis of adhesions - hgb has stabilized; suggestive that intra-abdominal bleed has stopped - Vitals stable - IV Tylenol and Morphine ordered prn for discomfort - expectant management - AM CBC stable at 10.8 & 33.1 Hypoxia: - Patient maintaining sats well on room air - patient does have history of underlying asthma; CXR 04/03/19 with poor lung volumes with left basilar opacity, possibly atelectasis vs. consolidation. - unlikely to be infectious, as patient is afebrile with normal HR and RR. CTA 04/02/19 and CXR (04/13) showed no evidence of PNA or PE. WBC normal throughout hospital stay - Echo 04/03/19 showed intraventricular conduction delay but preserved EF 50-55%. No wall motion abnormalities. Mild to moderate LVH. - discussed continued use of the IS device GERD with stricture: - S/P Yadira fundoplication - Pepcid 20mg IV BID. - KUB demonstrated increased gastric oxygen retention likely 2/2 recent Yadira and at this point unlikely to represent gastric outlet obstruction - Repeat KUB in a.m. Asthma: - No respiratory distress, cough or wheeze at present. - supplemental oxygen as above - Continue Symbicort. - Albuterol PRN. Diet: NPO with sip for medication; NSS@100 DVT Ppx: Lovenox SQ 40 mg QAM Code: DNR/DNI (2) Hemoperitoneum: (3) Hypoxia: (4) GERD with stricture: (5) Asthma: Supervising Physician Co-Signing Physician Notes Patient seen and examined with PGY-1 Dr. Hogan. Agree with history, exam findings, assessment and plan of care as outlined. In brief, Mr. Johnston is a 69 year old male admitted with post-operative ileus. Abdomen is a bit more distended this morning. Patient tells me that he has not been passing gas this morning and has not had any stool. However, when I was in the room, he turned on his right side and started chewing gum and was able to pass flatus. Feeling a bit better after. Repeat KUB does show interval increase in gaseous distention compared to prior study. Hold off on NGT to see if passing gas will help with the distention. Start reglan. Stop cholestyramine for now. NPO with ice chips for now as well. Subjective Patient feels improved this morning with loose bowel movements becoming less frequent and more formed in nature. Has been able to pass gas throughout the morning but does notice a slight fullness in upper abdomen had not been there previously has not had nausea or vomiting able to tolerate morning food. Later in the day passed significant gas reducing fullness feeling in upper abdomen. Review of Systems Constitutional: no fever, no chills and no sweats Eyes: no diplopia and no spots in vision Respiratory: no cough, no dyspnea and no wheezing Cardiovascular: no chest pain, no radiating jaw, neck or arm pain, no palpitations and no edema Gastrointestinal: as per Subjective / HPI Genitourinary: no dysuria, no difficulty urinating, no urinary frequency and no hematuria Physical Exam Constitutional: WD/WN, vitals as above Eyes: PERRL, conjunctivae normal, anicteric sclerae Respiratory: normal respiratory effort, lungs clear to auscultation Cardiovascular: Rate/Rhythm: regular rate and regular rhythm Heart Sounds: normal S1 and normal S2; no gallop, no murmur and no cardiac rub Vessels: no JVD Gastrointestinal (Abdomen): Inspection/Auscultation: + abdomen distended and normal bowel sounds Percussion/Palpation: + abdomen tender (epigastric) and abdomen soft; no guarding, no hepatosplenomegaly, no hernia and no abdominal mass Results & Data ([facility]) Vital Signs (Past 12 Hours) Vital Signs Temp Pulse Resp BP Pulse Ox 04/16/19 07:04 36.8 C 77 16 116/71 95 Laboratory Results 04/16/19 04/16/19 Range/Units 05:40 05:40 WBC 8.64 (4.8-10.8) K/uL RBC 3.26 L (4.7-6.1) M/uL Hgb 10.9 L (14.0-18.0) g/dL Hct 33.5 L (42-52) % MCV 102.8 H (80-100) fL MCH 33.4 (25-34) pg MCHC 32.5 (32-36) g/dL RDW Std Deviation 59.2 H (36.4-46.3) fL RDW Coeff of Tiffany 16.0 H (11.5-14.5) % Plt Count 334 (130-400) K/uL MPV 10.6 H (7.4-10.4) fL Immature Gran % (Auto) 1.9 % Neut % (Auto) 65.4 % Lymph % (Auto) 18.5 % [place] % (Auto) 10.6 % Eos % (Auto) 3.4 % Baso % (Auto) 0.2 % Immature Gran # (Auto) 0.16 H (0.00-0.02) K/uL Neut # (Auto) 5.65 (1.4-6.5) K/uL Lymph # (Auto) 1.60 (1.2-3.4) K/uL [place] # (Auto) 0.92 H (0.11-0.59) K/uL Eos # (Auto) 0.29 (0-0.5) K/uL Baso # (Auto) 0.02 (0-0.2) K/uL Sodium 135 L (136-145) mmol/L Potassium 3.8 (3.5-5.1) mmol/L Chloride 105 (98-107) mmol/L Carbon Dioxide 23 (21-32) mmol/L Anion Gap 7.0 (3-11) BUN 20 H (7-18) mg/dl Creatinine 1.07 (0.6-1.4) mg/dl Est Cr Clr Drug Dosing 75.2 ml/min Est GFR ( Amer) 82.2 Est GFR (Non-Af Amer) 71.0 BUN/Creatinine Ratio 19.1 (10-20) Glucose 80 (70-99) mg/dl Calcium 8.2 L (8.5-10.1) mg/dl Medications Administered Current Inpatient Medications Albuterol (Ventolin Hfa) 1 puffs INH QID PRN PRN Reason: sob Stop: 05/03/19 03:31 Last Admin: 04/15/19 08:55 Dose: 1 puffs Documented by: Cholestyramine Resin (Questran) 4 gm PO BID@1000,2200 ELTON Stop: 05/15/19 21:59 Last Admin: 04/16/19 09:16 Dose: 4 gm Documented by: Diphenhydramine HCl (Benadryl) 25 mg IV ONCE PRN PRN Reason: Sleep Enoxaparin Sodium (Lovenox) 40 mg SQ QAM ELTON Stop: 05/13/19 08:59 Last Admin: 04/16/19 09:13 Dose: Not Given Documented by: Fluticasone/Vilanterol (Breo Ellipta 100/25 Mcg Inh) 1 puffs INH DAILY ELTON Stop: 05/03/19 08:59 Last Admin: 04/16/19 09:15 Dose: 1 puffs Documented by: Heparin Sodium (Beef Lung) (Heparin Sod 10 Unit/Ml Flush) 5 ml FLUSH PRN PRN PRN Reason: Flush Stop: 05/06/19 11:03 Last Admin: 04/16/19 09:25 Dose: 5 ml Documented by: Pantoprazole Sodium 40 mg/ (Syringe) 10 mls @ 5 mls/min IV BID@0900,2100 ELTON Stop: 05/04/19 22:29 Last Admin: 04/16/19 09:14 Dose: 5 mls/min Documented by: Lactobacillus Acidophilus (Floranex) 4 tab PO TIDM ELTON Stop: 05/13/19 22:59 Last Admin: 04/16/19 12:56 Dose: Not Given Documented by: Morphine Sulfate (Morphine Sulfate) 2 mg IV Q4H PRN PRN Reason: Pain Stop: 04/17/19 03:10 Last Admin: 04/05/19 02:13 Dose: 2 mg Documented by: Ondansetron HCl (Zofran) 4 mg IV Q6H PRN PRN Reason: Nausea Stop: 05/03/19 03:10 Last Admin: 04/13/19 01:06 Dose: 4 mg Documented by: Simethicone (Mylicon) 80 mg PO Q6H PRN PRN Reason: Gas or Constipation Stop: 05/14/19 20:38 Last Admin: 04/16/19 09:14 Dose: 80 mg Documented by: Triamcinolone Acetonide (Nasacort) 1 sprays NA BID ELTON Stop: 05/03/19 08:59 Last Admin: 04/16/19 09:16 Dose: 1 sprays Documented by: Resident Activity Tracking Resident Involvement: Resident Care Provided Care Provided: Adult [facility] Medicine (1) Asthma Asthma complication type: uncomplicated Asthma persistence: persistent Asthma severity: moderate Qualified Code(s): J45.40 - Moderate persistent asthma, uncomplicated
[2019-04-16] MEDS: SODIUM CHLORIDE 0.9% 1000ML 1,000 ML IV SCH (18:04)
[2019-04-16] MEDS: METOCLOPRAMIDE HCL 10 MG TABLET PO SCH (21:29)
[2019-04-17] MEDS: SODIUM CHLORIDE 0.9% 1000ML 1,000 ML IV SCH ×3 (03:42→20:45)
[2019-04-17] MEDS: SIMETHICONE 80 MG CHEW PO PRN ×3 (03:42→18:11)
[2019-04-17] MEDS: METOCLOPRAMIDE HCL 10 MG TABLET PO SCH ×3 (05:29→21:56)
[2019-04-17 06:23] LABS: Basophils # (auto) 0.03 K/uL (0-0.2); Basophils % (auto) 0.4 %; Eosinophils # (auto) 0.27 K/uL (0-0.5); Hematocrit (blood only) 33.3 % (42-52); Hemoglobin 10.9 g/dL (14.0-18.0); Immature Granulocytes # (auto) 0.07 K/uL (0.00-0.02); Lymphocytes % (auto) 17.8 %; Mean Corpuscular Hemoglobin 33.3 pg (25-34); Mean Corpuscular Hgb Conc 32.7 g/dL (32-36); Mean Corpuscular Volume 101.8 fL (80-100); Mean Platelet Volume 10.4 fL (7.4-10.4); Monocytes # (auto) 0.77 K/uL (0.11-0.59); Monocytes % (auto) 11.4 %; Neutrophils # (auto) 4.42 K/uL (1.4-6.5); Neutrophils % (auto) 65.4 %; Platelet Count 332 K/uL (130-400); RDW Coefficient of Variation 15.9 % (11.5-14.5); Red Blood Count 3.27 M/uL (4.7-6.1); White Blood Count 6.76 K/uL (4.8-10.8)
--- NOTE | 2019-04-17 08:27 | XRay Report ---
KUB CLINICAL HISTORY: Abdominal fullness. FINDINGS: 3 AP supine abdominal radiographs are compared to study dated 04/16/2019 and correlated with abdominal CT dated 04/05/2019. There is marked gaseous distention of the stomach, similar in appearanc e to yesterday. Mild gaseous distention of the small bowel loops persists. There is no radiographic e vidence of high-grade obstruction. Suture material projects over the pelvis. No evidence of intraperi toneal free air is seen on these supine images. Pelvic phleboliths are observed. The skeletal structu res are osteopenic and are grossly intact. Small pleural effusions are noted. IMPRESSION: 1. Marked gaseous distention of the stomach is unchanged from yesterday and suggests gastric outlet o bstruction. 2. Mildly distended loops of small bowel are also unchanged. There is no radiographic evidence of hig h-grade bowel obstruction. 3. Small pleural effusions. Electronically signed by: Luisito Holder M.D. 04/17/2019 8:25 AM
[2019-04-17] MEDS: LACTOBACILLUS ACIDOPHILUS (FLORANEX) TAB PO SCH ×3 (08:45→16:46)
[2019-04-17] MEDS: FLUTICASONE/VILANTEROL 100/25MCG 14 PUFFS/INHALER INH SCH (09:22)
[2019-04-17] MEDS: ALBUTEROL HFA 8 GM INHALER INH PRN (09:23)
[2019-04-17] MEDS: ENOXAPARIN INJ 40 MG/0.4 ML SYR SQ SCH (09:24)
[2019-04-17] MEDS: TRIAMCINOLONE ACET NASAL SPRAY 10.8ML BTL SCH ×2 (09:24→20:14)
[2019-04-17] MEDS: PANTOprazole 40 MG in SYRINGE 0 ML IV SCH ×2 (09:25→20:19)
[2019-04-17] MEDS: CHOLESTYRAMINE LIGHT 4 GM PKT PO SCH ×2 (09:25→20:15)
--- NOTE | 2019-04-17 12:51 | Progress Note ---
DATE: 04/17/2019 Mr. Johnston was seen today on 04/17/2019. He is now 17 days status post his robot-assisted laparoscopic fundoplication. The patient had problems with an ileus and with colonic distention and small bowel distention. He finally get over this and yesterday, I thought he was going home. He was ambulating in the hallway. He had no complaints at all; however, he then started complaining of some abdominal distention. X-ray showed a huge gastric bubble. He is able to belch some. A repeat KUB this morning showed the distention a bit less. He has very little way of symptoms. He states that he is hungry. He has moved his bowels in the last 24 hours. He is passing gas. His abdomen is soft and he does have active bowel sounds. He does have some mild tympany and some distention in his upper abdomen. At this point, I would like to resume his diet. I do not believe this patient is suffering from a gastric outlet obstruction as our barium swallow on multiple occasions have shown that the dye go through to the small bowel from the stomach. Sometimes, patients to have a slowly recovering muscle activity in the stomach after these procedures. At this point, I would continue to watch him. We did discuss his vagus nerves and his pylorus and what could be done to help this. I think at this point I would hold off offering him any interventions.
--- NOTE | 2019-04-17 16:26 | Hospitalist Progress Note ---
Date of Service April 17, 2019 Assessment & Plan (1) Ileus following gastrointestinal surgery: 69 y/o M PMHx multiple abdominal surgeries including a recent Yadira fundoplication performed on 03/30/19 presenting with ileus and new hemoperitoneum. Had tolerated a soft diet today, had increased stool overnight and poor appetite which is likely 2/2 prolonged ileus course and current liquid diet. Ileus following GI surgery: - C. Diff gene positive and Toxin negative; loose stools improving at this point starting to become more formed - Per patient request will hold home Cholestyramine at this time - KUB 04/10 showing reduction in gaseous distention of stomach; repeat KUB on 04/16 chris demonstrated increased gaseous retention in stomach; repeat KUB this morning demonstrated slight decrease in gastric gaseous retention - Patient continues to feel well with addition of low fiber diet will continue diet at this point time additionally we will continue Reglan scheduled. - will follow KUB in a.m. Hemoperitoneum: - CT of Abdomen and pelvis on 04/05 with following impression: Small to moderate hemoperitoneum within the abdomen and pelvis with perihepatic clot. No active extravasation. Definitive source not identified but favor the right upper quadrant or mesentery given the distribution. - likely secondary to recent Yadira fundoplication/enterotomy repair/lysis of adhesions - hgb has stabilized; suggestive that intra-abdominal bleed has stopped - Vitals stable - IV Tylenol and Morphine ordered prn for discomfort - expectant management Hypoxia: - Patient maintaining sats well on room air - patient does have history of underlying asthma; CXR 04/03/19 with poor lung volumes with left basilar opacity, possibly atelectasis vs. consolidation. - unlikely to be infectious, as patient is afebrile with normal HR and RR. CTA 04/02/19 and CXR (04/13) showed no evidence of PNA or PE. WBC normal throughout hospital stay - Echo 04/03/19 showed intraventricular conduction delay but preserved EF 50-55%. No wall motion abnormalities. Mild to moderate LVH. GERD with stricture: - S/P Yadira fundoplication - Pepcid 20mg IV BID. - KUB demonstrated increased gastric oxygen retention likely 2/2 recent Yadira and at this point unlikely to represent gastric outlet obstruction - Repeat KUB in a.m. Asthma: - No respiratory distress, cough or wheeze at present. - supplemental oxygen as above - Continue Symbicort. - Albuterol PRN. Diet: NPO with sip for medication; NSS@100 DVT Ppx: Lovenox SQ 40 mg QAM Code: DNR/DNI Supervising Physician Co-Signing Physician Notes Patient seen and examined with PGY-1 Dr. Hogan. Agree with history, exam findings, assessment and plan of care as outlined. In brief, Mr. Johnston is a 69 year old male admitted with post-operative ileus. Improving today. Abdomen less distended. Passing flatus and burping. Has not had any stool for 2 days now. Repeat KUB a bit better than previous day. NGT not necessary right now, but if he starts to have nausea or vomiting, would place NGT. Continue with reglan. Resume regular, low fiber diet. Holding choles tyramine. Repeat KUB for tomorrow AM. Prues or prune juice today to encourage soft BM. Appreciate continued recommendations from Dr. Chong. Dispo: pending clinical improvement. Subjective Patient feels improved with continued passage of gas both below and above. Noticed a significant change after the addition of Reglan as he felt his bowels start urinating more frequently. No discomfort at this point time still passing gas. Subsequent evaluation: Patient greatly tolerated meal low fiber, without nausea or vomiting. Review of Systems Review of Systems: All systems reviewed & are unremarkable except as noted in HPI & below Physical Exam Constitutional: WD/WN, vitals as above Eyes: PERRL, conjunctivae normal, anicteric sclerae Respiratory: normal respiratory effort, lungs clear to auscultation Cardiovascular: Rate/Rhythm: regular rate and regular rhythm Heart Sounds: normal S1 and normal S2; no gallop, no murmur and no cardiac rub Vessels: no JVD Gastrointestinal (Abdomen): Inspection/Auscultation: + abdomen distended and normal bowel sounds Percussion/Palpation: + abdomen tender (epigastric) and abdomen soft; no guarding, no hepatosplenomegaly, no hernia and no abdominal mass Results & Data ([facility]) Vital Signs (Past 12 Hours) Vital Signs Temp Pulse Resp BP Pulse Ox 04/17/19 15:21 36.4 C L 77 16 131/80 92 04/17/19 07:36 36.6 C 87 18 107/69 90 Laboratory Results 04/17/19 Range/Units 05:51 WBC 6.76 (4.8-10.8) K/uL RBC 3.27 L (4.7-6.1) M/uL Hgb 10.9 L (14.0-18.0) g/dL Hct 33.3 L (42-52) % MCV 101.8 H (80-100) fL MCH 33.3 (25-34) pg MCHC 32.7 (32-36) g/dL RDW Std Deviation 58.0 H (36.4-46.3) fL RDW Coeff of Tiffany 15.9 H (11.5-14.5) % Plt Count 332 (130-400) K/uL MPV 10.4 (7.4-10.4) fL Immature Gran % (Auto) 1.0 % Neut % (Auto) 65.4 % Lymph % (Auto) 17.8 % Mills % (Auto) 11.4 % Eos % (Auto) 4.0 % Baso % (Auto) 0.4 % Immature Gran # (Auto) 0.07 H (0.00-0.02) K/uL Neut # (Auto) 4.42 (1.4-6.5) K/uL Lymph # (Auto) 1.20 (1.2-3.4) K/uL Mills # (Auto) 0.77 H (0.11-0.59) K/uL Eos # (Auto) 0.27 (0-0.5) K/uL Baso # (Auto) 0.03 (0-0.2) K/uL Medications Administered Current Inpatient Medications Albuterol (Ventolin Hfa) 1 puffs INH QID PRN PRN Reason: sob Stop: 05/03/19 03:31 Last Admin: 04/17/19 09:23 Dose: 1 puffs Documented by: Cholestyramine Resin (Questran) 4 gm PO BID@1000,2200 [facility] Stop: 05/15/19 21:59 Last Admin: 04/17/19 09:25 Dose: Not Given Documented by: Enoxaparin Sodium (Lovenox) 40 mg SQ QAM [facility] Stop: 05/13/19 08:59 Last Admin: 04/17/19 09:24 Dose: Not Given Documented by: Fluticasone/Vilanterol (Breo Ellipta 100/25 Mcg Inh) 1 puffs INH DAILY [place] Stop: 05/03/19 08:59 Last Admin: 04/17/19 09:22 Dose: Not Given Documented by: Heparin Sodium (Beef Lung) (Heparin Sod 10 Unit/Ml Flush) 5 ml FLUSH PRN PRN PRN Reason: Flush Stop: 05/06/19 11:03 Last Admin: 04/17/19 05:48 Dose: 5 ml Documented by: Pantoprazole Sodium 40 mg/ (Syringe) 10 mls @ 5 mls/min IV BID@0900,2100 [facility] Stop: 05/04/19 22:29 Last Admin: 04/17/19 09:25 Dose: 5 mls/min Documented by: Sodium Chloride (Nss 1000ml) 1,000 mls @ 100 mls/hr IV .Q10H [facility] Stop: 05/16/19 16:59 Last Admin: 04/17/19 11:58 Dose: 100 mls/hr Documented by: Lactobacillus Acidophilus (Floranex) 4 tab PO TIDM [facility] Stop: 05/13/19 22:59 Last Admin: 04/17/19 16:46 Dose: 4 tab Documented by: Metoclopramide HCl (Reglan) 10 mg PO Q8 [place] Stop: 05/16/19 21:59 Last Admin: 04/17/19 14:46 Dose: 10 mg Documented by: Ondansetron HCl (Zofran) 4 mg IV Q6H PRN PRN Reason: Nausea Stop: 05/03/19 03:10 Last Admin: 04/13/19 01:06 Dose: 4 mg Documented by: Simethicone (Mylicon) 80 mg PO Q6H PRN PRN Reason: Gas or Constipation Stop: 05/14/19 20:38 Last Admin: 04/17/19 09:47 Dose: 80 mg Documented by: Triamcinolone Acetonide (Nasacort) 1 sprays NA BID [facility] Stop: 05/03/19 08:59 Last Admin: 04/17/19 09:24 Dose: 1 sprays Documented by: Resident Activity Tracking Resident Involvement: Resident Care Provided Care Provided: Adult Hospital Medicine
[2019-04-18] MEDS: SIMETHICONE 80 MG CHEW PO PRN ×3 (00:28→13:38)
[2019-04-18 06:00] LABS: Basophils # (auto) 0.03 K/uL (0-0.2); Basophils % (auto) 0.4 %; Eosinophils # (auto) 0.25 K/uL (0-0.5); Eosinophils % (auto) 3.7 %; Hematocrit (blood only) 32.5 % (42-52); Hemoglobin 10.7 g/dL (14.0-18.0); Immature Granulocytes # (auto) 0.05 K/uL (0.00-0.02); Immature Granulocytes % (auto) 0.7 %; Lymphocytes # (auto) 1.45 K/uL (1.2-3.4); Lymphocytes % (auto) 21.5 %; Mean Corpuscular Hemoglobin 33.2 pg (25-34); Mean Corpuscular Hgb Conc 32.9 g/dL (32-36); Mean Corpuscular Volume 100.9 fL (80-100); Mean Platelet Volume 9.5 fL (7.4-10.4); Monocytes # (auto) 0.58 K/uL (0.11-0.59); Monocytes % (auto) 8.6 %; Neutrophils # (auto) 4.37 K/uL (1.4-6.5); Neutrophils % (auto) 65.1 %; Platelet Count 317 K/uL (130-400); RDW Coefficient of Variation 15.5 % (11.5-14.5); RDW Standard Deviation 55.9 fL (36.4-46.3); Red Blood Count 3.22 M/uL (4.7-6.1); White Blood Count 6.73 K/uL (4.8-10.8)
[2019-04-18] MEDS: METOCLOPRAMIDE HCL 10 MG TABLET PO SCH ×2 (06:04→13:38)
[2019-04-18] MEDS: SODIUM CHLORIDE 0.9% 1000ML 1,000 ML IV SCH (06:04)
[2019-04-18 06:32] LABS: Creatinine Clr Calc Pharmacy 68.8 ml/min; Est GFR (African American) 73.8; Est GFR (Non-African American) 63.7
--- NOTE | 2019-04-18 08:34 | XRay Report ---
XR KUB/Abdomen 1 view CLINICAL HISTORY: 69 years-old Male presenting with abdominal fullness. TECHNIQUE: Single supine view of the abdomen was obtained. COMPARISON: 04/17/2019. FINDINGS: Gaseous distention of the stomach to a similar degree as on prior exam, moderate in severity. Mild ga seous distention of small and large bowel. Wall thickening of several loops of small bowel may be pre sent. An anastomotic suture line is noted in the superior pelvis. No gross free intraperitoneal gas a llowing for supine technique. Cholecystectomy clips noted. Allowing for bowel gas and stool, no calcifications to suggest nephrolithiasis. Osseous structures normal. Lung bases clear. IMPRESSION: 1. Suspected small bowel wall thickening, which raises concern for enteritis or ileus. 2. Mild gaseous distention of bowel without convincing evidence of obstruction. 3. Gastric obstruction is considered unlikely. ACT 112: Negative or not required by law. Electronically signed by: Andres Tan M.D. 04/18/2019 8:33 AM
[2019-04-18] MEDS: LACTOBACILLUS ACIDOPHILUS (FLORANEX) TAB PO SCH ×2 (09:15→13:04)
[2019-04-18] MEDS: FLUTICASONE/VILANTEROL 100/25MCG 14 PUFFS/INHALER INH SCH (09:16)
[2019-04-18] MEDS: TRIAMCINOLONE ACET NASAL SPRAY 10.8ML BTL SCH (09:16)
[2019-04-18] MEDS: ENOXAPARIN INJ 40 MG/0.4 ML SYR SQ SCH (09:16)
[2019-04-18] MEDS: ALBUTEROL HFA 8 GM INHALER INH PRN (09:17)
[2019-04-18] MEDS: CHOLESTYRAMINE LIGHT 4 GM PKT PO SCH (13:04)
[2019-04-18] MEDS: PANTOprazole 40 MG in SYRINGE 0 ML IV SCH (13:04)
--- NOTE | 2019-04-18 13:24 | Progress Note ---
DATE: 04/18/2019 Mr. Johnston was seen today. He had a "good bowel movement" last night. He is eating essentially a regular diet. He has been ambulating in the hallway. His white count this morning 6730, hemoglobin is stable. A KUB was obtained this morning which showed his gastric distention seems a bit less to me on his KUB. There was questionable small bowel thickening but he certainly has no signs or symptoms of an issue with this. At this point, I would continue with the diet and I will see him back in the office in 2 weeks.
--- NOTE | 2019-04-18 18:10 | Discharge Summary ---
Date of Service April 18, 2019 Admission HPI Per Admitting Provider Santi Johnston is a pleasant 69yo C male presenting with SBO. He has a longstanding history of GERD with stricture which was not well controlled with medical management. He had a Yadira fundoplication performed by Dr. Chong on 03/30/19 complicated by small bowel enterotomy s/p repair by Dr. Patterson. Overall the procedure was well tolerated. He was discharged home in stable condition on 03/31/19. He reports 3-4 days of abdominal bloating and distention as well as nausea and overall feeling "miserable". His last BM was Thursday03/29/19. He reports he has been taking Colace daily and administered an enema at home today with a very small amount of output. Today he became short of breath which prompted him to come to the ER. Upon arrival the patient was found to be in hypoxic respiratory failure. HR=12 4, RR=28, saturation=81% on room air. A NRB was placed with minimal improvement in saturation to 87% on 15L. CXR with gastric and bowel distention therefore an NGT was placed to suction with immediate return of 1600mL dark fluid. Patient's symptoms and SOB improved significantly after placement of NGT. Presently with no acute complaints. He reports his abdominal distention has improved. He feels that his bowels are starting to move a little now. No BM or flatus yet. No additional complaints at this time. ER Course: Albuterol, Fentanyl, Zosyn, NSS x 2 L Principal Diagnosis Postoperative ileus complicated by hemoperitoneum Discharge Exam General he is awake and alert pleasant no distress. HEENT normocephalic atraumatic mucous membranes moist. Breathing unlabored no accessory muscle use good effort. Skin shows no rashes no pallor or icterus. Neuro shows no focal deficits. Discharge Data Allergies Allergy/AdvReac Type Severity Reaction Status Date / Time hydrocodone AdvReac Mild N/V Verified 04/02/19 23:34 aspirin AdvReac Unknown STOMACH Verified 04/02/19 23:34 CRAMPS NSAIDS (Non-Steroidal AdvReac Unknown STOMACH Verified 04/02/19 23:34 Anti-Inflamma CRAMPS Consultations 04/03/19 01:27 Consult Thoracic Surgery Routine ED Decision to Admit Stat 04/04/19 08:04 Consult General Surgery Routine Ordered Studies 04/02/19 23:54 CT abd pelvis IV con only Urgent CT angio chest PE protocol Urgent 04/05/19 03:13 CT abd pelvis oral and IV con Urgent Hospital Course (1) Ileus following gastrointestinal surgery: 69 y/o M PMHx multiple abdominal surgeries including a recent Yadira fundoplication performed on 03/30/19 presenting with ileus and new hemoperitoneum. Ileus following GI surgery: - C. Diff gene positive and Toxin negative; loose stools improving at this point starting to become more formed -Does not clinically appear to have active C. difficile infection either -Tolerating low fiber diet well, and would very much like to go home. Stable for home with close outpatient follow-up. Hemoperitoneum: - CT of Abdomen and pelvis on 04/05 with following impression: Small to moderate hemoperitoneum within the abdomen and pelvis with perihepatic clot. No active extravasation. Definitive source not identified but favor the right upper quadrant or mesentery given the distribution. - likely secondary to recent Yadira fundoplication/enterotomy repair/lysis of adhesions - hgb stabilized, situation improved, this likely slow down the recovery of his ileus, but fortunately he did not require repeated surgery for this or transfusions, or anything other than conservative care, symptom control and expectant management. Hypoxia: - Patient maintaining sats well on room air - patient does have history of underlying asthma; CXR 04/03/19 with poor lung vo lumes with left basilar opacity, possibly atelectasis vs. consolidation. - unlikely to be infectious, as patient is afebrile with normal HR and RR. CTA 04/02/19 and CXR (04/13) showed no evidence of PNA or PE. WBC normal throughout hospital stay - Echo 04/03/19 showed intraventricular conduction delay but preserved EF 50-55%. No wall motion abnormalities. Mild to moderate LVH. - GERD with stricture: - S/P Yadira fundoplication -Outpatient follow-up with thoracic surgery Asthma: - No respiratory distress, cough or wheeze at present. - Continue Symbicort. - Albuterol PRN. Total Time Total Time Spent Total Time Spent (In Minutes): Less than 30 Discharge Plan Discharge Items Patient Disposition: Home - Self-Care Reason For Visit: SBO Discharge Diagnosis: s/p yadira Activity: Per Instructions section Non-emergency contact: Primary Care Provider Call non-emergency contact if: your symptoms worsen and your temperature is above 101 Follow-up/Referrals: Kd Andres DO [Primary Care Provider] - Diet: Low Fiber Addtl Attending Provider Instructions: You have a history of GERD or Gastroesophageal reflux disease. For your GERD you had a Yadira Fundoplication procedure done on 03/30/2019. After the procedure you were admitted for decreased motility of your bowels also called "ileus" as well as bleeding in your peritoneal space. Your hospital course was prolonged with the need to start you on nutrition through the IV. You also had a nasogastric tube placed in your nose, down your esophagus, and into your stomach - the tube was used to suck up the fluid and air in your stomach. Common symptoms of an ileus are: Belly pain, swelling and bloating, nausea and vomiting and not being able to have a bowel movement or pass gas. Prior to being discharge you have been able to take in a low fiber diet. You did not have any abdominal pain, had decreased swelling and have been having bowel movements. If you develop the symptoms that brought you in to the hospital we would want you to call come in to see your primary doctor or go to the emergency room to be evaluated. These return precautions would include: Belly pain, Belly swelling and bloating, nausea and vomiting, and not being able to have a bowel movement or pass gas. Also, if you are not able to tolerate a diet we would also want to ensure that you are able get appropriate nutrition. You will want to slowly introduce food into your diet starting with a relatively low fiber diet. You can slowly introduce fiber to your diet in a week and if you find that you are having difficulty having bowel movements, having nausea, or vomiting you should decrease the amount of fiber in your diet and then trial fiber in your diet again after another week. We expect that you should overall improve, but if things change and you feel that you are worsening it will be important to call come in or get evaluated. Pending Studies at Discharge: No Stand-Alone Forms: Call Back Authorization, My [facility] TicketForEvent, Smoking Cessation Medications and DC Order Prescriptions: Continued esomeprazole magnesium [Nexium] 40 mg capsule,delayed release(DR/EC) 40 mg PO BID RF: 0 cholestyramine-aspartame 4 gram powder in packet 4 gm PO BID RF: 0 lactobacillus combination no.9 [Adult 50 Plus Probiotic] 4 billion cell capsule 4,000 mmu cells PO QPM RF: 0 Gaviscon Extra Strength 254-237.5 mg/5 mL suspension 5 ml PO TID PRN (Reason: Stomach Upset) RF: 0 Symbicort 80-4.5 mcg/actuation Hfa Aerosol Inhaler 2 puff INHALATION BID RF: 0 ranitidine HCl 150 mg tablet 150 mg PO QID RF: 0 albuterol sulfate [ProAir HFA] 90 mcg/actuation Hfa Aerosol Inhaler 1 inh INHALATION QID PRN (Reason: sob) RF: 0 tramadol [Ultram] 50 mg tablet 50 mg PO QID PRN (Reason: pain) Qty: 12 RF: 0 ondansetron HCl [Zofran] 4 mg tablet 4 mg PO Q6H PRN (Reason: nausea and vomiting) Qty: 20 RF: 1 metoclopramide HCl [Reglan] 10 mg tablet 10 mg PO ACHS 30 Days Qty: 120 RF: 0 triamcinolone acetonide [Nasacort] 55 mcg aerosol,spray 1 spray INTRANASAL BID RF: 0 Discharge Orders: Discharge Order (Routine); Ordered 04/18/19 Ordered By: Marvin Hogan Admission Data Admit Date/Time: 04/03/19 02:06 Attending Provider: Isrrael Torres Admit Provider: Cathy Babb Primary Care Provider: Kd Andres Other Providers: Dilma Kim ; Cathy Babb ; Jorge Alberto Chong ; Korey Patterson ; Anai Sorto Other Interventions: Discharge Summary Assessment (RN) Last Done: 04/18/19 13:52 DC Date/Time DO NOT enter until pt leaves facility: 04/18/19 14:36 Coding Level of Care Code D/C Day Management <30 mins Diagnoses Ileus following gastrointestinal surgery K91.89; K56.7
== END 2019-04-18 14:36 | disposition home or self-care (01) | DRG 393 ==
LOC: ED 22:57 → SUATTDRO 04-03 02:06 → 2N 04-03 02:06 → 3W 04-06 17:04